=== PATIENT | male | born 1950 | race Caucasian/White ===

== ENCOUNTER 2024-04-04 20:46 | Inpatient (IN) ==
--- OUTSIDE RECORDS SUMMARY | 2024-04-04 20:53 | External Medical Summary | Summary of Care ---
Author Name Unknown Organization [facility] Address [address] [place] [address] Phone [phone] Care Team Providers Care Wax Pattern Coater Name Role Phone Lawrence Rockwell MD Primary Care Provider [phone] Reason for Visit * Reason Comments Other trim Encounter Details Date Type Department Care Team (Late st Contact Info) Description 03/18/2024 8:45 AM EDT Office Visit Podiatry, [facility] [address] [place] [address] Hang Avalos, [facility] [address] [place] [address] Type 2 diabetes mellitus with hemoglobin A1c goal of less than 7.0% ([facility])*; Ingrown toenail of both feet Allergies No known active allergiesdocumented as of this encounter (statuses as of 03/18/2024) Medications Medication Sig Dispensed Refills Start Date End Date Status ONETOUCH ULTRA BLUE STRPIndications:DM type 2, goal A1c below 7 TEST TWICE A DAY 180 Strip 3 09/27/2013 Active Multiple Vitamins-Minerals (ONE-A-DAY MENS 50+ ADVANTAGE) TABS Take by mouth. 0 Activ e Cornish-3 Fatty Acids (SALMON OIL-1000) 200 MG CAPS Take by mouth daily . 0 Active Fluticasone Propionate 50 MCG/ACT Nasal Suspension (Flonase)Indication s:Chronic rhinitis Administer 2 Sprays into each nostril daily. 16 g 5 10/10/2021 Active CPAP every night at bedtime. 0 Active Propranolol HCl 10 MG Oral Tablet (Inderal) TAKE ONE TABLET BY MOUTH DAILY NEEDED 10 Tablet 5 03/05/2023 Active Vardenafil HCl 20 MG Oral Tablet (Levitra)Indication s:Erectile dysfunction, unspecified erectile dysfunction type TAKE ONE TABLET BY MOUTH 1 hour before intercourse as needed; no more than 1 dose per day 5 Tablet 1 03/05/2023 Active Cinnamon 500 MG Oral Tablet Take 1 Tablet by mouth in the morning. 90 Tablet 3 03/05/2023 Active CoQ10 100 MG Oral Capsule Take 100 mg by mouth in the morning. 90 Capsule 3 03/05/2023 Active Aspirin 81 MG Oral Tablet Chewable Take 1 Tablet by mouth in the morning. with food.. 90 Tablet 3 03/05/2023 Active Fluocinonide 0.05 % External SolutionIndications :Psoriasiform dermatitis Apply 1-2 drops to each ear daily as needed for itching or flares. 60 mL 2 03/05/2023 Active LancetsIndications: Type 2 diabetes mellitus with hemoglobin A1c goal of less than 7.0% ([facility]) Test twice daily as directed 200 Each 3 03/05/2023 Active metroNIDAZOLE 1 % External Gel (Metrogel)Indicatio ns:Rosacea Apply to entire face at night prior to bed 135 g 1 03/18/2023 Active Additional Information Patient not taking.Reported on 02/24/2024 Doxycycline Hyclate 20 MG Oral TabletIndications:R osacea TAKE 1 TABLET BY MOUTH TWICE DAILY WITH OR WITHOUT FOOD 180 Tablet 1 08/27/2023 Active Lisinopril 10 MG Oral Tablet (Prinivil)Indicatio ns:HTN, goal below 140/90,Coronary artery disease involving fed[place] indians [place] gr[place] coronary artery of fed[place] heart without angina pectoris TAKE 1 TABLET BY MOUTH DAILY IN THE MORNING 90 Tablet 3 08/28/2023 Active dilTIAZem HCl ER Coated Beads 120 MG Oral Capsule Extended Release 24 Hour (Cardizem CD)Indications:Paro xysmal atrial fibrillation (HCC),Atrial fibrillation, persistent (HCC),HTN, goal below 140/90 TAKE 1 CAPSULE BY MOUTH IN THE MORNING 90 Capsule 3 09/24/2023 Active Metoprolol Succinate ER 50 MG Oral Tablet Extended Release 24 Hour (toPROL XL)Indications:Paro xysmal atrial fibrillation (HCC) TAKE 1 TABLET BY MOUTH IN THE MORNING 90 Tablet 2 12/09/2023 Active Pantoprazole Sodium 20 MG Oral Tablet Delayed Release (Protonix) TAKE 1 TABLET BY MOUTH IN THE MORNING 90 Tablet 2 12/09/2023 Active Metoprolol Succinate ER 25 MG Oral Tablet Extended Release 24 Hour (toPROL XL)Indications:HTN, goal below 140/90 TAKE 1 TABLET BY MOUTH AT BEDTIME 90 Tablet 2 12/09/2023 Active Atorvastatin Calcium 80 MG Oral Tablet (Lipitor) TAKE 1 TABLET BY MOUTH IN THE MORNING 90 Tablet 2 12/09/2023 Active metFORMIN HCl 1000 MG Oral Tablet (Glucophage)Indicat ions:Type 2 diabetes mellitus with hemoglobin A1c goal of less than 7.0% (HCC) TAKE 1 TABLET BY MOUTH TWICE DAILY WITH MORNING AND EVENING MEALS 180 Tablet 1 02/09/2024 Active Warfarin Sodium 5 MG Oral Tablet (Coumadin) TAKE 1 TO 1 AND 1/2 TABLETS BY MOUTH DAILY DIRECTED BY COUMADIN CLINIC 135 Tablet 2 03/08/2024 Active documented as of this encounter (statuses as of 03/18/2024) Active Problems Problem Noted Date Diagnosed Date Coronary artery disease invo lving federated indians [place] coronary artery of fed[place] heart without angina pectoris 10/16/2021 Atrial fibrillation 02/28/2020 Overview: Added automatically from request for surgery [id number] LUIS (obstructive sleep apnea) 05/19/2019 Hypersomnolence disorder 03/23/2019 Primary insomnia 03/23/2019 Gastroesophageal reflux disease with esophagitis 03/12/2019 HTN, goal below 140/90 06/19/2017 Hong's esophagus with high grade dysplasia Type 2 diabetes mellitus wit h hemoglobin A1c goal of less than 7.0% 11/28/2015 Overview: ICD-10 update of inactive term Rosacea 06/14/2014 Dyslipidemia, goal LDL below 70 03/03/2013 documented as of this encounter (statuses as of 03/18/2024) Resolved Problems Problem Noted Date Diagnosed Date Resolved Date Atrial fibrillation, persistent 09/08/2020 10/10/2021 Overview: Added automatically from request for surgery [id number] Nocturnal hypoxemia 05/19/2019 03/15/20 24 Paroxysmal atrial fibrillation 01/12/2019 10/09/2020 Folliculitis 06/14/2014 10/12/2014 Other seborrheic keratosis 06/14/2014 1 12/13/2013 Possible Difficult Intubation history 01/11/2011 06/08/2018 Overview: There are no available records to substantiate a difficult intubation history. However, the patient recalls being told it was hard to put in a breathing tube. On a subsequent procedure it sounds like he recalls being sedated and possibly bronchoscoped for endotracheal tube placement. Cannot be sure that what he recalls was not an upper GI endoscopy (he has had several). Post-procedure addendum, review of outpatient anesthesia records (11 Jan 2011. Linked to GI procedures, Dr. Jacobs, not anesthesia scans.): 06/21/2010: Not intubated (nasal cannula) 07/12/2010: Not intubated (nasal cannula) 09/14/2010: GA induced after inadequate sedation for GI endoscopy. Rapid- sequence induction, [place] 2 laryngoscope blade, easy intubation in comments with 7.0 ETT. 11/23/2009: Transtracheal block, intubation using a Glidescope 4, 7.5 ETT. Type 2 diabetes mellitus wit h hemoglobin A1c goal of less than 7.0% 12/18/2010 04/13/2015 Overview: ICD-10 update of inactive term ADVANCE DIRECTIVE INFORMATION 09/14/2010 12/05/2017 Overview: No, Advance Directive brochure offered , patient declined. Esophageal reflux 03/12/2019 Overview: hiatal hernia documented as of this encounter (statuses as of 03/18/2024) Immunizations Name Administration Dates Next Due COVID-19 mRNA, LNP-s, No Pre serve, 2-Dose Series (Moderna) 12/30/2020,11/25/2020 COVID-19 mRNA, LNP-s, No Pre serve, 2-Dose Series (Pfizer) 08/05/2023 COVID-19, mRNA, LNP-s, PF, B ooster, 100mcg/0.5mg (Moderna) 03/27/2022 Covid-19, Mrna, Lnp-s, Pf, B ivalent, 50 Mcg, IM, 12 yrs and above (Moderna) 08/06/2022 PPD 05/30/2014 Pneumococcal Conjugate Vacc, 13 Valent (Prevnar) 11/28/2015 Pneumococcal Polysaccharide PPV23 (Pneumovax) 05/28/2017,12/18/2010 Season Influenza, Quad, PF, Adjuvanted, 65+ Yrs, IM (FLUAD) 10/16/2020 Seasonal Influenza, PF, 6 M & above, IM , (FluLaval or Fluzone) 09/17/2022,08/02/2019,09/23/2018,10/07 Seasonal Influenza, Quadriva lent Hd (Fluzone Hd) 07/25/2021 Seasonal Influenza, Quadriva lent Hd, 65+ Yrs 08/05/2023 Seasonal Influenza, Quadriva lent, No Preserve, IM 10/17/2016,08/14/2015 Seasonal Influenza, Split, I IV3, With Preserve, Inj 08/03/2014,09/16/2013,08/07/2012,08/17,08/17/2010 TDAP (age 11 and older)(Adacel) 12/18/2010 Varicella Zoster Vaccine (Adult) 04/27/2014 documented as of this encounter Social History Tobacco Use Types Packs/Day Years Used Date Smoking Tobacco: Former Cigarettes 0.5 10 Smokeless Tobacco: Former Quit: 11/03/1979 Comments:quit smoking 1979; chewed tobacco quit 5 yrs ago - no regular use Alcohol Use Standard Drinks/Week Comments Yes 12 (1 standard drink = 0.6 oz pure alcohol) everyday- a couple glasses of wine- more on the weekend PHQ-2 Answer Date Recorded PHQ Adult Total Score 2 01/02/2023 Hunger Vital Sign Answer Date Recorded Within the past 12 months, y ou worried that your food would run out before you got the money to buy more. Never true 01/03/20 23 Within the past 12 months, t he food you bought just didn't last and you didn't have money to get more. Never true 01/02/2023 Sex and Gender Information Value Date Recorded Sex Assigned at Male 03/12/2019 7:13 AM EDT Gender Identity Male 03/12/2019 7:13 AM EDT Sexual Orientation Straight 03/12/2019 7: 13 AM EDT Job Start Date Occupation Industry Not on file Not on file Not on file documented as of this encounter Progress Notes * Hang Avalos, DPM - 03/18/2024 8:37 AM EDT Patient presents with a painful reddened ingrown right great toenail. It has been present for 2 weeks. Past Medical History: Diagnosis Date Abnormal electrocardiogram 09/13/2010 Scanned outside cardiology consult: acceptable risk for GI endoscopy Hong's esophagus with high grade dysplasia 04/12/2016 DM type 2, goal A1c below 7 started meds 2009 Esophageal reflux hiatal hernia Mixed dyslipidemia Rosacea Sleep apnea, obstructive Past Surgical History: Procedure Laterality Date ANESTH, UPPER GI ENDOSCOPIC PROCS 09/14/2010 ANESTHESIA FOR UPPER GI ENDOSCOPIC PROCEDURES (ERCP OR UPPER GI) performed by RUDY JACOBS [place] [facility] [place]ESTH, UPPER GI ENDOSCOPIC PROCS 11/23/2010 ANESTHESIA FOR UPPER GI ENDOSCOPIC PROCEDURES (ERCP OR UPPER GI) performed by RUDY JACOBS at [facility] [place]ESTH, UPPER GI ENDOSCOPIC PROCS 01/11/2011 ANESTHESIA FOR UPPER GI ENDOSCOPIC PROCEDURES (ERCP OR UPPER GI) performed by RUDY JACOBS at [facility] COLONOSCOPY 05/2010 [place], Adenoma, repeat 2014 COLONOSCOPY, DIAGNOSTIC (RECTUM) 05/12/2015 COLONOSCOPY FLEXIBLE PROXIMAL DIAGNOSTIC performed by Rudy Jacobs MD at [facility] COLONOSCOPY, DIAGNOSTIC (RECTUM) N/A 04/09/2021 COLONOSCOPY FLEXIBLE PROXIMAL DIAGNOSTIC performed by Rudy Jacobs MD at [facility] CORONARY ANGIOGRAPHY W/LEFT HEART CATH Right 02/16/2021 CORONARY ANGIOGRAPHY W/LEFT HEART CATH performed by Zeus Phillips DO at [facility] EGD, FLEXIBLE, DIAGNOSTIC 03/18/2011 UPPER GI ENDOSCOPY DIAGNOSTIC performed by RUDY JACOBS at [facility] EGD, FLEXIBLE, DIAGNOSTIC 05/08/2011 UPPER GI ENDOSCOPY DIAGNOSTIC performed by RUDY JACOBS at [facility] EGD, FLEXIBLE, DIAGNOSTIC 12/27/2011 UPPER GI ENDOSCOPY DIAGNOSTIC performed by RUDY JACOBS at [facility] EGD, FLEXIBLE, DIAGNOSTIC 06/05/2012 UPPER GI ENDOSCOPY DIAGNOSTIC performed by Rudy Jacobs MD at [facility] EGD, FLEXIBLE, DIAGNOSTIC 02/26/2013 UPPER GI ENDOSCOPY DIAGNOSTIC performed by Rudy Jacobs MD at [facility] EGD, FLEXIBLE, DIAGNOSTIC 04/22/2014 ESOPHAGOGASTRODUODENOSCOPY (EGD), FLEXIBLE, TRANSORAL, [facility]ST[facility] [place]GD, FLEXIBLE, DIAGNOSTIC N/A 05/12/2015 ESOPHAGOGASTRODUODENOSCOPY (EGD), FLEXIBLE, TRANSORAL, DIAGNOSTIC [facility] [place]GD, FLEXIBLE, DIAGNOSTIC N/A 05/15/2017 ESOPHAGOGASTRODUODENOSCOPY (EGD), FLEXIBLE, TRANSORAL, DIAGNOSTIC [facility] EGD, FLEXIBLE, DIAGNOSTIC N/A 06/26/2018 ESOPHAGOGASTRODUODENOSCOPY (EGD), FLEXIBLE, TRANSORAL, DIAGNOSTIC performed by Rudy Jacobs MD [facility] EGD, FLEXIBLE, DIAGNOSTIC N/A 09/03/2019 ESOPHAGOGASTRODUODENOSCOPY (EGD), FLEXIBLE, TRANSORAL, DIAGNOSTIC performed by Rudy Jacobs MD [facility] EGD, FLEXIBLE, DIAGNOSTIC N/A 04/09/2021 ESOPHAGOGASTRODUODENOSCOPY (EGD), FLEXIBLE, TRANSORAL, DIAGNOSTIC performed by Rudy Jacobs MD [facility] EGD, FLEXIBLE, DIAGNOSTIC N/A 04/22/2022 ESOPHAGOGASTRODUODENOSCOPY (EGD), FLEXIBLE, TRANSORAL, DIAGNOSTIC performed by Rudy Jacobs MD [facility] EGD, FLEXIBLE, REMOVE LESIONS, SNARE METHOD 06/21/2010 EGD, FLEXIBLE, REMOVE LESIONS, SNARE METHOD mucosal resection , repeat in 2 mos EGD, FLEXIBLE, REMOVE LESIONS, SNARE METHOD 08/08/11 await BX's EGD, FLEXIBLE, W/BIOPSY 06/21/2010 barretts EGD, FLEXIBLE,W/ENDOSCOPIC US 06/21/2010 bxs done, path pending EGD, FLEXIBLE,W/ENDOSCOPIC US 08/08/11 await bx EGD, W/ENDOSCOPIC US N/A 05/09/2016 ESOPHAGOGASTRODUODENOSCOPY (EGD), FLEXIBLE, TRANSORAL, ENDOSCOPIC ULTRASOUND performed by Rudy Jacobs MD at [facility] ELECTROPHYSIOLOGY EVAL, ATRIAL FIB, PULMONARY VEIN ISOL N/A 10/30/2020 PVI RADIOFREQUENCY CATHETER ABLATION performed by Manisha Fernando IV, MD at [facility] HEART ELECTROCONVERSION, EXTERNAL N/A 03/06/2020 DC CARDIOVERSION performed by Manisha Fernando IV, MD at [facility] HEART ELECTROCONVERSION, EXTERNAL N/A 05/29/2020 DC CARDIOVERSION performed by Manisha Fernando IV, MD at [facility] INFORMATION 2010 Varicose vein injections REMOVE TONSILS & ADENOIDS, UNDER 12 Family History Problem Relation Age of Onset Heart Disorder Father [place], open heart surgery, CHF Diabetes Father Cancer Father skin CA nose Gastro-intestinal disorder Father diverticulitis Mental Disorder Father depression Thyroid Disorder Father Lung Disorder Mother emphysema Gastro-intestinal disorder Mother choly Social History Socioeconomic History Marital status: Spouse name: Not on file Number of children: Not on file Years of education: Not on file Highest education level: Not on file Occupational History 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 Tobacco Use Smoking status: Former Current packs/day: 0.50 Average packs/day: 0.5 packs/day for 10.0 years (5.0 ttl pk-yrs) Types: Cigarettes Smokeless tobacco: Former Quit date: 11/03/1979 Tobacco comments: quit smoking 1979; chewed tobacco quit 5 yrs ago - no regular use Vaping Use Vaping Use: Never used Substance and Sexual Activity Alcohol use: Yes Alcohol/week: 12.0 standard drinks of alcohol Types: 10 5 oz of wine, 2 1.5 oz of liquor per week Comment: everyday- a couple glasses of wine- more on the weekend Drug use: No Sexual activity: Yes Partners: Female Other Topics Concern Service Yes Blood Transfusions No Caffeine Concern No Comment: 3 cups of coffee per day, iced tea Occupational Exposure No Hobby Hazards No Sleep Concern No Stress Concern Yes Weight Concern Yes Special Diet No Back Care No Exercise Yes Bike Helmet Not Asked Seat Belt Yes Self-Exams Not Asked Social History Narrative Not on file Social Determinants of Health Financial Resource Strain: Not on file Food Insecurity: No Food Insecurity (02/02/2024) Hunger Vital Sign Worried About Running Out of Food in the Last Year: Never true Ran Out of Food in the Last Year: Never true Transportation Needs: Not on file Physical Activity: Not on file Stress: Not on file Social Connections: Not on file Intimate Partner Violence: Not on file Housing Stability: Not on file Current Outpatient Medications Medication Sig Dispense Refill ONETOUCH ULTRA BLUE STRP TEST TWICE A DAY 180 Strip 3 Multiple Vitamins-Minerals (ONE-A-DAY MENS 50+ ADVANTAGE) TABS Take by mouth. Cornish-3 Fatty Acids (SALMON OIL-1000) 200 MG CAPS Take by mouth daily . Fluticasone Propionate 50 MCG/ACT Nasal Suspension (Flonase) Administer 2 Sprays into each nostril daily. 16 g 5 CPAP every night at bedtime. Propranolol HCl 10 MG Oral Tablet (Inderal) TAKE ONE TABLET BY MOUTH DAILY NEEDED 10 Tablet 5 Vardenafil HCl 20 MG Oral Tablet (Levitra) TAKE ONE TABLET BY MOUTH 1 hour before intercourse as needed; no more than 1 dose per day 5 Tablet 1 Cinnamon 500 MG Oral Tablet Take 1 Tablet by mouth in the morning. 90 Tablet 3 CoQ10 100 MG Oral Capsule Take 100 mg by mouth in the morning. 90 Capsule 3 Aspirin 81 MG Oral Tablet Chewable Take 1 Tablet by mouth in the morning. with food.. 90 Tablet 3 Fluocinonide 0.05 % External Solution Apply 1-2 drops to each ear daily as needed for itching or flares. 60 mL 2 Lancets Test twice daily as directed 200 Each 3 metroNIDAZOLE 1 % External Gel (Metrogel) Apply to entire face at night prior to bed (Patient not taking: Reported on 02/24/2024) 135 g 1 Doxycycline Hyclate 20 MG Oral Tablet TAKE 1 TABLET BY MOUTH TWICE DAILY WITH OR WITHOUT FOOD 180 Tablet 1 Lisinopril 10 MG Oral Tablet (Prinivil) TAKE 1 TABLET BY MOUTH DAILY IN THE MORNING 90 Tablet 3 dilTIAZem HCl ER Coated Beads 120 MG Oral Capsule Extended Release 24 Hour (Cardizem CD) TAKE 1 CAPSULE BY MOUTH IN THE MORNING 90 Capsule 3 Metoprolol Succinate ER 50 MG Oral Tablet Extended Release 24 Hour (toPROL XL) TAKE 1 TABLET BY MOUTH IN THE MORNING 90 Tablet 2 Pantoprazole Sodium 20 MG Oral Tablet Delayed Release (Protonix) TAKE 1 TABLET BY MOUTH IN THE MORNING 90 Tablet 2 Metoprolol Succinate ER 25 MG Oral Tablet Extended Release 24 Hour (toPROL XL) TAKE 1 TABLET BY MOUTH AT BEDTIME 90 Tablet 2 Atorvastatin Calcium 80 MG Oral Tablet (Lipitor) TAKE 1 TABLET BY MOUTH IN THE MORNING 90 Tablet 2 metFORMIN HCl 1000 MG Oral Tablet (Glucophage) TAKE 1 TABLET BY MOUTH TWICE DAILY WITH MORNING AND EVENING MEALS 180 Tablet 1 Warfarin Sodium 5 MG Oral Tablet (Coumadin) TAKE 1 TO 1 AND 1/2 TABLETS BY MOUTH DAILY DIRECTED BY COUMADIN CLINIC 135 Tablet 2 No current facility-administered medications for this visit. ROS EXAM: CONSTITUTIONAL: No change in weight, No weakness, No fatigue and No fevers, sweats, or chills EXTREMITIES: No pain, redness or swelling on the joints SKIN/INTEGUMENTARY: No edema, No rash and No itching NEUROLOGIC: Normal balance, No headaches, No seizures and No weakness Objective: Vascular examination: DP 2/4 bilateral PT 2/4 bilateral SPVFT 3sec Dermatological examination: Right great toenail appears ingrown with erythema of border Orthopedic examination: unremarkable Neurological examination: Epicritic sensation intact Assessment: The primary encounter diagnosis was Type 2 diabetes mellitus with hemoglobin A1c goal of less than 7.0% ([facility]). A diagnosis of Ingrown toenail of both feet was also pertinent to this visit. Plan: 1. A partial excision of the border of the right great toenail was performed back to the [facility] topical anesthesia. Patient refused digital block. The toe was dressed with Neosporin/bandaid. documented in this encounter Nursing Notes * Sherrell Maki LPN - 03/18/2024 8:24 AM EDT trim documented in this encounter Plan of Treatment Upcoming Encounters Date Type Department Care Team (Latest Contact Info) Description 4 7:30 AM EDT Anticoagulation Pharmacy, [address] [address] [place] [facility] [address] [place] [address] 4 7:30 AM EDT Hospital Encounter [facility]oscopy Suite, [facility] [address], [address] [place] [address] Rudy Jacobs MD [address] [place] [address] 4 7:30 AM EDT - 4 8:45 AM EDT Surgery [facility], Endoscopy Suite, [facility] [address], [address], [place] [id number] Rudy Jacobs MD [address] [place] [address] ESOPHAGOGASTRODUODENOSCOPY (EGD), FLEXIBLE, TRANSORAL, DIAGNOSTIC 4 10:00 AM EDT Office Visit Sleep Disorders Ctr [facility] [address] [place] [id number] Cristel Canchola DO [address] [facility] [place] [address] 4 12:30 PM EDT Office Visit Cardiology, [facility] [address] [place] [address] Manisha Fernando IV, MD [address] [place] [address] 4 8:45 AM EDT Office Visit Dermatology [facility] [address] [place] [address] Wilian Meneses MD [address] [place] [address] 4 8:45 AM EDT Office Visit Podiatry, [facility] [address] [place] [address] Hang Avalos, DPDano [address] [place] [address] 4 11:30 AM EDT Office Visit Otolaryngology/ Head & Neck/Facial Plastic Surgery [address], [place] [id number] Veronica Clark PA-C [address] [place] [address] 4 8:30 AM EST Office Visit Cardiology, [facility] [address] [place] [address] Margaret Loya CRNP [address] [place] [address] 4 7:40 AM EST Office Visit Family [facility], [place] [address] [place] [id number] Lawrence Rockwell MD [address] [place] [address] 5 9:45 AM EST Office Visit Dermatology [facility] [address] [place] [address] Wilian Meneses MD [address] [place] [address] 5 9:00 AM EDT Nurse Only Ancillary Department, [place] [address] [place] [address] [place], Nurse [facility] [address] [place] [address] Scheduled Orders Name Type Priority Associated Diagnoses Orde r Schedule NAIL,RMV SINGLE NAIL PLATE Procedures Routine Ingrown toenail of both feet Ordered: 03/18/2024 Scheduled Procedures Name Priority Associated Diagnoses Date/Ti me ESOPHAGOGASTRODUODENOSCOPY ( EGD), FLEXIBLE, TRANSORAL, DIAGNOSTIC Recall Hong's esophagus 04/23/2024 7:30 AM EDT COLONOSCOPY FLEXIBLE PROXIMA L DIAGNOSTIC Recall Hong's esophagus 04/23/2024 7:30 AM EDT COLONOSCOPY FLEXIBLE PROXIMA L DIAGNOSTIC Recall History of colon polyps Internal hemorrhoids Health Maintenance Due Date Last Done Comments Cologuard 1994 Fecal Occult Blood Test 1994 Sigmoidoscopy 1994 Zoster Vaccines (2 of 3) 06/22/2014 04/27/2014 DTaP,Tdap,and Td Vaccines (2 - Td or Tdap) 12/18/2020 12/18/2010 Diabetic Foot Exam 04/10/2022 04/10/2021, 0 04/10/2021, 03/12/2019, Additional history exists COVID-19 Vaccine ( season) 2023 08/05/2023, 08/06/2022, 03/27/2022, Additional history exists Colonoscopy 04/09/2024 04/09/2021, 060 05/2021, 05/12/2015, Additional history exists Colorectal Cancer Screening 04/09/2024 Diabetic Eye Exam 08/08/2024 08/08/2023, , 07/15/2022, Additional history exists HbA1c 09/16/2024 03/16/2024, 08/05, 03/28/2023, Additional history exists Depression Screening 02/01/2025 02/02/2024 Albumin/Creatinine Ratio 03/16/2025 024, 03/28/2023, 05/20/2022, Additional history exists B-12 03/16/2025 03/16/2024, 03/04, 05/20/2022, Additional history exists GFR 03/16/2025 03/16/2024, 08/05, 03/28/2023, Additional history exists Hong's Esophagus Surveilance 04/22/2025 04/22/2022, 04/22/2022, 04/09/2021, Additional history exists AAA Screening Completed 11/21/2014 Pneumococcal Vaccine: 65+ Years Completed 05/28/2017, 11/28/2015, 12/18/2010 Influenza Vaccine (FLU shot) Completed 01/2023, 09/17/2022, 09/16/2022, Additional history exists GARDASIL-HPV IMMUNIZATION SERIES Aged Out No longer eligible based on patient's age to complete this topic Hepatitis B Aged Out No longer eligi ble based on patient's age to complete this topic MENINGOCOCCAL (MENACTRA/MENVEO) Aged Out No longer eligible based on patient's age to complete this topic documented as of this encounter Medical Devices Not on filedocumented as of this encounter Visit Diagnoses Diagnosis Type 2 diabetes mellitus with hemoglobin A1c goal of less than 7.0% ([facility])- Primary Ingrown toenail of both feet Hong's esophagus documented in this encounter Advance Directives Latest Code Status on File Code Status Date Activated Date Inactivated Comments Full Code 10/30/2020 4:04 PM 10/31/2020 1:07 PM Thi s order reflects the patients wishes and were consensually agreed upon. Care Teams Wax Pattern Coater Relationship Specialty Start Date End Date Lawrence Rockwell MD [address], [place] [id number] PCP - General Family Medicine 12/11/10 documented as of this encounter
--- OUTSIDE RECORDS SUMMARY | 2024-04-04 20:53 | External Medical Summary | Summary of Care ---
Author Name Unknown Organization [facility] Address [address] [place] [address] Phone [phone] Care Team Providers Care Field Artillery Cannoneer Name Role Phone Lawrence Rockwell MD Primary Care Provider [phone]- [phone] Reason for Visit * Reason Comments Follow Up Encounter Details Date Type Department Care Team ([facility] st Contact Info) Description 03/04/2024 8:30 AM EDT Office Visit Cardiology, [facility] [address] [place] [address] Margaret Loya CRNP [address] [place] [address] Coronary artery disease involving [place] courte oreilles coronary artery of [place] heart without angina pectoris*; Paroxysmal atrial fibrillation (HCC); HTN, goal below 140/90; Dyslipidemia, goal LDL below 70 Allergies No known active allergiesdocumented as of this encounter (statuses as of 03/04/2024) Medications Medication Sig Dispensed Refills Start Date End Date Status ONETOUCH ULTRA BLUE STRPIndications:DM type 2, goal A1c below 7 TEST TWICE A DAY 180 Strip 3 09/27/2013 Active Multiple Vitamins-Minerals (ONE-A-DAY MENS 50+ ADVANTAGE) TABS Take by mouth. 0 Activ e Fairdealing-3 Fatty Acids (SALMON OIL-1000) 200 MG CAPS [...] hemoglobin A1c goal of less than 7.0% ([facility]) Test twice daily as directed 200 Each 3 03/05/2023 Active Warfarin Sodium 5 MG Oral Tablet (Coumadin) TAKE 1-1.5 TABLETS BY MOUTH DAILY DIRECTED BY COUMADIN CLINIC 21 Tablet 0 03/06/2023 Active metroNIDAZOLE 1 % External Gel (Metrogel)Indicatio [...] ns:HTN, goal below 140/90,Coronary artery disease involving lac courte oreilles coronary artery of [place] ore[place] heart without angina pectoris TAKE 1 TABLET [...] EVENING MEALS 180 Tablet 1 02/09/2024 Active documented as of this encounter (statuses as of 03/04/2024) Active Problems Problem Noted Date Diagnosed Date Coronary artery disease invo lving lac courte oreilles coronary artery of [place] ore[place] heart without angina pectoris 10/16/2021 Atrial fibrillation 02/28/2020 Overview: Added automatically from request for surgery [id number] LUIS (obstructive sleep apnea) 05/19/2019 Nocturnal hypoxemia 05/19/2019 Hypersomnolence disorder 03/23/2019 Primary insomnia 03/23/2019 Gastroesophageal reflux disease with esophagitis 03/12/2019 HTN, goal below 140/90 06/19/2017 Hong's esophagus with high grade dysplasia Type 2 diabetes mellitus wit h hemoglobin A1c goal of less than 7.0% 11/28/2015 Overview: ICD-10 update of inactive term Rosacea 06/14/2014 Dyslipidemia, goal LDL below 70 03/03/2013 documented as of this encounter (statuses as of 03/04/2024) Resolved Problems Problem Noted Date Diagnosed Date Resolved Date Atrial fibrillation, persistent 09/08/2020 10/10/2021 Overview: Added automatically from request for surgery [id number] Paroxysmal atrial fibrillation 01/12/2019 10/09/2020 Folliculitis 06/14/2014 [...] Jan 2011. Linked to GI procedures, Dr. Coleman, not anesthesia scans.): 06/21/2010: Not intubated (nasal [...] as of this encounter (statuses as of 03/04/2024) Immunizations Name Administration Dates Next Due COVID-19 [...] on file documented as of this encounter Last Filed Vital Signs Vital Sign Reading Time Taken Comments Blood Pressure 120/82 03/04/2024 8:29 AM EDT Pulse 64 03/04/2024 8:29 AM EDT Temperature - - Respiratory Rate 14 03/04/2024 8:29 AM EDT Oxygen Saturation - - Inhaled Oxygen Concentration - - Weight 104.8 kg (231 lb) 03/04/2024 8:29 AM EDT Height - - Body Mass Index 34.11 02/24/2024 8:46 AM EDT documented in this encounter Progress Notes * Margaret Loya CRNP - 03/04/2024 8:30 AM EDT Images from the original note were not included. 03/03/2024 Cardiology Follow Up Primary Medical Supervisor: Dr. Del Rio Cardiac Problems: 1. Paroxysmally atrial fibrillation 2. History of atrial fibrillation ablation 2020 as well as prior DCCV 3. Nonobstructive coronary artery disease 4. LUIS 5. Dyslipidemia and hypertension HPI: Mitch Pinto is a 73 year old male presents for routine cardiology follow up. Last seen in our office by Dr. Del Rio on 08/21/2023 feeling well from a cardiac standpoint at this time. Patient presents today feeling well overall. He states that on occasion he wakes at night sometimesfeeling "anxious" and as though he needs to take few deep breathes, can feel his heart rate speed up. Symptoms resolve very quickly and does not seem to be an issue. He remains very active and loves to fly fish. He states that he does not hydrate well and is working on it. Rare caffeine intake BP well controlled. Uses his CPAP Reports compliance on all medication therapies, No bleeding concerns with being on warfarin. REVIEW OF SYSTEMS: See HPI for pertinent positives. All others negative other than those noted in the HPI. CONSTITUTIONAL: No change in weight, No weakness, No fatigue and No fevers, No sweats or chills. PULMONARY: No cough, sputum, or hemoptysis, No wheezing, No shortness or breath and No recent change in breathing. CARDIOVASCULAR: No chest pain, No dyspnea on exertion, No edema, No palpitations and No syncope. GASTROINTESTINAL: No abdominal pain, No change in bowel habits, No significant heartburn, No nausea, No vomiting, No diarrhea, No constipation, No blood in stools or black tarry stools. No dysphagia. HEMATOLOGIC: No abnormal bleeding and No bruising. NEUROLOGICAL: Normal balance, No headaches and No weakness. Review of patient's allergies indicates: No Known Allergies Current Outpatient Medications Medication Sig Dispense Refill Multiple Vitamins-Minerals (ONE-A-DAY MENS 50+ ADVANTAGE) TABS Take by mouth. Fairdealing-3 Fatty Acids (SALMON OIL-1000) 200 MG CAPS [...] the morning. with food.. 90 Tablet 3 Warfarin Sodium 5 MG Oral Tablet (Coumadin) TAKE 1-1.5 TABLETS BY MOUTH DAILY DIRECTED BY COUMADIN CLINIC 21 Tablet 0 Doxycycline Hyclate 20 MG Oral Tablet TAKE [...] MORNING AND EVENING MEALS 180 Tablet 1 BookiooUCH ULTRA BLUE STRP TEST TWICE A DAY 180 Strip 3 Fluocinonide 0.05 % External Solution Apply 1-2 drops to each ear daily as needed for itching or flares. 60 mL 2 Lancets Test twice daily as directed 200 Each 3 metroNIDAZOLE 1 % External Gel (Metrogel) Apply to entire face at night prior to bed (Patient not taking: Reported on 02/24/2024) 135 g 1 No current facility-administered medications for this visit. Past Medical History: Diagnosis Date Abnormal electrocardiogram 09/13/2010 Scanned outside cardiology consult: acceptable risk for GI endoscopy Hong's esophagus with high grade dysplasia 04/12/2016 DM type 2, goal A1c below 7 started meds 2009 Esophageal reflux hiatal hernia Mixed dyslipidemia Rosacea Sleep apnea, obstructive Family History Problem Relation Age of Onset Heart Disorder Father LA, open heart surgery, CHF Diabetes Father Cancer Father skin CA nose Gastro-intestinal disorder Father diverticulitis Mental Disorder Father depression Thyroid Disorder Father Lung Disorder Mother emphysema Gastro-intestinal disorder Mother choly Social History Socioeconomic History Marital status: Occupational History 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 A+Ox3. HEENT: Normocephalic. Atraumatic. PERRL. EOMI. Conjunctiva and sclera clear. NECK: No carotid bruits. No JVD. Carotid upstrokes are brisk. Heart: RRR. S1 and S2 noted. No murmur. No rubs or gallops. PMI non displaced. Lungs: Clear to auscultation. No wheezes.No rhonchi. No rales. Abdomen: Normal bowel sounds. Soft. Nontender. No masses or organomegaly. No abdominal bruits. Extremities: No edema. No clubbing or cyanosis. Pulses: radial=2/4, posterior tibial=2/4, dorsalis pedis = 2/4. NEURO: No focal deficits. PSYCH: Appropriate affect and insight. DATA Labs & Imaging Reviewed Below: EKG 05/15/2023 Normal sinus rhythm with sinus arrhythmia Incomplete right bundle branch block Borderline ECG When compared with ECG of 06-MAR-2023 16:10, Sinus rhythm has replaced Atrial flutter Nonspecific T wave abnormality, worse in Lateral leads Ventricular Rate: 61 Cardiac cath 02/16/2021 ASSESSMENT/PLAN: 73 year old year old male 1. Coronary artery disease involving lac courte oreilles coronary artery of lac cour[place] oreilles heart without angina pectoris -patient is doing quite well from a cardiac perspective denies any change in his functional capacity -history of cardiac catheterization in 2020 that showed mild single-vessel CAD nonobstructive -continue metoprolol succinate, lisinopril, aspirin 81 mg, atorvastatin 2. Paroxysmal atrial fibrillation (HCC) -known history with prior cardioversion and ablation, feeling well overall -discussed his occasional palpitation symptoms overnight -remains compliant with CPAP -encouraged to stay well hydrated but also to keep a small journal of the frequency of his episodesin any contributing factors -if they should continue or worsen would likely recommend protracted cardiac monitoring -patient also follows with Dr. Fernando, EP and is scheduled to see him this May -continue diltiazem, and metoprolol succinate -aware the patient has propranolol p.r.n. also on his medication list which he uses for an occasional tremor -continue warfarin as per current recommendation by [facility]TM 3. HTN, goal below 140/90 -well controlled continue diltiazem, metoprolol succinate, lisinopril 4. Dyslipidemia, goal LDL below 70 -recommend yearly lipid panel -continue atorvastatin and aspirin 81 mg DISPOSITION: Follow up 6 months. Also keep scheduled EP visit or if symptoms worsen/fail to improve. All questions were answered to the patients satisfaction. Patient advised to report to ED with any and all emergencies. The patient agrees to the above plan and will call with additional questions or concerns. [facility] [address] [facility] [address] I spent a total of 32 minutes on the date of service in preparation, delivery, and documentation ofthe care provided to Mitch Pinto excluding any time spent in the performance of separately billed services. This chart was completed in part utilizing [id number] Speech Voice Recognition Software. Grammatical errors, random word insertions, pronoun errors, and incomplete sentences are an occasional consequence of this system due to software limitations, ambient noise, and hardware issues. Any formal questions or concerns about the content, text, or information contained within the body of this dictation should be directly addressed to the provider for clarification. documented in this encounter Nursing Notes * Radha Gonzalez LPN - 03/04/2024 8:27 AM EDT Examination Room: 6 Name: Mitch Pinto Date of : 1950 Reason for Visit: Follow up Problems/Concerns: Occasionally feels fluttering at night with some SOB. Interim Hosp(s): denies Chest Pain/SOB: denies MyChart Discussed: ALREADY ACTIVE Patient was instructed to not get up on the exam table until directed and assisted by their provider; patient is to remain seated in the chair/ wheelchair/ exam table for fall prevention and safety reasons. Patient is aware staff will assist stepping down off exam table with personnel. documented in this encounter Plan of Treatment Upcoming Encounters Date Type Department Care Team (Latest Contact Info) Description 4 5:10 PM EDT Anticoagulation Pharmacy, [place] [address] [facility] [place] [address] [facility] [address] [place] [address] 4 9:30 AM EDT Anticoagulation Pharmacy, [place] [address] [facility] [place] [address] [place], [facility] [address] [place] [facility] [place] [address] 4 9:40 AM EDT Office Visit Family [facility], [place] [address] [place] [address] Lawrence Rockwell MD [address] [place] [address] 4 8:45 AM EDT Office Visit Podiatry, [facility] [address] [place] [address] Hang Avalos, [facility] [address] [place] [address] 4 7:30 AM EDT Hospital Encounter [facility]O [facility], Endoscopy [address], [facility], [address] [place] [address] Demarco Coleman MD [address], [place] [id number] 4 7:30 AM EDT - 4 8:45 AM EDT Surgery ENDO [facility], Endoscopy [address], [facility], [address] [place] [address] Demarco Coleman MD [address], [place] [id number] ESOPHAGOGASTRODUODENOSCOPY (EGD), FLEXIBLE, TRANSORAL, DIAGNOSTIC 4 10:00 AM EDT Office Visit Sleep Disorders [facility] [address] [facility] [address] Cristel Canchola DO [address] [place] [address] 4 12:30 PM EDT Office Visit Cardiology, [facility] [address] [place] [address] Manisha Fernando IV, MD [address] [place] [address] 4 8:45 AM EDT Office Visit Dermatology [facility] [address] [place] [address] Wilian Meneses MD [address] [place] [address] 4 11:30 AM EDT Office Visit Otolaryngology/ Head & Neck/Facial Plastic Surgery [address] [place] [address] Veronica Clark PA-C [address] [place] [address] 4 8:30 AM EST Office Visit Cardiology, [facility] [address] [place] [address] Margaret Loya CRNP [address] [facility] [place] [address] 5 9:45 AM EST Office Visit Dermatology [facility] [address] [place] [address] Wilian Meneses MD [address] [place] [address], [place] [address] 9:00 AM EDT Nurse Only Ancillary Department, [place] [address] [place] [address] Rafy, Nurse [facility] [address] [place] [address] Scheduled Procedures Name Priority Associated Diagnoses Date/Ti [...] 2023 08/05/2023, 08/06/2022, 03/27/2022, Additional history exists HbA1c 03/02/2024 09/01/2023, 03/04, 11/19/2022, Additional history exists Albumin/Creatinine Ratio 03/28/2024 023, 05/20/2022, 10/10/2021, Additional history exists B-12 03/28/2024 03/28/2023, 05/03, 10/10/2021, Additional history exists Colonoscopy 04/09/2024 04/09/2021, 06/0 05/2021, 05/12/2015, Additional history exists Colorectal Cancer Screening 04/09/2024 Diabetic Eye Exam 08/08/2024 08/08/2023, , 07/15/2022, Additional history exists GFR 09/01/2024 09/01/2023, 03/04, 05/20/2022, Additional history exists Depression Screening 02/01/2025 02/02/2024 Hong's Esophagus Surveilance 04/22/2025 04/22/2022, 04/22/2022, 04/09/2021, [...] as of this encounter Visit Diagnoses Diagnosis Coronary artery disease involving lac courte oreilles coronary artery of lac courte oreilles heart without angina pectoris- Primary Paroxysmal atrial fibrillation (HCC) Atrial fibrillation HTN, goal below 140/90 Unspecified essential hypertension Dyslipidemia, goal LDL below 70 Other and unspecified hyperlipidemia Hong's esophagus documented in this encounter Advance Directives Latest Code Status on File Code Status Date Activated Date Inactivated Comments Full Code 10/30/2020 4:04 PM 10/31/2020 1:07 PM Thi s order reflects the patients wishes and were consensually agreed upon. Care Teams Field Artillery Cannoneer Relationship Specialty Start Date End Date Lawrence Rockwell MD [address] [place] [address] PCP - General Family Medicine 12/11/10 documented as of this encounter
--- OUTSIDE RECORDS SUMMARY | 2024-04-04 20:53 | External Medical Summary ---
Author Name Unknown Address Unknown Organization [id number]:[facility] [place] [facility] [address] [address] Laboratory Report Ordering Provider Test Date Status ELIZABETH CRAWLEYJOSS 03/16/2024 07:36:30 Final Normal: <30 mg/g creatinine< br/>High: 30-300 mg/g creatinine
Very High: >300 mg/g creatinine
Nephrotic: >2200 mg/g creatinine Observation Date Value Abnormality Reference (Units ) Status Albumin, Urine 03/16/2024 07:36:30 <1.20 (mg/dL) Final Creatinine, Urine 03/16/2024 07:36:30 163 (mg/dL) Final Albumin/Creatinine [Mass Ratio] in Urine 03/16/2024 07:36:30 <7 <30 (mg/g Creat) Final Performing Location [facility] [place] [facility] [place] [address]
--- OUTSIDE RECORDS SUMMARY | 2024-04-04 20:53 | External Medical Summary ---
Author Name Unknown Address Unknown Organization [id number]:[facility] [place] [address] [place] [address] Laboratory Report Ordering Provider Test Date Status STEPHIE CRAWLEY 03/16/2024 07:35:02 Final Observation Date Value Abnormality Reference (Units ) Status Vitamin B12 03/16/2024 07:35:02 [phone] (pg/mL) Final Performing Location LABORATORY C - [address] [place] [address]
--- OUTSIDE RECORDS SUMMARY | 2024-04-04 20:53 | External Medical Summary ---
Author Name Unknown Address Unknown Organization [id number]:[facility] [place] [address] [place] [address] Laboratory Report Ordering Provider Test Date Status IMELDA AGUERO 03/16/2024 07:35:02 Final Observation Date Value Abnormality Reference (Units ) Status MYCODE SPECIMEN-SST 03/16/2024 07:35:02 Freezing of extracted DNA, whole blood and/or serum. Final Performing Location LABORATORY C - [address] [place] [address]
--- OUTSIDE RECORDS SUMMARY | 2024-04-04 20:53 | External Medical Summary ---
Author Name Unknown Address Unknown Organization [id number][place] [place] [address] [facility] [address] Laboratory Report Ordering Provider Test Date Status STEPHIE CRAWLEY 03/16/2024 07:35:02 Final Observation Date Value Abnormality Reference (Units ) Status BUN 03/16/2024 07:35:02 15 6-20 (mg/dL) Final Creatinine 03/16/2024 07:35:02 0.9 0.6-1.2 (mg/dL) Final Glomerular filtration rate/1.73 sq M.predicted [Volume Rate/Area] in Serum, Plasma or Blood by Creatinine-based formula (CKD-EPI) 03/16/2024 07:35:02 85 >=60 (mL/min) Final eGFR is calculated based on the CKD-EPI 2020 equation Sodium 03/16/2024 07:35:02 138 135-146 (m mol/L) Final Potassium 03/16/2024 07:35:02 4.6 3.5-5.1 (m mol/L) Final Cl 03/16/2024 07:35:02 104 98-107 (mm ol/L) Final CO2 03/16/2024 07:35:02 26 22-32 (mmo l/L) Final Anion gap 03/16/2024 07:35:02 8 7-15 (mmol /L) Final Glucose 03/16/2024 07:35:02 119 70-120 (mg /dL) Final Albumin 03/16/2024 07:35:02 4.2 3.8-5.0 (g /dL) Final AST (Aspartate aminotransferase) 03/16/2024 07:35:02 35 10-50 (U/L) Final Alk Phos 03/16/2024 07:35:02 76 35-130 (U/ L) Final Bilirubin, Total 03/16/2024 07:35:02 0.3 <=1 .2 (mg/dL) Final Calcium 03/16/2024 07:35:02 9.3 8.4-10.2 ( mg/dL) Final Protein 03/16/2024 07:35:02 6.8 6.0-8.3 (g /dL) Final ALT (Alanine aminotransferase) 03/16/2024 07:35:02 46 10-50 (U/L) Final Performing Location [facility] [place] [address] [facility] [place] [address]
--- OUTSIDE RECORDS SUMMARY | 2024-04-04 20:53 | External Medical Summary ---
Author Name Unknown Address Unknown Organization [id number]:[facility] [place] [address] [facility] [address] Laboratory Report Ordering Provider Test Date Status STEPHIE CRAWLEY 03/16/2024 07:35:02 Final Observation Date Value Abnormality Reference (Units ) Status Triglyceride 03/16/2024 07:35:02 68 <=174 ( mg/dL) Final Triglyceride Reference Range s (mg/dL):
<150 Acceptable
150-174 Borderline high
175-499 High
>=500 Very high Cholesterol 03/16/2024 07:35:02 116 <200 (mg /dL) Final Total Cholesterol Reference Ranges (mg/dL):
<200 Desirable
200-239 Borderline high
>=240 High HDL 03/16/2024 07:35:02 44 >39 (mg/dL ) Final HDL Cholesterol Reference Ra nges (mg/dL):
>=60 High (Desirable)
<50 Low (Undesirable) For Females
<40 Low (Undesirable) For Males NON-HDL CHOLESTEROL 03/16/2024 07:35:02 72 <=159 (mg/dL) Final Non-HDL Cholesterol Referenc e Range (mg/dL):
<100 Target level for high risk ASCVD patient
<130 Optimal for general population
130-159 Near optimal for general population
160-189 Borderline High
190-219 High
>=220 Very High LDL, (calculated) 03/16/2024 07:35:02 58 <= 129 (mg/dL) Final LDL Cholesterol Reference Ra nges (mg/dL):
<70 Target level for high risk ASCVD patient
<100 Optimal for general population
100-129 Near optimal for general population
130-159 Borderline high
160-189 High
>=190 Very high Performing Location [facility] [place] [address] [facility] [address]
--- OUTSIDE RECORDS SUMMARY | 2024-04-04 20:53 | External Medical Summary | Summary of Care ---
Author Name Unknown Organization [facility] Address [address] [place] [address] Phone [phone] Care Team Providers Care Desk Reporter Name Role Phone Lawrence Rockwell MD Primary Care Provider [phone] Reason for Visit * Reason Comments Follow Up Return in 6 months W ould like to see how he could get information on why he is on the CPAP and hypertension medications Encounter Details Date Type Department Care Team (Late st Contact Info) Description 03/15/2024 9:40 AM EDT Office Visit [facility] [address] [place] [address] Lawrence Rockwell MD [address] [place] [address] Type 2 diabetes mellitus with hemoglobin A1c goal of less than 7.0% (HCC)*; Paroxysmal atrial fibrillation (HCC); HTN, goal below 140/90; Dyslipidemia, goal LDL below 70; LUIS (obstructive sleep apnea); Encounter for long-term (current) use of medications; Coronary artery disease involving [place] coronary artery of [place] heart without angina pectoris; Hong's esophagus with high grade dysplasia Allergies No known active allergiesdocumented as of this encounter (statuses as of 03/31/2024) Medications Medication Sig Dispensed Refills Start Date End Date Status ONETOUCH ULTRA BLUE STRPIndications:DM type 2, goal A1c below 7 TEST TWICE A DAY 180 Strip 3 09/27/2013 Active Multiple Vitamins-Minerals (ONE-A-DAY MENS 50+ ADVANTAGE) TABS Take by mouth. Activ e Hope-3 Fatty Acids (SALMON OIL-1000) 200 MG CAPS Take by mouth daily . Active Fluticasone Propionate 50 MCG/ACT Nasal Suspension (Flonase)Indication s:Chronic rhinitis Administer 2 Sprays into each nostril daily. 16 g 5 10/10/2021 Active CPAP every night at bedtime. Active Propranolol HCl 10 MG Oral Tablet [...] hemoglobin A1c goal of less than 7.0% ([facility]) Test twice daily as directed [...] ns:HTN, goal below 140/90,Coronary artery disease involving [place] coronary artery of [place] heart without angina pectoris TAKE 1 TABLET [...] as of this encounter (statuses as of 03/31/2024) Active Problems Problem Noted Date Diagnosed Date Coronary artery disease invo lving [place] coronary artery of [place] heart without angina pectoris 10/16/2021 Atrial fibrillation 02/28/2020 Overview: Added automatically from request for surgery [id number] LUIS (obstructive sleep apnea) 05/19/2019 Hypersomnolence disorder [...] as of this encounter (statuses as of 03/31/2024) Resolved Problems Problem Noted Date Diagnosed Date Resolved Date Atrial fibrillation, persistent 09/08/2020 10/10/2021 Overview: Added automatically from request for surgery [id number] Nocturnal hypoxemia 05/19/2019 03/15/20 24 Paroxysmal atrial [...] as of this encounter (statuses as of 03/31/2024) Immunizations Name Administration Dates Next Due COVID-19 [...] 0.5 10 Smokeless Tobacco: Former Quit: 11/03/1979 Tobacco Cessation:Counseling Given: Not Answered Comments:quit smoking 1979; chewed tobacco quit 5 [...] Sign Reading Time Taken Comments Blood Pressure 128/64 03/15/2024 9:41 AM EDT Pulse 61 03/15/2024 9:41 AM EDT Temperature 36 C (96.8 F) 03/15/2024 9:41 AM EDT Respiratory Rate 17 03/15/2024 9:41 AM EDT Oxygen Saturation 98% 03/15/2024 9:41 AM EDT Inhaled Oxygen Concentration - - Weight 105 kg (231 lb 6.4 oz) 03/15/2024 9:41 AM EDT Height 175.3 cm (5' 9") 03/15/2024 9:41 AM EDT Body Mass Index 34.17 03/15/2024 9:41 AM EDT documented in this encounter Progress Notes * Lawrence Rockwell MD - 03/15/2024 10:16 AM EDT Subjective: Mitch Pinto is a 73 year old male here today for Chief Complaint Patient presents with Follow Up Return in 6 months Would like to see how he could get information on why he is on the CPAP and hypertension medications Patient presents for routine six-month recheck. He is agreeable to updating labs and will return tohave them done fasting. He is tolerating his current medications. Has no acute complaints today. Does report receiving the RSV vaccination and 1st shingles vaccination at [facility]. He is requesting a letter today documenting the diagnoses and treatments for obstructive sleep apnea, hypertension, atrial fibrillation. [facility] He is scheduled to have repeat EGD and colonoscopy next month. Past Medical History: Diagnosis Date Abnormal electrocardiogram [...] (ERCP OR UPPER GI) performed by RUDY COLEMAN at ENDOSCOPY [facility] ANESTH, UPPER GI ENDOSCOPIC PROCS 11/23/2010 ANESTHESIA FOR UPPER GI ENDOSCOPIC PROCEDURES (ERCP OR UPPER GI) performed by RUDY COLEMAN at ENDOSCOPY [facility] ANESTH, UPPER GI ENDOSCOPIC PROCS 01/11/2011 ANESTHESIA FOR UPPER GI ENDOSCOPIC PROCEDURES (ERCP OR UPPER GI) performed by RUDY COLEMAN at ENDOSCOPY [facility] COLONOSCOPY 05/2010 [place], [place], repeat 2014 COLONOSCOPY, DIAGNOSTIC (RECTUM) 05/12/2015 COLONOSCOPY FLEXIBLE PROXIMAL DIAGNOSTIC performed by Rudy Coleman MD at ENDOSCOPY [facility] COLONOSCOPY, DIAGNOSTIC (RECTUM) N/A 04/09/2021 COLONOSCOPY FLEXIBLE PROXIMAL DIAGNOSTIC performed by Rudy Coleman MD at ENDOSCOPY [facility] CORONARY ANGIOGRAPHY W/LEFT HEART CATH Right 02/16/2021 CORONARY ANGIOGRAPHY W/LEFT HEART CATH performed by Zeus Phillips DO at CARDIAC LABS [facility] EGD, FLEXIBLE, DIAGNOSTIC 03/18/2011 UPPER GI ENDOSCOPY DIAGNOSTIC performed by RUDY COLEMAN at ENDOSCOPY [facility] EGD, FLEXIBLE, DIAGNOSTIC 05/08/2011 UPPER GI ENDOSCOPY DIAGNOSTIC performed by RUDY COLEMAN at ENDOSCOPY [facility] EGD, FLEXIBLE, DIAGNOSTIC 12/27/2011 UPPER GI ENDOSCOPY DIAGNOSTIC performed by RUDY COLEMAN at ENDOSCOPY [facility] EGD, FLEXIBLE, DIAGNOSTIC 06/05/2012 UPPER GI ENDOSCOPY DIAGNOSTIC performed by Rudy Coleman MD at ENDOSCOPY [facility] EGD, FLEXIBLE, DIAGNOSTIC 02/26/2013 UPPER GI ENDOSCOPY DIAGNOSTIC performed by Rudy Coleman MD at ENDOSCOPY [facility] EGD, FLEXIBLE, DIAGNOSTIC 04/22/2014 ESOPHAGOGASTRODUODENOSCOPY (EGD), FLEXIBLE, TRANSORAL, DIAGNOSTIC performed by Rudy Coleman MD [facility] EGD, FLEXIBLE, DIAGNOSTIC N/A 05/12/2015 ESOPHAGOGASTRODUODENOSCOPY (EGD), FLEXIBLE, TRANSORAL, DIAGNOSTIC performed by Rudy Coleman MD [facility] EGD, FLEXIBLE, DIAGNOSTIC N/A 05/15/2017 ESOPHAGOGASTRODUODENOSCOPY (EGD), FLEXIBLE, TRANSORAL, DIAGNOSTIC performed by Rudy Coleman MD [facility] EGD, FLEXIBLE, DIAGNOSTIC N/A 06/26/2018 ESOPHAGOGASTRODUODENOSCOPY (EGD), FLEXIBLE, TRANSORAL, DIAGNOSTIC performed by Rudy Coleman MD at[facility]COPY [facility] EGD, FLEXIBLE, DIAGNOSTIC N/A 09/03/2019 ESOPHAGOGASTRODUODENOSCOPY (EGD), FLEXIBLE, TRANSORAL, DIAGNOSTIC [facility] EGD, FLEXIBLE, DIAGNOSTIC N/A 04/09/2021 ESOPHAGOGASTRODUODENOSCOPY (EGD), FLEXIBLE, TRANSORAL, DIAGNOSTIC performed [facility] EGD, FLEXIBLE, DIAGNOSTIC N/A 04/22/2022 ESOPHAGOGASTRODUODENOSCOPY (EGD), FLEXIBLE, TRANSORAL, DIAGNOSTIC performed by [facility] EGD, FLEXIBLE, REMOVE LESIONS, SNARE METHOD 06/21/2010 EGD, FLEXIBLE, REMOVE LESIONS, SNARE METHOD mucosal resection , repeat in 2 mos EGD, FLEXIBLE, REMOVE LESIONS, SNARE METHOD 08/08/11 await BX's EGD, FLEXIBLE, W/BIOPSY 06/21/2010 barretts EGD, FLEXIBLE,W/ENDOSCOPIC US 06/21/2010 bxs done, path pending EGD, FLEXIBLE,W/ENDOSCOPIC US 08/08/11 await bx EGD, W/ENDOSCOPIC US N/A 05/09/2016 ESOPHAGOGASTRODUODENOSCOPY (EGD), FLEXIBLE, TRANSORAL, ENDOSCOPIC ULTRASOUND performed by Rudy Coleman MD at ENDOSCOPY [facility] ELECTROPHYSIOLOGY EVAL, ATRIAL FIB, PULMONARY VEIN ISOL N/A 10/30/2020 PVI RADIOFREQUENCY CATHETER ABLATION performed by Manisha Fernando IV, MD at CARDIAC LABS [facility] HEART ELECTROCONVERSION, EXTERNAL N/A 03/06/2020 DC CARDIOVERSION performed by Manisha Fernando IV, MD at CARDIAC LABS [facility] HEART ELECTROCONVERSION, EXTERNAL N/A 05/29/2020 DC CARDIOVERSION performed by Manisha Fernando IV, MD at CARDIAC LABS [facility] INFORMATION 2009 Varicose vein injections REMOVE TONSILS & ADENOIDS, UNDER 12 Review of patient's allergies indicates: No Known Allergies Current Outpatient Medications Medication Sig Dispense Refill [employer] ULTRA BLUE STRP TEST TWICE A DAY 180 Strip 3 Multiple Vitamins-Minerals (ONE-A-DAY MENS 50+ ADVANTAGE) TABS Take by mouth. Hope-3 Fatty Acids (SALMON OIL-1000) 200 MG CAPS [...] twice daily as directed 200 Each 3 Doxycycline Hyclate 20 MG Oral Tablet TAKE [...] DIRECTED BY [facility] 135 Tablet 2 metroNIDAZOLE 1 % External Gel (Metrogel) Apply to entire face at night prior to bed (Patient not taking: Reported on 02/24/2024) 135 g 1 No current facility-administered medications for this visit. Objective: BP 128/64 | Pulse 61 | Temp 36 C (96.8 F) | Resp 17 | Ht 1.753 m (5' 9") | Wt 105 kg(231 lb 6.4 oz) | SpO2 98% | BMI 34.17 kg/m | BSA 2.26 m GEN: NAD HEENT: Benign NECK: Supple with no LAD, TM, JVD CHEST: CTA B CV: RRR ABD: Soft, NT/ND, No HSM, NABS EXT: No c,c,e Assessment and Plan: Type 2 diabetes mellitus with hemoglobin A1c goal of less than 7.0% (HCC) (Primary) - COMPREHENSIVE METABOLIC PANEL; Future; Expected date: 03/15/2024 - ALBUMIN / CREATININE RATIO, URINE; Future; Expected date: 03/15/2024 - HEMOGLOBIN A1C; Future; Expected date: 03/15/2024 Paroxysmal atrial fibrillation (HCC) HTN, goal below 140/90 - COMPREHENSIVE METABOLIC PANEL; Future; Expected date: 03/15/2024 Dyslipidemia, goal LDL below 70 - LIPID PANEL WITH DIRECT LDL IF TG IS HIGH; Future; Expected date: 03/15/2024 LUIS (obstructive sleep apnea) Encounter for long-term (current) use of medications - VITAMIN B12; Future; Expected date: 03/15/2024 - MAGNESIUM; Future; Expected date: 03/15/2024 - CBC; Future; Expected date: 03/15/2024 Coronary artery disease involving [place] coronary artery of [place] heart without angina pectoris Hong's esophagus with high grade dysplasia No changes from me today. Pt to return for labs. Will provide letter documenting medical issues andtreatments. 35 min with pt and chart review Lawrence Rockwell MD documented in this encounter Nursing Notes * Leigha Taylor LPN - 03/15/2024 9:48 AM EDT The patient has been properly identified by confirmation of name and date of . Chief Complaint Patient presents with Follow Up Return in 6 months Would like to see how he could get information on why he is on the CPAP and hypertension medications documented in this encounter Plan of Treatment Upcoming Encounters Date Type Department Care Team (Latest Contact Info) Description 4 7:30 AM EDT Anticoagulation Pharmacy, [facility] [address] [place] [address] [place], [facility] [address] [place] [address] 4 7:30 AM EDT Hospital Encounter [facility] Endoscopy [facility], [facility], [address] [place] [address] Rudy Coleman MD [address] [place] [address] 4 7:30 AM EDT - 4 8:45 AM EDT Surgery [facility] End[facility], [facility], [address] [place] [address] Rudy Coleman MD [address] [place] [address] ESOPHAGOGASTRODUODENOSCOPY (EGD), FLEXIBLE, TRANSORAL, DIAGNOSTIC 4 10:00 AM EDT Office Visit [facility] [address] [place] [id number] Cristel Canchola, [address] [facility] [address] 4 12:30 PM EDT Office Visit Cardiology, [facility] [address] [facility] [place] [address] Manisha Fernando IV, MD [address], [place] [id number] 4 8:45 AM EDT Office Visit Dermatology [facility] [address] [place] [address] [place] [address] Wilian Meneses MD [address] [address] 4 8:45 AM EDT [facility] [address] [place] [address] Hang Avalos, DPM [address] [place] [address] 4 11:30 AM EDT Office Visit Otolaryngology/ Head & Neck/Facial Plastic Surgery [address] [place] [address] Veronica Clark PA-C [address] [place] [address] 4 8:30 AM EST Office Visit Cardiology, [facility] [address] [place] [address] Margaret Loya CRNP [address] [place] [address] 4 7:40 AM EST Office Visit Family [facility], [address] [address] Lawrence Rockwell MD [address] [place] [address] 5 9:45 AM EST Office Visit Dermatology [facility] [address] [place] [address] Wilian Meneses MD [address] [place] [address] 5 9:00 AM EDT Nurse Only Ancillary Department, [address] [address] Rafy Nurse [facility] [address] [place] [address] Scheduled Procedures Name Priority Associated Diagnoses Date/Ti [...] 03/27/2022, Additional history exists Colonoscopy 04/09/2024 04/09/2021, 05/2021, 05/12/2015, Additional history exists Colorectal Cancer [...] Not on filedocumented as of this encounter Results * ALBUMIN / CREATININE RATIO, URINE (03/16/2024 7:36 AM EDT) Albumin, Random Urine <1.20 mg/dL 03/16/2024 3:05 PM EDT LABORATORY [facility] Creatinine, Random Urine 163 mg/dL 03/16/2024 3:05 PM EDT LABORATORY [facility] Albumin / Creatinine Ratio, Urine <7 <30 mg/g Creat 03/16/2024 3:05 PM EDT LABORATORY [facility] Urine Urine specimen obtained by clean catch procedure / Unknown Non-blood Collection / Unknown 03/16/2024 7:36 AM EDT 03/16/2024 7:36 AM EDT Narrative LABORATORY [facility] - 03/16/2024 3:05 PM EDT Normal: <30 mg/g creatinine High: 30-300 mg/g creatinine Very High: >300 mg/g creatinine Nephrotic: >2200 mg/g creatinine Lawrence Rockwell MD LAB URINE ORDERABL ES LABORATORY [facility] [address] [place] [address] * (ABNORMAL) CBC (03/16/2024 7:35 AM EDT) WBC 6.95 4.00 - 10.80 K/uL 03/16/2024 4:24 PM EDT [facility] RBC 4.42 4.50 - 5.25 M/uL 03/16/2024 4:24 PM EDT [facility] HGB 13.3(L) 14.0 - 16.8 g/dL 03/16/2024 4:24 PM EDT [facility] HCT 41.3 40.0 - 48.4 % 03/16/2024 4:24 PM EDT [facility] MCV 93.4 82.0 - 99.5 fL 03/16/2024 4:24 PM EDT [facility] MCH 30.1 27.0 - 34.0 pg 03/16/2024 4:24 PM EDT [facility] MCHC 32.2 32.0 - 36.0 g/dL 03/16/2024 4:24 PM EDT [facility] RDW 13.6 11.5 - 15.5 % 03/16/2024 4:24 PM EDT LABORATORY GM PLT 256 140 - 400 K/uL 03/16/2024 4:24 PM EDT [facility] MPV 11.3 6.6 - 11.1 fL 03/16/2024 4:24 PM EDT [facility] nRBCs 0 <=0 /100 WBCs 03/16/2024 4:24 PM EDT [facility] Blood Venous blood specimen / Unknown Venipuncture / Unknown 03/16/2024 7:35 AM EDT 03/16/2024 7:35 AM EDT Lawrence Rockwell MD LAB BLOOD ORDERABL ES LAB[facility]ATORY [facility] [address] [place] [address] * MAGNESIUM (03/16/2024 7:35 AM EDT) Magnesium 1.6 1.5 - 2.6 mg/dL 03/16/2024 2:41 PM EDT [facility] Blood Venous blood specimen / Unknown Venipuncture / Unknown 03/16/2024 7:35 AM EDT 03/16/2024 7:35 AM EDT Lawrence Rockwell MD LAB BLOOD ORDERABL ES Performing Organization Address [facility] Co de Phone Number LABORATORY [facility] [address] [place] [address] * (ABNORMAL) HEMOGLOBIN A1C (03/16/2024 7:35 AM EDT) Hemoglobin A1C 7.2(H) 4.0 - 5.6 % 03/16/2024 3:49 PM EDT LABORATORY [facility] Comment:The use of HbA1c to monitor glycemic status is based on normal hemoglobin and HbA composition. This test should not be used in patients with abnormal hemoglobin that affects the half life of the red blood cell or the in vivo glycation rates. Estimated Average Glucose 160(H) <126 mg/dL 03/16/2024 3:49 PM EDT LABORATORY [facility] Blood Venous blood specimen / Unknown Venipuncture / Unknown 03/16/2024 7:35 AM EDT 03/16/2024 7:35 AM EDT Lawrence Rockwell MD LAB BLOOD ORDERABL ES Performing Organization Address [facility] Co de Phone Number LABORATORY [address] [address] * VITAMIN B12 (03/16/2024 7:35 AM EDT) Pathologist [facility] Vitamin B12 476 232 - 1,245 pg/mL 03/16/2024 3:21 PM EDT LABORATORY [facility] Blood Venous blood specimen / Unknown Venipuncture / Unknown 03/16/2024 7:35 AM EDT 03/16/2024 7:35 AM EDT Lawrence Rockwell MD LAB BLOOD ORDERABL ES Performing Organization Address [facility] Co de Phone Number LABORATORY [facility] [address] [place] [address] * COMPREHENSIVE METABOLIC PANEL (03/16/2024 7:35 AM EDT) BUN 15 6 - 20 mg/dL 03/16/2024 2:41 PM EDT [facility] Creatinine 0.9 0.6 - 1.2 mg/dL 03/16/2024 2:41 PM EDT [facility] Estimated Glomerular Filtration Rate 85 >=60 mL/min 03/16/2024 2:41 PM EDT [facility] Comment:eGFR is calculated b ased on the CKD-EPI 2020 equation Sodium 138 135 - 146 mmol/L 03/16/2024 2:41 PM EDT [facility] Potassium 4.6 3.5 - 5.1 mmol/L 03/16/2024 2:41 PM EDT [facility] Chloride 104 98 - 107 mmol/L 03/16/2024 2:41 PM EDT [facility] CO2 26 22 - 32 mmol/L 03/16/2024 2:41 PM EDT [facility] Anion Gap 8 7 - 15 mmol/L 03/16/2024 2:41 PM EDT [facility] Glucose 119 70 - 120 mg/dL 03/16/2024 2:41 PM EDT [facility] Albumin 4.2 3.8 - 5.0 g/dL 03/16/2024 2:41 PM EDT [facility] AST 35 10 - 50 U/L 03/16/2024 2:41 PM EDT [facility] Alkaline Phosphatase 76 35 - 130 U/L 03/16/2024 2:41 PM EDT [facility] Bilirubin, Total 0.3 <=1.2 mg/dL 03/16/2024 2:41 PM EDT [facility] Calcium 9.3 8.4 - 10.2 mg/dL 03/16/2024 2:41 PM EDT [facility] Protein 6.8 6.0 - 8.3 g/dL 03/16/2024 2:41 PM EDT [facility] ALT 46 10 - 50 U/L 03/16/2024 2:41 PM EDT [facility] Blood Venous blood specimen / Unknown Venipuncture / Unknown 03/16/2024 7:35 AM EDT 03/16/2024 7:35 AM EDT Lawrence Rockwell MD LAB BLOOD ORDERABL ES [facility] [address] [place] [address] * LIPID PANEL WITH DIRECT LDL IF TG IS HIGH (03/16/2024 7:35 AM EDT) Triglycerides 68 <=174 mg/dL 03/16/2024 2:41 PM EDT LABORATORY [facility] Comment: Triglyceride Reference Ranges (mg/dL): <150 Acceptable 150-174 Borderline high 175-499 High >=500 Very high Cholesterol 116 <200 mg/dL 03/16/2024 2:41 PM EDT LABORATORY [facility] Comment: Total Cholesterol Reference Ranges (mg/dL): <200 Desirable 200-239 Borderline high >=240 High HDL Cholesterol 44 >39 mg/dL 2:41 PM EDT LABORATORY [facility] Comment: HDL Cholesterol Reference Ranges (mg/dL): >=60 High (Desirable) <50 Low (Undesirable) For Females <40 Low (Undesirable) For Males Non-HDL Cholesterol 72 <=159 mg/dL 03/16/2024 2:41 PM EDT LABORATORY [facility] Comment: Non-HDL Cholesterol Reference Range (mg/dL): <100 Target level for high risk ASCVD patient <130 Optimal for general population 130-159 Near optimal for general population 160-189 Borderline High 190-219 High >=220 Very High LDL Cholesterol 58 <=129 mg/dL 03/16/2024 2:41 PM EDT LABORATORY [facility] Comment: LDL Cholesterol Reference Ranges (mg/dL): <70 Target level for high risk ASCVD patient <100 Optimal for general population 100-129 Near optimal for general population 130-159 Borderline high 160-189 High >=190 Very high Blood Venous blood specimen / Unknown Venipuncture / Unknown 03/16/2024 7:35 AM EDT 03/16/2024 7:35 AM EDT Lawrence Rockwell MD LAB BLOOD ORDERABL ES LABORATORY [facility] [address] [place] [address] documented in this encounter Visit Diagnoses Diagnosis Type 2 diabetes mellitus with hemoglobin A1c goal of less than 7.0% (HCC)- Primary Paroxysmal atrial fibrillation (HCC) Atrial fibrillation HTN, goal below 140/90 Unspecified essential hypertension Dyslipidemia, goal LDL below 70 Other and unspecified hyperlipidemia LUIS (obstructive sleep apnea) Obstructive sleep apnea (adult) (pediatric) Encounter for long-term (current) use of medications Encounter for long-term (current) use of other medications Coronary artery disease involving [place] coronary artery of [place] heart without angina pectoris Hong's esophagus with high grade dysplasia Hong's esophagus Hong's esophagus documented in this encounter Advance Directives * Full Code (Latest Code Status on File) Date Activated Date Inactivated Comments 10/30/2020 4:04 PM 10/31/2020 1:07 PM This order reflects the patients wishes and were consensually agreed upon. Care Teams Desk Reporter Relationship Specialty Start Date End Date Lawrence Rockwell MD [address] [place] [address] PCP - General Family Medicine 12/11/10 documented as of this encounter
--- OUTSIDE RECORDS SUMMARY | 2024-04-04 20:53 | External Medical Summary ---
Author Name Unknown Address Unknown Organization K01:LABORATORY [facility] - [address] [place] [address] Laboratory Report Ordering Provider Test Date Status IMELDA AGUERO 03/16/2024 07:35:02 Final Observation Date Value Abnormality Reference (Units ) Status MYCODE SPECIMEN-SST 03/16/2024 07:35:02 Freezing of extracted DNA, whole blood and/or serum. Final Performing Location LABORATORY C - [address] [place] [address]
--- OUTSIDE RECORDS SUMMARY | 2024-04-04 20:53 | External Medical Summary ---
Author Name Unknown Address Unknown Organization : Laboratory Report Ordering Provider Test Date Status ROSEY SAUNDERS 03/15/2024 09:34:50 Final Therapeutic ranges for non-o perative patients:
Prophylaxsis/treatment of DVT: (Range:2.0-3.0)
Treatment of pulmonary embolism:(Range:2.0-3.0)
Prevention of systemic embolism from:
-tissue heart valves
-acute myocardial infarction
-valvular heart disease
-atrial fibrillation
(Range: 2.0-3.0)
Mechanical prosthetic valves: (Range: 2.5-3.5) Observation Date Value Abnormality Reference (Units ) Status INR in Capillary blood by Coagulation assay 03/15/2024 09:34:50 2.0 (INR) Final Performing Location
--- OUTSIDE RECORDS SUMMARY | 2024-04-04 20:53 | External Medical Summary | Summary of Care ---
Author Name Unknown Organization [facility] Address [address] [place] [address] Phone [phone] Care Team Providers Care Civil Engineering Manager Name Role Phone Misbah Card MD Primary Care Provider +1- [phone] Reason for Visit * Reason Comments eRx-Medication Refill Encounter Details Date Type Department Care Team (Late st Contact Info) Description 03/06/2024 Refill [facility] [address] [place] [address] Misbah Card MD [address] [place] [address] Allergies No known active allergiesdocumented as of this encounter (statuses as of 03/08/2024) Medications Medication Sig Dispensed Refills Start Date End Date Status ONETOUCH ULTRA BLUE STRPIndications:D M type 2, goal A1c below 7 TEST TWICE A DAY 180 Strip 3 09/27/2013 Active Multiple Vitamins-Minerals (ONE-A-DAY MENS 50+ ADVANTAGE) TABS Take by mouth. 0 Active [place]-3 Fatty Acids (SALMON OIL-1000) 200 MG CAPS Take by mouth daily . 0 Active Fluticasone Propionate 50 MCG/ACT Nasal Suspension (Flonase)Indicati ons:Chronic rhinitis Administer 2 Sprays into each nostril daily. 16 g 5 10/10/2021 Active CPAP every night at bedtime. 0 Active Propranolol HCl 10 MG Oral Tablet (Inderal) TAKE ONE TABLET BY MOUTH DAILY NEEDED 10 Tablet 5 03/05/2023 Active Vardenafil HCl 20 MG Oral Tablet (Levitra)Indicati ons:Erectile dysfunction, unspecified erectile dysfunction type TAKE ONE [...] 3 03/05/2023 Active Fluocinonide 0.05 % External SolutionIndicatio ns:Psoriasiform dermatitis Apply 1-2 drops to each ear daily as needed for itching or flares. 60 mL 2 03/05/2023 Active LancetsIndication s:Type 2 diabetes mellitus with hemoglobin A1c goal of less than 7.0% ([facility]) Test twice daily as directed 200 Each 3 03/05/2023 Active metroNIDAZOLE 1 % External Gel (Metrogel)Indicat ions:Rosacea Apply to entire face at night prior to bed 135 g 1 03/18/2023 Active Additional Information Patient not taking.Reported on 02/24/2024 Doxycycline Hyclate 20 MG Oral TabletIndications :Rosacea TAKE 1 TABLET BY MOUTH TWICE DAILY WITH OR WITHOUT FOOD 180 Tablet 1 08/27/2023 Active Lisinopril 10 MG Oral Tablet (Prinivil)Indicat ions:HTN, goal below 140/90,Coronary artery disease involving [place] coronary artery of [place] heart without angina pectoris TAKE 1 TABLET BY MOUTH DAILY IN THE MORNING 90 Tablet 3 08/28/2023 Active dilTIAZem HCl ER Coated Beads 120 MG Oral Capsule Extended Release 24 Hour (Cardizem CD)Indications:Pa roxysmal atrial fibrillation (HCC),Atrial fibrillation, persistent (HCC),HTN, goal below 140/90 TAKE 1 CAPSULE BY MOUTH IN THE MORNING 90 Capsule 3 09/24/2023 Active Metoprolol Succinate ER 50 MG Oral Tablet Extended Release 24 Hour (toPROL XL)Indications:Pa roxysmal atrial fibrillation (HCC) TAKE 1 TABLET BY MOUTH IN THE MORNING 90 Tablet 2 12/09/2023 Active Pantoprazole Sodium 20 MG Oral Tablet Delayed Release (Protonix) TAKE 1 TABLET BY MOUTH IN THE MORNING 90 Tablet 2 12/09/2023 Active Metoprolol Succinate ER 25 MG Oral Tablet Extended Release 24 Hour (toPROL XL)Indications:HT N, goal below 140/90 TAKE 1 TABLET BY MOUTH AT BEDTIME 90 Tablet 2 12/09/2023 Active Atorvastatin Calcium 80 MG Oral Tablet (Lipitor) TAKE 1 TABLET BY MOUTH IN THE MORNING 90 Tablet 2 12/09/2023 Active metFORMIN HCl 1000 MG Oral Tablet (Glucophage)Indic ations:Type 2 diabetes mellitus with hemoglobin A1c goal of less than 7.0% (HCC) TAKE 1 TABLET BY MOUTH TWICE DAILY WITH MORNING AND EVENING MEALS 180 Tablet 1 02/09/2024 Active Warfarin Sodium 5 MG Oral Tablet (Coumadin) TAKE 1 TO 1 AND 1/2 TABLETS BY MOUTH DAILY DIRECTED BY COUMADIN CLINIC 135 Tablet 2 03/08/2024 Active Warfarin Sodium 5 MG Oral Tablet (Coumadin) TAKE 1-1.5 TABLETS BY MOUTH DAILY DIRECTED BY COUMADIN CLINIC 21 Tablet 0 03/06/2023 03/08/20 24 Discontinued documented as of this encounter (statuses as of 03/08/2024) Active Problems Problem Noted Date Diagnosed Date Coronary artery disease invo lving [place] coronary artery of [place] heart without angina pectoris 10/16/2021 Atrial fibrillation 02/28/2020 Overview: Added automatically from request for surgery [id number] LUIS (obstructive sleep apnea) 05/19/2019 Nocturnal hypoxemia [...] as of this encounter (statuses as of 03/08/2024) Resolved Problems Problem Noted Date Diagnosed Date Resolved Date Atrial fibrillation, persistent 09/08/2020 10/10/2021 Overview: Added automatically from request for surgery [id number] Paroxysmal atrial fibrillation 01/12/2019 10/09/2020 Folliculitis 06/14/2014 [...] as of this encounter (statuses as of 03/08/2024) Immunizations Name Administration Dates Next Due COVID-19 [...] on file documented as of this encounter Miscellaneous Notes * Telephone Encounter - Ian Aly [facility] - 03/08/2024 4:15 AM EDTSigned Prescriptions: Disp Refills Warfarin Sodium 5 MG Oral Tablet (Coumadin)135 Ta*2 Sig: TAKE 1TO 1 AND 1/2 TABLETS BY MOUTH DAILY DIRECTED BY COUMADIN CLINICAuthorizing Provider: MISBAH CARD User: IAN ALY * Telephone Encounter - Ian Aly [facility] - 03/08/2024 4:13 AM EDT Warfarin Plan As of 02/06/2024 Full warfarin instructions: 02/05: 10 mg; Otherwise 5 mg every Fri, Sat; 7.5 mg all other days Next INR check: 03/15/2024 as per [facility] Ian Aly [facility] Clinical Pharmacist Telepharmacy [phone] 03/08/2024 4:14 AM documented in this encounter Plan of Treatment Upcoming Encounters Date Type Department Care Team (Latest Contact Info) Description 4 5:10 PM EDT Anticoagulation Pharmacy, [address] [address] [place], [facility] [address] [place] [address] 4 9:30 AM EDT Anticoagulation Pharmacy, [address] [address] [facility] [address] [place] [address] 4 9:40 AM EDT Office Visit [facility] [address] [place] [address] Misbah Card MD [address] [place] [address] 4 8:45 AM EDT Office Visit Podiatry, [facility] [address] [place] [address] Hang Avalos, [facility] [address] [place] [address] 4 7:30 AM EDT Hospital Encounter [facility] Endoscopy Suite, HFAM 1, [address] [place] [address] Demarco Coleman MD [address] [place] [address] 4 7:30 AM EDT - 4 8:45 AM EDT Surgery [facility] Endoscopy Suite, HFAM 1, [address] [place] [address] Demarco Coleman MD [address] [place], [place] [id number] ESOPHAGOGASTRODUODENOSCOPY (EGD), FLEXIBLE, TRANSORAL, DIAGNOSTIC 4 10:00 AM EDT [facility] [address] [place] [phone] Cristel Canchola, [address] [place] [address] 4 12:30 PM EDT Office Visit Cardiology, [facility] [address] [place] [address] Manisha Fernando IV, MD [address] [place] [address] 4 8:45 AM EDT Office Visit Dermatology [facility] [address] [facility] [place] [address] Wilian Meneses MD [address] [place] [address] 4 11:30 AM EDT Office Visit Otolaryngology/ Head & Neck/Facial Plastic Surgery [address] [place] [address] Veronica Clark PA-C [address] [place] [address] 4 8:30 AM EST Office Visit Cardiology, [facility] [address] [place] [address] Margaret Loya CRNP [address] [place] [address] 5 9:45 AM EST Office Visit Dermatology [facility] [address] [facility] [place] [address] Wilian Menesse MD [address] [facility] [place] [address] 5 9:00 AM EDT Nurse Only Ancillary Department, [address] [address] [place], [facility] [address] [place] [address] Scheduled Procedures Name Priority Associated Diagnoses Date/Ti [...] Not on filedocumented as of this encounter Advance Directives Latest Code Status on File Code Status Date Activated Date Inactivated Comments Full Code 10/30/2020 4:04 PM 10/31/2020 1:07 PM Thi s order reflects the patients wishes and were consensually agreed upon. Care Teams Civil Engineering Manager Relationship Specialty Start Date End Date Misbah Card MD [address] [place] [address] PCP - General Family Medicine 12/11/10 documented as of this encounter
--- OUTSIDE RECORDS SUMMARY | 2024-04-04 20:53 | External Medical Summary | Summary of Care ---
Author Name Unknown Organization [facility] Address [address] [place] [address] Phone [phone] Care Team Providers Care Operations Director Name Role Phone Lawrence Rockwell MD Primary Care Provider +1- [phone] Reason for Visit * Reason Onset Date Comments Sleep Apnea Device 03/08/2024 DL Encounter Details Date Type Department Care Team ([facility] st Contact Info) Description 03/08/2024 Telephone Sleep Disorders Ctr [facility] [address] [facility] [place] [phone] Cristel Canchola, [address] [facility], [place] [id number] Sleep Apnea Device (DL) Allergies No known active allergiesdocumented as of this encounter (statuses as of 03/09/2024) Medications Medication Sig Dispensed Refills Start Date End Date Status ONETOUCH ULTRA BLUE STRPIndications:DM type 2, goal A1c below 7 TEST TWICE A DAY 180 Strip 3 09/27/2013 Active Multiple Vitamins-Minerals (ONE-A-DAY MENS 50+ ADVANTAGE) TABS Take by mouth. 0 Activ e [place]-3 Fatty Acids (SALMON OIL-1000) 200 MG CAPS [...] hemoglobin A1c goal of less than 7.0% ([facility]) Test twice daily as directed [...] ns:HTN, goal below 140/90,Coronary artery disease involving [place] coronary artery of [place] heart without angina pectoris TAKE 1 TABLET [...] as of this encounter (statuses as of 03/09/2024) Active Problems Problem Noted Date Diagnosed Date Coronary artery disease invo lving [place] coronary artery of [place] heart without angina pectoris 10/16/2021 Atrial fibrillation 02/28/2020 Overview: Added automatically from request for surgery [id number] LUIS (obstructive sleep apnea) 05/19/2019 Nocturnal hypoxemia [...] as of this encounter (statuses as of 03/09/2024) Resolved Problems Problem Noted Date Diagnosed Date Resolved Date Atrial fibrillation, persistent 09/08/2020 10/10/2021 Overview: Added automatically from request for surgery [id number] Paroxysmal atrial fibrillation 01/12/2019 10/09/2020 Folliculitis 06/14/2014 [...] as of this encounter (statuses as of 03/09/2024) Immunizations Name Administration Dates Next Due COVID-19 [...] encounter Miscellaneous Notes * Telephone Encounter - Toshia Siu LPN - 03/09/2024 10:[address] Canchola's message was relayed to the pt via portal message. * Telephone Encounter - Mei Rasmussen OSA - 03/09/2024 10:03 AM EDT DME order submitted to [facility]. * Telephone Encounter - Cristel Canchola DO - 03/08/2024 9:59 PM EDT Please let pt know that the review of his recent PAP DL showed significant leak. However, his periodic breathing % was not concerning. If he has not yet had his mask refit, I will reorder it. Additionally, he can try a chin strap if he hasn't already. We can discuss further at his upcoming appointment. PAP Compliance: Report date: 02/07/24 to 03/07/24 % total days used: 100% % days used > 4 hours: 93.3% Average hours a day: 8 hrs 28 mins Large leak: 6 hours 19 mins AHI: 1.2/hr PB: 1.7% VS: 15.5 90% pressure: 8.5 cmH20 DME: [employer] [id number] documented in this encounter Plan of Treatment Upcoming Encounters Date Type Department Care Team (Latest Contact Info) Description 4 5:10 PM EDT Antico[facility], [place] [address] [facility] [address] [place], [facility] [address] [facility] [address] 4 9:30 AM EDT Anticoagulation Pharmacy, [place] [address] [place] [address] [facility] [address] [place] [address] 4 9:40 AM EDT Office Visit [facility] [address] [place] [address] Lawrence Rockwell MD [address] [place] [address] 4 8:45 AM EDT [facility] [address] [place] [address] Hang Avalos, [facility] [address] [place], [place] [id number] 4 7:30 AM EDT Hospital Encounter [facility], Endoscopy Suite, HFAM 1, [address] [place] [address] Demarco Coleman MD [address] [place] [address] 4 7:30 AM EDT - 4 8:45 AM EDT Surgery [facility]O [facility], Endoscopy Suite, HFAM 1, [address] [place] [address] Demarco Coleman MD [address] [place] [address] ESOPHAGOGASTRODUODENOSCOPY (EGD), FLEXIBLE, TRANSORAL, DIAGNOSTIC 4 10:00 AM EDT [facility] [address] [place] [address] Cristel Canchola, [address] [place] [address] 4 12:30 PM EDT Office Visit Cardiology, [facility] [address] [place] [address] Manisha Fernando IV, MD [address] [place] [address] 4 8:45 AM EDT Office Visit Dermatology [facility] [address] [place] [address] Wilian Meneses MD [address] [place] [address] 4 11:30 AM EDT Office Visit Otolaryngology/ Head & Neck/Facial Plastic Surgery [address] [place] [address] Veronica Clark PA-C [address] [place] [address] 4 8:30 AM EST Office Visit Cardiology, [facility] [address] [place] [address] Margaret Loya CRNP [address] [place] [address] 5 9:45 AM EST Office Visit Dermatology [facility] [address] [place] [address] Wilian Meneses MD [address] [place] [address] 5 9:00 AM EDT Nurse Only Ancillary Department, [address] [address] [place], [facility] [address] [place] [address] Scheduled Procedures Name Priority Associated Diagnoses Date/Ti [...] as of this encounter Visit Diagnoses Diagnosis LUIS (obstructive sleep apnea)- Primary Obstructive sleep apnea (adult) (pediatric) Hong's esophagus documented in this encounter Advance Directives Latest Code Status on File Code Status Date Activated Date Inactivated Comments Full Code 10/30/2020 4:04 PM 10/31/2020 1:07 PM Thi s order reflects the patients wishes and were consensually agreed upon. Care Teams Operations Director Relationship Specialty Start Date End Date Lawrence Rockwell MD [address] [place] [address] PCP - General Family Medicine 12/11/10 documented as of this encounter
--- OUTSIDE RECORDS SUMMARY | 2024-04-04 20:53 | External Medical Summary ---
Author Name Unknown Address Unknown Organization K01:LABORATORY [facility] - [facility] [address] [facility] [address] [facility] [address] Laboratory Report Ordering Provider Test Date Status STEPHIE CRAWLEY 03/16/2024 07:35:02 Final Observation Date Value Abnormality Reference (Units ) Status WBC, Total 03/16/2024 07:35:02 6.95 4.00-10.80 (K/uL) Final RBC 03/16/2024 07:35:02 4.42 4.50-5.25 (M/uL) Final Hemoglobin 03/16/2024 07:35:02 13.3 Below low normal 14.0-16.8 (g/dL) Final HCT 03/16/2024 07:35:02 41.3 40.0-48.4 (%) Final MCV 03/16/2024 07:35:02 93.4 82.0-99.5 (fL) Final MCH 03/16/2024 07:35:02 30.1 27.0-34.0 (pg) Final MCHC 03/16/2024 07:35:02 32.2 32.0-36.0 (g/dL) Final RDW 03/16/2024 07:35:02 13.6 11.5-15.5 (%) Final Platelets 03/16/2024 07:35:02 256 140-400 (K/uL) Final MPV 03/16/2024 07:35:02 11.3 6.6-11.1 (fL) Final Nucleated erythrocytes/100 leukocytes [Ratio] in Blood by Automated count 03/16/2024 07:35:02 0 <=0 (/100 WBCs) Final Performing Location LAB[facility]ORY [facility] - [address] [facility] [address]
--- OUTSIDE RECORDS SUMMARY | 2024-04-04 20:53 | External Medical Summary | Summary of Care ---
Author Name Unknown Organization [facility] Address [address] [place] [address] Phone [phone] Care Team Providers Care Automobile Contract Clerk Name Role Phone Lawrence Rockwell MD Primary Care Provider +1- [phone] Reason for Visit * Reason Comments Outpatient Testing Encounter Details Date Type Department Care Team (Late st Contact Info) Description 03/16/2024 8:20 AM EDT Laboratory Laboratory, [place] [address] [place] [address] [place], [facility] [address] [place] [address] [email or web address] Other*[id number]; Dyslipidemia, goal LDL below 70; Type 2 diabetes mellitus with hemoglobin A1c goal of less than 7.0% (HCC); HTN, goal below 140/90; Encounter for long-term (current) use of medications Allergies No known active allergiesdocumented as of this encounter (statuses as of 03/16/2024) Medications Medication Sig Dispensed Refills Start Date End Date Status ONETOUCH ULTRA BLUE STRPIndications:DM type 2, goal A1c below 7 TEST TWICE A DAY 180 Strip 3 09/27/2013 Active Multiple Vitamins-Minerals (ONE-A-DAY MENS 50+ ADVANTAGE) TABS Take by mouth. 0 Activ e [place]-3 Fatty Acids (SALMON OIL-1000) 200 MG CAPS [...] hemoglobin A1c goal of less than 7.0% ([facility]) Test twice daily as directed 200 Each [...] as of this encounter (statuses as of 03/16/2024) Active Problems Problem Noted Date Diagnosed Date Coronary artery disease invo lving [place] coronary artery of [place] heart without angina pectoris 10/16/2021 Atrial fibrillation 02/28/2020 Overview: Added automatically from request for surgery [id number] LUIS (obstructive sleep apnea) 05/19/2019 Hypersomnolence disorder [...] as of this encounter (statuses as of 03/16/2024) Resolved Problems Problem Noted Date Diagnosed Date Resolved Date Atrial fibrillation, persistent 09/08/2020 10/10/2021 Overview: Added automatically from request for surgery [id number] Nocturnal hypoxemia 05/19/2019 03/15/20 24 Paroxysmal atrial [...] as of this encounter (statuses as of 03/16/2024) Immunizations Name Administration Dates Next Due COVID-19 [...] on file documented as of this encounter Plan of Treatment Upcoming Encounters Date Type Department Care Team (Latest Contact Info) Description 4 8:45 AM EDT Office Visit Podiatry, [facility] [address] [place] [address] Hang Avalos, [facility] [address] [place] [address] 4 7:30 AM EDT Anticoagulation Pharmacy, [place] [address] [place] [address] [facility] [address] [place] [address] 4 7:30 AM EDT Hospital Encounter ENDO [facility], Endoscopy Suite, HFAM 1, [address] [place] [address] Demarco Coleman MD [address] [place] [address] 4 7:30 AM EDT - 4 8:45 AM EDT Surgery ENDO C, Endoscopy Suite, HFAM 1, [address] [place] [address] Demarco Coleman MD [address] [place] [address] ESOPHAGOGASTRODUODENOSCOPY (EGD), FLEXIBLE, TRANSORAL, DIAGNOSTIC 4 10:00 AM EDT [facility] [address] [place] [phone] Cristel Canchola, [address] [place] [address] 4 12:30 PM EDT Office Visit Cardiology, [facility] [address] [place] [address] Manisha Fernando IV, MD [address] [place] [address] 4 8:45 AM EDT Office Visit Dermatology [facility] [address] [place] [address] Wilian Meneses MD [address] [facility] [address] [place] [address] 4 11:30 AM EDT Office Visit Otolaryngology/ Head & Neck/Facial Plastic Surgery [address] [place] [address] Veronica Clark PA-C [address] [place] [address] 4 8:30 AM EST Office Visit Cardiology, [facility] [address] [place] [address] Margaret Loya CRNP [address] [place] [address] 4 7:40 AM EST Office Visit [facility] [address] [place] [phone] Lawrence Rockwell MD [address] [place] [address] 5 9:45 AM EST Office Visit Dermatology [facility] [address] [place] [address] Wilian Meneses MD [address] [place] [address] 9:00 AM EDT Nurse Only Ancillary Department, [place] [address] [place] [address] [place], [facility] [address] [place] [address] Pending Results Name Type Priority Associated Diagnoses Date /Time MYCODE SUBSEQUENT ADULT Lab Routine [employer] Other*[id number] 03/16/2024 7:35 AM EDT LIPID PANEL WITH DIRECT LDL IF TG IS HIGH Lab Routine Dyslipidemia, goal LDL below 70 03/16/2024 7:35 AM EDT COMPREHENSIVE METABOLIC PANEL Lab Routine Type 2 diabetes mellitus with hemoglobin A1c goal of less than 7.0% ([facility]) HTN, goal below 140/90 03/16/2024 7:35 AM EDT VITAMIN B12 Lab Routine Encounter for long-term (current) use of medications 03/16/2024 7:35 AM EDT HEMOGLOBIN A1C Lab Routine Type 2 diabetes mellitus with hemoglobin A1c goal of less than 7.0% ([facility]) 03/16/2024 7:35 AM EDT MAGNESIUM Lab Routine Encounter for long-term (current) use of medications 03/16/2024 7:35 AM EDT CBC Lab Routine Encounter for long-term (current) use of medications 03/16/2024 7:35 AM EDT MYCODE SST1 Lab Routine [employer] Other*[id number] 03/16/2024 7:35 AM EDT MYCODE SST2 Lab Routine [employer] Other*[id number] 03/16/2024 7:35 AM EDT ALBUMIN / CREATININE RATIO, URINE Lab Routine Type 2 diabetes mellitus with hemoglobin A1c goal of less than 7.0% ([facility]) 03/16/2024 7:36 AM EDT Scheduled Procedures Name Priority Associated Diagnoses Date/Ti [...] as of this encounter Visit Diagnoses Diagnosis [employer] Other*[id number] Dyslipidemia, goal LDL below 70 Other and unspecified hyperlipidemia Type 2 diabetes mellitus with hemoglobin A1c goal of less than 7.0% (HCC) HTN, goal below 140/90 Unspecified essential hypertension Encounter for long-term (current) use of medications Encounter for long-term (current) use of other medications Hong's esophagus documented in this encounter Advance Directives Latest Code Status on File Code Status Date Activated Date Inactivated Comments Full Code 10/30/2020 4:04 PM 10/31/2020 1:07 PM Thi s order reflects the patients wishes and were consensually agreed upon. Care Teams Automobile Contract Clerk Relationship Specialty Start Date End Date Lawrence Rockwell MD [address] [place] [address] PCP - General Family Medicine 12/11/10 documented as of this encounter
--- OUTSIDE RECORDS SUMMARY | 2024-04-04 20:53 | External Medical Summary | Summary of Care ---
Author Name Unknown Organization [facility] Address [address] [place] [address] Phone [phone] Care Team Providers Care Photographer Assistant Name Role Phone Lawrence Rockwell MD Primary Care Provider [phone]- [phone] Reason for Visit * Reason Comments Procedure Encounter Details Date Type Department Care Team (Latest Contact Info) Description 03/11/2024 5:10 PM EDT Anticoagulation Pharmacy, [place] [address] [place] [address] [facility] [address] [place] [address] Atrial fibrillation, unspecified type (HCC)* Allergies No known active allergiesdocumented as of this encounter (statuses as of 03/11/2024) Medications Medication Sig Dispensed Refills Start Date End Date Status ONETOUCH ULTRA BLUE STRPIndications:DM type 2, goal A1c below 7 TEST TWICE A DAY 180 Strip 3 09/27/2013 Active Multiple Vitamins-Minerals (ONE-A-DAY MENS 50+ ADVANTAGE) TABS Take by mouth. 0 Activ e [place]-3 Fatty Acids (SALMON OIL-1000) 200 MG CAPS [...] hemoglobin A1c goal of less than 7.0% ([facility]) Test twice daily as directed 200 Each [...] ns:HTN, goal below 140/90,Coronary artery disease involving [place] coronary artery of [place] heart without angina pectoris TAKE 1 TABLET [...] as of this encounter (statuses as of 03/11/2024) Active Problems Problem Noted Date Diagnosed Date Coronary artery disease invo lving [place] coronary artery of [place] heart without angina pectoris 10/16/2021 Atrial fibrillation 02/28/2020 Overview: Added automatically from request for surgery [id number] LUIS (obstructive sleep apnea) 05/19/2019 Nocturnal hypoxemia [...] as of this encounter (statuses as of 03/11/2024) Resolved Problems Problem Noted Date Diagnosed Date Resolved Date Atrial fibrillation, persistent 09/08/2020 10/10/2021 Overview: Added automatically from request for surgery [id number] Paroxysmal atrial fibrillation 01/12/2019 10/09/2020 Folliculitis 06/14/2014 [...] as of this encounter (statuses as of 03/11/2024) Immunizations Name Administration Dates Next Due COVID-19 [...] as of this encounter Progress Notes * Donna Graham RPh - 03/11/2024 11:55 AM EDT Medication Therapy Disease Management - Anticoagulation Patient: Mitch Pinto | : 1950 Subjective Patient is having an EGD/colonoscopy on 04/23/24. Diagosis for coumadin therapy is afib. No hx of recent DVT, PE, MVR, [place] or CVA. CHADS2 score of 4. Patient will take their last dose of coumadin 04/17,then restart coumadin the evening of the procedure with 12.5 mg for 2 days, then resume previous dose. Repeat pt/inr 2 weeks after procedure. Will relay these instructions to patient at appt on 03/15/2024 Donna Graham [facility] Clinical Pharmacist 03/11/2024, 11:57 AM documented in this encounter Plan of Treatment Upcoming Encounters Date Type Department Care Team (Latest Contact Info) Description 4 9:30 AM EDT Anticoagulation Pharmacy, [address] [address] [place] [facility] [address] [place] [address] 4 9:40 AM EDT Office Visit [place] [address] [place] [address] Lawrence Rockwell MD [address] [place] [address] 4 8:45 AM EDT Office Visit Podiatry, [place] [id number] [place] [address] Hang Avalos DPM [address] [place], [place] [id number] 4 7:30 AM EDT Hospital Encounter [facility], Endoscopy Suite, HFAM 1, [address] [place] [facility] [place] [address] Demarco Coleman MD [address] [place] [address] 4 7:30 AM EDT - 4 8:45 AM EDT Surgery ENDO [facility], Endoscopy Suite, HFAM 1, [address] [facility] [place] [address] Demarco Coleman MD [address] [place] [address] ESOPHAGOGASTRODUODENOSCOPY (EGD), FLEXIBLE, TRANSORAL, DIAGNOSTIC 4 10:00 AM EDT Office Visit Sleep Disorders Ctr [facility] [address] [place] [address] Cristel Canchola DO [address] [place] [address] 4 12:30 PM EDT Office Visit Cardiology, [facility] [address] [place] [address] Manisha Fernando IV, MD [address] [place] [address] 4 8:45 AM EDT Office Visit Dermatology [facility] [place] [address] [facility] [place] [address] Wilian Meneses MD 200 [facility] [place] [address] 4 11:30 AM EDT Office Visit Otolaryngology/ Head & Neck/Facial Plastic Surgery [address] [place], [place] [id number] Veronica Clark PA-C [address] [place], [place] [id number] 4 8:30 AM EST Office Visit Cardiology, [facility] [address] [place] [address] Margaret Loya CRNP [address] [place] [address] 5 9:45 AM EST Office Visit [facility]atology [facility] [address] [facility] [place] [address] Wilian Meneses MD 200 [facility] [place] [address] 5 9:00 AM EDT Nurse Only Ancillary Department, [address] [address] [place], Nurse [facility] [address] [place] [address] Scheduled Procedures Name Priority Associated Diagnoses Date/Ti [...] 03/12/2019, Additional history exists COVID-19 Vaccine ( - 2022-24 season) 2023 08/05/2023, 08/06/2022, 03/27/2022, Additional history [...] as of this encounter Visit Diagnoses Diagnosis Atrial fibrillation, unspecified type (HCC)- Primary Hong's esophagus documented in this encounter Advance Directives Latest Code Status on File Code Status Date Activated Date Inactivated Comments Full Code 10/30/2020 4:04 PM 10/31/2020 1:07 PM Thi s order reflects the patients wishes and were consensually agreed upon. Care Teams Photographer Assistant Relationship Specialty Start Date End Date Lawrence Rockwell MD [address] [facility] [place] [address] PCP - General Family Medicine 12/11/10 documented as of this encounter"
--- OUTSIDE RECORDS SUMMARY | 2024-04-04 20:53 | External Medical Summary | Summary of Care ---
Author Name Unknown Organization [facility] Address [address] [place] [address] Phone [phone] Care Team Providers Care Cut Pressman Name Role Phone Lawrence Rockwell MD Primary Care Provider [phone]- [phone] Reason for Visit * Reason Comments Dosage Adjustment In Person (Anticoag Cl inic) Encounter Details Date Type Department Care Team (Latest Contact Info) Description 03/15/2024 9:30 AM EDT Anticoagulation Pharmacy, [address] [address] [facility] [address] [place] [address] Anticoagulation management encounter*; Atrial fibrillation, unspecified type (HCC) Allergies No known active allergiesdocumented as of this encounter (statuses as of 03/15/2024) Medications Medication Sig Dispensed Refills Start Date End Date Status ONETOUCH ULTRA BLUE STRPIndications:DM type 2, goal A1c below 7 TEST TWICE A DAY 180 Strip 3 09/27/2013 Active Multiple Vitamins-Minerals (ONE-A-DAY MENS 50+ ADVANTAGE) TABS Take by mouth. 0 Activ e [place]-3 Fatty Acids (SALMON OIL-1000) 200 MG CAPS [...] hemoglobin A1c goal of less than 7.0% ([facility]) Test twice daily as directed 200 Each [...] ns:HTN, goal below 140/90,Coronary artery disease involving [place] coronary artery of [place] heart without angina pectoris TAKE 1 TABLET [...] as of this encounter (statuses as of 03/15/2024) Active Problems Problem Noted Date Diagnosed Date Coronary artery disease invo lving [place] coronary artery of [place] heart without angina pectoris 10/16/2021 Atrial fibrillation 02/28/2020 Overview: Added automatically from request for surgery [id number] LUIS (obstructive sleep apnea) 05/19/2019 Nocturnal hypoxemia [...] as of this encounter (statuses as of 03/15/2024) Resolved Problems Problem Noted Date Diagnosed Date Resolved Date Atrial fibrillation, persistent 09/08/2020 10/10/2021 Overview: Added automatically from request for surgery [id number] Paroxysmal atrial fibrillation 01/12/2019 10/09/2020 Folliculitis 06/14/2014 [...] as of this encounter (statuses as of 03/15/2024) Immunizations Name Administration Dates Next Due COVID-19 [...] Progress Notes * Donna Graham RPh - 03/15/2024 9:32 AM EDT Medication Therapy Disease Management - Anticoagulation Patient: Mitch Pinto | : 1950 Subjective Patient-Reported Symptoms: Patient Findings Negatives: Signs/symptoms of thrombosis, Signs/symptoms of bleeding, Change in health, Change in alcohol use, Change in activity, Upcoming invasive procedure, Missed doses, Extra doses, Change in medications, Change in diet/appetite, Bruising Objective Current Warfarin Dose As of 03/15/2024 Warfarin maintenance plan: 5 mg (5 mg x 1) every Wed, Sat; 7.5 mg (5 mg x 1.5) all other days INR Result As of 03/15/2024 INR goal: 2.0-3.0 INR used for dosin.0 (03/15/2024) Assessment & Plan Warfarin Plan As of 03/15/2024 Full warfarin instructions: 5 mg every Wed, Sat; 7.5 mg all other days No change documented: Donna Graham RPh Next INR check: 04/08/2024 Repeat PT/INR in 4 week(s) Weekly dose: not changed Additional Dosing Information: Description Patient is having an EGD/ colonoscopy on 04/23/24. Diagosis for coumadin therapy is afib. No hx of recent DVT, PE, MVR, [place] or CVA. CHADS2 score of 4. Patient will take their last dose of coumadin 04/17, then restart coumadin the evening of the procedure with 12.5 mg for 2 days, then resume previous dose. Repeat pt/inr 2 weeks after procedure. Donna Graham RPh Clinical Pharmacist 03/15/2024, 9:32 AM documented in this encounter Plan of Treatment Upcoming Encounters Date Type Department Care Team (Latest Contact Info) Description 8:45 AM EDT Office Visit Podiatry, [place] [address] Hang Avalos, DPM [address] [place] [address] 4 7:30 AM EDT Anticoagulation [facility] [place] [address] [place] [address] [facility] [address] [place] [address] 4 7:30 AM EDT Hospital Encounter [facility] Endoscopy Suite, HFAM 1, [address] [place] [address] Demarco Coleman MD [address] [place] [address] 4 7:30 AM EDT - 4 8:45 AM EDT Surgery [facility] Endoscopy Suite, HFAM 1, [address] [place] [address] Demarco Coleman MD [address] [place] [address] ESOPHAGOGASTRODUODENOSCOPY (EGD), FLEXIBLE, TRANSORAL, DIAGNOSTIC 4 10:00 AM EDT Office Visit Sleep Disorders Ctr [facility] [address] [place] [phone] Cristel Canchola, [address] [place] [address] 4 12:30 PM EDT [facility] [place] [place] [id number] Manisha Fernando IV, MD [address], [place] [id number] 4 8:45 AM EDT Office Visit Dermatology [facility] 200 [facility] [address] Wilian Meneses MD 200 [facility] [place] [address] 4 11:30 AM EDT Office Visit Otolaryngology/ Head & Neck/Facial Plastic Surgery [address] [place] [address] Veronica Clark PA-C [address] [place] [address] 4 8:30 AM EST Office Visit Cardiology, [facility] [address] [place] [address] Margaret Loya CRNP [address] [place] [address] 5 9:45 AM EST Office Visit Dermatology [facility] [place] 200 [facility] [place] [address] Wilian Meneses MD 200 [facility] [place] [address] 5 9:00 AM EDT Nurse Only Ancillary Department, [address] [address] [place], Nurse [facility] [address] [place] [address] Scheduled Procedures Name Priority Associated Diagnoses Date/Ti [...] 10/10/2021, Additional history exists Colonoscopy 04/09/2024 04/09/2021, 060 [...] Not on filedocumented as of this encounter Procedures Procedure Name Priority Date/Time Associated Diagnosis Comments INR FINGERSTICK, POINT OF CARE STAT 03/15/2024 9:34 AM EDT Atrial fibrillation, unspecified type (HCC) Anticoagulation management encounter documented in this encounter Results * INR FINGERSTICK, POINT OF CARE (03/15/2024 9:34 AM EDT) Fingerstick INR 2.0 INR 9:38 AM EDT [facility] Blood 03/15/2024 9:34 AM EDT 03/15/2024 9:38 AM EDT Narrative [facility] - 03/15/2024 9:38 AM EDT Therapeutic ranges for non-operative patients: Prophylaxsis/treatment of DVT: (Range:2.0-3.0) Treatment of pulmonary embolism:(Range:2.0-3.0) Prevention of systemic embolism from: -tissue heart valves -acute myocardial infarction -valvular heart disease -atrial fibrillation (Range: 2.0-3.0) Mechanical prosthetic valves: (Range: 2.5-3.5) Donna Graham [facility] POINT OF CARE TEST DOCKED DEVICE UNSOLICITED RESULTS [facility] [address] [place] [address] documented in this encounter Visit Diagnoses Diagnosis Anticoagulation management encounter- Primary Encounter for therapeutic drug monitoring Atrial fibrillation, unspecified type (HCC) Hong's esophagus documented in this encounter Advance Directives Latest Code Status on File Code Status Date Activated Date Inactivated Comments Full Code 10/30/2020 4:04 PM 10/31/2020 1:07 PM Thi s order reflects the patients wishes and were consensually agreed upon. Care Teams Cut Pressman Relationship Specialty Start Date End Date Lawrence Rockwell MD [address] [place] [address] PCP - General Family Medicine 12/11/10 documented as of this encounter"
--- OUTSIDE RECORDS SUMMARY | 2024-04-04 20:53 | External Medical Summary ---
Author Name Unknown Address Unknown Organization K01:[facility] - [address] [address] Laboratory Report Ordering Provider Test Date Status STEPHIE CRAWLEY 03/16/2024 07:35:02 Final Observation Date Value Abnormality Reference (Units ) Status Magnesium 03/16/2024 07:35:02 1.6 1.5-2.6 (m g/dL) Final Performing Location [facility] - [address] [place] [address]
--- OUTSIDE RECORDS SUMMARY | 2024-04-04 20:54 | External Medical Summary ---
Author Name Unknown Address Unknown Organization : Laboratory Report Ordering Provider Test Date Status ROSEY SAUNDERS 11/05/2023 08:29:51 Final Therapeutic ranges for non-o perative patients:
Prophylaxsis/treatment of DVT: (Range:2.0-3.0)
Treatment of pulmonary embolism:(Range:2.0-3.0)
Prevention of systemic embolism from:
-tissue heart valves
-acute myocardial infarction
-valvular heart disease
-atrial fibrillation
(Range: 2.0-3.0)
Mechanical prosthetic valves: (Range: 2.5-3.5) Observation Date Value Abnormality Reference (Units ) Status INR in Capillary blood by Coagulation assay 11/05/2023 08:29:51 3.3 (INR) Final Performing Location
--- OUTSIDE RECORDS SUMMARY | 2024-04-04 20:54 | External Medical Summary ---
Author Name Unknown Address Unknown Organization : Laboratory Report Ordering Provider Test Date Status ROSEY SAUNDERS 12/31/2023 08:56:48 Final Therapeutic ranges for non-o perative patients:
Prophylaxsis/treatment of DVT: (Range:2.0-3.0)
Treatment of pulmonary embolism:(Range:2.0-3.0)
Prevention of systemic embolism from:
-tissue heart valves
-acute myocardial infarction
-valvular heart disease
-atrial fibrillation
(Range: 2.0-3.0)
Mechanical prosthetic valves: (Range: 2.5-3.5) Observation Date Value Abnormality Reference (Units ) Status INR in Capillary blood by Coagulation assay 12/31/2023 08:56:48 3.3 (INR) Final Performing Location
--- OUTSIDE RECORDS SUMMARY | 2024-04-04 20:54 | External Medical Summary | Summary of Care ---
Author Name Unknown Organization [facility] Address [address] [place] [address] Phone [phone] Care Team Providers Care Manager Energy Name Role Phone Misbah Card MD Primary Care Provider [phone] Reason for Visit * Reason Comments Follow Up Patient here for a 3 month follow-up for rosacea he says has been doing well. Takes 1 Doxy a day. He has a few other spots he would like checked on his left leg he would like checked and his right ear, was frozen in the past. Encounter Details Date Type Department Care Team (Late st Contact Info) Description 11/10/2023 8:15 AM EST Office Visit Dermatology [facility] [address] [place] [address] Wilian Meneses MD [address] [place] [address] Rosacea*; Benign nevus; Dermatofibroma Allergies No known active allergiesdocumented as of this encounter (statuses as of 11/10/2023) Medications Medication Sig Dispensed Refills Start Date End Date Status ONETOUCH ULTRA BLUE STRPIndications:DM type 2, goal A1c below 7 TEST TWICE A DAY 180 Strip 3 09/27/2013 Active Multiple Vitamins-Minerals (ONE-A-DAY MENS 50+ ADVANTAGE) TABS Take by mouth. 0 Activ e [place]-3 Fatty Acids (SALMON OIL-1000) 200 MG CAPS Take by mouth daily . 0 Active Fluticasone Propionate 50 MCG/ACT Nasal Suspension (Flonase)Indication s:Chronic rhinitis Administer 2 Sprays into each nostril daily. 16 g 5 10/10/2021 Active CPAP every night at bedtime. 0 Active Metoprolol Succinate ER 25 MG Oral Tablet Extended Release 24 Hour (toPROL XL)Indications:HTN, goal below 140/90 Take 1 Tablet by mouth at bedtime. 90 Tablet 3 03/03/2023 Active Pantoprazole Sodium 20 MG Oral Tablet Delayed Release (Protonix) Take 1 Tablet by mouth in the morning. 90 Tablet 3 03/03/2023 Active Atorvastatin Calcium 80 MG Oral Tablet (Lipitor) Take 1 Tablet by mouth in the morning. 90 Tablet 3 03/03/2023 Active Propranolol HCl 10 MG Oral Tablet [...] A1c goal of less than 7.0% (HCC) Test twice daily as directed 200 Each 3 03/05/2023 Active Warfarin Sodium 5 MG Oral Tablet (Coumadin) TAKE 1-1.5 TABLETS BY MOUTH DAILY DIRECTED BY COUMADIN CLINIC 21 Tablet 0 03/06/2023 Active metFORMIN HCl 1000 MG Oral Tablet (Glucophage)Indicat ions:Type 2 diabetes mellitus with hemoglobin A1c goal of less than 7.0% (HCC) TAKE ONE TABLET BY MOUTH 2 TIMES A DAY WITH MORNING AND EVENING MEALS 28 Tablet 0 03/06/2023 Active metroNIDAZOLE 1 % External Gel (Metrogel)Indicatio ns:Rosacea Apply to entire face at night prior to bed 135 g 1 03/18/2023 Active Metoprolol Succinate ER 50 MG Oral Tablet Extended Release 24 Hour (toPROL XL)Indications:Paro xysmal atrial fibrillation (HCC) TAKE 1 TABLET BY MOUTH IN THE MORNING 90 Tablet 1 06/11/2023 Active Doxycycline Hyclate 20 MG Oral TabletIndications:R osacea TAKE 1 TABLET BY MOUTH TWICE DAILY WITH OR WITHOUT FOOD 180 Tablet 1 08/27/2023 Active Lisinopril 10 MG Oral Tablet (Prinivil)Indicatio ns:HTN, goal below 140/90,Coronary artery disease involving grand [place] tribes coronary artery of grand [place]onde tribes heart without angina pectoris TAKE 1 TABLET BY MOUTH DAILY IN THE MORNING 90 Tablet 3 08/28/2023 Active dilTIAZem HCl ER Coated Beads 120 MG Oral Capsule Extended Release 24 Hour (Cardizem CD)Indications:Paro xysmal atrial fibrillation (HCC),Atrial fibrillation, persistent (HCC),HTN, goal below 140/90 TAKE 1 CAPSULE BY MOUTH IN THE MORNING 90 Capsule 3 09/24/2023 Active documented as of this encounter (statuses as of 11/10/2023) Active Problems Problem Noted Date Diagnosed Date Coronary artery disease invo lving grand ronde tribes coronary artery of grand [place]onde tribes heart without angina pectoris 10/16/2021 Atrial fibrillation 02/28/2020 Overview: Added automatically from request for surgery [id number] LUIS (obstructive sleep apnea) 05/19/2019 Nocturnal hypoxemia [...] as of this encounter (statuses as of 11/10/2023) Resolved Problems Problem Noted Date Diagnosed Date Resolved Date Atrial fibrillation, persistent 09/08/2020 10/10/2021 Overview: Added automatically from request for surgery [id number] Paroxysmal atrial fibrillation 01/12/2019 10/09/2020 Folliculitis 06/14/2014 [...] as of this encounter (statuses as of 11/10/2023) Immunizations Name Administration Dates Next Due COVID-19 [...] use Alcohol Use Standard Drinks/Week Comments Yes 19.2 (1 standard dri nk = 0.6 oz pure alcohol) everyday- a [...] as of this encounter Progress Notes * Wilian Meneses MD - 11/10/2023 8:19 AM EST SUBJECTIVE: Chief Complaint: Chief Complaint Patient presents with Follow Up Patient here for a 3 month follow-up for rosacea he says has been doing well. Takes 1 Doxy a day. He has a few other spots he would like checked on his left leg he would like checked and his right ear, was frozen in the past. HPI: Mitch Pinto is a 73 year old male seen for follow up of rosacea. On 20mg doxyxycline. Doing well. No flares. Tolerating well. NO concerns. Still some redness, but few pimples Has spot on right ear that sometimes get sore in the summer. Not currently bothersome Spot on left calf which is new. Not sure what it is. 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 Only a few small pink papules and pustules noted over medial cheeks Right superior helix - 3mm fleshy skin-colored papule Left calf - firm scar-like brown papule ASSESSMENT/PLAN: Rosacea - well controlled with doxycycline 20mg daily. Reviewed SE including photoxicity and GI upset - continue metrogel daily - discussed doxy is best for papulopustular component rather than erythema Benign nevus - offered removal if bothersome, but patient would like to defer to this summer to see if it gets irritated again. Will f/u in 6 months Dermatofibroma Benign nature was discussed and no further intervention needed. Advised to call with any changes. Wilian Meneses MD Ref: MISBAH CARD[[id number]] [address], [place] [id number] (office) [phone] (fax) PCP: MISBAH CARD [address] [place] [address] [phone] documented in this encounter Nursing Notes * Sara Ceballos LPN - 11/10/2023 8:17 AM EST Patient identified by name and date of . Do you have any concerns about pain management for today's visit? No Living Will or Advance Directive for Health Care as noted on problem list. [facility] is a way you can talk to your provider online through e-mail. Would you like to sign up? I can activate it for you? ALREADY ACTIVE Chief Complaint Patient presents with Follow Up Patient here for a 3 month follow-up for rosacea he says has been doing well. Takes 1 Doxy a day. He has a few other spots he would like checked on his left leg he would like checked and his right ear, was frozen in the past. documented in this encounter Plan of Treatment Upcoming Encounters Date Type Department Care Team (Late st Contact Info) Description 12/03/2023 8:20 AM EST Anticoagulation Pharmacy, [place] [address] [place] [address] [facility] [address] [place] [address] 12/10/2023 12:30 PM EST Office Visit Cardiology, [facility] [address] [facility] [place] [address] Manisha Fernando IV, MD [address], [place] [id number] 01/05/2024 8:30 AM EST Nurse Only Ancillary Department, [place] [address] [place] [address] [place], Nurse [facility] [address] [place] [address] 02/05/2024 8:30 AM EDT Office Visit Podiatry, [facility] [address] [place] [address] Hang Avalos, [facility] [address] [place] [address] 02/20/2024 8:30 AM EDT Office Visit Cardiology, [facility] [address] [facility] [place] [address] Araceli Crowe PA-C [address] [facility] [place] [address] 02/24/2024 9:00 AM EDT Office Visit Otolaryngology/Head & Neck/Facial Plastic Surgery [address] [place] [facility] [place] [address] Veronica Clark PA-C [address] [place] [address] 03/05/2024 9:20 AM EDT Office Visit [facility] [address] [place] [id number] Misbah Card MD [address] [place] [address] 05/04/2024 10:00 AM EDT [facility] [address] [place] [phone] Cristel Canchola DO [address] [facility] [place] [address] 05/10/2024 8:45 AM EDT Office Visit Dermatology [facility] [address] [place] [address] Wilian Meneses MD [address] [place] [address] 11/30/2024 9:45 AM EST Office Visit Dermatology [facility] [address] [place] [address] Wilian Meneses MD [address] [place] [address] Scheduled Procedures Name Priority Associated Diagnoses Date/Ti me ESOPHAGOGASTRODUODENOSCOPY ( EGD), FLEXIBLE, TRANSORAL, DIAGNOSTIC Recall Hong's esophagus COLONOSCOPY FLEXIBLE PROXIMAL DIAGNOSTIC Recall History of colon polyps Internal hemorrhoids Health Maintenance Due Date Last Done Comments Hepatitis B (1 of 3 - Risk 3-dose series) 2009 Zoster Vaccines (2 of 3) 06/22/2014 04/27/2014 DTaP,Tdap,and Td Vaccines (2 - Td or Tdap) 12/18/2020 12/18/2010 Diabetic Foot Exam 04/10/2022 04/10/2021, 0 04/10/2021, 03/12/2019, Additional history exists Diabetic Eye Exam 07/15/2023 07/15/2022, , 07/13/2021, Additional history exists COVID-19 Vaccine ( season) 2023 08/05/2023, 08/06/2022, 03/27/2022, Additional history exists Depression Screening 01/03/2024 01/02/2023 HbA1c 03/02/2024 09/01/2023, 03/04, 11/19/2022, Additional history exists Albumin/Creatinine Ratio 03/28/2024 023, 05/20/2022, 10/10/2021, Additional history exists B-12 03/28/2024 03/28/2023, 05/03, 10/10/2021, Additional history exists COLONOSCOPY-EVERY 3 YRS AGES 18-100 04/09/2024 04/09/2021, 04/09/2021, 05/12/2015, Additional history exists GFR 09/01/2024 09/01/2023, 03/04, 05/20/2022, Additional history exists Hong's Esophagus Surveilance 04/22/2025 [...] as of this encounter Visit Diagnoses Diagnosis Rosacea- Primary Benign nevus Benign neoplasm of skin, site unspecified Dermatofibroma Benign neoplasm of skin, site unspecified documented in this encounter Advance Directives Latest Code Status on File Code Status Date Activated Date Inactivated Comments Full Code 10/30/2020 4:04 PM 10/31/2020 1:07 PM Thi s order reflects the patients wishes and were consensually agreed upon. Care Teams Manager Energy Relationship Specialty Start Date End Date Misbah Card MD [address] [place] [id number] PCP - General Family Medicine 12/11/10 documented as of this encounter
--- OUTSIDE RECORDS SUMMARY | 2024-04-04 20:54 | External Medical Summary | Summary of Care ---
Author Name Unknown Organization [facility] Address [address] [place] [address] Phone [phone] Care Team Providers Care Financial Dealers Name Role Phone Lawrence Rockwell MD Primary Care Provider [phone] Reason for Visit * Reason Comments NEW PATIENT Cerumen Impaction Encounter Details Date Type Department Care Team ([facility] Contact Info) Description 02/24/2024 9:00 AM EDT Office Visit Otolaryngology/Head & Neck/Facial Plastic Surgery [address], [place] [id number] Veronica Clark PA-C [address] [place] [address] Impacted cerumen of right ear*; Excessive cerumen in ear canal, left; Occupational exposure to noise; Hearing difficulty, unspecified laterality Allergies No known active allergiesdocumented as of this encounter (statuses as of 02/24/2024) Medications Medication Sig Dispensed Refills Start Date End Date Status ONETOUCH ULTRA BLUE STRPIndications:DM type 2, goal A1c below 7 TEST TWICE A DAY 180 Strip 3 09/27/2013 Active Multiple Vitamins-Minerals (ONE-A-DAY MENS 50+ ADVANTAGE) TABS Take by mouth. 0 Activ e [place]-3 Fatty Acids (SALMON OIL-1000) 200 MG CAPS Take by mouth daily . 0 Active Fluticasone Propionate 50 MCG/ACT Nasal Suspension (Flonase)Indication s:Chronic rhinitis Administer 2 Sprays into each nostril daily. 16 g 5 10/10/2021 Active CPAP every night at bedtime. 0 Active Propranolol HCl 10 MG Oral Tablet (Inderal) TAKE ONE TABLET BY MOUTH DAILY NEEDED 10 Tablet 5 03/05/2023 Active Additional Information Patient not taking.Reported on 02/24/2024 Vardenafil HCl 20 MG Oral Tablet (Levitra)Indication [...] goal of less than 7.0% ([facility]) Test twice daily as directed 200 [...] ns:HTN, goal below 140/90,Coronary artery disease involving ruby coronary artery of ruby heart without angina pectoris TAKE 1 TABLET [...] as of this encounter (statuses as of 02/24/2024) Active Problems Problem Noted Date Diagnosed Date Coronary artery disease invo lving ruby coronary artery of ruby heart without angina pectoris 10/16/2021 Atrial fibrillation 02/28/2020 Overview: Added automatically from request for surgery [id number] LUIS (obstructive sleep apnea) 05/19/2019 Nocturnal hypoxemia [...] as of this encounter (statuses as of 02/24/2024) Resolved Problems Problem Noted Date Diagnosed Date Resolved Date Atrial fibrillation, persistent 09/08/2020 10/10/2021 Overview: Added automatically from request for surgery [id number] Paroxysmal atrial fibrillation 01/12/2019 10/09/2020 Folliculitis 06/14/2014 [...] as of this encounter (statuses as of 02/24/2024) Immunizations Name Administration Dates Next Due COVID-19 [...] Sign Reading Time Taken Comments Blood Pressure 176/92 02/24/2024 8:46 AM EDT Pulse 59 02/24/2024 8:46 AM EDT Temperature 36 C (96.8 F) 02/24/2024 8:46 AM EDT Respiratory Rate 18 02/24/2024 8:46 AM EDT Oxygen Saturation - - Inhaled Oxygen Concentration - - Weight 107.3 kg (236 lb 9.6 oz) 02/24/2024 8:46 AM EDT Height 175.3 cm (5' 9") 02/24/2024 8:46 AM EDT Body Mass Index 34.94 02/24/2024 8:46 AM EDT documented in this encounter Patient Instructions * Patient Instructions* Veronica Clark PA-C - 02/24/2024 9:47 AM EDT Mineral oil drops 1 drop each ear once weekly. Place a piece of cotton in the ear canal to catch any drops that may run back out. documented in this encounter Progress Notes * Veronica Clark PA-C - 02/24/2024 8:59 AM EDT HISTORY OF PRESENT ILLNESS CC: Cerumen This 73 year old male is seen at the request of Lawrence Rockwell MD for the initial evaluation of the above. Patient is accompanied by his son, Pedro. Mitch Pinto is a 73 year old male seen for concerns of excess cerumen. Denies ear pain. He is on warfarin. Has had tinnitus in the past but not recently. Occasionally will use an ear drop (fluocinonide 0.05%) for psoriasis. Has some struggles with hearing. Tinnitus: Denied Aural pressure/otalgia: Denied Disequilibrium/vertigo: Denied Ear Infections, adult or childhood: A lot of ear infection as a child. 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 Familial Hearing Loss: Denied [place]/Vestibulotoxic medication: Denied Head Injury/ History of Concussions: Denied Problem List Patient Active Problem List Diagnosis Date Noted Coronary artery disease involving ruby coronary artery of ruby heart without angina pectoris [I25.10] 10/16/2021 Atrial fibrillation (HCC) [I48.91] 02/28/2020 Added automatically from request for surgery [id number] LUIS (obstructive sleep apnea) [G47.33] 05/19/2019 Nocturnal hypoxemia [G47.34] 05/19/2019 Hypersomnolence disorder [G47.10] 03/23/2019 Primary insomnia [F51.01] 03/23/2019 Gastroesophageal reflux disease with esophagitis [K21.00] 03/12/2019 HTN, goal below 140/90 [I10] 06/19/2017 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] 04/12/2016 Type 2 diabetes mellitus with hemoglobin A1c goal of less than 7.0% (HCC) [E11.9] 11/28/2015 ICD-10 update of inactive term Rosacea [L71.9] 06/14/2014 Dyslipidemia, goal LDL below 70 [E78.5] 03/03/2013 Past Medical History: Diagnosis Date Abnormal electrocardiogram [...] GI) performed by RUDY COLEMAN at [facility] ANESTH, UPPER GI ENDOSCOPIC PROCS 11/23/2010 ANESTHESIA FOR UPPER GI ENDOSCOPIC PROCEDURES (ERCP OR UPPER GI) performed by RUDY COLEMAN at [facility] ANESTH, UPPER GI ENDOSCOPIC PROCS 01/11/2011 ANESTHESIA FOR UPPER GI ENDOSCOPIC PROCEDURES (ERCP OR UPPER GI) performed by RUDY COLEMAN at [facility] COLONOSCOPY 05/2010 [place], [place], repeat 2014 COLONOSCOPY, DIAGNOSTIC (RECTUM) 05/12/2015 COLONOSCOPY FLEXIBLE PROXIMAL DIAGNOSTIC performed by Rudy Coleman MD at [facility] COLONOSCOPY, DIAGNOSTIC (RECTUM) N/A 04/09/2021 COLONOSCOPY FLEXIBLE PROXIMAL DIAGNOSTIC performed by Rudy Coleman MD at [facility] CORONARY ANGIOGRAPHY W/LEFT HEART CATH Right 02/16/2021 CORONARY ANGIOGRAPHY W/LEFT HEART CATH performed by Zeus Phillips DO at [facility] EGD, FLEXIBLE, DIAGNOSTIC 03/18/2011 UPPER GI ENDOSCOPY DIAGNOSTIC performed by RUDY COLEMAN at [facility] EGD, FLEXIBLE, DIAGNOSTIC 05/08/2011 UPPER GI ENDOSCOPY DIAGNOSTIC performed by RUDY COLEMAN at [facility] EGD, FLEXIBLE, DIAGNOSTIC 12/27/2011 UPPER GI ENDOSCOPY DIAGNOSTIC performed by RUDY COLEMAN at [facility] EGD, FLEXIBLE, DIAGNOSTIC 06/05/2012 UPPER GI ENDOSCOPY DIAGNOSTIC performed by Rudy Coleman MD at [facility] EGD, FLEXIBLE, DIAGNOSTIC 02/26/2013 UPPER GI ENDOSCOPY DIAGNOSTIC performed by Rudy Coleman MD at [facility] EGD, FLEXIBLE, DIAGNOSTIC 04/22/2014 ESOPHAGOGASTRODUODENOSCOPY (EGD), FLEXIBLE, TRANSORAL, DIAGNOSTIC performed by Rud[facility] Coleman [facility] EGD, FLEXIBLE, DIAGNOSTIC N/A 05/12/2015 ESOPHAGOGASTRODUODENOSCOPY (EGD), FLEXIBLE, TRANSORAL, DIAGNOSTIC performed by Rudy Coleman MD [facility] EGD, FLEXIBLE, DIAGNOSTIC N/A 05/15/2017 ESOPHAGOGASTRODUODENOSCOPY (EGD), FLEXIBLE, TRANSORAL, DIAGNOSTIC [facility], FLEXIBLE, DIAGNOSTIC N/A 06/26/2018 ESOPHAGOGASTRODUODENOSCOPY (EGD), FLEXIBLE, TRANSORAL, DIAGNOSTIC [facility] EGD, FLEXIBLE, DIAGNOSTIC N/A 09/03/2019 ESOPHAGOGASTRODUODENOSCOPY (EGD), FLEXIBLE, TRANSORAL, DIAGNOSTIC [facility] EGD, FLEXIBLE, DIAGNOSTIC N/A 04/09/2021 ESOPHAGOGASTRODUODENOSCOPY (EGD), FLEXIBLE, TRANSORAL, DIAGNOSTIC performed by Rudy Coleman MD [facility] EGD, FLEXIBLE, DIAGNOSTIC N/A 04/22/2022 ESOPHAGOGASTRODUODENOSCOPY (EGD), FLEXIBLE, TRANSORAL, DIAGNOSTIC performed by Rud[facility] Coleman [facility] EGD, FLEXIBLE, REMOVE LESIONS, SNARE METHOD 06/21/2010 [...] performed by Rudy Coleman MD at [facility] ELECTROPHYSIOLOGY EVAL, ATRIAL FIB, PULMONARY VEIN ISOL N/A 10/30/2020 PVI RADIOFREQUENCY CATHETER ABLATION performed by Manisha Fernando IV, MD at [facility] HEART ELECTROCONVERSION, EXTERNAL N/A 03/06/2020 DC CARDIOVERSION performed by Manisha Fernando IV, MD at [facility] HEART ELECTROCONVERSION, EXTERNAL N/A 05/29/2020 DC CARDIOVERSION performed by Manisha Fernando IV, MD at [facility] INFORMATION 2009 Varicose vein injections REMOVE TONSILS & ADENOIDS, UNDER 12 Current Outpatient Medications Medication Sig Dispense Refill ONETOUCH ULTRA BLUE STRP TEST TWICE A DAY 180 Strip 3 Multiple Vitamins-Minerals (ONE-A-DAY MENS 50+ ADVANTAGE) TABS Take by mouth. [place]-3 Fatty Acids (SALMON OIL-1000) 200 MG CAPS Take by mouth daily . Fluticasone Propionate 50 MCG/ACT Nasal Suspension (Flonase) Administer 2 Sprays into each nostril daily. 16 g 5 CPAP every night at bedtime. Cinnamon 500 MG Oral Tablet Take 1 Tablet by mouth in the morning. 90 Tablet 3 CoQ10 100 MG Oral Capsule Take 100 mg by mouth in the morning. 90 Capsule 3 Aspirin 81 MG Oral Tablet Chewable Take 1 Tablet by mouth in the morning. with food.. 90 Tablet 3 Lancets Test twice daily as directed 200 Each 3 Warfarin Sodium 5 MG Oral Tablet [...] MORNING AND EVENING MEALS 180 Tablet 1 Propranolol HCl 10 MG Oral Tablet (Inderal) TAKE ONE TABLET BY MOUTH DAILY NEEDED (Patient not taking: Reported on 02/24/2024) 10 Tablet 5 Vardenafil HCl 20 MG Oral Tablet (Levitra) TAKE ONE TABLET BY MOUTH 1 hour before intercourse as needed; no more than 1 dose per day 5 Tablet 1 Fluocinonide 0.05 % External Solution Apply 1-2 drops to each ear daily as needed for itching or flares. 60 mL 2 metroNIDAZOLE 1 % External Gel (Metrogel) Apply to entire face at night prior to bed (Patient not taking: Reported on 02/24/2024) 135 g 1 No current facility-administered medications for this visit. Review of patient's allergies indicates: No Known Allergies Family History Problem Relation Age of Onset Heart Disorder Father [place], open heart surgery, CHF Diabetes Father Cancer Father skin CA nose Gastro-intestinal disorder Father diverticulitis Mental Disorder Father depression Thyroid Disorder Father Lung Disorder Mother emphysema Gastro-intestinal disorder Mother choly Social History Social History Tobacco Use Smoking status: Former Current packs/day: 0.50 Average packs/day: 0.5 packs/day for 10.0 years (5.0 ttl pk-yrs) Types: Cigarettes Smokeless tobacco: Former Quit date: 11/03/1979 Tobacco comments: quit smoking 1979; chewed tobacco quit 5 yrs ago - no regular use Substance Use Topics Alcohol use: Yes Alcohol/week: 12.0 standard drinks of alcohol Types: 10 5 oz of wine, 2 1.5 oz of liquor per week Comment: everyday- a couple glasses of wine- more on the weekend Vaping/E-Cigarette Use Vaping/E-Cigarette Use Never User Vaping/E-Cigarette Substances Vaping/E-Cigarette Devices I reviewed the updated past medical history, problem list, past surgical history, social history, family history, allergy and current medication list. 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 ROS General: No recent weight loss/gain. No fatigue. Cardio: No palpitations, chest pain, no orthopnea, or dyspnea on exertion. Lung: No cough, wheezing, sputum or shortness of breath. Nerve: No numbness, weakness of extremities, diplopia, vertigo, mental status change Heme: No easy bruising, bleeding. No fever. No chills. No sweats. ROS otherwise negative unless stated in PMH or HPI. BP 176/92 (BP Site: Right Arm, BP Position: Sitting, BP Cuff Size: Regular) | Pulse 59 | Temp 36 C (96.8 F) (Infrared ) | Resp 18 | Ht 1.753 m (5' 9") | Wt 107.3 kg (236 lb 9.6 oz) | BMI 34.94 kg/m | BSA 2.29 m PHYSICAL EXAMINATION: Gen: Patient is a healthy male and appears his stated age. He is alert, oriented, cooperative and in no acute distress. The patient is neither obese nor dysmorphic. He is appropriately conversant andhis voice is normal in character and quality. Face: No facial asymmetry. There was no erythema or edema noted. Facial movement was symmetric without weakness. No skin lesions were detected. Ears: The auricles are normally formed without lesions. The right external auditory canal has a cerumen impaction. The left external auditory canal has excess cerumen filling 80% of the canal. Cerumen Removal / Binocular Microscopy Performed by Camille The right ear is examined using binocular microscopy. Impacted Cerumen is removed using suction andear forceps. After cerumen removal the right external auditory canal is found to be without mass/ lesions. Tympanic membrane is intact without retraction / effusion. The left ear is examined using binocular microscopy. Excess Cerumen is removed using suction and ear forceps. After cerumen removal the left external auditory canal is found to be without mass/ lesions. Tympanic membrane is intact without retraction / effusion. Nose: The septum is nonobstructing and the turbinates are without abnormality. No masses, polyps, mucopus, or other lesion are visualized. Oral Cavity: The mucosa is moist without lesion. The hard palate is intact. The soft palate is intact . The occlusion is stable. Tongue is of normal size with normal mobility. Oropharynx: The tonsils are surgically absent. There is no erythema and no exudate on either side. Neck: Thyroid- no thyromegaly. No neck mass to palpation. Lymphatics: No visible or palpable abnormalities of the lymph nodes of the posterior triangle, anterior cervical chain, central neck or submandibular region. ASSESSMENT: Mitch Pinto is a 73 year old male seen for concerns of cerumen impaction. Cerumenis cleared to completion to reveal normal appearing external auditory canals. Tympanic membranes are intact without retraction / effusion. Plan: Mineral oil drops, use 1 drop each ear once weekly. Place a piece of cotton in the ear canal to catch any drops that may run back out. I offered an audiogram which he declines. [facility] with [facility]. I recommend follow up in 6 months; RTC sooner prn. Veronica Clark PA-C I spent a total of 20-29 minutes (exact time 28 mins) on the date of service in preparation, delivery, and documentation of the care provided to Mitch Pinto excluding any time spent in the performance of separately billed services. 02/24/2024 8:59 AM documented in this encounter Plan of Treatment Upcoming Encounters Date Type Department Care Team (Latest Contact Info) Description 4 8:30 AM EDT Office Visit Cardiology, [facility] [address] [address] Margaret Loya CRNP [address] [place] [address] 4 5:10 PM EDT Anticoagulation [address] [place] [address] [facility] [address] [place] [address] 4 9:30 AM EDT Anticoagulation Pharmacy, [place] [address] [place] [address] [facility] [address] [place] [address] 4 9:40 AM EDT Office Visit Family [facility], [place] [address] [place] [id number] Lawrence Rockwell MD [address] [place] [address] 4 8:45 AM EDT Office Visit Podiatry, [facility] [address] [place] [address] Hang Avalos, [facility] [address] [place] [address] 4 7:30 AM EDT Hospital Encounter [facility], Endoscopy Suite, [facility] [address], [address] [place] [address] Rudy Coleman MD [address] [place] [address] 4 7:30 AM EDT - 4 8:45 AM EDT Surgery [facility]O [facility], Endoscopy Suite, [address] [address], [address] [place] [address] Rudy Coleman MD [address], [place] [id number] ESOPHAGOGASTRODUODENOSCOPY (EGD), FLEXIBLE, TRANSORAL, DIAGNOSTIC 4 10:00 AM EDT Office Visit Sleep Disorders Ctr [facility] [address] [place] [address] Cristel Canchola, [address] [facility] [place] [address] 4 12:30 PM EDT [facility] [address] [facility] [place] [address] Manisha Fernando IV, MD [address] [place] [address] 4 8:45 AM EDT Office Visit Dermatology [facility] [address] [facility] [place] [address] Wilian Meneses MD [address] [facility] [place] [address] 4 11:30 AM EDT Office Visit Otolaryngology/ Head & Neck/Facial Plastic Surgery [address] [place] [address] Veronica Clark PA-C [address] [place] [address] 5 9:45 AM EST Office Visit Dermatology [facility] [address] [place] [address] Wilian Meneses MD [address] [facility] [place] [address] 5 9:00 AM EDT Nurse Only Ancillary Department, [address] [address] [place], Nurse [facility] [address] [place] [address] Scheduled Procedures Name Priority Associated Diagnoses Date/Ti me ESOPHAGOGASTRODUODENOSCOPY ( EGD), FLEXIBLE, TRANSORAL, DIAGNOSTIC Recall Hong's esophagus 04/23/2024 7:30 AM EDT COLONOSCOPY FLEXIBLE PROXIMA L DIAGNOSTIC Recall Hong's esophagus 04/23/2024 7:30 AM EDT COLONOSCOPY FLEXIBLE PROXIMA L DIAGNOSTIC Recall History of colon polyps Internal hemorrhoids Health Maintenance Due Date Last Done Comments Zoster Vaccines (2 of 3) 06/22/2014 04/27/2014 [...] 04/09/2024 04/09/2021, 04/09/2021, 05/12/2015, Additional history exists Diabetic Eye Exam 08/08/2024 08/08/2023, , 07/15/2022, [...] as of this encounter Visit Diagnoses Diagnosis Impacted cerumen of right ear- Primary Impacted cerumen Excessive cerumen in ear canal, left Occupational exposure to noise Other effects of external causes Hearing difficulty, unspecified laterality Hong's esophagus documented in this encounter Advance Directives Latest Code Status on File Code Status Date Activated Date Inactivated Comments Full Code 10/30/2020 4:04 PM 10/31/2020 1:07 PM Thi s order reflects the patients wishes and were consensually agreed upon. Care Teams Financial Dealers Relationship Specialty Start Date End Date Lawrence Rockwell MD [address] [place] [address] PCP - General Family Medicine 12/11/10 documented as of this encounter
--- OUTSIDE RECORDS SUMMARY | 2024-04-04 20:54 | External Medical Summary | Summary of Care ---
Author Name Unknown Organization [facility] Address [address] [place] [address] Phone [phone] Care Team Providers Care Global Marketing Manager Name Role Phone Misbah Card MD Primary Care Provider +1- [phone] Reason for Visit * Reason Comments eRx-Medication Refill Encounter Details Date Type Department Care Team (Late st Contact Info) Description 02/08/2024 Refill [facility] [address] [place] [address] Misbah Card MD [address] [place] [address] Type 2 diabetes mellitus with hemoglobin A1c goal of less than 7.0% ([facility]) Allergies No known active allergiesdocumented as of this encounter (statuses as of 02/09/2024) Medications Medication Sig Dispensed Refills Start Date End Date Status ONETOUCH ULTRA BLUE STRPIndications:D M type 2, goal A1c below 7 TEST TWICE A DAY 180 Strip 3 09/27/2013 Active Multiple Vitamins-Minerals (ONE-A-DAY MENS 50+ ADVANTAGE) TABS Take by mouth. 0 Active [place]-3 Fatty Acids (SALMON OIL-1000) 200 MG CAPS [...] A1c goal of less than 7.0% ([facility]) Test twice daily as directed 200 Each 3 03/05/2023 Active Warfarin Sodium 5 MG Oral Tablet (Coumadin) TAKE 1-1.5 TABLETS BY MOUTH DAILY DIRECTED BY [facility] 21 Tablet 0 03/06/2023 Active metroNIDAZOLE 1 % External Gel (Metrogel)Indicat ions:Rosacea Apply to entire face at night prior to bed 135 g 1 03/18/2023 Active Doxycycline Hyclate 20 MG Oral TabletIndications :Rosacea TAKE 1 TABLET BY MOUTH TWICE DAILY WITH OR WITHOUT FOOD 180 Tablet 1 08/27/2023 Active Lisinopril 10 MG Oral Tablet (Prinivil)Indicat ions:HTN, goal below 140/90,Coronary artery disease involving [place] coronary artery of [place] heart without angina pectoris TAKE 1 TABLET [...] EVENING MEALS 180 Tablet 1 02/09/2024 Active metFORMIN HCl 1000 MG Oral Tablet (Glucophage)Indic ations:Type 2 diabetes mellitus with hemoglobin A1c goal of less than 7.0% (HCC) TAKE ONE TABLET BY MOUTH 2 TIMES A DAY WITH MORNING AND EVENING MEALS 28 Tablet 0 03/06/2023 02/09/20 24 Discontinued documented as of this encounter (statuses as of 02/09/2024) Active Problems Problem Noted Date Diagnosed Date Coronary artery disease invo lving [place] coronary artery of [place] heart without angina pectoris 10/16/2021 Atrial fibrillation 02/28/2020 Overview: Added automatically from request for surgery [id number] LUIS (obstructive sleep apnea) 05/19/2019 Nocturnal hypoxemia [...] as of this encounter (statuses as of 02/09/2024) Resolved Problems Problem Noted Date Diagnosed Date Resolved Date Atrial fibrillation, persistent 09/08/2020 10/10/2021 Overview: Added automatically from request for surgery [id number] Paroxysmal atrial fibrillation 01/12/2019 10/09/2020 Folliculitis 06/14/2014 [...] as of this encounter (statuses as of 02/09/2024) Immunizations Name Administration Dates Next Due COVID-19 [...] encounter Miscellaneous Notes * Telephone Encounter - Josseline Pimentel [facility] - 02/09/2024 2:15 PM EDTSigned Prescriptions: Disp Refills metFORMIN HCl 1000 MG Oral Tablet (Glucoph*180 Ta*1 Sig: TAKE 1 TABLET BY MOUTH TWICE DAILY WITH MORNING AND EVENING MEALSAuthorizing Provider: MISBAH CARD User: JOSSELINE PIMENTEL documented in this encounter Plan of Treatment Upcoming Encounters Date Type Department Care Team (Latest Contact Info) Description 4 9:00 AM EDT Office Visit Otolaryngology/ Head & Neck/Facial Plastic Surgery [address] [place] [address] Veronica Clark PA-C [address] [place] [address] 4 8:30 AM EDT Office Visit Cardiology, [facility] [address] [facility] [place] [address] Margaret Loya CRNP [address] [place] [address] 4 1:00 PM EDT Office Visit Podiatry, [place] [address] [place], [place] [phone] Hang Avalos DPM [address] [place] [address] 4 5:10 PM EDT Anticoagulation Pharmacy, [place] [address] [place] [facility] [place] [address] [place], [facility] [address] [place] [facility] [place] [address] 4 9:30 AM EDT Anticoagulation Pharmacy, [place] [address] [place] [address] [place], [facility] [address] [place] [facility] [place] [address] 4 9:40 AM EDT Office Visit [facility], [place] [address] [place] [facility] [place] [phone] Misbah Card MD [address] [place] [facility] [place] [address] 4 7:30 AM EDT Hospital Encounter ENDO [facility], Endoscopy Suite, HFAM 1, [address] [place] [address] Demarco Coleman MD [address] [place] [address] 4 7:30 AM EDT - 4 9:00 AM EDT Surgery ENDO [facility], Endoscopy Suite, HFAM 1, [address] [place] [address] Demarco Coleman MD [address] [place], [place] [id number] ESOPHAGOGASTRODUODENOSCOPY (EGD), FLEXIBLE, TRANSORAL, DIAGNOSTIC 4 10:00 AM EDT Office Visit [facility] [address] [place] [address] Cristel Canchola, DO [address] [place] [facility] [address] 4 12:30 PM EDT Office Visit Cardiology, [facility] [address] [place] [place] [address] Manisha Fernando IV, MD [address] [place] [address] 4 8:45 AM EDT Office Visit Dermatology [facility] [address] [place] [address] Wilian Meneses MD [address] [place] [address] 5 9:45 AM EST Office Visit Dermatology [facility] [address] [place] [address] Wilian Meneses MD [address] [place] [address] 5 9:00 AM EDT Nurse Only Ancillary Department, [address] [address] [place], [facility] [address] [place] [address] Scheduled Procedures Name Priority Associated Diagnoses Date/Ti [...] A1c goal of less than 7.0% (HCC) Hong's esophagus documented in this encounter Advance Directives Latest Code Status on File Code Status Date Activated Date Inactivated Comments Full Code 10/30/2020 4:04 PM 10/31/2020 1:07 PM Thi s order reflects the patients wishes and were consensually agreed upon. Care Teams Global Marketing Manager Relationship Specialty Start Date End Date Misbah Card MD [address] [facility] [place] [id number] PCP - General Family Medicine 12/11/10 documented as of this encounter
--- OUTSIDE RECORDS SUMMARY | 2024-04-04 20:54 | External Medical Summary | Summary of Care ---
Author Name Unknown Organization [facility] Address [address] [place] [address] Phone [phone] Care Team Providers Care Supervisor Asbestos Removal Name Role Phone Lawrence Rockwell MD Primary Care Provider +1- [phone] Reason for Visit * Reason Comments Dosage Adjustment In Person (Anticoag Cl inic) Encounter Details Date Type Department Care Team (Latest Contact Info) Description 12/31/2023 8:40 AM EST Anticoagulation Pharmacy, [address] [address] [facility] [address] [place] [address] Longstanding persistent atrial fibrillation (HCC)*; Atrial fibrillation, unspecified type (HCC); Anticoagulation management encounter; 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 0 Activ e [place]-3 Fatty Acids (SALMON OIL-1000) 200 MG CAPS [...] 03/18/2023 Active Doxycycline Hyclate 20 MG Oral TabletIndications:R osacea TAKE 1 TABLET BY MOUTH TWICE DAILY WITH OR WITHOUT FOOD 180 Tablet 1 08/27/2023 Active Lisinopril 10 MG Oral Tablet (Prinivil)Indicatio ns:HTN, goal below 140/90,Coronary artery disease involving [place] coronary artery of [place] heart without angina pectoris TAKE 1 TABLET [...] THE MORNING 90 Tablet 2 12/09/2023 Active documented as of this encounter (statuses as of 12/31/2023) Active Problems Problem Noted Date Diagnosed Date Coronary artery disease invo lving [place] coronary artery of [place] heart without angina pectoris 10/16/2021 Atrial fibrillation 02/28/2020 Overview: Added automatically from request for surgery [id number] LUIS (obstructive sleep apnea) 05/19/2019 Nocturnal hypoxemia [...] as of this encounter (statuses as of 12/31/2023) Resolved Problems Problem Noted Date Diagnosed Date Resolved Date Atrial fibrillation, persistent 09/08/2020 10/10/2021 Overview: Added automatically from request for surgery [id number] Paroxysmal atrial fibrillation 01/12/2019 10/09/2020 Folliculitis 06/14/2014 [...] as of this encounter (statuses as of 12/31/2023) Immunizations Name Administration Dates Next Due COVID-19 [...] Progress Notes * Donna Graham RPh - 12/31/2023 8:53 AM EST Images from the original note were not included. Medication Therapy Disease Management - Anticoagulation Patient: Mitch Pinto | : 1950 Subjective Patient-Reported Symptoms: Patient Findings Negatives: Signs/symptoms of thrombosis, Signs/symptoms of bleeding, Change in health, Change in alcohol use, Change in activity, Upcoming invasive procedure, Missed doses, Extra doses, Change in medications, Change in diet/appetite, Bruising Objective Current Warfarin Dose As of 12/31/2023 Warfarin maintenance plan: 7.5 mg (5 mg x 1.5) every day INR Result As of 12/31/2023 INR goal: 2.0-3.0 INR used for dosin.3 (12/31/2023) Assessment & Plan Warfarin Plan As of 12/31/2023 Full warfarin instructions: 12/31: Hold; Otherwise 5 mg every Fri, Sat; 7.5 mg all other days Next INR check: 02/06/2024 Repeat PT/INR in 5 week(s) Weekly dose: decreased Additional Dosing Information: Donna Graham [facility] Clinical Pharmacist 12/31/2023, 8:53 AM documented in this encounter Plan of Treatment Upcoming Encounters Date Type Department Care Team (Latest Contact Info) Description 4 9:00 AM EST Nurse Only Ancillary Department, [place] [address] [place] [address] [place], Nurse [facility] [address] [place] [address] 4 8:30 AM EDT Office Visit Podiatry, [facility] [address] [place] [address] Hang Avalos, [place] [address] [place], [place] [phone] 4 8:00 AM EDT Anticoagulation Pharmacy, [place] [address] [place] [address] [facility] [address] [place] [address] 4 9:00 AM EDT Office Visit Otolaryngology/ Head & Neck/Facial Plastic Surgery [address] [place] [address] Veronica Clark PA-C [address] [place] [address] 4 8:30 AM EDT Office Visit Cardiology, [facility] [address] [place] [address] Margaret Loya CRNP [address] [place] [address] 4 9:40 AM EDT [facility] [address] [place] [address] Lawrence Rockwell MD [address] [place] [address] 4 7:30 AM EDT Hospital Encounter ENDO [facility], Endoscopy Suite, HFAM 1, [address] [place] [address] Demarco Coleman MD [address] [place] [address] 4 7:30 AM EDT - 4 9:00 AM EDT Surgery ENDO [facility], Endoscopy Suite, HFAM 1, [address] [place] [address] Demarco Coleman MD [address] [place] [address] ESOPHAGOGASTRODUODENOSCOPY (EGD), FLEXIBLE, TRANSORAL, DIAGNOSTIC 4 10:00 AM EDT Office Visit Sleep Disorders Ctr [facility] [address] [place] [address] Cristel Canchola, [address] [place] [address] 4 12:30 PM EDT Office Visit Cardiology, [facility] [address] [place] [address] Manisha Fernando IV, MD [address] [place] [address] 4 8:45 AM EDT Office Visit Dermatology [facility] [address] [place] [address] Wilian Meneses MD [address] [place] [address] 5 9:45 AM EST Office Visit Dermatology [facility] [address] [place] [address] Wilian Meneses MD [address] [place] [address] Scheduled Procedures Name Priority Associated Diagnoses Date/Ti [...] Comments INR FINGERSTICK, POINT OF CARE STAT 12/31/2023 8:56 AM EST Atrial fibrillation, unspecified type (HCC) Anticoagulation management encounter terminal gauger current use of anticoagulant therapy documented in this encounter Results * INR FINGERSTICK, POINT OF CARE (12/31/2023 8:56 AM EST) Fingerstick INR 3.3 INR 8:58 AM EST [facility] Blood 12/31/2023 8:56 AM EST 12/31/2023 8:58 AM EST Narrative [facility] 56- - 12/31/2023 8:58 AM EST Therapeutic ranges for non-operative patients: Prophylaxsis/treatment of DVT: (Range:2.0-3.0) Treatment of pulmonary embolism:(Range:2.0-3.0) Prevention of systemic embolism from: -tissue heart valves -acute myocardial infarction -valvular heart disease -atrial fibrillation (Range: 2.0-3.0) Mechanical prosthetic valves: (Range: 2.5-3.5) Donna Graham [facility] POINT OF CARE TEST DOCKED DEVICE UNSOLICITED RESULTS [facility] [address] [place] [address] documented in this encounter Visit Diagnoses Diagnosis Longstanding persistent atrial fibrillation (HCC)- Primary Atrial fibrillation, unspecified type (HCC) Anticoagulation management encounter Encounter for therapeutic drug monitoring USP current use of anticoagulant therapy Hong's esophagus documented in this encounter Advance Directives Latest Code Status on File Code Status Date Activated Date Inactivated Comments Full Code 10/30/2020 4:04 PM 10/31/2020 1:07 PM Thi s order reflects the patients wishes and were consensually agreed upon. Care Teams Supervisor Asbestos Removal Relationship Specialty Start Date End Date Lawrence Rockwell MD [address] [place] [address] PCP - General Family Medicine 12/11/10 documented as of this encounter"
--- OUTSIDE RECORDS SUMMARY | 2024-04-04 20:54 | External Medical Summary ---
Author Name Unknown Address Unknown Organization : Laboratory Report Ordering Provider Test Date Status ROSEY SAUNDERS 12/03/2023 08:25:35 Final Therapeutic ranges for non-o perative patients:
Prophylaxsis/treatment of DVT: (Range:2.0-3.0)
Treatment of pulmonary embolism:(Range:2.0-3.0)
Prevention of systemic embolism from:
-tissue heart valves
-acute myocardial infarction
-valvular heart disease
-atrial fibrillation
(Range: 2.0-3.0)
Mechanical prosthetic valves: (Range: 2.5-3.5) Observation Date Value Abnormality Reference (Units ) Status INR in Capillary blood by Coagulation assay 12/03/2023 08:25:35 3.5 (INR) Final Performing Location
--- OUTSIDE RECORDS SUMMARY | 2024-04-04 20:54 | External Medical Summary | Summary of Care ---
Author Name Unknown Organization [facility] Address [address] [place] [address] Phone [phone] Care Team Providers Care Software Test Specialist Name Role Phone Lawrence Rockwell MD Primary Care Provider +1- [phone] Reason for Visit * Reason Comments eRx-Medication Refill Encounter Details Date Type Department Care Team (Late st Contact Info) Description 11/26/[address] [facility] [address] [place] [address] Lawrence Rockwell MD [address] [place] [address] Allergies No known active allergiesdocumented as of this encounter (statuses as of 11/27/2023) Medications Medication Sig Dispensed Refills Start Date End Date Status ONETOUCH ULTRA BLUE STRPIndications:DM type 2, goal A1c below 7 TEST TWICE A DAY 180 Strip 3 09/27/2013 Active Multiple Vitamins-Minerals (ONE-A-DAY MENS 50+ ADVANTAGE) TABS Take by mouth. 0 Activ e [place]-3 Fatty Acids (SALMON OIL-1000) 200 MG CAPS [...] hemoglobin A1c goal of less than 7.0% ([facility]) Test twice daily as [...] ns:HTN, goal below 140/90,Coronary artery disease involving [place] coronary artery of [place] heart without angina pectoris TAKE 1 TABLET [...] as of this encounter (statuses as of 11/27/2023) Active Problems Problem Noted Date Diagnosed Date Coronary artery disease invo lving [place] coronary artery of [place] heart without angina pectoris 10/16/2021 Atrial fibrillation 02/28/2020 Overview: Added automatically from request for surgery [id number] LUIS (obstructive sleep apnea) 05/19/2019 Nocturnal hypoxemia [...] as of this encounter (statuses as of 11/27/2023) Resolved Problems Problem Noted Date Diagnosed Date Resolved Date Atrial fibrillation, persistent 09/08/2020 10/10/2021 Overview: Added automatically from request for surgery [id number] Paroxysmal atrial fibrillation 01/12/2019 10/09/2020 Folliculitis 06/14/2014 [...] as of this encounter (statuses as of 11/27/2023) Immunizations Name Administration Dates Next Due COVID-19 mRNA, LNP-s, No Pre serve, 2-Dose Series (Moderna) 12/30/2020,11/25/2020 COVID-19 mRNA, LNP-s, No Pre serve, 2-Dose Series ([employer]) 08/05/2023 COVID-19, mRNA, LNP-s, PF, B ooster, [...] encounter Miscellaneous Notes * Telephone Encounter - Felix Gan [facility] - 11/27/2023 8:30 AM EST Refused Prescriptions: Disp Refills Pantoprazole Sodium 20 MG Oral Tablet [place]*90 Tab*3 Sig: TAKE 1TABLET BY MOUTH IN THE MORNINGRefused By: FELIX GAN for Refusal: Too soon Atorvastatin Calcium 80 MG Oral Tablet (Li*90 Tab*3 Sig: TAKE 1 TABLET BY MOUTH IN THE MORNINGRefused By: FELIX GAN for Refusal: Too soon documented in this encounter Plan of Treatment Upcoming Encounters Date Type Department Care Team (Latest Contact Info) Description 4 8:20 AM EST Anticoagulation Pharmacy, [address] [address] [place], [facility] [address] [place] [address] 4 12:30 PM EST Office Visit Cardiology, [facility] [address] [place] [address] Manisha Fernando IV, MD [address] [place] [address] 4 8:30 AM EST Nurse Only Ancillary Department, [address] [address] [place], [facility] [address] [place] [address] 4 8:30 AM EDT Office Visit Podiatry, [place] [address] [place] [address] Hang Avalos, DPM [address] [place] [address] 4 8:30 AM EDT Office Visit Cardiology, [facility] [address] [facility] [place] [address] Araceli Crowe PA-C [address] [place] [address] 4 9:00 AM EDT Office Visit Otolaryngology/ Head & Neck/Facial Plastic Surgery [address] [place] [address] Veronica Clark PA-C [address] [place] [address] 4 9:20 AM EDT Office Visit [facility] [address] [place] [address] Lawrence Rockwell MD [address] [place] [address] 4 7:30 AM EDT Hospital Encounter [facility], Endoscopy Suite, HFAM 1, [address] [place] [address] Demarco Coleman MD [address] [place] [address] 4 7:30 AM EDT - 4 9:00 AM EDT Surgery [facility], Endoscopy Suite, HFAM 1, [address] [place] [address] Demarco Coleman MD [address] [place] [address] ESOPHAGOGASTRODUODENOSCOPY (EGD), FLEXIBLE, TRANSORAL, DIAGNOSTIC 4 10:00 AM EDT Office Visit [facility] [place] [address] [place] [phone] Cristel Canchola DO [address] [place] [address] 4 8:45 AM EDT Office Visit Dermatology [facility] [place] [address] [place] [address] Wilian Meneses MD [address] [place] [address] 5 9:45 AM EST Office Visit Dermatology [facility] [place] [address] [place] [address] Wilian Meneses MD [address] [facility] [place] [address] Scheduled Procedures Name Priority Associated Diagnoses Date/Ti [...] , 07/13/2021, Additional history exists COVID-19 Vaccine (2022- season) 2023 08/05/2023, 08/06/2022, 03/27/2022, Additional history [...] and were consensually agreed upon. Care Teams Software Test Specialist Relationship Specialty Start Date End Date Lawrence Rockwell MD [address] [facility] [place] [id number] PCP - General Family Medicine 12/11/10 documented as of this encounter
--- OUTSIDE RECORDS SUMMARY | 2024-04-04 20:54 | External Medical Summary | Summary of Care ---
Author Name Unknown Organization [facility] Address [address] [place] [address] Phone [phone] Care Team Providers Care Routing Clerk Name Role Phone Lawrence Rockwell MD Primary Care Provider +1- [phone] Reason for Visit * Reason Comments Dosage Adjustment In Person (Anticoag Cl inic) Encounter Details Date Type Department Care Team (Latest Contact Info) Description 02/06/2024 8:00 AM EDT Anticoagulation Pharmacy, [address] [address] [facility] [address] [place] [address] Atrial fibrillation, unspecified type (HCC)*; Anticoagulation management encounter; director long term care current use of anticoagulant therapy Allergies No known active allergiesdocumented as of this encounter (statuses as of 02/06/2024) Medications Medication Sig Dispensed Refills Start Date End Date Status ONETOUCH ULTRA BLUE STRPIndications:DM type 2, goal A1c below 7 TEST TWICE A DAY 180 Strip 3 09/27/2013 Active Multiple Vitamins-Minerals (ONE-A-DAY MENS 50+ ADVANTAGE) TABS Take by mouth. 0 Activ e [place]-3 Fatty Acids (SALMON OIL-1000) 200 MG CAPS [...] ns:HTN, goal below 140/90,Coronary artery disease involving cherokee coronary artery of cherokee heart without angina pectoris TAKE 1 TABLET [...] as of this encounter (statuses as of 02/06/2024) Active Problems Problem Noted Date Diagnosed Date Coronary artery disease invo lving cherokee coronary artery of cherokee heart without angina pectoris 10/16/2021 Atrial fibrillation 02/28/2020 Overview: Added automatically from request for surgery [id number] LUIS (obstructive sleep apnea) 05/19/2019 Nocturnal hypoxemia [...] as of this encounter (statuses as of 02/06/2024) Resolved Problems Problem Noted Date Diagnosed Date Resolved Date Atrial fibrillation, persistent 09/08/2020 10/10/2021 Overview: Added automatically from request for surgery [id number] Paroxysmal atrial fibrillation 01/12/2019 10/09/2020 Folliculitis 06/14/2014 [...] as of this encounter (statuses as of 02/06/2024) Immunizations Name Administration Dates Next Due COVID-19 [...] this encounter Progress Notes * Donna Graham RP - 02/06/2024 7:59 AM EDT Medication Therapy Disease Management - Anticoagulation Patient: Mitch Pinto | : 1950 Subjective Patient-Reported Symptoms: Patient Findings Positives: Signs/symptoms of bleeding (did have some burst blood vessels in eye after rubbing it, it has cleared up), Missed doses Negatives: Signs/symptoms of thrombosis, Change in health, Change in alcohol use, Change in activity, Upcoming invasive procedure, Extra doses, Change in medications, Change in diet/appetite, Bruising Objective Current Warfarin Dose As of 02/06/2024 Warfarin maintenance plan: 5 mg (5 mg x 1) every Wed, Sat; 7.5 mg (5 mg x 1.5) all other days INR Result As of 02/06/2024 INR goal: 2.0-3.0 INR used for dosin.8 (02/06/2024) Assessment & Plan Warfarin Plan As of 02/06/2024 Full warfarin instructions: 4/5: 10 mg; Otherwise 5 mg every Wed, Sat; 7.5 mg all other days Next INR check: 03/15/2024 Repeat PT/INR in 6 week(s) Weekly dose: not changed Additional Dosing Information: Description endoscopy 04/23/24 Donna Graham [facility] Clinical Pharmacist 02/06/2024, 7:59 AM documented in this encounter Plan of Treatment Upcoming Encounters Date Type Department Care Team (Latest Contact Info) Description 4 9:00 AM EDT Office Visit Otolaryngology/ Head & Neck/Facial Plastic [place] [address] [place] [address] Veronica Clark PA-C [address] [place] [address] 4 8:30 AM EDT Office Visit Cardiology, [facility] 132 [facility] [place] [address] Margaret Loya, ASSOCIATE THEATRE PROFESSOR [address] [place] [address] 4 1:00 PM EDT Office Visit Podiatry, [facility] [address] [place] [address] Hang Avalos, [facility] [address] [place], [place] [id number] 4 5:10 PM EDT Anticoagulation Pharmacy, [place] [address] [place] [address] [facility] [address] [place] [address] 4 9:30 AM EDT Anticoagulation Pharmacy, [place] [address] [place] [address] [facility] [address] [place] [address] 4 9:40 AM EDT Office Visit [facility], [place] [address] [place] [phone] Lawrence Rockwell MD [address] [place] [address] 4 7:30 AM EDT Hospital Encounter ENDO [facility], Endoscopy Suite, HFAM 1, [address] [facility] [place] [id number] Demarco Coleman MD [address] [facility] [place] [address] 4 7:30 AM EDT - 4 9:00 AM EDT Surgery ENDO [facility], Endoscopy Suite, HFAM 1, [address] [place] [address] Demarco Coleman MD [address] [place], [place] [id number] ESOPHAGOGASTRODUODENOSCOPY (EGD), FLEXIBLE, TRANSORAL, DIAGNOSTIC 4 10:00 AM EDT Office Visit Sleep Disorders Ctr [facility] [address] [place] [address] Cristel Canchola, [address] [place] [address] 4 12:30 PM EDT Office Visit Cardiology, [facility] [address] [place] [address] Manisha Fernando IV, MD [address] [place] [address] 4 8:45 AM EDT Office Visit Dermatology [facility] [address] [place] [address] Wilian Meneses MD 200 [facility] [place] [address] 5 9:45 AM EST Office Visit Dermatology [facility] 200 [facility] [place] [address] Wilian Meneses MD 200 [facility] [place] [address] 5 9:00 AM EDT Nurse Only Ancillary Department, [address] [address] [place], Nurse [facility] [address] [place] [address] Scheduled Procedures Name Priority Associated Diagnoses Date/Ti [...] Comments INR FINGERSTICK, POINT OF CARE STAT 02/06/2024 8:03 AM EDT Atrial fibrillation, unspecified type (HCC) Anticoagulation management encounter alf current use of anticoagulant therapy documented in this encounter Results * INR FINGERSTICK, POINT OF CARE (02/06/2024 8:03 AM EDT) Fingerstick INR 1.8 INR 8:11 AM EDT [facility] [place] 56-01 Blood 02/06/2024 8:03 AM EDT 02/06/2024 8:11 AM EDT N[facility]ative [facility] - 02/06/2024 8:11 AM EDT Therapeutic ranges for non-operative patients: Prophylaxsis/treatment of DVT: (Range:2.0-3.0) Treatment of pulmonary embolism:(Range:2.0-3.0) Prevention of systemic embolism from: -tissue heart valves -acute myocardial infarction -valvular heart disease -atrial fibrillation (Range: 2.0-3.0) Mechanical prosthetic valves: (Range: 2.5-3.5) Donna Graham [facility] LAB POINT OF CARE TEST DOCKED DEVICE UNSOLICITED RESULTS [facility] [address] [place] [address] documented in this encounter Visit Diagnoses Diagnosis Atrial fibrillation, unspecified type (HCC)- Primary Anticoagulation management encounter Encounter for therapeutic drug monitoring alf current use of anticoagulant therapy Hong's esophagus documented in this encounter Advance Directives Latest Code Status on File Code Status Date Activated Date Inactivated Comments Full Code 10/30/2020 4:04 PM 10/31/2020 1:07 PM Thi s order reflects the patients wishes and were consensually agreed upon. Care Teams Routing Clerk Relationship Specialty Start Date End Date Lawrence Rockwell MD [address] [place] [address] PCP - General Family Medicine 12/11/10 documented as of this encounter"
--- OUTSIDE RECORDS SUMMARY | 2024-04-04 20:54 | External Medical Summary | Summary of Care ---
Author Name Unknown Organization [facility] Address [address] [place] [address] Phone [phone] Care Team Providers Care Camp Assistant Name Role Phone Misbah Card MD Primary Care Provider +1- [phone] Reason for Visit * Reason Comments eRx-Medication Refill Encounter Details Date Type Department Care Team (Late st Contact Info) Description 12/08/[address] [facility] [address] [place] [address] Misbah Card MD [address] [place] [address] Paroxysmal atrial fibrillation (HCC); HTN, goal below 140/90 Allergies No known active allergiesdocumented as of this encounter (statuses as of 12/09/2023) Medications Medication Sig Dispensed Refills Start Date End Date Status ONETOUCH ULTRA BLUE STRPIndications:D M type 2, goal A1c below 7 TEST TWICE A DAY 180 Strip 3 09/27/2013 Active Multiple Vitamins-Minerals (ONE-A-DAY MENS 50+ ADVANTAGE) TABS Take by mouth. 0 Active [place]-3 Fatty Acids (SALMON OIL-1000) 200 MG CAPS [...] hemoglobin A1c goal of less than 7.0% ([facility]) Test twice daily as directed 200 Each 3 03/05/2023 Active Warfarin Sodium 5 MG Oral Tablet (Coumadin) TAKE 1-1.5 TABLETS BY MOUTH DAILY DIRECTED BY COUMADIN CLINIC 21 Tablet 0 03/06/2023 Active metFORMIN HCl 1000 MG Oral Tablet (Glucophage)Indic ations:Type 2 diabetes mellitus with hemoglobin A1c goal of less than 7.0% ([facility]) TAKE ONE TABLET BY MOUTH 2 TIMES [...] ions:HTN, goal below 140/90,Coronary artery disease involving lower brule coronary artery of lower brule heart without angina pectoris TAKE 1 TABLET [...] Hour (toPROL XL)Indications:HT N, goal below 140/90 Take 1 Tablet by mouth at bedtime. 90 Tablet 3 03/03/2023 12/09/19 24 Discontinued Pantoprazole Sodium 20 MG Oral Tablet Delayed Release (Protonix) Take 1 Tablet by mouth in the morning. 90 Tablet 3 03/03/2023 12/09/19 24 Discontinued Atorvastatin Calcium 80 MG Oral Tablet (Lipitor) Take 1 Tablet by mouth in the morning. 90 Tablet 3 03/03/2023 12/09/19 24 Discontinued Metoprolol Succinate ER 50 MG Oral Tablet Extended Release 24 Hour (toPROL XL)Indications:Pa roxysmal atrial fibrillation (HCC) TAKE 1 TABLET BY MOUTH IN THE MORNING 90 Tablet 1 06/11/2023 12/09/19 24 Discontinued documented as of this encounter (statuses as of 12/09/2023) Active Problems Problem Noted Date Diagnosed Date Coronary artery disease invo lving lower brule coronary artery of lower brule heart without angina pectoris 10/16/2021 Atrial fibrillation 02/28/2020 Overview: Added automatically from request for surgery [id number] LUIS (obstructive sleep apnea) 05/19/2019 Nocturnal hypoxemia [...] as of this encounter (statuses as of 12/09/2023) Resolved Problems Problem Noted Date Diagnosed Date Resolved Date Atrial fibrillation, persistent 09/08/2020 10/10/2021 Overview: Added automatically from request for surgery [id number] Paroxysmal atrial fibrillation 01/12/2019 10/09/2020 Folliculitis 06/14/2014 [...] as of this encounter (statuses as of 12/09/2023) Immunizations Name Administration Dates Next Due COVID-19 [...] encounter Miscellaneous Notes * Telephone Encounter - Caty Curtis RPh - 12/09/2023 12:59 PM ESTSigned Prescriptions: Disp Refills Metoprolol Succinate ER 50 MG Oral Tablet *90 Tab*2 Sig: TAKE 1 TABLET BY MOUTH IN THE MORNINGAuthorizing Provider: MISBAH CARD User: CATY CURTIS Pantoprazole Sodium 20 MG Oral Tablet Katy*90 Tab*2 Sig: TAKE 1 TABLET BY MOUTH IN THE MORNINGAuthorizing Provider: MISBAH CARD User: CATY CURTIS Metoprolol Succinate ER 25 MG Oral Tablet *90 Tab*2 Sig: TAKE 1 TABLET BY MOUTH AT BEDTIMEAuthorizing Provider: MISBAH CARD User: CATY CURTIS Atorvastatin Calcium 80 MG Oral Tablet (Li*90 Tab*2 Sig: TAKE 1 TABLET BY MOUTHIN THE MORNINGAuthorizing Provider: MISBAH CARD User: CATY CURITS documented in this encounter Plan of Treatment Upcoming Encounters Date Type Department Care Team (Latest Contact Info) Description 4 8:40 AM EST [facility]ticoagulation Pharm[facility], [place] [address] [facility] [address] Rafy [facility] [address] [facility] [address] 4 8:30 AM EST Nurse Only Ancillary Department, [place] [address] [facility] [address] Rafy Nurse Annual Well[facility] [address] [facility] [address] 4 8:30 AM EDT Office Visit Podiatry, [facility] [address] [place], [place] [phone] Hang Avalos, [facility] [address] [place], [place] [phone] 4 8:30 AM EDT Office Visit Cardiology, [facility] [address] [facility] [place] [address] Araceli Crowe PA-C [address] [place] [address] 4 9:00 AM EDT Office Visit Otolaryngology/ Head & Neck/Facial Plastic Surgery [address] [facility] [place] [id number] Veronica Clark PA-C [address] [facility] [place] [id number] 4 9:20 AM EDT Office Visit Family Practice, [place] [address] [facility] [phone] Misbah Card MD [address] [facility] [id number] 4 7:30 AM EDT Hospital Encounter ENDO [facility], Endoscopy Suite, HFAM 1, [address] [place] [address] Demarco Coleman MD [address] [place] [address] 4 7:30 AM EDT - 4 9:00 AM EDT Surgery ENDO [facility], Endoscopy Suite, HFAM 1, [address] [place] [address] Demarco Coleman MD [address] [place] [address] ESOPHAGOGASTRODUODENOSCOPY (EGD), FLEXIBLE, TRANSORAL, DIAGNOSTIC 4 10:00 AM EDT Office Visit Sleep Disorders Ctr [facility] [address] [place] [address] Cristel Canchola, [address] [place] [address] 4 12:30 PM EDT Office Visit Cardiology, [facility] [address] [place] [address] Manisha Fernando IV, MD [address] [place], [place] [phone] 4 8:45 AM EDT Office Visit Dermatology [facility] [place] [address] [place] [address] Wilian Meneses MD [address] [place] [address] 5 9:45 AM EST Office Visit Dermatology Raquel Hassan [place] [address] [place] [address] Wilian Meneses MD [address] [place] [address] Scheduled Procedures Name Priority Associated Diagnoses Date/Ti [...] as of this encounter Visit Diagnoses Diagnosis Paroxysmal atrial fibrillation (HCC) Atrial fibrillation HTN, goal below 140/90 Unspecified essential hypertension Hong's esophagus documented in this encounter Advance Directives Latest Code Status on File Code Status Date Activated Date Inactivated Comments Full Code 10/30/2020 4:04 PM 10/31/2020 1:07 PM Thi s order reflects the patients wishes and were consensually agreed upon. Care Teams Camp Assistant Relationship Specialty Start Date End Date Misbah Card MD [address] [place] [address] PCP - General Family Medicine 12/11/10 documented as of this encounter
--- OUTSIDE RECORDS SUMMARY | 2024-04-04 20:54 | External Medical Summary | Summary of Care ---
Author Name Unknown Organization [facility] Address [address] [place] [address] Phone [phone] Care Team Providers Care Travel Information Center Supervisor Name Role Phone Lawrence Rockwell MD Primary Care Provider +1- [phone] Reason for Visit * Reason Comments Dosage Adjustment In Person (Anticoag Cl inic) Encounter Details Date Type Department Care Team (Latest Contact Info) Description 11/05/2023 8:20 AM EST Anticoagulation Pharmacy, [address] [address] [facility] [address] [place] [address] Longstanding persistent atrial fibrillation (HCC)*; Atrial fibrillation, unspecified type (HCC); Anticoagulation management encounter; [facility] current use of anticoagulant therapy Allergies No known active allergiesdocumented as of this encounter (statuses as of 11/05/2023) Medications Medication Sig Dispensed Refills Start Date End Date Status ONETOUCH ULTRA BLUE STRPIndications:DM type 2, goal A1c below 7 TEST TWICE A DAY 180 Strip 3 09/27/2013 Active Multiple Vitamins-Minerals (ONE-A-DAY MENS 50+ ADVANTAGE) TABS Take by mouth. 0 Activ e [place]-3 Fatty Acids (SALMON OIL-1000) 200 MG CAPS [...] ns:HTN, goal below 140/90,Coronary artery disease involving napaim[place] coronary artery of napaimute heart without angina pectoris TAKE 1 TABLET [...] as of this encounter (statuses as of 11/05/2023) Active Problems Problem Noted Date Diagnosed Date Coronary artery disease invo lving napaimute coronary artery of napaimute heart without angina pectoris 10/16/2021 Atrial fibrillation 02/28/2020 Overview: Added automatically from request for surgery [id number] LUIS (obstructive sleep apnea) 05/19/2019 Nocturnal hypoxemia [...] as of this encounter (statuses as of 11/05/2023) Resolved Problems Problem Noted Date Diagnosed Date Resolved Date Atrial fibrillation, persistent 09/08/2020 10/10/2021 Overview: Added automatically from request for surgery [id number] Paroxysmal atrial fibrillation 01/12/2019 10/09/2020 Folliculitis 06/14/2014 [...] as of this encounter (statuses as of 11/05/2023) Immunizations Name Administration Dates Next Due COVID-19 [...] as of this encounter Progress Notes * [facility] - 11/05/2023 8:26 AM EST Images from the original note were not included. Medication Therapy Disease Management - Anticoagulation Patient: Mitch Pinto | : 1950 Subjective Patient-Reported Symptoms: Patient Findings Positives: Change in activity (pt reports being slightly less active during the holidays, plans to get back to normal routine now.) Negatives: Signs/symptoms of thrombosis, Signs/symptoms of bleeding, Change in health, Change in alcohol use, Upcoming invasive procedure, Missed doses, Extra doses, Change in medications, Change in diet/appetite, Bruising Objective Current Warfarin Dose As of 11/05/2023 Warfarin maintenance plan: 10 mg (5 mg x 2) every Sonia; 7.5 mg (5 mg x 1.5) all other days INR Result As of 11/05/2023 INR goal: 2.0-3.0 INR used for dosin.3 (11/05/2023) Assessment & Plan Warfarin Plan As of 11/05/2023 Full warfarin instructions: 11/06: 7.5 mg; Otherwise 10 mg every Sonia; 7.5 mg all other days Next INR check: Repeat PT/INR in 4 week(s) Weekly dose: not changed Additional Dosing Information: [facility] Clinical Pharmacist 11/05/2023, 8:26 AM documented in this encounter Plan of Treatment Upcoming Encounters Date Type Department Care Team (Late st Contact Info) Description 11/10/2023 8:15 AM EST Office Visit Dermatology Raquel [place] [address] [place], [place] [address] Wilian Meneses MD [address] [place], [place] [address] 12/03/2023 8:20 AM EST Anticoagulation Pharmacy[address] [place] [address] [place], [facility] [address] [place] [address] 12/10/2023 12:30 PM EST Office Visit Cardiology, [facility] [address] [facility] [place] [address] Manisha Fernando IV, MD [address] [place] [address] 01/05/2024 8:30 AM EST Nurse Only Ancillary Department, [place] [address] [place] [address] [facility] Nurse [facility] [address] [place] [address] 02/05/2024 8:30 AM EDT Office Visit Podiatry, [place] [phone] [place] [address] [facility] [address] [place] [address] 02/20/2024 8:30 AM EDT Office Visit Cardiology, [facility] [address] [place] [address] Araceli Crowe PA-C 132 [facility] [place] [address] 02/24/2024 9:00 AM EDT Office Visit Otolaryngology/Head & Neck[facility]acial [facility] [address] [facility] [id number] Veronica Clark PA-C [address] [facility] [address] 03/05/2024 9:20 AM EDT Office Visit Family Practice, [place] [address] [place] [address] Lawrence Rockwell MD [address] [place] [address] 03/25/2024 11:20 AM EDT Office Visit Dermatology, [place] [address] [facility], [place] [address] Isadora Colunga PA-C [address] [place] [address] [place] [address] 05/04/2024 10:00 AM EDT Office Visit Sleep Disorders Ctr [facility] [address] [place] [address] Cristel Canchola, [address] [place] [address] Scheduled Procedures Name Priority Associated Diagnoses Date/Ti [...] 07/15/2023 07/15/2022, , 07/13/2021, Additional history exists *NEPHROLOGY REFERRAL DUE TO RESISTANT HTN 08/24/2023 COVID-19 Vaccine ( season) 2023 08/05/2023, 08/06/2022, 03/27/2022, Additional history exists Depression Screening 01/03/2024 01/02/2023 HbA1c 03/02/2024 09/01/2023, 0504/2023, 11/19/2022, Additional history exists Albumin/Creatinine Ratio 03/28/2024 [...] Comments INR FINGERSTICK, POINT OF CARE STAT 11/05/2023 8:29 AM EST Atrial fibrillation, unspecified type (HCC) Anticoagulation management encounter [facility] current use of anticoagulant therapy documented in this encounter Results * INR FINGERSTICK, POINT OF CARE (11/05/2023 8:29 AM EST) Fingerstick INR 3.3 INR 8:30 AM EST [facility] [place] 56-01 Blood 11/05/2023 8:29 AM EST 11/05/2023 8:30 AM EST Narrative [facility] - 11/05/2023 8:30 AM EST Therapeutic ranges for non-operative patients: Prophylaxsis/treatment of DVT: (Range:2.0-3.0) Treatment of pulmonary embolism:(Range:2.0-3.0) Prevention of systemic embolism from: -tissue heart valves -acute myocardial infarction -valvular heart disease -atrial fibrillation (Range: 2.0-3.0) Mechanical prosthetic valves: (Range: 2.5-3.5) Donna Nam [facility] LAB POINT OF CARE TEST DOCKED DEVICE UNSOLICITED RESULTS LABORATORY [place] 56-[address] [place] [address] documented in this encounter Visit Diagnoses Diagnosis Longstanding persistent atrial fibrillation (HCC)- Primary Atrial fibrillation, unspecified type (HCC) Anticoagulation management encounter Encounter for therapeutic drug monitoring [facility] current use of anticoagulant therapy documented in this encounter Advance Directives Latest Code Status on File Code Status Date Activated Date Inactivated Comments Full Code 10/30/2020 4:04 PM 10/31/2020 1:07 PM Thi s order reflects the patients wishes and were consensually agreed upon. Care Teams Travel Information Center Supervisor Relationship Specialty Start Date End Date Lawrence Rockwell MD [address] [place] [address] PCP - General Family Medicine 12/11/10 documented as of this encounter"
--- OUTSIDE RECORDS SUMMARY | 2024-04-04 20:54 | External Medical Summary | Summary of Care ---
Author Name Unknown Organization [facility] Address [address] [place] [address] Phone [phone] Care Team Providers Care Tobacco Grower Name Role Phone Lawrence Rockwell MD Primary Care Provider [phone] Reason for Visit * Reason Comments Dosage Adjustment In Person (Anticoag Cl inic) Encounter Details Date Type Department Care Team (Latest Contact Info) Description 12/03/2023 8:20 AM EST Anticoagulation Pharmacy, [address] [address] [facility] [address] [place] [address] Longstanding persistent atrial fibrillation (HCC)*; Atrial fibrillation, unspecified type (HCC); Anticoagulation management encounter; residential current use of anticoagulant therapy Allergies No known active allergiesdocumented as of this encounter (statuses as of 12/03/2023) Medications Medication Sig Dispensed Refills Start Date End Date Status ONETOUCH ULTRA BLUE STRPIndications:DM type 2, goal A1c below 7 TEST TWICE A DAY 180 Strip 3 09/27/2013 Active Multiple Vitamins-Minerals (ONE-A-DAY MENS 50+ ADVANTAGE) TABS Take by mouth. 0 Activ e [place]-3 Fatty Acids (SALMON OIL-1000) 200 MG CAPS [...] ns:HTN, goal below 140/90,Coronary artery disease involving [place] coronary artery of [place] heart without angina pectoris TAKE 1 TABLET [...] as of this encounter (statuses as of 12/03/2023) Active Problems Problem Noted Date Diagnosed Date Coronary artery disease invo lving [place] coronary artery of [place] heart without angina pectoris 10/16/2021 Atrial fibrillation 02/28/2020 Overview: Added automatically from request for surgery [id number] LUIS (obstructive sleep apnea) 05/19/2019 Nocturnal hypoxemia [...] as of this encounter (statuses as of 12/03/2023) Resolved Problems Problem Noted Date Diagnosed Date Resolved Date Atrial fibrillation, persistent 09/08/2020 10/10/2021 Overview: Added automatically from request for surgery [id number] Paroxysmal atrial fibrillation 01/12/2019 10/09/2020 Folliculitis 06/14/2014 [...] as of this encounter (statuses as of 12/03/2023) Immunizations Name Administration Dates Next Due COVID-19 [...] this encounter Progress Notes * Aniceto Mcdonald RP - 12/03/2023 8:21 AM EST Images from the original note [...] Bruising Objective Current Warfarin Dose As of 12/03/2023 Warfarin maintenance plan: 10 mg (5 mg x 2) every Sonia; 7.5 mg (5 mg x 1.5) all other days INR Result As of 12/03/2023 INR goal: 2.0-3.0 INR used for dosin.5 (12/03/2023) Assessment & Plan Warfarin Plan As of 12/03/2023 Full warfarin instructions: 12/03: 2.5 mg; Otherwise 7.5 mg every day Next INR check: 12/31/2023 Repeat PT/INR in 4 week(s) Weekly dose: not changed Additional Dosing Information: Aniceto Mcdonald [facility] Clinical Pharmacist 12/03/2023, 8:21 AM documented in this encounter Plan of Treatment Upcoming Encounters Date Type Department Care Team (Latest Contact Info) Description 4 8:40 AM EST [facility], [place] [address] [facility] [address] [place], [facility] [address] [facility] [place] [address] 4 8:30 AM EST Nurse Only Ancillary Department, [place] [address] [facility] [address] [place], Nurse Annual Wellness [address] [place] [address] 4 8:30 AM EDT Office Visit Podiatry, [facility] [address] [place] [address] Hang Avalos, DPM [address] [place] [address] 4 8:30 AM EDT Office Visit Cardiology, [facility] [address] [facility] [place] [address] Araceli Crowe PA-C [address] [facility] [place] [address] 4 9:00 AM EDT Office Visit Otolaryngology/ Head & Neck/Facial Plastic Surgery [address] [place] [address] Veronica Clark PA-C [address] [place] [address] 4 9:20 AM EDT Office Visit [facility] [address] [place] [address] Lawrence Rockwell MD [address] [place] [address] 4 7:30 AM EDT Hospital Encounter [facility]O [facility] [address], [facility] [address], [address] [place] [address] Demarco Coleman MD [address] [place] [address] 4 7:30 AM EDT - 4 9:00 AM EDT Surgery ENDO [facility] [address] [address], [facility] [address], [address] [place] [address] Demarco Coleman MD [address] [place] [address] ESOPHAGOGASTRODUODENOSCOPY (EGD), FLEXIBLE, TRANSORAL, DIAGNOSTIC 4 10:00 AM EDT Office Visit Sleep Disorders Ctr [facility] [address] [place] [address] Cristel Canchola, [address] [facility] [place] [address] 4 12:30 PM EDT Office Visit Cardiology, [facility] [address] [facility] [address] Manisha Fernando IV, MD [address] [place] [address] 4 8:45 AM EDT Office Visit Dermatology [facility] [address] [place] [address] Wilian Meneses MD [address] [place] [address] 5 9:45 AM EST Office Visit Dermatology [facility] [address] [place] [address] Wilian Meneses MD [address] [place] [address] Scheduled Procedures Name Priority Associated Diagnoses Date/Ti [...] Comments INR FINGERSTICK, POINT OF CARE STAT 12/03/2023 8:25 AM EST Atrial fibrillation, unspecified type (HCC) Anticoagulation management encounter residential current use of anticoagulant therapy documented in this encounter Results * INR FINGERSTICK, POINT OF CARE (12/03/2023 8:25 AM EST) Fingerstick INR 3.5 INR 8:27 AM EST [facility] 56 Blood 12/03/2023 8:25 AM EST 12/03/2023 8:27 AM EST Narrative [facility]- - 12/03/2023 8:27 AM EST Therapeutic ranges for non-operative patients: Prophylaxsis/treatment of DVT: (Range:2.0-3.0) Treatment of pulmonary embolism:(Range:2.0-3.0) Prevention of systemic embolism from: -tissue heart valves -acute myocardial infarction -valvular heart disease -atrial fibrillation (Range: 2.0-3.0) Mechanical prosthetic valves: (Range: 2.5-3.5) Donna Graham [facility] POINT OF CARE TEST DOCKED DEVICE UNSOLICITED RESULTS [facility] [address] [place] [address] documented in this encounter Visit Diagnoses Diagnosis Longstanding persistent atrial fibrillation (HCC)- Primary Atrial fibrillation, unspecified type (HCC) Anticoagulation management encounter Encounter for therapeutic drug monitoring residential current use of anticoagulant therapy Hong's esophagus documented in this encounter Advance Directives Latest Code Status on File Code Status Date Activated Date Inactivated Comments Full Code 10/30/2020 4:04 PM 10/31/2020 1:07 PM Thi s order reflects the patients wishes and were consensually agreed upon. Care Teams Tobacco Grower Relationship Specialty Start Date End Date Lawrence Rockwell MD [address] [place] [id number] PCP - General Family Medicine 12/11/10 documented as of this encounter"
--- OUTSIDE RECORDS SUMMARY | 2024-04-04 20:54 | External Medical Summary ---
Author Name Unknown Address Unknown Organization : Laboratory Report Ordering Provider Test Date Status ROSEY SAUNDERS 02/06/2024 08:03:01 Final Therapeutic ranges for non-o perative patients:
Prophylaxsis/treatment of DVT: (Range:2.0-3.0)
Treatment of pulmonary embolism:(Range:2.0-3.0)
Prevention of systemic embolism from:
-tissue heart valves
-acute myocardial infarction
-valvular heart disease
-atrial fibrillation
(Range: 2.0-3.0)
Mechanical prosthetic valves: (Range: 2.5-3.5) Observation Date Value Abnormality Reference (Units ) Status INR in Capillary blood by Coagulation assay 02/06/2024 08:03:01 1.8 (INR) Final Performing Location
--- OUTSIDE RECORDS SUMMARY | 2024-04-04 20:54 | External Medical Summary | Summary of Care ---
Author Name Unknown Organization [facility] Address [address] [place] [address] Phone [phone] Care Team Providers Care Rose Grower Name Role Phone Lawrence Rockwell MD Primary Care Provider [phone] Reason for Visit * Reason Comments Adult Annual Wellness Visit, Subsequent Visit Encounter Details Date Type Department Care Team (Late st Contact Info) Description 02/02/2024 9:00 AM EDT Nurse Only Ancillary Department, [place] [address] [place] [address] [place], Nurse Annual Wellness [address] [place] [address] Adult Annual Wellness Visit, Subsequent Visit Allergies No known active allergiesdocumented as of this encounter (statuses as of 02/03/2024) Medications Medication Sig Dispensed Refills Start Date End Date Status ONETOUCH ULTRA BLUE STRPIndications:DM type 2, goal A1c below 7 TEST TWICE A DAY 180 Strip 3 09/27/2013 Active Multiple Vitamins-Minerals (ONE-A-DAY MENS 50+ ADVANTAGE) TABS Take by mouth. 0 Activ e Anthony-3 Fatty Acids (SALMON OIL-1000) 200 MG CAPS [...] hemoglobin A1c goal of less than 7.0% ([facility]) Test twice daily as directed 200 [...] ns:HTN, goal below 140/90,Coronary artery disease involving quinault coronary artery of quinault heart without angina pectoris TAKE 1 TABLET [...] as of this encounter (statuses as of 02/03/2024) Active Problems Problem Noted Date Diagnosed Date Coronary artery disease invo lving quinault coronary artery of quinault heart without angina pectoris 10/16/2021 Atrial fibrillation 02/28/2020 Overview: Added automatically from request for surgery [id number] LUIS (obstructive sleep apnea) 05/19/2019 Nocturnal hypoxemia [...] as of this encounter (statuses as of 02/03/2024) Resolved Problems Problem Noted Date Diagnosed Date Resolved Date Atrial fibrillation, persistent 09/08/2020 10/10/2021 Overview: Added automatically from request for surgery [id number] Paroxysmal atrial fibrillation 01/12/2019 10/09/2020 Folliculitis 06/14/2014 [...] as of this encounter (statuses as of 02/03/2024) Immunizations Name Administration Dates Next Due COVID-19 [...] Sign Reading Time Taken Comments Blood Pressure 132/84 02/02/2024 9:24 AM EDT Pulse 62 02/02/2024 9:24 AM EDT Temperature 36.4 C (97.5 F) 02/02/2024 9:24 AM ED T Respiratory Rate - - Oxygen Saturation 98% 02/02/2024 9:24 AM EDT Inhaled Oxygen Concentration - - Weight 109.1 kg (240 lb 9.6 oz) 02/02/2024 9:24 AM EDT Height 172.7 cm (5' 8") 02/02/2024 9:24 AM EDT Body Mass Index 36.58 02/02/2024 9:24 AM EDT documented in this encounter Patient Instructions * Patient Instructions* Sherrell Engle RN - 02/02/2024 9:46 AM EDT Patient Instructions - Fall Prevention (This education is for all patients over 65 regardless of symptoms) Remember to take your current medications as prescribed. In order to prevent falls, you are encouraged to: Exercise Utilize assistive/adaptive devices Avoid multifocal lenses when walking Avoid hazards in home Maintain a regular toileting schedule Any questions please contact our office. Preventing Falls in the Home (This education is for all patients over 65 regardless of symptoms) As you get older, falls are more likely. Thats because your reaction time slows. Your muscles and joints may also get stiffer, making them less flexible. Illness, medications, and vision changes can also affect your balance. A fall could leave you unable to live on your own. To make your home safer, follow these tips: Floors Put nonskid pads under area rugs Remove throw rugs Replace worn floor coverings Tack carpets firmly to each step on carpeted stairs. Put nonskid strips on the edges of uncarpeted stairs Keep floors and stairs free of clutter and cords Arrange furniture so there are clear pathways Clean up any spills right away Bathrooms Install grab bars in the tub or shower Apply nonskid strips or put a nonskid rubber mat in the tub or shower Sit on a bath chair to bathe Use bathmats with nonskid backing Lighting Keep a flashlight in each room Put a nightlight along the pathway between the bedroom and the bathroom [facility] Patient Education Copyright 2008 - 2010 [place] except where otherwise noted Preventing Falls: Exercises to Improve Balance, Flexibility, Strength, and Staying Power (This education is for all patients over 65 regardless of symptoms) Certain types of exercises may help make you less likely to fall. Try the ones below. Or do other exercises that your healthcare provider suggests. Depending on your health, you may need to start slowly. Dont let that stop you. Even small amounts of exercise can help you. Be sure to talk to yourhealthcare provider before starting any exercise program. Improve Balance Many types of exercise can help improve balance. Larry chi and yoga are good examples. Heres another one to try. You can do it anytime and almost anywhere. Stand next to a counter or solid support. Push yourself up onto your tiptoes. Hold for 5 seconds. If you start to lose your balance, hold on to the counter. Rest and repeat 5 times. Work up to holding for 20 to 30 seconds, if you can. Increase Flexibility Being more flexible makes it easier for you to move around safely. Try exercises like the seated hamstring stretch. Sit in a chair and put one foot on a stool. Straighten your leg and reach with both hands down either side of your leg. Reach as far down your leg as you can. Hold for about 20 seconds. Go back to the starting position. Then repeat 5 times. Switch legs. Build Strength Resistance exercises help build strength. You can do them without equipment. Or you can use weights, elastic bands, or special machines. One such exercise is called the biceps curl. You can hold a 1 pound weight or even a can of soup. Do this exercise at least 3 times a week. Strive for everyday. Sit up straight in a chair. Keep your elbow close to your body and your wrist straight. Bend your arm, moving your hand up to your shoulder. Then slowly lower your arm. Repeat 5 times. Switch to the other arm. Build Your Staying Power Aerobic exercises make your heart and lungs stronger so you can keep moving longer. Walking and swimming are two of the best types of exercises you can do. Using a stationary bike is great, too. Find an aerobic exercise that you enjoy. Start slowly and build up. Even 5 minutes is helpful. Aimfor a goal of 30 minutes, at least 3 times a week. You dont have to do 30 minutes in one session. Break it up and walk a little throughout the day. More Helpful Tips Start easy. Slowly work up to doing more. Talk with your healthcare provider about the best exercises for you. Call senior centers or health clubs about exercise programs. If needed, have a family member watch you walk every so often to check your stability. Exercise with a friend. Choose an activity you both enjoy. Try exercises that you can do anytime, anywhere. Here are two examples. Have someone with you when you first try these: Practice walking by placing one foot right in front of the other. Stand up and sit down 10 times. Repeat this throughout the day. [employer] Patient Education Copyright 2008 [employer] except where otherwise noted. Preventing Falls: Moving Safely Using a Cane or Walker (This education is for all patients over 65 regardless of symptoms) Keep the cane away from your feet so you dont trip. A walking aid, such as a cane or walker, can help you stay more independent and avoid falls. Remember to keep your walking aid within easy reach when youre in a chair or in bed. And learn how to use it safely so you dont injure yourself. Using a Cane If you have a stronger side, hold the cane on that side. Get your balance. Move the cane and your weaker leg forward. Support your weight on both the cane and your weaker side. Step with your stronger leg. Start again from step 1. If youre using a folding walker, be sure you know how to lock it open. Check that its locked open before each use. Using a Walker Roll the walker (or lift it, if youre using one without wheels) forward about 12 inches. Step forward with your weaker leg first. Use the walker to help keep your balance. Bring your other foot forward to the center of the walker. Start again from step 1. Helpful Tips Check with your healthcare provider about the right walking aid to use. Ask about a walker with a seat attached. Check the tips of your cane or walker to make sure they have nonskid covers. Move slowly from room to room. Dont julian. Sit down to get dressed. Use a param pack or backpack to keep your hands free. Get help for jobs that mean climbing, even on a stepstool. [employer] Patient Education Copyright 2008 [employer] except where otherwise noted. Treating Urinary Incontinence in Men (This education is for all patients over 65 regardless of symptoms) You can't always control the release of urine. You may leak urine. Or you may not be able to hold your urine until you can get to a bathroom. This is called urinary incontinence. The problem can be managed. Talk to your doctor about your treatment options. Taking Medications Prescription medications may help you. They may: Help the sphincter to work better. (This is the muscle that closes to keep urine from leaking out of the bladder.) Help stop the bladder from blanca too often to push urine out. Help the bladder muscles contract with more force. Help relax the sphincter muscle and allow urine to flow more freely. Making Changes to Your Routine Certain changes in your daily routine may help. These include: Avoiding caffeine and alcohol. Using timed voiding. This is following a schedule for drinking fluids and urinating. Doing Kegel exercises daily. These exercises involve tightening the muscles in your sphincter and around your bladder to help strengthen them. Your doctor can explain how to do them. Using a Catheter A catheter is a narrow tube that is inserted through the urethra into the bladder. It drains urine.A condom catheter covers the penis. It channels urine into a collection bag. It is worn most of thetime. Intermittent catheterization means inserting a catheter to drain the bladder, then removing it. This is done on a regular schedule. Having Surgery If other options don't work, surgery may be recommended. If surgery is an option, your healthcare provider can discuss it with you and explain its risks and benefits. Healing After Prostate Surgery Surgery on the prostate gland can cause incontinence. Most often, the incontinence is only for a short time. It clears up when healing is complete. Very rarely, prostate surgery can result in permanent incontinence. Hi Mr. Pinto, As your primary care physician, I know that regular visits with my patients who have several chronic conditions can go a long way in helping you stay healthy. Many times, the clinic team and I are in touch with you and/or other care team members between office visits to adjust medications, discuss any changes in your health, and review our care plan to make sure it is still meeting your needs. I am dedicated to helping you take a more active role in your overall care. It is important that there are resources available to you, so I created a personalized plan of care with a Health Calendar for you, which is included on the next page of this letter. Below is a list that summarizes your electronic health record: Health Maintenance Due: Health Maintenance Due Topic Date Due Zoster Vaccines (2 of 3) 06/22/2014 DTaP,Tdap,and Td Vaccines (2 - Td or Tdap) 12/18/2020 Diabetic Foot Exam 04/10/2022 Diabetic Eye Exam 07/15/2023 COVID-19 Vaccine (2022-24 season) 2023 Albumin/Creatinine Ratio 03/28/2024 COLONOSCOPY-EVERY 3 YRS AGES 18-100 04/09/2024 Current Medication List: (as of Visit date not found (in office), Visit date not found (telemedicine) ) Current Outpatient Medications Medication Sig Dispense Refill Multiple Vitamins-Minerals (ONE-A-DAY MENS 50+ ADVANTAGE) TABS Take by mouth. Anthony-3 Fatty Acids (SALMON OIL-1000) 200 MG CAPS Take by mouth daily . Propranolol HCl 10 MG Oral Tablet (Inderal) TAKE ONE TABLET BY MOUTH DAILY NEEDED 10 Tablet 5 Cinnamon 500 MG Oral Tablet Take 1 Tablet by mouth in the morning. 90 Tablet 3 CoQ10 100 MG Oral Capsule Take 100 mg by mouth in the morning. 90 Capsule 3 Aspirin 81 MG Oral Tablet Chewable Take 1 Tablet by mouth in the morning. with food.. 90 Tablet3 Fluocinonide 0.05 % External Solution Apply 1-2 drops to each ear daily as needed for itching or flares. 60 mL 2 Warfarin Sodium 5 MG Oral Tablet (Coumadin) TAKE 1-1.5 TABLETS BY MOUTH DAILY DIRECTED BY COUMADIN CLINIC 21 Tablet 0 metFORMIN HCl 1000 MG Oral Tablet (Glucophage) TAKE ONE TABLET BY MOUTH 2 TIMES A DAY WITH MORNING AND EVENING MEALS 28 Tablet 0 Doxycycline Hyclate 20 MG Oral Tablet TAKE 1 TABLET BY MOUTH TWICE DAILY WITH OR WITHOUT FOOD 180 Tablet 1 Lisinopril 10 MG Oral Tablet (Prinivil) TAKE 1 TABLET BY MOUTH DAILY IN THE MORNING 90 Tablet 3 dilTIAZem HCl ER Coated Beads 120 MG Oral Capsule Extended Release 24 Hour (Cardizem CD) TAKE 1CAPSULE BY MOUTH IN THE MORNING 90 Capsule 3 Metoprolol Succinate ER 50 MG Oral Tablet Extended Release 24 Hour (toPROL XL) TAKE 1 TABLET BYMOUTH IN THE MORNING 90 Tablet 2 Pantoprazole Sodium 20 MG Oral Tablet Delayed Release (Protonix) TAKE 1 TABLET BY MOUTH IN THE MORNING 90 Tablet 2 Metoprolol Succinate ER 25 MG Oral Tablet Extended Release 24 Hour (toPROL XL) TAKE 1 TABLET BYMOUTH AT BEDTIME 90 Tablet 2 Atorvastatin Calcium 80 MG Oral Tablet (Lipitor) TAKE 1 TABLET BY MOUTH IN THE MORNING 90 Tablet 2 ONETOUCH ULTRA BLUE STRP TEST TWICE A DAY 180 Strip 3 Fluticasone Propionate 50 MCG/ACT Nasal Suspension (Flonase) Administer 2 Sprays into each nostril daily. 16 g 5 CPAP every night at bedtime. Vardenafil HCl 20 MG Oral Tablet (Levitra) TAKE ONE TABLET BY MOUTH 1 hour before intercourse as needed; no more than 1 dose per day 5 Tablet 1 Lancets Test twice daily as directed 200 Each 3 metroNIDAZOLE 1 % External Gel (Metrogel) Apply to entire face at night prior to bed 135 g 1 No current facility-administered medications for this visit. Current List of Allergies: (as of Visit date not found (in office), Visit date not found (telemedicine) ) Review of patient's allergies indicates: No Known Allergies Most Recent Lab Results: Results for orders placed or performed in visit on 12/31/23 INR FINGERSTICK, POINT OF CARE Result Value Ref Range Fingerstick INR 3.3 INR Sincerely, Lawrence Rockwell MD 02/02/2024 [facility] Calendar (as of Visit date not found (in office), Visit date not found (telemedicine) ) Care needs Care needs Last completed Due next Zoster (Shingles) Vaccine (2 of 3) 04/27/2014 06/22/2014 Diphtheria, tetanus & pertussis vaccines (2 - Td or Tdap) 12/18/2010 12/18/2020 Diabetic Foot Exam 04/10/2021 04/10/2022 Diabetic Eye Exam 07/15/2022 07/15/2023 COVID-19 Vaccine ( season) 2023 09/30/2023 Urine albumin/creatinine test 03/28/2023 03/28/2024 Colonoscopy - every 3 years 04/09/2021 04/09/2024 A1C blood sugar test 09/01/2023 03/02/2024 Yearly B-12 vitamin test 03/28/2023 03/28/2024 Kidney Function Test 09/01/2023 09/01/2024 Hong's Esophagus Surveilance 04/22/2022 04/22/2025 As you look over the recommended services, be sure to check with your insurance company to determine what's covered. [facility] is a great tool that helps you review your medical record online, including test results, doctor notes and your health summary. You can also schedule appointments with me and other members of your care team, request prescription refills and ask for advice related to your medical conditions at [facility]. documented in this encounter Progress Notes * Sherrell Engle RN - 02/02/2024 9:28 AM EDT AD8 Dementia Screening Interview Person answering questions: patient Remember, "Yes, a change" indicates that there has been a change in the last several years caused by cognitive (thinking and memory) problems 1. Problems with judgement (eg: problems making decisions, bad financial decisions, problems with thinking). No (0) 2. Less interest in hobbies/activities. No (0) 3. Repeats the same things over and over (questions, stories, or statements). No (0) 4. Trouble learning how to use a tool, appliance, or gadget (eg: VCR, computer, microwave, remote control). No (0) 5. Forgets correct month or year. No (0) 6. Trouble handling complicated financial affairs (eg: balancing checkbook, income taxes, paying bills). No (0) 7. Trouble remembering appointments. No (0) 8. Daily problems with thinking and/or memory. No (0) TOTAL AD8: 0 - AD8 Dementia Screening Score The final score is a sum of the number items marked "Yes, A Change". 0 - 1: Normal cognition; 2 or greater: Cognitive impairments is likely to be present - further testing required Adult Annual Wellness Visit: Mitch Pinto is a 73 year old male who presents for an Adult Annual Wellness Visit. Depression Screening: Did the patient complete the screening questionnaire for Depression? Yes Is the patient's total score for Depression 15 or greater? No, no further intervention needed, unless requested by patient. Did the patient answer positively to the suicide question? No, no further intervention needed, unless requested by patient. In general, compared to other people your age, what would you say that your health is? Very Good Ht Readings from Last 1 Encounters: 02/02/24 1.727 m (5' 8") Wt Readings from Last 1 Encounters: 02/02/24 109.1 kg (240 lb 9.6 oz) Body Mass Index: BMI Greater than 30 Body mass index is 36.58 kg/m. BP Readings from Last 1 Encounters: 02/02/24 132/84 Medical/Surgical/Family History Reviewed: Yes Past Medical History: Diagnosis Date Abnormal electrocardiogram [...] GI) performed by RUDY JACOBS at [facility] ANESTH, UPPER GI ENDOSCOPIC PROCS 11/23/2010 ANESTHESIA FOR UPPER GI ENDOSCOPIC PROCEDURES (ERCP OR UPPER GI) performed by RUDY JACOBS at [facility] ANESTH, UPPER GI ENDOSCOPIC PROCS 01/11/2011 ANESTHESIA FOR UPPER GI ENDOSCOPIC PROCEDURES (ERCP OR UPPER GI) performed by RUDY JACOBS at [facility] COLONOSCOPY 05/2010 [place], Adenoma, repeat 2014 COLONOSCOPY, DIAGNOSTIC (RECTUM) 05/12/2015 COLONOSCOPY FLEXIBLE PROXIMAL DIAGNOSTIC performed by Rudy Jacobs MD at [facility] COLONOSCOPY, DIAGNOSTIC (RECTUM) N/A 04/09/2021 COLONOSCOPY FLEXIBLE PROXIMAL DIAGNOSTIC performed by Rudy Jacobs MD at [facility] CORONARY ANGIOGRAPHY W/LEFT HEART CATH Right 02/16/2021 CORONARY ANGIOGRAPHY W/LEFT HEART CATH performed by Zeus Phillips DO at [facility] EGD, FLEXIBLE, DIAGNOSTIC 03/18/2011 UPPER GI ENDOSCOPY DIAGNOSTIC performed by RUDY JACOBS at [facility] EGD, FLEXIBLE, DIAGNOSTIC 05/08/2011 UPPER GI ENDOSCOPY DIAGNOSTIC performed by RUDY JACOBS at [facility] EGD, FLEXIBLE, DIAGNOSTIC 12/27/2011 UPPER GI ENDOSCOPY DIAGNOSTIC performed by RUDY JACOBS at [facility] EGD, FLEXIBLE, DIAGNOSTIC 06/05/2012 UPPER GI ENDOSCOPY DIAGNOSTIC performed by Rudy Jacobs MD at [facility] EGD, FLEXIBLE, DIAGNOSTIC 02/26/2013 UPPER GI ENDOSCOPY DIAGNOSTIC performed by Rudy Jacobs MD at [facility] EGD, FLEXIBLE, DIAGNOSTIC 04/22/2014 ESOPHAGOGASTRODUODENOSCOPY (EGD), FLEXIBLE, TRANSORAL, DIAGNOSTIC performed by Rudy Jacobs MD [facility] EGD, FLEXIBLE, DIAGNOSTIC N/A 05/12/2015 ESOPHAGOGASTRODUODENOSCOPY (EGD), FLEXIBLE, TRANSORAL, DIAGNOSTIC performed by Rudy Jacobs MD [facility] EGD, FLEXIBLE, DIAGNOSTIC N/A 05/15/2017 ESOPHAGOGASTRODUODENOSCOPY (EGD), FLEXIBLE, TRANSORAL, DIAGNOSTIC performed by Rudy Jacobs MD [facility] EGD, FLEXIBLE, DIAGNOSTIC N/A 06/26/2018 ESOPHAGOGASTRODUODENOSCOPY (EGD), FLEXIBLE, TRANSORAL, DIAGNOSTIC performed by Rudy Jacobs MD [facility] EGD, FLEXIBLE, DIAGNOSTIC N/A 09/03/2019 ESOPHAGOGASTRODUODENOSCOPY (EGD), FLEXIBLE, TRANSORAL, DIAGNOSTIC performed by Rudy Jacobs MD [facility] EGD, FLEXIBLE, DIAGNOSTIC N/A 04/09/2021 ESOPHAGOGASTRODUODENOSCOPY (EGD), FLEXIBLE, TRANSORAL, DIAGNOSTIC performed by Rudy Jacobs MD [facility] EGD, FLEXIBLE, DIAGNOSTIC N/A 04/22/2022 ESOPHAGOGASTRODUODENOSCOPY (EGD), FLEXIBLE, TRANSORAL, DIAGNOSTIC performed by Rudy Jacobs MD [facility] EGD, FLEXIBLE, REMOVE LESIONS, SNARE METHOD 06/21/2010 [...] performed by Rudy Jacobs MD at [facility] ELECTROPHYSIOLOGY EVAL, ATRIAL FIB, PULMONARY VEIN ISOL N/A 10/30/2020 PVI RADIOFREQUENCY CATHETER ABLATION performed by Manisha Fernando IV, MD at [facility] HEART ELECTROCONVERSION, EXTERNAL N/A 03/06/2020 DC CARDIOVERSION performed by Manisha Fernando IV, MD at [facility] HEART ELECTROCONVERSION, EXTERNAL N/A 05/29/2020 DC CARDIOVERSION performed by Manisha Fernando IV, MD at [facility] INFORMATION 2010 Varicose vein injections REMOVE TONSILS & ADENOIDS, UNDER 12 Family History Problem Relation Age of Onset Heart Disorder Father [place], open heart surgery, CHF Diabetes Father Cancer Father skin CA nose Gastro-intestinal disorder Father diverticulitis Mental Disorder Father depression Thyroid Disorder Father Lung Disorder Mother emphysema Gastro-intestinal disorder Mother choly Has patient ever had cancer? No Social History Tobacco Use Smoking status: Former [...] Use Never User Vaping/E-Cigarette Substances Vaping/E-Cigarette Devices Tobacco/Alcohol screening completed today? Yes Hospital Care: Admissions (within the last year): Not Applicable ER within 30 days: No Does the patient have an Advance Directives/Living Will? No. Does the patient want information? Yes. Information given to patient Advance Care Planning is important to all adults. Discussed the process of thinking and talking about future healthcare decisions. ACP form and pamphlet given to patient to take home and discuss withfamily. Once form is completed, patient to get a copy to us to scan into their chart. Last Physical Exam: Last physical exam: 08/2024 Does patient see primary provider regularly? Yes Does patient see other providers? Yes, Specialist Patient Care Team updated? Yes Review of patient's allergies indicates: No Known Allergies Immunization History Administered Date(s) Administered COVID-19 mRNA, LNP-s, No Preserve, 2-Dose Series (Moderna) 11/25/2020, 12/30/2020 COVID-19 mRNA, LNP-s, No Preserve, 2-Dose Series (Pfizer) 08/05/2023 COVID-19, mRNA, LNP-s, PF, Booster, 100mcg/0.5mg (Moderna) 03/27/2022 Covid-19, Mrna, Lnp-s, Pf, Bivalent, 50 Mcg, IM, 12 yrs and above (Moderna) 08/06/2022 PPD 05/30/2014 Pneumococcal Conjugate Vacc, 13 Valent (Prevnar) 11/28/2015 Pneumococcal Polysaccharide PPV23 (Pneumovax) 12/18/2010, 05/28/2017 Season Influenza, Quad, PF, Adjuvanted, 65+ Yrs, IM (FLUAD) 10/16/2020 Seasonal Influenza, PF, 6 M & above, IM , (FluLaval or Fluzone) 10/07/2017, 09/23/2018, 08/02/2019, 09/17/2022 Seasonal Influenza, Quadrivalent Hd (Fluzone Hd) 07/25/2021 Seasonal Influenza, Quadrivalent Hd, 65+ Yrs 08/05/2023 Seasonal Influenza, Quadrivalent, No Preserve, IM 08/14/2015, 10/17/2016 Seasonal Influenza, Split, IIV3, With Preserve, Inj 08/17/2010, 08/17/2011, 08/07/2012, 09/16/2013,08/03/2014 TDAP (age 11 and older)(Adacel) 12/18/2010 Varicella Zoster Vaccine (Adult) 04/27/2014 Current Outpatient Medications Medication Sig Dispense Refill Multiple Vitamins-Minerals (ONE-A-DAY MENS 50+ ADVANTAGE) TABS Take by mouth. Anthony-3 Fatty Acids (SALMON OIL-1000) 200 MG CAPS Take by mouth daily . Propranolol HCl 10 MG Oral Tablet (Inderal) TAKE ONE TABLET BY MOUTH DAILY NEEDED 10 Tablet 5 Cinnamon 500 MG Oral Tablet Take 1 [...] for itching or flares. 60 mL 2 Warfarin Sodium 5 MG Oral Tablet (Coumadin) TAKE 1-1.5 TABLETS BY MOUTH DAILY DIRECTED BY COUMADIN CLINIC 21 Tablet 0 metFORMIN HCl 1000 MG Oral Tablet (Glucophage) TAKE ONE TABLET BY MOUTH 2 TIMES A DAY WITH MORNING AND EVENING MEALS 28 Tablet 0 Doxycycline Hyclate 20 MG Oral [...] MOUTH IN THE MORNING 90 Tablet 2 ONETOUCH ULTRA BLUE STRP TEST TWICE A DAY 180 Strip 3 Fluticasone Propionate 50 MCG/ACT Nasal Suspension (Flonase) Administer 2 Sprays into each nostril daily. 16 g 5 CPAP every night at bedtime. Vardenafil HCl 20 MG Oral Tablet (Levitra) TAKE ONE TABLET BY MOUTH 1 hour before intercourse as needed; no more than 1 dose per day 5 Tablet 1 Lancets Test twice daily as directed 200 Each 3 metroNIDAZOLE 1 % External Gel (Metrogel) Apply to entire face at night prior to bed 135 g 1 No current facility-administered medications for this visit. 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 Yes Patient takes medications as prescribed? Yes Patient manages own medications: Yes Patient uses a pill box? Yes, refill(s) completed by self Dental Exam: Yes: Every 6 Months Eye Screening: Yes: Every year Are you having trouble with hearing? Yes, is seeing ENT Do you use an assistive device to help your hearing? No Exercise Screening: exercises 3-4 times per week, walking 3 miles also weight training Nutrition Assessment: Eats a balanced diet and Eats two meals a day Pain Screening: Are you having any pain? No Sleep Screening Tool 'STOP': Has Sleep apnea, CPAP uses Patient and Caregiver Support System: Patient lives with a spouse and younger brother Means of Transportation: Drives. Not a concern. Patient lives in Two Story - How many stairs: 13 steps with handrailing, not on back stairs Community Resources: Not Applicable Functional Status and ADL Skills: Has patient ever had an amputation? No Functional Assessment: 100- Normal, no complaints, no evidence of disease Ambulation: Patient ambulates without assistive device. Independent Dressing: Gets clothes and dresses without any assistance: Independent Able to move freely in chair or bed including turning over: Independent Repositioning (bed or chair): Not applicable Transfers: Independent Toileting: Goes to bathroom, uses toilet, arranges clothes and returns without any assistance: Independent Toileting: continent of bladder and continent of bowel Feeding: Self Bathing: Self; walk in shower, no grab bars, mat to step out onto Requires none assistance with ADLs. Instrumental ADL's: Shopping: Independent Housekeeping: Independent Handling Finances: Independent DME Vendor Name: Not Applicable Fall Risk Assessment: Can the patient demonstrate that he can stand from a sitting position? Yes Has the patient had a fall within the last 6 months? No Does the patient have a problem with his gait or balance? No Does the patient take 4 or more prescription medicines? Yes Does the patient use sedatives or narcotics? No Fall Risk Factors Present: Uses more than 4 medications Older than age 70 Ehk-Gb-lwm-Go Test: Time began at 0900. Patient stood from sitting position and walked approximately 10 feet, returned and sat down. Total time for fld-hc-wuh-go test was 13 seconds. Svu-Wo-xbd-Go Test completed? Yes Gender Specific Preventative Plan: Health Maintenance Topic Date Due Zoster Vaccines (2 of 3) 06/22/2014 DTaP,Tdap,and Td Vaccines (2 - Td or Tdap) 12/18/2020 Diabetic Foot Exam 04/10/2022 Diabetic Eye Exam 07/15/2023 COVID-19 Vaccine ( season) 2023 Albumin/Creatinine Ratio 03/28/2024 COLONOSCOPY-EVERY 3 YRS AGES 18-100 04/09/2024 HbA1c 03/02/2024 B-12 03/28/2024 GFR 09/01/2024 Depression Screening 02/01/2025 Hong's Esophagus Surveilance 04/22/2025 Influenza Vaccine (FLU shot) Completed AAA Screening Completed Pneumococcal Vaccine: 65+ Years Completed Hepatitis B Aged Out MENINGOCOCCAL (MENACTRA/MENVEO) Aged Out GARDASIL-HPV IMMUNIZATION SERIES Aged Out Follow Up/ Referrals/Handouts: Depression screening - Completed Functional assessment - Completed Falls Risk screening - Completed, handout given Exercise screening - Encouraged to continue regular exercise routine Nutrition assessment -. Education Provided and Handouts Provided Pain screening - No concerns Incontinence screening - No concerns Routine general medical examination at a health care facility (Primary) Risk and functional assessment Dyslipidemia, goal LDL below 70 Component Latest Ref Rng 03/28/2023 Non-HDL Cholesterol <=159 mg/dL 76 LDL Cholesterol <=129 mg/dL 57 -Med reconciliation completed and compliance discussed. - pt to continue present medications. Continue to monitor and follow with PCP Type 2 diabetes mellitus with hemoglobin A1c goal of less than 7.0% (HCC) Component Latest Ref Rng 03/28/2023 Hemoglobin A1C 4.0 - 5.6 % 7.3 (H) Estimated Average Glucose <126 mg/dL 163 (H) -Med reconciliation completed and compliance discussed. - pt to continue present medications. Continue to monitor and follow with PCP LUIS (obstructive sleep apnea) Continue to monitor and follow with Sleep Medicine, Uses CPAP HTN, goal below 140/90 BP Readings from Last 3 Encounters: 02/02/24 132/84 11/04/23 129/80 09/01/23 156/68 -Med reconciliation completed and compliance discussed. - pt to continue present medications. Continue to monitor and follow with PCP Hong's esophagus with high grade dysplasia Gastroesophageal reflux disease with esophagitis, unspecified whether hemorrhage -Med reconciliation completed and compliance discussed. - pt to continue present medications. Continue to monitor and follow with Gastroenterology Atrial fibrillation, unspecified type (HCC) Coronary artery disease involving quinault coronary artery of quinault heart without angina pectoris -Med reconciliation completed and compliance discussed. - pt to continue present medications. Continue to monitor and follow with Cardiology, [facility] Patient has been verbally educated on the need or importance of Diabetic Eye Exam, Diabetic Foot Exam, and Immunizations: Tetanus, Shingles Patient has had DM Eye exam at outside provider, called and requested report DM Foot exam offered to patient, he refused. States he follows with Podiatry Tetanus Vaccine recommended- patient made aware to come in and get it if they get an open cut or open wound. Shingles vaccine - patient states he plans to get this at the pharmacy Discussed importance of Covid Vaccine: pt has received the vaccine Yes, Patient has received Covid vaccine Would patient like to schedule next AWV visit? Yes Sherrell Engle RN documented in this encounter Miscellaneous Notes * Pt Handout (not on AVS) - Sherrell Engle RN - 02/02/2024 9:50 AM EDT [id number] Fall Prevention Falls often take place due to slipping, tripping, or losing your balance. Millions of people fall every year and injure themselves. Among older adults in the [place] falls are the most common cause of traumatic brain injuries. Every 20 minutes, an older adult dies from a fall. Here are ways to reduceyour risk of falling again: Think about your fall. Was there anything that caused your fall that can be fixed, removed, or replaced? Make your home safe by keeping walkways clear of objects you may trip over, such as electrical cords. Use nonslip pads under rugs. Don't use area rugs or small throw rugs. Use nonslip mats in bathtubs and showers. Hang grab rails by the toilet and inside and outside the shower. Install handrails and lights on staircases. The handrails should be on both sides of the stairs. Use night lights. Don't walk in poorly lit areas. Don't stand on chairs or wobbly ladders. Use care when reaching overhead or looking up. This position can cause a loss of balance. Be sure your shoes fit well, are in good condition, and have nonslip bottoms. Wear shoes both inside and outside of your home. Don't go barefoot or wear slippers. Be cautious when going up and down stairs, curbs, and when walking on uneven sidewalks. If your balance is poor, consider using a cane or walker. Talk with your healthcare provider about having a balance assessment. If your fall was related to alcohol use, stop or limit alcohol intake. Ask your provider for help if you think you may overuse alcohol and can't stop. If your fall was related to use of sleeping medicines, talk with your provider about this. You may need to reduce your dosage at bedtime if you wake up during the night to go to the bathroom. To reduce the need for nighttime bathroom trips: o Don't drink fluids for several hours before going to bed o Empty your bladder before going to bed o Men can keep a urinal at the bedside Stay as active as you can. Balance, flexibility, strength, and endurance all come from exercise.They all play a role in preventing falls. Ask your provider which types of activity are right for you. Try to do some type of exercise every day. Get your eyes checked once a year or more often if your vision changes If you have pets, know where they are before you stand up or walk so you don't trip over them. Go over all your medicines with a pharmacist or other provider. This is to see if any of them could make you more likely to fall. Have this type of medicine review at least once every year. If your provider advises a new medicine, ask if the side effects will affect your balance. Don't move quickly from one position to another. For instance, don't stand up fast from sitting.This can cause dizziness and may lead to a fall. Sit down when putting on pants, socks, and shoes. This will make you less likely to lose your balance and fall. Always let your provider know if you have fallen since your last visit. Contact your provider right away if you're having balance problems or falling more often. Last Reviewed Date: 11/03/202119998582-9185 [employer]. All rights reserved. This information is not intended as a substitute for professional medical care. Always follow your healthcare professional's instructions. * Pt Handout (not on AVS) - Sherrell Engle RN - 02/02/2024 9:49 AM EDT Images from the original note were not included. [id number] Steps for Eating Healthier Changing the way you eat can improve your health. It can lower your cholesterol and blood pressure,and help you stay at a healthy weight. Your diet doesn?t have to be bland and boring to be healthy.Just watch your calories and follow these steps: Step 1. Eat fewer unhealthy fats Choose more fish and lean meats instead of fatty cuts of meat. Skip butter and lard, and use less margarine. Replace these with healthier fats, such as olive, canola, or avocado oils. Pass on foods that have palm, coconut, or partially hydrogenated oils. Eat fewer high-fat dairy foods like cheese, ice cream, and whole milk. Get a heart-healthy cookbook and try some new recipes. Step 2. Go light on salt Keep the saltshaker off the table. Limit high-salt ingredients, such as soy sauce, bouillon, and garlic salt. Instead of adding salt when cooking, season your food with herbs, spices, and other flavorings. Try lemon, garlic, onion, vinegar, or salt-free herb seasonings. Limit convenience foods, such as boxed or canned foods and restaurant food. Read food labels and choose lower-sodium options. Buy fresh, frozen, or canned vegetables that don't have added salt. Step 3. Limit sugar Pause before you add sugars to pancakes, cereal, coffee, or tea. This includes white and brown table sugar, syrup, honey, and molasses. Cut your usual amount by half. Swap out sugar-filled soda and other drinks. Buy sugar-free or low-calorie beverages. Remember, water is always the best choice. Try adding lemon juice to water for extra flavor. Read labels and choose foods with less added sugar. Keep in mind that dairy foods and foods withfruit will have some natural sugar. Cut the sugar in recipes by 1/3 to 1/2. Boost the flavor with extracts like almond, vanilla, or orange. Or add spices such as cinnamon or nutmeg. Step 4. Eat more fiber Eat fresh fruits and vegetables every day. Boost your diet with whole grains. Go for oats, whole-grain rice, and bran. Add beans and lentils to your meals. Drink more water to match your fiber increase to help prevent constipation. Step 5. Pay attention to serving sizes Remember that a serving size is a standard measurement. It will let you track the amount of fat,calories, and other nutrients in the food you eat. Read the Nutrition Facts label on packaged foods to learn their serving sizes. Use serving sizes to assess how much food you put on your plate. Pay attention to your portions.How many servings are you eating? Keep in mind that your needs may change if you?re more active or less active, or if you have other factors that change your calorie needs. Use your hand to help you measure serving sizes. For example: o 1 teaspoon: This is about the size of the first joint of your thumb. o 1 tablespoon: This is about the size of the first 2 joints of your thumb. o 1 ounce: This is about what you can fit in your cupped hand. o 2 to 3 ounces: This is about the size of the palm of your hand. o cup: This is also about what you can fit in your cupped hand. o 1 cup: This is about the size of your fist. Last Reviewed Date: 10/03/202219991539-2175 [employer]. All rights reserved. This information is not intended as a substitute for professional medical care. Always follow your healthcare professional's instructions. documented in this encounter Plan of Treatment Upcoming Encounters Date Type Department Care Team (Latest Contact Info) Description 8:00 AM EDT Anticoagulation Pharmacy, [place] [id number] [place] [address] [facility] [address] [place] [address] 4 9:00 AM EDT Office Visit Otolaryngology/ Head & Neck/Facial Plastic Surgery [address] [place] [address] Veronica Clark PA-C [address] [place] [address] 4 8:30 AM EDT Office Visit Cardiology, [facility] [address] [place] [address] Margaret Loya CRNP [address] [facility] [place] [address] 4 1:00 PM EDT Office Visit Podiatry, [facility] [address] [place] [address] Hang Avalos, [facility] [address] [place] [address] 4 9:40 AM EDT Office Visit Family [facility], [place] [address] [place] [id number] Lawrence Rockwell MD [address] [place] [address] 4 7:30 AM EDT Hospital Encounter [facility] Endoscopy [address], [facility] [address], [address] [place] [address] Rudy Jacobs MD [address] [place] [address] 4 7:30 AM EDT - 4 9:00 AM EDT Surgery [facility], Endoscopy [address], [facility] [address], [address], [place] [id number] Rudy Jacobs MD [address], [place] [id number] ESOPHAGOGASTRODUODENOSCOPY (EGD), FLEXIBLE, TRANSORAL, DIAGNOSTIC 4 10:00 AM EDT Office Visit Sleep Disorders Ctr [facility] [address] [place] [id number] Cristel Canchola, [address] [place] [address] 4 12:30 PM EDT Office Visit Cardiology, [facility] [address] [place] [address] Manisha Fernando IV, MD [address] [place], [place] [id number] 4 8:45 AM EDT Office Visit Dermatology [facility] [address] [place] [address] Wilian Meneses MD [address] [facility] [place] [address] 5 9:45 AM EST Office Visit Dermatology [facility] [address] [place] [address] Wilian Meneses MD [address] [facility] [place] [address] 5 9:00 AM EDT Nurse Only Ancillary Department, [address] [address] [place], Nurse [facility] [address] [place] [address] Scheduled Procedures Name Priority Associated Diagnoses Date/Ti [...] as of this encounter Visit Diagnoses Diagnosis Routine general medical examination at a health care facility- Primary Risk and functional assessment Screening for unspecified condition Dyslipidemia, goal LDL below 70 Other and unspecified hyperlipidemia Type 2 diabetes mellitus with hemoglobin A1c goal of less than 7.0% (HCC) LUIS (obstructive sleep apnea) Obstructive sleep apnea (adult) (pediatric) HTN, goal below 140/90 Unspecified essential hypertension Hong's esophagus with high grade dysplasia Hong's esophagus Gastroesophageal reflux disease with esophagitis, unspecified whether hemorrhage Atrial fibrillation, unspecified type (HCC) Coronary artery disease involving quinault coronary artery of quinault heart without angina pectoris Hong's esophagus documented in this encounter Advance Directives Latest Code Status on File Code Status Date Activated Date Inactivated Comments Full Code 10/30/2020 4:04 PM 10/31/2020 1:07 PM Thi s order reflects the patients wishes and were consensually agreed upon. Care Teams Rose Grower Relationship Specialty Start Date End Date Lawrence Rockwell MD [address] [place] [address] PCP - General Family Medicine 12/11/10 documented as of this encounter
--- OUTSIDE RECORDS SUMMARY | 2024-04-04 20:54 | External Medical Summary | Summary of Care ---
Author Name Unknown Organization [facility] Address [address] [place] [address] Phone [phone] Care Team Providers Care District Sales Coordinator Name Role Phone Lawrence Rockwell MD Primary Care Provider [phone]- [phone] Reason for Visit * Reason Comments Follow Up Here for return. Las t seen 01/24/23. LUIS. CPAP. Periodic breathing % has been increasing. Mask fit struggle. Encounter Details Date Type Department Care Team (Late st Contact Info) Description 11/04/2023 2:20 PM EST Office Visit Sleep [facility] [place] [address] Cristel Canchola, [address] [place] [address] Obstructive sleep apnea of adult* Allergies No known active allergiesdocumented as of this encounter (statuses as of 11/04/2023) Medications Medication Sig Dispensed Refills Start Date End Date Status ONETOUCH ULTRA BLUE STRPIndications:DM type 2, goal A1c below 7 TEST TWICE A DAY 180 Strip 3 09/27/2013 Active Multiple Vitamins-Minerals (ONE-A-DAY MENS 50+ ADVANTAGE) TABS Take by mouth. 0 Activ e Belden-3 Fatty Acids (SALMON OIL-1000) 200 MG CAPS [...] ns:HTN, goal below 140/90,Coronary artery disease involving tolowa dee-ni' coronary artery of tolowa dee-ni' heart without angina pectoris TAKE 1 TABLET [...] as of this encounter (statuses as of 11/04/2023) Active Problems Problem Noted Date Diagnosed Date Coronary artery disease invo lving tolowa dee-ni' coronary artery of tolowa dee-ni' heart without angina pectoris 10/16/2021 Atrial fibrillation 02/28/2020 Overview: Added automatically from request for surgery [id number] LUIS (obstructive sleep apnea) 05/19/2019 Nocturnal hypoxemia [...] as of this encounter (statuses as of 11/04/2023) Resolved Problems Problem Noted Date Diagnosed Date Resolved Date Atrial fibrillation, persistent 09/08/2020 10/10/2021 Overview: Added automatically from request for surgery [id number] Paroxysmal atrial fibrillation 01/12/2019 10/09/2020 Folliculitis 06/14/2014 [...] as of this encounter (statuses as of 11/04/2023) Immunizations Name Administration Dates Next Due COVID-19 [...] Sign Reading Time Taken Comments Blood Pressure 129/80 11/04/2023 2:16 PM EST Pulse 64 11/04/2023 2:16 PM EST Temperature 34.7 C (94.4 F) 11/04/2023 2:16 PM ES T Respiratory Rate 16 11/04/2023 2:16 PM EST Oxygen Saturation 96% 11/04/2023 2:16 PM EST Inhaled Oxygen Concentration - - Weight 109.8 kg (242 lb) 11/04/2023 2:16 PM EST Height 174 cm (5' 8.5") 11/04/2023 2:16 PM EST Body Mass Index 36.26 11/04/2023 2:16 PM EST documented in this encounter Progress Notes * Cristel Canchola, DO - 11/04/2023 2:35 PM EST Sleep Medicine Follow-Up Clinic Note HISTORY: Mr. Mitch Pinto is a 73 year old male a pmh paroxysmal a fib, HTN, DM, and GERD who is in clinic today for follow up of Obstructive Sleep Apnea. Mr. Pinto and his have been noticing leak from his low profile FFM. He has been using this same mask for a long time but has changed the cushion regularly. He also noticed that his PB % has increased within single digits. Neither his weight nor his facial hair has altered. Denies aerophagia, and feeling the pressure is too much or too little. Overnight Oximetry 01/31/23 SpO2<= 89% 1 min SpO2 radha 88% PAP DL confirms overlapping PAP usage "- 05/13/2019: PSG: AHI 7.2 exacerbated to moderate in REM 22.1. 24.4 minutes below 89% - Noct ox APAP 7-15/RA 04/11/21 (wt 250): <89% 5:35 mins, radha 79% -- recommended changing starting pressures to 8.5 from 7 and repeating testing - Noct ox aPAP 8.5-10 cwp/RA 05/10/21: <89% 7.5 mins, radha 85%. Desats noted during large leak. 115 mins large leak. AHI 0.2." - JIMMIE Mendoza [place] Sleepiness Scale Question 11/04/2023 2:15 PM EST - Filed by Lindsey Patel LPN What is the chance you will doze off in the following situation? Sitting and reading No chance of dozing Watching TV Slight chance of dozing Sitting inactive in a public place, such as a theater or meeting No chance of dozing As a passenger in a car for an hour without a break No chance of dozing Lying down to rest in the afternoon when circumstances permit Moderate chance of dozing When sitting and talking to someone No chance of dozing When sitting quietly after lunch without alcohol No chance of dozing In a car, while stopped for a few minutes in traffic No chance of dozing Score (range: 0 - 24) 3 Travel Screening Question 11/04/2023 2:16 PM EST - Filed by Lindsey Patel LPN Do you have any of the following new or worsening symptoms? None of these Have you recently been in contact with someone who was sick? No / Unsure PAP Compliance: Report date: 10/05/23 to 11/03/22 % total days used: 100% % days used > 4 hours: 100% Average hours a day: 8 hours 34 mins Large leak: 4 hrs 45 mins AHI: 0.6/hr 90% pressure: 8.5 cmH20 Equipment: DME Provider is [employer] 8.5-10 cmH20. Patient Active Problem List Diagnosis Code Dyslipidemia, [...] fibrillation (HCC) I48.91 Coronary artery disease involving tolowa dee-ni' coronary artery of tolowa dee-ni' heart without angina pectoris I25.10 Outpatient Medications Marked as Taking for the 11/04/23 encounter (Office Visit) with Carlotta Canchola DO Medication Sig dilTIAZem HCl ER Coated Beads 120 MG Oral Capsule Extended Release 24 Hour (Cardizem CD) TAKE 1 CAPSULE BY MOUTH IN THE MORNING Lisinopril 10 MG Oral Tablet (Prinivil) TAKE 1 TABLET BY MOUTH DAILY IN THE MORNING Doxycycline Hyclate 20 MG Oral Tablet TAKE 1 TABLET BY MOUTH TWICE DAILY WITH OR WITHOUT FOOD Metoprolol Succinate ER 50 MG Oral Tablet Extended Release 24 Hour (toPROL XL) TAKE 1 TABLET BY MOUTH IN THE MORNING metroNIDAZOLE 1 % External Gel (Metrogel) Apply to entire face at night prior to bed metFORMIN HCl 1000 MG Oral Tablet (Glucophage) TAKE ONE TABLET BY MOUTH 2 TIMES A DAY WITH MORNING AND EVENING MEALS Warfarin Sodium 5 MG Oral Tablet (Coumadin) TAKE 1-1.5 TABLETS BY MOUTH DAILY DIRECTED BY COUMADIN CLINIC Aspirin 81 MG Oral Tablet Chewable Take 1 Tablet by mouth in the morning. with food.. Cinnamon 500 MG Oral Tablet Take 1 Tablet by mouth in the morning. CoQ10 100 MG Oral Capsule Take 100 mg by mouth in the morning. Fluocinonide 0.05 % External Solution Apply 1-2 drops to each ear daily as needed for itching or flares. Lancets Test twice daily as directed Propranolol HCl 10 MG Oral Tablet (Inderal) TAKE ONE TABLET BY MOUTH DAILY NEEDED Vardenafil HCl 20 MG Oral Tablet (Levitra) TAKE ONE TABLET BY MOUTH 1 hour before intercourse as needed; no more than 1 dose per day Atorvastatin Calcium 80 MG Oral Tablet (Lipitor) Take 1 Tablet by mouth in the morning. Metoprolol Succinate ER 25 MG Oral Tablet Extended Release 24 Hour (toPROL XL) Take 1 Tablet by mouth at bedtime. Pantoprazole Sodium 20 MG Oral Tablet Delayed Release (Protonix) Take 1 Tablet by mouth in the morning. CPAP every night at bedtime. Fluticasone Propionate 50 MCG/ACT Nasal Suspension (Flonase) Administer 2 Sprays into each nostril daily. Multiple Vitamins-Minerals (ONE-A-DAY MENS 50+ ADVANTAGE) TABS Take by mouth. Belden-3 Fatty Acids (SALMON OIL-1000) 200 MG CAPS Take by mouth daily . ONETOUCH ULTRA BLUE STRP TEST TWICE A DAY PHYSICAL EXAM: BP 129/80 | Pulse 64 | Temp (!) 34.7 C (94.4 F) (Tympanic) | Resp 16 | Ht 1.74 m (5' 8.5") | Wt109.8 kg (242 lb) | SpO2 96% | BMI 36.26 kg/m | BSA 2.3 m Constitutional: Alert, oriented in no acute distress Skin: no markings on face where mask fits Chest: Normal respiratory effort at rest Neuro: Normal speech and comprehension Psych: Appropriate mood and affect ASSESSMENT/PLAN: Obstructive Sleep Apnea Encouraged continued use of PAP every night, all night and for naps. Continue PAP at current setting Fit for new mask Alternatively, can try current mask with chin strap Obtain DL in 2 months Recommended routine cleaning and change of supplies as needed. Even a mild to moderate weight loss should result in significant improvement in the patients nocturnal respiratory events. Strenuous exercise, which activates the sympathetic nervous system (adrenaline system) not only helps with weight loss, glucose, and mood, but also improves sleep quality, and upper respiratory muscle tone during sleep. Avoid driving, operating heavy machinery or engaging in any activity that requires full alertness if feeling sleepy, drowsy or otherwise impaired. Follow-up with Sleep Medicine in 6 months. Cristel Canchola DO I spent a total of 30-39 minutes (exact time 30 mins) on the date of service in preparation, delivery, and documentation of the care provided to Mitch Pinto excluding any time spent in the performance of separately billed services. documented in this encounter Nursing Notes * Lindsey Patel LPN - 11/04/2023 2:19 PM EST Chief Complaint Patient presents with Follow Up Here for return. Last seen 01/24/23. LUIS. CPAP. Periodic breathing % has been increasing. Mask fit struggle. DME: [employer] [place] Sleepiness Scale Question 11/04/2023 2:15 PM EST - Filed by Lindsey Patel LPN What is the chance you will doze off in the following situation? Sitting and reading No chance of dozing Watching TV Slight chance of dozing Sitting inactive in a public place, such as a theater or meeting No chance of dozing As a passenger in a car for an hour without a break No chance of dozing Lying down to rest in the afternoon when circumstances permit Moderate chance of dozing When sitting and talking to someone No chance of dozing When sitting quietly after lunch without alcohol No chance of dozing In a car, while stopped for a few minutes in traffic No chance of dozing Score (range: 0 - 24) 3 Travel Screening Question 11/04/2023 2:16 PM EST - Filed by Lindsey Patel LPN Do you have any of the following new or worsening symptoms? None of these Have you recently been in contact with someone who was sick? No / Unsure documented in this encounter Plan of Treatment Upcoming Encounters Date Type Department Care Team (Late st Contact Info) Description 11/05/2023 8:20 AM EST Anticoagulation Pharmacy, [facility] [address] [place] [address] [facility] [address] [place] [address] 11/10/2023 8:15 AM EST Office Visit Dermatology [facility] [address] [facility] [place] [address] Wilian Meneses MD [address] [place] [address] 12/10/2023 12:30 PM EST Office Visit Cardiology, [facility] [address] [place] [address] Manisha Fernando IV, MD [address] [place], [place] [id number] 01/05/2024 8:30 AM EST Nurse Only Ancillary Department, [facility] [address] [place] [address] [facility], [facility] [address] [place] [address] 02/05/2024 8:30 AM EDT Office Visit Podiatry, [facility] [address] [place] [address] Hang Avalos, [place]OVEVA [address] [place], [place] [id number] 02/20/2024 8:30 AM EDT Office Visit Cardiology, [facility] [place] [address] Araceli Crowe PA-C [address] [facility] [place] [address] 02/24/2024 9:00 AM EDT Office Visit Otolaryngology/Head & Neck/Facial Plastic Surgery [address] [place] [address] Veronica Clark PA-C [address], [place] [id number] 03/05/2024 9:20 AM EDT Office Visit [place] [address] [place] [id number] Lawrence Rockwell MD [address] [place] [address] 03/25/2024 11:20 AM EDT [facility] [address] [place], [place] [phone] Isadora Colunga, ALEKSANDER [address] [place] [address] [place] [address] 05/04/2024 10:00 AM EDT Office Visit Sleep Disorders Ctr [facility] [address] [place] [phone] Cristel Canchola DO [address] [facility] [place] [address] Scheduled Procedures Name Priority Associated Diagnoses Date/Ti [...] as of this encounter Visit Diagnoses Diagnosis Obstructive sleep apnea of adult- Primary Obstructive sleep apnea (adult) (pediatric) documented in this encounter Advance Directives Latest Code Status on File Code Status Date Activated Date Inactivated Comments Full Code 10/30/2020 4:04 PM 10/31/2020 1:07 PM Thi s order reflects the patients wishes and were consensually agreed upon. Care Teams District Sales Coordinator Relationship Specialty Start Date End Date Lawrence Rockwell MD [address] [facility] [place] [address] PCP - General Family Medicine 12/11/10 documented as of this encounter
--- OUTSIDE RECORDS SUMMARY | 2024-04-04 20:55 | External Medical Summary | Summary of Care ---
Author Name Unknown Organization [facility] Address [address] [place] [address] Phone [phone] Care Team Providers Care Bolt Cutter Name Role Phone Lawrence Rockwell MD Primary Care Provider [phone]- [phone] Reason for Visit * Reason Comments Other trim Encounter Details Date Type Department Care Team (Late st Contact Info) Description 10/16/2023 9:00 AM EST Office Visit Podiatry, [facility] [address] [place] [address] Hang Avalos, [facility] [address] [place] [address] Type 2 diabetes mellitus with hemoglobin A1c goal of less than 7.0% ([facility])*; Onychomycosis; Pain due to onychomycosis of toenail of right foot Allergies No known active allergiesdocumented as of this encounter (statuses as of 10/16/2023) Medications Medication Sig Dispensed Refills Start Date End Date Status ONETOUCH ULTRA BLUE STRPIndications:DM type 2, goal A1c below 7 TEST TWICE A DAY 180 Strip 3 09/27/2013 Active Multiple Vitamins-Minerals (ONE-A-DAY MENS 50+ ADVANTAGE) TABS Take by mouth. 0 Activ e [place]-3 Fatty Acids (SALMON OIL-1000) 200 MG CAPS [...] Active Additional Information Patient not taking.Reported on 09/01/2023 Metoprolol Succinate ER 50 MG Oral Tablet [...] ns:HTN, goal below 140/90,Coronary artery disease involving [place] coronary artery of [place] heart without angina pectoris TAKE 1 TABLET [...] as of this encounter (statuses as of 10/16/2023) Active Problems Problem Noted Date Diagnosed Date Coronary artery disease invo lving [place] coronary artery of [place] heart without angina pectoris 10/16/2021 Atrial fibrillation 02/28/2020 Overview: Added automatically from request for surgery [id number] LUIS (obstructive sleep apnea) 05/19/2019 Nocturnal hypoxemia [...] as of this encounter (statuses as of 10/16/2023) Resolved Problems Problem Noted Date Diagnosed Date Resolved Date Atrial fibrillation, persistent 09/08/2020 10/10/2021 Overview: Added automatically from request for surgery [id number] Paroxysmal atrial fibrillation 01/12/2019 10/09/2020 Folliculitis 06/14/2014 [...] as of this encounter (statuses as of 10/16/2023) Immunizations Name Administration Dates Next Due COVID-19 [...] Progress Notes * Hang Avalos, DPM - 10/16/2023 8:55 AM EST Patient presents with a painful thickened nails Past Medical History: Diagnosis Date Abnormal electrocardiogram [...] TRANSORAL, DIAGNOSTIC performed by Rudy Coleman [facility] EGD, FLEXIBLE, DIAGNOSTIC N/A 05/12/2015 ESOPHAGOGASTRODUODENOSCOPY (EGD), FLEXIBLE, TRANSORAL, DIAGNOSTIC performed by Rudy Coleman [facility] EGD, FLEXIBLE, DIAGNOSTIC N/A 05/15/2017 ESOPHAGOGASTRODUODENOSCOPY (EGD), FLEXIBLE, TRANSORAL, DIAGNOSTIC performed by Rudy Coleman MD [facility] EGD, FLEXIBLE, DIAGNOSTIC N/A 06/26/2018 ESOPHAGOGASTRODUODENOSCOPY (EGD), FLEXIBLE, TRANSORAL, DIAGNOSTIC performed by Rudy Coleman MD [facility] EGD, FLEXIBLE, DIAGNOSTIC N/A 09/03/2019 ESOPHAGOGASTRODUODENOSCOPY (EGD), FLEXIBLE, TRANSORAL, DIAGNOSTIC performed by Rudy Coleman MD [facility] EGD, FLEXIBLE, DIAGNOSTIC N/A 04/09/2021 ESOPHAGOGASTRODUODENOSCOPY (EGD), FLEXIBLE, TRANSORAL, DIAGNOSTIC performed by Rudy Coleman MD [facility] EGD, FLEXIBLE, DIAGNOSTIC N/A 04/22/2022 ESOPHAGOGASTRODUODENOSCOPY (EGD), FLEXIBLE, TRANSORAL, DIAGNOSTIC performed by Rudy Coleman MD [facility] EGD, FLEXIBLE, REMOVE LESIONS, SNARE METHOD [...] [facility] INFORMATION 2010 Varicose vein injections REMOVE TONSILS & ADENOIDS, UNDER 12 Family History Problem Relation Age of Onset Heart Disorder Father [place], open heart surgery, CHF Diabetes Father Cancer [...] Comment: retired Tobacco Use Smoking status: Former Packs/day: 0.50 Years: 10.00 Additional pack years: 0.00 Total pack years: 5.00 Types: Cigarettes Smokeless tobacco: Former Quit date: 11/03/1979 Tobacco comments: quit smoking 1979; chewed tobacco quit 5 yrs ago - no regular use Vaping Use Vaping Use: Never used Substance and Sexual Activity Alcohol use: Yes Alcohol/week: 19.2 standard drinks of alcohol Types: 21 5 oz of wine, 2 1.5 oz [...] on file Food Insecurity: No Food Insecurity (01/02/2023) Hunger Vital Sign Worried About Running Out [...] MENS 50+ ADVANTAGE) TABS Take by mouth. [place]-3 Fatty Acids (SALMON OIL-1000) 200 MG CAPS Take by mouth daily . Fluticasone Propionate 50 MCG/ACT Nasal Suspension (Flonase) Administer 2 Sprays into each nostril daily. 16 g 5 CPAP every night at bedtime. Metoprolol Succinate ER 25 MG Oral Tablet Extended Release 24 Hour (toPROL XL) Take 1 Tablet by mouth at bedtime. 90 Tablet 3 Pantoprazole Sodium 20 MG Oral Tablet Delayed Release (Protonix) Take 1 Tablet by mouth in the morning. 90 Tablet 3 Atorvastatin Calcium 80 MG Oral Tablet (Lipitor) Take 1 Tablet by mouth in the morning. 90 Tablet 3 Propranolol HCl 10 MG Oral Tablet (Inderal) [...] MORNING AND EVENING MEALS 28 Tablet 0 metroNIDAZOLE 1 % External Gel (Metrogel) Apply to entire face at night prior to bed (Patient not taking: Reported on 09/01/2023) 135 g 1 Metoprolol Succinate ER 50 MG Oral Tablet Extended Release 24 Hour (toPROL XL) TAKE 1 TABLET BY MOUTH IN THE MORNING 90 Tablet 1 Doxycycline Hyclate 20 MG Oral Tablet [...] MOUTH IN THE MORNING 90 Capsule 3 No current facility-administered medications for this visit. [...] 3sec Dermatological examination: Right great toenail appears mycotic dystrophic Orthopedic examination: unremarkable Neurological examination: Epicritic sensation intact Assessment: The primary encounter diagnosis was Type 2 diabetes mellitus with hemoglobin A1c goal of less than 7.0% ([facility]). Diagnoses of Onychomycosis and Pain due to onychomycosis of toenail of right foot were also pertinent to this visit. Plan: 1. Debridement of painful mycotic right great toenail. documented in this encounter Nursing Notes * Sherrell Maki LPN - 10/16/2023 8:43 AM EST trim documented in this encounter Plan of Treatment Upcoming Encounters Date Type Department Care Team (Late st Contact Info) Description 11/05/2023 8:20 AM EST Anticoagulation Pharmacy, [place] [address] [place] [address] [facility] [address] [place] [address] 11/10/2023 8:15 AM EST Office Visit Dermatology [facility] [address] [place] [address] Wilian Meneses MD [address] [place] [address] 12/10/2023 12:30 PM EST Office Visit Cardiology, [facility] [address] [facility] [place] [address] Manisha Fernando IV, MD [address] [place] [address] 01/05/2024 8:30 AM EST Nurse Only Ancillary Department, [facility] [address] [place] [address] [facility], [facility] [address] [place] [address] 02/05/2024 8:30 AM EDT Office Visit Podiatry, [facility] [address] [place] [address] Hang Avalos, [facility] [address] [place] [address] 02/20/2024 8:30 AM EDT Office Visit Cardiology, [facility] [address] Araceli Crowe PA-C [facility] [address] 02/24/2024 9:00 AM EDT Office Visit Otolaryngology/Head & Neck/Facial Plastic Surgery [address] [place] [address] Veronica Clark PA-C [address] [place] [address] 03/05/2024 9:20 AM EDT Office Visit Family Practice, [facility] [address] [place] [phone] Lawrence Rockwell MD [address] [place] [address] 03/25/2024 11:20 AM EDT Office Visit Dermatology, [facility] [address], [place] [phone] Isadora Colunga PA-C [address] [place] [address] [place] [address] Scheduled Orders Name Type Priority Associated Diagnoses Orde r Schedule DEBRIDEMENT OF NAIL(S) 1-5 Procedures Routine Onychomycosis Pain due to onychomycosis of toenail of right foot Ordered: 10/16/2023 Scheduled Procedures Name Priority Associated Diagnoses Date/Ti [...] history exists Hong's Esophagus Surveilance 04/22/2025 04/22/2022, 04/09/2021, 09/03/2019, Additional history exists AAA Screening Completed 11/21/2014 [...] goal of less than 7.0% (HCC)- Primary Onychomycosis Dermatophytosis of nail Pain due to onychomycosis of toenail of right foot documented in this encounter Advance Directives Latest Code Status on File Code Status Date Activated Date Inactivated Comments Full Code 10/30/2020 4:04 PM 10/31/2020 1:07 PM Thi s order reflects the patients wishes and were consensually agreed upon. Care Teams Bolt Cutter Relationship Specialty Start Date End Date Lawrence Rockwell MD [address] [place] [address] PCP - General Family Medicine 12/11/10 documented as of this encounter
[2024-04-04 21:36] LABS: Basophils # (auto) 0.05 K/uL (0.00-0.20); Basophils % (auto) 0.7 %; Eosinophils % (auto) 2.9 %; Hematocrit (blood only) 40.4 % (42.0-52.0); Hemoglobin 13.6 g/dl (14.0-18.0); Immature Granulocytes # (auto) 0.02 K/uL (0.01-0.20); Immature Granulocytes % (auto) 0.3 %; Lymphocytes # (auto) 2.79 K/uL (1.20-3.40); Mean Corpuscular Hemoglobin 29.7 pg (25.0-34.0); Mean Corpuscular Hgb Conc 33.7 g/dL (32.0-36.0); Mean Corpuscular Volume 88.2 fL (80.0-100.0); Mean Platelet Volume 10.4 fL (9.4-12.4); Monocytes # (auto) 0.54 K/uL (0.11-0.59); Monocytes % (auto) 7.7 %; Neutrophils # (auto) 3.37 K/uL (1.40-6.50); Neutrophils % (auto) 48.4 %; Platelet Count 226 K/uL (130-400); RDW Coefficient of Variation 13.5 % (11.5-14.5); RDW Standard Deviation 43.8 fL (36.4-46.3); Red Blood Count 4.58 M/uL (4.70-6.10); White Blood Count 6.97 K/ul (4.8-10.8)
[2024-04-04 21:44] LABS: Albumin Globulin Ratio 1.4 (0.9-2); Albumin Level 4.4 gm/dl (3.4-5.0); BUN Creatinine Ratio 15.7 (10-20); Bilirubin,Total 0.4 mg/dl (0.2-1.0); Calcium 9.4 mg/dl (8.6-10.3); Creatinine Clr Calc Pharmacy 93.8 ml/min; Est GFR (African American) 100.5 ml/min; Est GFR (Non-African American) 86.7 ml/min; Globulin 3.2 gm/dl (2.5-4.0); Potassium 3.8 mmol/L (3.5-5.1); Total Protein 7.6 gm/dl (6.0-8.3)
[2024-04-04 21:50] LABS: Troponin I High Sensitivity 10.9 pg/ml (0-20)
[2024-04-04 21:53] LABS: INR 2.4 (0.9-1.1); Partial Thromboplastin Ratio 1.3; Partial Thromboplastin Time 34 Seconds (21-31); Prothrombin Time 23.7 Seconds (9.0-12.0)
[2024-04-04] MEDS ORDERED: 0.2 MICRON FILTER SET 1 EACH IV STA (22:47)
[2024-04-04] MEDS ORDERED: STAT IV Infusion **Titration per Protocol STA (22:47)
[2024-04-04] MEDS ORDERED: AMIODARONE IV BOLUS & DRIP IV STA (22:47)
[2024-04-04] MEDS: AMIODARONE / D5W 150 MG/100 ML BAG IV STA ×2 (22:53→23:21)
--- NOTE | 2024-04-04 22:56 | Emergency Department Note ---
Impression & Plan Ventricular tachycardia ADMIT ED Provider Note HPI: History obtained from patient. The patient is a 73-year-old gentleman with history of atrial fibrillation, currently anticoagulated on Coumadin, presents the emergency department with a chief complaint of palpitations and transient episodes of lightheadedness. On arrival here to the ED I was called to the patient's room as he was displaying ventricular tachycardia on the monitor. Patient denies any chest pain, on my assessment he is alert and oriented, he states he feels somewhat lightheaded and he is noted to be in ventricular tachycardia on the monitor with a rate of 196. This does appear to be monomorphic. Patient is otherwise with stable blood pressure and saturating well on room air on my initial evaluation. ROS: - Per HPI Differential Diagnosis: Arrhythmia to include ventricular tachycardia, SVT, atrial fibrillation with RVR, WPW, acute coronary syndrome, pulmonary embolism, critical electrolyte abnormalities to include hypo-/hyperkalemia, hypo- /hypermagnesemia, amongst other potential pathologies. *Outpatient medications and allergy history reviewed. PE: General: Alert HEENT: Normocephalic, trachea midline Eyes: Extraocular eye movement is intact, no scleral erythema Pulmonary: Clear to auscultation bilaterally, no wheezing Cardio: Severely tachycardic rate with regular rhythm GI: Abdomen is soft to palpation : No suprapubic tenderness MSK: No evidence of trauma or malformation of the extremities, no edema Skin: No evidence of rash Neuro: Alert, no focal deficits Psychiatric: Cooperative INDEPENDENT INTERPRETATIONS: hospital monitor: (As interpreted by myself): - An order was placed for continuous cardiac monitoring - Patient was noted to be in ventricular tachycardia with a rate of 196 EKG: (As interpreted by myself): Rate: 81 Rhythm: Sinus rhythm Intervals: Within normal limits ST changes: No ST elevation Time: 2250 EKG #2: (As interpreted by myself): Rate: 199 Rhythm: Ventricular tachycardia Intervals: QRS 202 ms, QTc [address] changes: No ST elevation Time: 2254 Chest x-ray: (As interpreted by myself): No acute disease Interventions provided in ED: -IV amiodarone bolus and drip, IV magnesium Medical Decision Making: IV was established and lab work obtained, patient was placed on ekg monitor tech and electrical cardioversion pads were placed. During my assessment the patient went back into sinus rhythm. Lab work showed no leukocytosis, hemoglobin is stable at 13.6, platelet count is normal, INR is therapeutic at 2.4, CMP does not show any critical electrolyte abnormalities, magnesium is slightly low at 1.5 and this was ordered for IV repletion. Troponin is negative. Patient denies any chest pain. Low suspicion for ACS. Patient was given an IV amiodarone bolus and started on amiodarone drip. He did have multiple episodes where he went back into ventricular tachycardia however he remained hemodynamically stable throughout these episodes. I discussed the patient's presentation with the on-call [facility] health care coordinator, Dr. Stewart, and he recommends admission on amiodarone drip and a second amiodarone bolus if he goes back into stable V. tach. Shortly after my conversation with Dr. Stewart the patient had another episode of stable V. tach and was given a second bolus of 150 mg of IV amiodarone while being maintained on amiodarone drip. Magnesium returned at 1.5 and this was ordered for IV repletion. Patient remained otherwise stable despite multiple episodes of ventricular tachycardia here in the ED. Patient's case was discussed with the on-call hospitalist for [facility], Dr. Ruby, and he is in agreement to admit the patient to the ICU for close monitoring overnight and continued amiodarone infusion. On my reassessment prior to admission the patient's heart rate is 71 and he is in sinus rhythm on the monitor at approximately 12:24 AM on 04/05/2024. Patient was placed for admission in stable condition. Consultants/Discussions held with other healthcare providers: -Cardiology, Dr. Stewart -Hospitalist, Dr. Ruby Disposition discussion held by myself with: -Patient and at bedside * CRITICAL CARE TIME: ( 63 ) minutes -Stabilization of tachyarrhythmia/ventricular tachycardia requiring initiation of IV amiodarone bolus and amiodarone drip. Conversations with other physicians including cardiology on-call as well as the on-call hospitalist for arrangement of admission to the ICU. Interpretation of diagnostic studies and multiple EKGs. Interpretation of monitor rhythm. Time spent at the bedside and discussion with patient and family. Diagnosis: 1. Ventricular tachycardia, acute, stable 2. Episodic lightheadedness, acute 3. Sensation of palpitations, acute 4. Hypomagnesemia, acute Disposition: Admission Damian Galvan DO Emergency Medicine Past Med/Surg History Problem List (Updated 04/05/24 @ 00:21 by Damian Galvan DO) Ventricular tachycardia (Acute) Encounter for pre-operative examination Medical History Atrial fibrillation per pt cardioversion 10/2020 was successful until 02/2023 when he started reverting back into A-fib--on warfarin/metoprolol--follows with Dr. Karine Thomas esophagus CAD (coronary artery disease) Nonobstructive per cardio records Diabetes mellitus, type 2 Dyslipidemia GERD (gastroesophageal reflux disease) History of esophageal cancer had multiple EGDs procedures to remove--per pt caught early Hypertension Sleep apnea cpap Surgical History History of cardiac cath 02/2021 @ [facility]--no stents History of cardiac radiofrequency ablation 10/30/20 @ [facility] History of cardioversion x2--03/2020 and 05/2020 @ [facility] History of colonoscopy History of esophagogastroduodenoscopy (EGD) History of hand surgery right History of tonsillectomy History of tooth extraction History of wisdom tooth extraction Family History Other No family history of adverse response to anesthesia Social History Smoking Status: Former smoker Second Hand Exposure: No; Do You Dip or Chew Tobacco: No; Hx Alcohol Use: Yes Alcohol type: beer, wine and hard liquor Hx Substance Use: No Preferred Language: Faroese Communication Ability: Effective Qc Tech Required: No Beliefs That Will Affect Care: None Current Living Situation: Spouse and Family Current Living Situation Comment: Lives with and younger brother (is his caregiver) Feels Safe at Home: Yes Assistive Devices: CPAP and Glasses Allergies Allergies Allergy/AdvReac Type Severity Reaction Status Date / Time No Known Allergies Allergy Verified 04/04/24 23:50 Home Meds Home Medications Medication Instructions Recorded Confirmed aspirin 81 mg chewable tablet 81 mg PO QAM 03/13/23 04/04/24 atorvastatin 80 mg tablet 80 mg PO QAM 03/13/23 04/04/24 cinnamon bark 500 mg capsule 500 mg PO QAM 03/13/23 04/04/24 (Cinnamon) coenzyme Q10 100 mg capsule 100 mg PO QAM 03/13/23 04/04/24 (CoQ-10) diltiazem HCl 120 mg capsule,24 120 mg PO QAM 03/13/23 04/04/24 hr,extended release fluocinonide 0.05 % topical 1 applic topical DAILY PRN Itching 03/13/23 04/04/24 solution fluticasone propionate 50 2 spray intranasal DAILY PRN Nasal 03/13/23 04/04/24 mcg/actuation nasal Congestion spray,suspension geriatric multivitamin-min 1 tab PO DAILY 03/13/23 04/04/24 lisinopril 10 mg tablet 10 mg PO [facility] 03/13/23 04/04/24 metformin 1,000 mg tablet 1,000 mg PO BID 03/13/23 04/04/24 metoprolol succinate 25 mg 25 mg PO HS 03/13/23 04/04/24 tablet,extended release 24 hr metoprolol succinate 50 mg 50 mg PO [facility] 03/13/23 04/04/24 tablet,extended release 24 hr pantoprazole 20 mg tablet,delayed 20 mg PO QAM 03/13/23 04/04/24 release propranolol 10 mg tablet 10 mg PO DAILY PRN per cardiology 03/13/23 04/04/24 salmon oil-omega-3 fatty acids 1 cap PO DAILY 03/13/23 04/04/24 1,000 mg-200 mg capsule vardenafil 20 mg tablet 20 mg PO DAILY PRN Sexual Activity 03/13/23 04/04/24 warfarin 5 mg tablet 5 mg PO [id number] 03/13/23 04/04/24 doxycycline hyclate 20 mg tablet 20 mg PO DAILY 04/04/24 04/04/24 warfarin 5 mg tablet 7.5 mg PO .[id number] 04/04/24 04/04/24 Results & Data (ED) Vital Signs Vital Signs - 24 hr 04/04/24 20:48 04/04/24 22:43 04/04/24 22:44 Temperature 36.6 C Temperature Source Temporal Artery Scan Pulse Rate 85 75 Pulse Rate from SpO2 Sensor Respiratory Rate 20 Respiratory Effort / Characteristics Non-Labored Respiratory Depth Normal Respiratory Pattern Regular Blood Pressure 149/74 H Blood Pressure Mean 99 Pulse Oximetry 96 Oxygen Delivery Method Room Air Room Air Oxygen Flow Rate Sepsis Recent Fever Within 48 Hours No Sepsis New/Unexplained Change in Mental Status N/A Sepsis Action Taken by Nursing No Action Required 04/04/24 22:44 04/04/24 23:06 04/04/24 23:09 Temperature Temperature Source Pulse Rate 196 H 189 H 187 H Pulse Rate from SpO2 Sensor 189 H 186 H Respiratory Rate 21 15 Respiratory Effort / Characteristics Respiratory Depth Respiratory Pattern Blood Pressure 169/119 H Blood Pressure Mean 135 Pulse Oximetry 100 99 Oxygen Delivery Method Room Air Room Air Oxygen Flow Rate Sepsis Recent Fever Within 48 Hours Sepsis New/Unexplained Change in Mental Status Sepsis Action Taken by Nursing 04/04/24 23:25 04/04/24 23:30 04/04/24 23:40 Temperature Temperature Source Pulse Rate 180 H Pulse Rate from SpO2 Sensor 180 H Respiratory Rate 14 Respiratory Effort / Characteristics Respiratory Depth Respiratory Pattern Blood Pressure 159/120 H 149/108 H 147/116 H Blood Pressure Mean 132 121 135 Pulse Oximetry 99 Oxygen Delivery Method Nasal Cannula Oxygen Flow Rate 2 Sepsis Recent Fever Within 48 Hours Sepsis New/Unexplained Change in Mental Status Sepsis Action Taken by Nursing 04/05/24 00:11 Temperature Temperature Source Pulse Rate 88 Pulse Rate from SpO2 Sensor Respiratory Rate Respiratory Effort / Characteristics Respiratory Depth Respiratory Pattern Blood Pressure 166/97 H Blood Pressure Mean Pulse Oximetry Oxygen Delivery Method Oxygen Flow Rate Sepsis Recent Fever Within 48 Hours Sepsis New/Unexplained Change in Mental Status Sepsis Action Taken by Nursing Laboratory Data 04/04/24 21:00 04/04/24 21:00 Lab Results 04/04/24 Range/Units 21:00 WBC 6.97 (4.8-10.8) K/ul RBC 4.58 L (4.70-6.10) M/uL Hgb 13.6 L (14.0-18.0) g/dl Hct 40.4 L (42.0-52.0) % MCV 88.2 (80.0-100.0) fL MCH 29.7 (25.0-34.0) pg MCHC 33.7 (32.0-36.0) g/dL RDW Std Deviation 43.8 (36.4-46.3) fL RDW Coeff of [place]airo 13.5 (11.5-14.5) % Plt Count 226 (130-400) K/uL MPV 10.4 (9.4-12.4) fL Immature Gran % (Auto) 0.3 % Neut % (Auto) 48.4 % Lymph % (Auto) 40.0 % [place] % (Auto) 7.7 % Eos % (Auto) 2.9 % Baso % (Auto) 0.7 % Neut # (Auto) 3.37 (1.40-6.50) K/uL Lymph # (Auto) 2.79 (1.20-3.40) K/uL [place] # (Auto) 0.54 (0.11-0.59) K/uL Eos # (Auto) 0.20 (0.00-0.50) K/uL Baso # (Auto) 0.05 (0.00-0.20) K/uL Immature Gran # (Auto) 0.02 (0.01-0.20) K/uL PT 23.7 H (9.0-12.0) Seconds INR 2.4 H (0.9-1.1) APTT 34 H (21-31) Seconds PTT Ratio 1.3 Sodium 137 (136-145) mmol/L Potassium 3.8 (3.5-5.1) mmol/L Chloride 108 H (98-107) mmol/L Carbon Dioxide 21 (21-32) mmol/L Anion Gap 8 (3-11) BUN 13 (6-23) mg/dl Creatinine 0.83 (0.6-1.4) mg/dl Est Cr Clr Drug Dosing 93.8 ml/min Est GFR ( Amer) 100.5 ml/min Est GFR (Non-Af Amer) 86.7 ml/min BUN/Creatinine Ratio 15.7 (10-20) Glucose 156 H (70-99(Fasting)) mg/dl Calcium 9.4 (8.6-10.3) mg/dl Magnesium 1.5 L (1.7-2.4) mg/dl Total Bilirubin 0.4 (0.2-1.0) mg/dl AST 41 H (13-39) U/L ALT 54 H (7-52) U/L Alkaline Phosphatase 69 (34-104) U/L Troponin I High Sens 10.9 (0-20) pg/ml Total Protein 7.6 (6.0-8.3) gm/dl Albumin 4.4 (3.4-5.0) gm/dl Globulin 3.2 (2.5-4.0) gm/dl Albumin/Globulin Ratio 1.4 (0.9-2) Administered Medications Amiodarone HCl/Dextrose (Nexterone / D5w) 360 mg in 200 mls @ 33.333 mls/hr IV ONE ONE Stop: 04/05/24 04:56 Last Admin: 04/04/24 23:02 Dose: 1 mg/min, 33.3 mls/hr Documented By: BRIAN Co-signed By: OSIRIS Magnesium Sulfate/Dextrose (Magnesium Sulfate / D5w) 1 gm in 100 mls @ 100 mls/hr IV Q1H NATE Stop: 04/05/24 01:48 Last Admin: 04/04/24 23:54 Dose: 100 mls/hr Documented By: MYRON Potassium Chloride/Sodium Chloride (Normal Saline W/20 Meq Kcl) 20 meq in 1,000 mls @ 100 mls/hr IV .Q10H STA; Protocol Stop: 04/05/24 09:59 Last Admin: 04/05/24 00:13 Dose: 100 mls/hr Documented By: MYRON Discontinued Medications Amiodarone HCl/Dextrose (Nexterone / D5w) 150 mg in 100 mls @ 600 mls/hr IV NOW STA Stop: 04/04/24 22:56 Last Infusion: 04/04/24 23:05 Dose: Infused Documented By: BRIAN Co-signed By: ARIEL Admin: 04/04/24 22:53 Dose: 600 mls/hr Documented By: BRIAN Co-signed By: OSIRIS Amiodarone HCl/Dextrose (Nexterone / D5w) 150 mg in 100 mls @ 600 mls/hr IV NOW STA Stop: 04/04/24 23:28 Last Infusion: 04/04/24 23:32 Dose: Infused Documented By: MYRON Co-signed By: BRIAN Admin: 04/04/24 23:21 Dose: 600 mls/hr Documented By: MYRON Co-signed By: OSIRIS Magnesium Sulfate/Dextrose (Magnesium Sulfate / D5w) 1 gm in 100 mls @ 400 mls/hr IV Q15M NATE Stop: 04/04/24 23:44 Last Infusion: 04/04/24 23:50 Dose: Infused Documented By: Admin: 04/04/24 23:34 Dose: 400 mls/hr Documented By: MYRON Metoprolol Tartrate (Metoprolol Tartrate 1 Mg/Ml Vial) 2.5 mg IV NOW STA Stop: 04/04/24 23:59 Last Admin: 04/05/24 00:11 Dose: 2.5 mg Documented By: MYRON Discharge Plan Visit Data Chief Complaint: Tachycardia Stated Complaint: HEART RACING, HEADACHE, ED Provider: Damian Galvan Discharge Problem: Ventricular tachycardia Forms Stand Alone Forms: My [facility] Prescriptions Prescriptions: No Action atorvastatin 80 mg Tablet 80 mg PO QAM metoprolol succinate 50 mg Tablet Extended Release 24 Hr 50 mg PO QAM pantoprazole 20 mg Tablet,Delayed Release (Dr/Ec) 20 mg PO QAM propranolol 10 mg Tablet 10 mg PO DAILY PRN (Reason: per cardiology) diltiazem HCl 120 mg Capsule,Extended Release 24 Hr 120 mg PO QAM metformin 1,000 mg Tablet 1,000 mg PO BID lisinopril 10 mg Tablet 10 mg PO QAM warfarin 5 mg Tablet 5 mg PO [id number] Patient Comments: follows with coumadin clinic Rx Instructions: WED & SAT aspirin 81 mg Tablet,Chewable 81 mg PO QAM metoprolol succinate 25 mg Tablet Extended Release 24 Hr 25 mg PO HS fluocinonide 0.05 % Solution 1 applic TOPICAL DAILY PRN (Reason: Itching) fluticasone propionate 50 mcg/actuation [place],Suspension 2 spray INTRANASAL DAILY PRN (Reason: Nasal Congestion) Rx Instructions: administer into each nostril coenzyme Q10 [CoQ-10] 100 mg Capsule 100 mg PO QAM vardenafil 20 mg Tablet 20 mg PO DAILY PRN (Reason: Sexual Activity) geriatric multivitamin-min Tablet 1 tab PO DAILY cinnamon bark [Cinnamon] 500 mg Capsule 500 mg PO QAM salmon oil-omega-3 fatty acids 1,000-200 mg Capsule 1 cap PO DAILY warfarin 5 mg tablet 7.5 mg PO .[id number] Rx Instructions: SUN, MON,TUES, THUR, & FRI doxycycline hyclate 20 mg tablet 20 mg PO DAILY Referrals Referrals: Lawrence Rockwell MD [Primary Care Provider] -
[2024-04-04] MEDS: AMIODARONE / D5W 360 MG/200 ML BAG IV ONE (23:02)
[2024-04-04] MEDS ORDERED: 0.2 MICRON FILTER SET 1 EACH IV ONE (23:19)
[2024-04-04 23:23] LABS: Magnesium 1.5 mg/dl (1.7-2.4)
[2024-04-04] MEDS: MAGNESIUM SULFATE / D5W 1 GM/100 ML BAG IV SCH ×2 (23:34→23:54)
[2024-04-05] MEDS: METOPROLOL TARTRATE 1 MG/ML VIAL IV STA ×2 (00:11→02:03)
[2024-04-05] MEDS: NSS + 20MEQ KCL 20 MEQ/1,000 ML BAG IV STA (00:13)
[2024-04-05] MEDS: POTASSIUM CHLORIDE CRTAB 20 MEQ TABCR PO STA (00:44)
--- NOTE | 2024-04-05 01:11 | History & Physical Report ---
Date of Service April 05, 2024 Assessment & Plan (1) Ventricular tachycardia: Plan: Recurrent A-fib noted on the monitor upon arrival at the ER History of cardioversion INR therapeutic chronic diastolic heart failure (EF 50%, 2020), patient euvolemic to dry hx nonobstructive CAD hypertension, slightly elevated hyperlipidemia, on statin Rx LUIS on CPAP, compliant with device DM2 on oral medications, reasonable control as of recent hemoglobin A1c of 7.2 last month chronic anemia, hemoglobin at baseline past tobacco abuse Cardiology consult Re: V. tach ER provider already in touch with Dr. Stewart who recommended IV amiodarone infusion and ICU monitoring. IV Lopressor 1 dose now given uncontrolled VT rate on Amio infusion Continue home beta-tori and titrate as needed Update TTE Supplement potassium and magnesium to maintain serum levels of at least 4 and 2 respectively Basal bolus insulin, ISS BG goal 1 40-1 80, carb count coverage DVT prophylaxis. Coumadin INR goal between 2 and 3 Full code Total critical care time was 50 minutes. Patient requesting updates providers. Mallory Blair, contact #[phone]. Text document was generated using [employer] voice recognition software. It may contain grammatical or spelling errors. Kindly contact undersigned for clarification of any documentation item in question. History of Present Illness Chief Complaint: Lightheadedness, palpitations Primary Care Provider: Lawrence Rockwell MD History obtained from patient, family, and records. Medical history significant for chronic diastolic heart failure (EF 50%, 2020), nonobstructive CAD, A-fib status post cardioversion on Coumadin, hypertension, hyperlipidemia, LUIS on CPAP, DM2 on oral medications, chronic anemia (baseline hemoglobin of 13), GERD, acne rosacea, past tobacco abuse. Patient started not feeling well while having dinner with some friends few hours ago. Chest discomfort going to his neck. No SOB. Lightheadedness, felt like he was going to pass out. No headache. Compliant with home medications. Compliant with CPAP. No unusual stress or exertion. Just did yard work yesterday. At home, heart monitor could not identify heartbeat. Patient brought to the ER by for evaluation. Rapid A-fib later followed by monomorphic VT on the monitor. IV amiodarone initiated at the ER. Patient currently comfortable. 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 Allergies Allergy/AdvReac Type Severity Reaction Status Date / Time No Known Allergies Allergy Verified 04/04/24 23:50 Home Medications Medication Instructions Recorded Confirmed Type aspirin 81 mg chewable tablet 81 mg PO QAM 03/13/23 04/04/24 History atorvastatin 80 mg tablet 80 mg PO QAM 03/13/23 04/04/24 History cinnamon bark 500 mg capsule 500 mg PO QAM 03/13/23 04/04/24 History (Cinnamon) coenzyme Q10 100 mg capsule 100 mg PO QAM 03/13/23 04/04/24 History (CoQ-10) diltiazem HCl 120 mg capsule,24 120 mg PO QAM 03/13/23 04/04/24 History hr,extended release fluocinonide 0.05 % topical 1 applic topical DAILY PRN Itching 03/13/23 04/04/24 History solution fluticasone propionate 50 2 spray intranasal DAILY PRN Nasal 03/13/23 04/04/24 History mcg/actuation nasal Congestion spray,suspension geriatric multivitamin-min 1 tab PO DAILY 03/13/23 04/04/24 History lisinopril 10 mg tablet 10 mg PO QAM 03/13/23 04/04/24 History metformin 1,000 mg tablet 1,000 mg PO BID 03/13/23 04/04/24 History metoprolol succinate 25 mg 25 mg PO HS 03/13/23 04/04/24 History tablet,extended release 24 hr metoprolol succinate 50 mg 50 mg PO QAM 03/13/23 04/04/24 History tablet,extended release 24 hr pantoprazole 20 mg tablet,delayed 20 mg PO QAM 03/13/23 04/04/24 History release propranolol 10 mg tablet 10 mg PO DAILY PRN per cardiology 03/13/23 04/04/24 History salmon oil-omega-3 fatty acids 1 cap PO DAILY 03/13/23 04/04/24 History 1,000 mg-200 mg capsule vardenafil 20 mg tablet 20 mg PO DAILY PRN Sexual Activity 03/13/23 04/04/24 History warfarin 5 mg tablet 5 mg PO 2XWK 03/13/23 04/04/24 History doxycycline hyclate 20 mg tablet 20 mg PO DAILY 04/04/24 04/04/24 History warfarin 5 mg tablet 7.5 mg PO .[id number] 04/04/24 04/04/24 History Past Med/Surg History Problem List CAD (coronary artery disease) Nonobstructive per cardio records Atrial fibrillation per pt cardioversion 10/2020 was successful until 02/2023 when he started reverting back into A-fib--on warfarin/metoprolol--follows with Dr. Milton Hypertension GERD (gastroesophageal reflux disease) Dyslipidemia Diabetes mellitus, type 2 Ventricular tachycardia (Acute) Encounter for pre-operative examination Medical History Barretts esophagus History of esophageal cancer had multiple EGDs procedures to remove--per pt caught early Sleep apnea cpap Surgical History History of colonoscopy History of cardiac cath 02/2021 @ [facility]--no stents History of hand surgery right History of esophagogastroduodenoscopy (EGD) History of wisdom tooth extraction History of tonsillectomy History of tooth extraction History of cardioversion x2--03/2020 and 05/2020 @ [facility] History of cardiac radiofrequency ablation 10/30/20 @ [facility] Family History Other No family history of adverse response to anesthesia Social History Smoking Status: Never smoker Second Hand Exposure: No; Do You Dip or Chew Tobacco: No; Hx Alcohol Use: Yes Alcohol type: beer Hx Substance Use: No Preferred Language: Australian Communication Ability: Effective Planning Analyst Required: No Beliefs That Will Affect Care: None Current Living Situation: Spouse Current Living Situation Comment: Lives with and younger brother (is his caregiver) Other Information That Helps Us Care for You: No Feels Safe at Home: Yes Safety Concerns: Feels Safe At This Time Assistive Devices: CPAP and Glasses Review of Systems Review of Systems: As per HPI, all other systems reviewed and negative Physical Exam Physical Exam: GENERAL: Comfortable, pleasant, obese, no respiratory distress SKIN: Normal color, warm HEENT: [place] palpebral conjunctivae, no ptosis, moist buccal mucosa NECK : Supple, no tenderness CHEST : CTA, no tenderness HEART : Tachycardic, partial alopecia, no obvious murmurs ABDOMEN: Some distention, nontender EXTREMITIES : Minimal LE swelling with prominent varicosities, no LE tenderness, no other conspicuous deformities noted NEUROLOGIC : Coherent, no facial asymmetry, no other gross focality Results & Data Results & Data Vital Signs (Past 12 Hours) Vital Signs Temp Pulse Pulse Resp BP BP Pulse Ox 04/05/24 01:00 71 23 154/90 H 96 04/05/24 00:25 80 18 148/86 H 94 04/05/24 00:20 73 22 143/85 H 95 04/05/24 00:18 83 19 94 04/05/24 00:11 88 166/97 H 04/05/24 00:03 85 16 96 04/04/24 23:57 173 H 15 96 04/04/24 23:55 131/100 04/04/24 23:45 119/95 04/04/24 23:40 147/116 H 04/04/24 23:30 180 H 14 149/108 H 99 04/04/24 23:25 159/120 H 04/04/24 23:09 187 H 15 99 04/04/24 23:06 189 H 21 169/119 H 100 04/04/24 22:44 196 H 04/04/24 22:44 04/04/24 22:43 75 04/04/24 20:48 36.6 C 85 20 149/74 H 96 O2 Del Method O2 Flow Rate 04/05/24 01:00 Nasal Cannula 2 04/05/24 00:25 Nasal Cannula 2 04/05/24 00:20 Nasal Cannula 2 04/05/24 00:18 Nasal Cannula 2 04/05/24 00:11 04/05/24 00:03 Nasal Cannula 2 04/04/24 23:57 Nasal Cannula 2 04/04/24 23:55 04/04/24 23:45 04/04/24 23:40 04/04/24 23:30 Nasal Cannula 2 04/04/24 23:25 04/04/24 23:09 Room Air 04/04/24 23:06 Room Air 04/04/24 22:44 04/04/24 22:44 Room Air 04/04/24 22:43 04/04/24 20:48 Room Air Laboratory Results Laboratory Results WBC 6.97 K/ul (4.8-10.8) 04/04/24 21:00 RBC 4.58 M/uL (4.70-6.10) L 04/04/24 21:00 Hgb 13.6 g/dl (14.0-18.0) L 04/04/24 21:00 Hct 40.4 % (42.0-52.0) L 04/04/24 21:00 MCV 88.2 fL (80.0-100.0) 04/04/24 21:00 MCH 29.7 pg (25.0-34.0) 04/04/24 21:00 MCHC 33.7 g/dL (32.0-36.0) 04/04/24 21:00 RDW Std Deviation 43.8 fL (36.4-46.3) 04/04/24 21:00 RDW Coeff of Jairo 13.5 % (11.5-14.5) 04/04/24 21:00 Plt Count 226 K/uL (130-400) 04/04/24 21:00 MPV 10.4 fL (9.4-12.4) 04/04/24 21:00 Immature Gran % (Auto) 0.3 % 04/04/24 21:00 Neut % (Auto) 48.4 % 04/04/24 21:00 Lymph % (Auto) 40.0 % 04/04/24 21:00 [place] % (Auto) 7.7 % 04/04/24 21:00 Eos % (Auto) 2.9 % 04/04/24 21:00 Baso % (Auto) 0.7 % 04/04/24 21:00 Neut # (Auto) 3.37 K/uL (1.40-6.50) 04/04/24 21:00 Lymph # (Auto) 2.79 K/uL (1.20-3.40) 04/04/24 21:00 [place] # (Auto) 0.54 K/uL (0.11-0.59) 04/04/24 21:00 Eos # (Auto) 0.20 K/uL (0.00-0.50) 04/04/24 21:00 Baso # (Auto) 0.05 K/uL (0.00-0.20) 04/04/24 21:00 Immature Gran # (Auto) 0.02 K/uL (0.01-0.20) 04/04/24 21:00 PT 23.7 Seconds (9.0-12.0) H 04/04/24 21:00 INR 2.4 (0.9-1.1) H 04/04/24 21:00 APTT 34 Seconds (21-31) H 04/04/24 21:00 PTT Ratio 1.3 04/04/24 21:00 Sodium 137 mmol/L (136-145) 04/04/24 21:00 Potassium 3.8 mmol/L (3.5-5.1) 04/04/24 21:00 Chloride 108 mmol/L (98-107) H 04/04/24 21:00 Carbon Dioxide 21 mmol/L (21-32) 04/04/24 21:00 Anion Gap 8 (3-11) 04/04/24 21:00 BUN 13 mg/dl (6-23) 04/04/24 21:00 Creatinine 0.83 mg/dl (0.6-1.4) 04/04/24 21:00 Est Cr Clr Drug Dosing 93.8 ml/min 04/04/24 21:00 Est GFR ( Amer) 100.5 ml/min 04/04/24 21:00 Est GFR (Non-Af Amer) 86.7 ml/min 04/04/24 21:00 BUN/Creatinine Ratio 15.7 (10-20) 04/04/24 21:00 Glucose 156 mg/dl (70-99(Fasting)) H 04/04/24 21:00 Calcium 9.4 mg/dl (8.6-10.3) 04/04/24 21:00 Magnesium 1.5 mg/dl (1.7-2.4) L 04/04/24 21:00 Total Bilirubin 0.4 mg/dl (0.2-1.0) 04/04/24 21:00 AST 41 U/L (13-39) H 04/04/24 21:00 ALT 54 U/L (7-52) H 04/04/24 21:00 Alkaline Phosphatase 69 U/L (34-104) 04/04/24 21:00 Troponin I High Sens 10.9 pg/ml (0-20) 04/04/24 21:00 Total Protein 7.6 gm/dl (6.0-8.3) 04/04/24 21:00 Albumin 4.4 gm/dl (3.4-5.0) 04/04/24 21:00 Globulin 3.2 gm/dl (2.5-4.0) 04/04/24 21:00 Albumin/Globulin Ratio 1.4 (0.9-2) 04/04/24 21:00 Diagnostic Findings Chest x-ray as per my interpretation cardiomegaly EKG as per my interpretation : Rate 80, NSR, normal axis, incomplete RBBB, PVCs
[2024-04-05] MEDS ORDERED: PROMETHAZINE HCL 6.25 MG in SODIUM CHLORIDE 0.9% 50 ML IV PRN (01:16)
[2024-04-05] MEDS ORDERED: ACETAMINOPHEN 325 MG TAB PO PRN (01:16)
[2024-04-05] MEDS ORDERED: GLUCOSE 10 TAB/TUBE PO PRN (01:16)
[2024-04-05] MEDS ORDERED: DEXTROSE 50% 50 ML SYRINGE IV PRN (01:16)
[2024-04-05] MEDS ORDERED: GLUCOSE 40% GEL 15 GM TUBE PO PRN (01:16)
[2024-04-05] MEDS ORDERED: CARBOHYDRATES FOR HYPOGLYCEMIA PO PRN (01:16)
[2024-04-05] MEDS ORDERED: GLUCAGON FOR INJ 1 MG VIAL SQ PRN (01:16)
[2024-04-05] MEDS ORDERED: oxyCODONE HCL IR 5 MG TAB (IMMEDIATE RELEASE) PO PRN (01:16)
[2024-04-05] MEDS ORDERED: LORazepam 0.5 MG TAB PO PRN (01:19)
[2024-04-05] MEDS: ETOMIDATE 2 MG/ML 20 ML VIAL IV ONE (01:21)
[2024-04-05] MEDS: INSULIN ASPART PER UNIT CHARGE SC STA (02:17)
[2024-04-05] MEDS: METOPROLOL TARTRATE 1 MG/ML VIAL IV PRN (02:53)
[2024-04-05] MEDS ORDERED: FLUTICASONE PROPIONATE NA SPR 16 GM BTL PRN (04:19)
[2024-04-05 04:44] LABS: Basophils # (auto) 0.04 K/uL (0.00-0.20); Basophils % (auto) 0.5 %; Eosinophils # (auto) 0.17 K/uL (0.00-0.50); Hematocrit (blood only) 39.3 % (42.0-52.0); Hemoglobin 13.3 g/dl (14.0-18.0); Immature Granulocytes # (auto) 0.02 K/uL (0.01-0.20); Immature Granulocytes % (auto) 0.2 %; Lymphocytes # (auto) 2.14 K/uL (1.20-3.40); Lymphocytes % (auto) 25.8 %; Mean Corpuscular Hemoglobin 30.2 pg (25.0-34.0); Mean Corpuscular Hgb Conc 33.8 g/dL (32.0-36.0); Mean Corpuscular Volume 89.1 fL (80.0-100.0); Mean Platelet Volume 11.3 fL (9.4-12.4); Monocytes # (auto) 0.55 K/uL (0.11-0.59); Monocytes % (auto) 6.6 %; Neutrophils # (auto) 5.38 K/uL (1.40-6.50); Neutrophils % (auto) 64.9 %; Platelet Count 225 K/uL (130-400); RDW Coefficient of Variation 13.9 % (11.5-14.5); RDW Standard Deviation 45.1 fL (36.4-46.3); Red Blood Count 4.41 M/uL (4.70-6.10)
[2024-04-05] MEDS: AMIODARONE / D5W 360 MG/200 ML BAG IV SCH (04:59)
[2024-04-05 05:00] LABS: Calcium 8.9 mg/dl (8.6-10.3); Creatinine Clr Calc Pharmacy 103.8 ml/min; Est GFR (African American) 104.7 ml/min; Est GFR (Non-African American) 90.4 ml/min; Magnesium 2.2 mg/dl (1.7-2.4); Potassium 4.2 mmol/L (3.5-5.1)
[2024-04-05 05:10] LABS: INR 2.3 (0.9-1.1); Prothrombin Time 23.6 Seconds (9.0-12.0)
--- NOTE | 2024-04-05 05:49 | Critical Care Consultation ---
Date of Consultation April 05, 2024 Assessment & Plan (1) Ventricular tachycardia: Impression: 73-year-old male with past medical history of atrial fibrillation (Anticoagulated), ablation, CAD, DM type II, HTN, HLD, GERD pre-[facility] to the ICU following what appears to be ventricular tachycardia with rate in the 190s, and currently on amiodarone drip. Admitted to ICU for close monitoring. Neuro - [facility] ICU: Negative Cardiac - V. tachunable to confirm with EKG but was reported to have monomorphic V. tach without hemodynamic instability, with a rate in the 190s. - Admitted to ICU for close monitoring per cardiology request. Will follow- up recommendations - No chest pain. EKG with sinus rhythm and right bundle branch block. No ST elevation. QTc normal - Magnesium low at 1.5. Replete in. Maximize electrolytes - Continue amiodarone drip - Continue beta-tori - Continuous monitoring on telemetry Proximal A-fib anticoagulated on Coumadin. Currently rate controlled on monitor. - Continue MTP, Diltiazem, Coumadin HLDcontinue statin HTNcontinue lisinopril, MTP CADcontinue ASA Respiratory - No history of pulmonary disease. Currently maintaining oxygen saturation on room air. Chest x-ray unremarkable. Continuous monitoring on pulse ox GI - Heart Healthy, Carb consistent diet GERDPPI RENAL/LYTES - Creatinine within normal limits. Monitor routine BMPs and replete electrolytes as indicated - Strict I's and O ENDO - DM type IImost recent hemoglobin A1c of 7.0. On metformin. Will hold oral medications in favor of sliding scale. ICU hyperglycemic protocol HEME - H&H stable, monitor routine CBC ID - No indication for infectious process at this On doxycycline for rosacea LINES/IV ACCESS - Peripheral IVs DVT PROPHYLAXIS - SCDs, Systemically anticoagulated on Coumadin Thank you for allowing us to participate in the care of this patient. Please refer to my attending physician's documentation for any further recommendations. (2) Diabetes mellitus, type 2: (3) Dyslipidemia: (4) GERD (gastroesophageal reflux disease): (5) Hypertension: (6) Atrial fibrillation: (7) CAD (coronary artery disease): Supervising Physician Co-Signing Physician Notes I have personally evaluated and examined this patient. I agree with assessment and plan of Miki SAMUEL. Discussed with cardiology. Veda continuing to have short runs nonsustained ventricular tachycardia; plan to proceed to cardiac cath for ischemic evaluation. -Results of cardiac cath reviewed. History of Present Illness Attending Physician: Caleb Ruby MD History of Present Illness Patient is a 73-year-old male with past medical history of atrial fibrillation, previous ablation, DM type II, HLD, HTN who presented to the emergency department earlier this evening with complaints of lightheadedness and palpitations. In the emergency department he was noted to have heart rate of 190s on monitor with normotension, Interpreted as monomorphic ventricular tachycardia. He was started on IV amiodarone with bolus, and had several episodes of V. tach, unable to be captured on EKG. Case was discussed with [facility] media sales consultant, Dr. Stewart, and recommended admission to ICU overnight. EKG showed sinus rhythm with right bundle branch block, no ST elevation and QTc 411. Troponins within normal limits x 2, magnesium low at 1.5 and being repleted. On arrival to the ICU the patient is alert and oriented hemodynamically stable, and appears to be in atrial fibrillation with controlled rate on monitor. He again confirms episodes of shortness of breath, lightheadedness, and feeling like his heart was racing. In previous years, he has had episodes of A-fib RVR with cardioversion and eventually required ablation, but states this time felt different than previously. Patient denies recent illness, headaches, changes in vision, sore throat, cough, congestion, shortness of breath, chest pain or back pain, abdominal pain, nausea or vomiting or diarrhea. Patient does have dependent edema for which heat it wears compression socks but does not require a diuretic. Prior to this he states that he was in his normal state of health. Allergies Allergy/AdvReac Type Severity Reaction Status Date / Time No Known Allergies Allergy Verified 04/04/24 23:50 Home Medications Medication Instructions Recorded Confirmed Type aspirin 81 mg chewable tablet 81 mg PO QAM 03/13/23 04/04/24 History atorvastatin 80 mg tablet 80 mg PO QAM 03/13/23 04/04/24 History cinnamon bark 500 mg capsule 500 mg PO QAM 03/13/23 04/04/24 History (Cinnamon) coenzyme Q10 100 mg capsule 100 mg PO QAM 03/13/23 04/04/24 History (CoQ-10) diltiazem HCl 120 mg capsule,24 120 mg PO QAM 03/13/23 04/04/24 History hr,extended release fluocinonide 0.05 % topical 1 applic topical DAILY PRN Itching 03/13/23 04/04/24 History solution fluticasone propionate 50 2 spray intranasal DAILY PRN Nasal 03/13/23 04/04/24 History mcg/actuation nasal Congestion spray,suspension geriatric multivitamin-min 1 tab PO DAILY 03/13/23 04/04/24 History lisinopril 10 mg tablet 10 mg PO QAM 03/13/23 04/04/24 History metformin 1,000 mg tablet 1,000 mg PO BID 03/13/23 04/04/24 History metoprolol succinate 25 mg 25 mg PO HS 03/13/23 04/04/24 History tablet,extended release 24 hr metoprolol succinate 50 mg 50 mg PO QAM 03/13/23 04/04/24 History tablet,extended release 24 hr pantoprazole 20 mg tablet,delayed 20 mg PO QAM 03/13/23 04/04/24 History release propranolol 10 mg tablet 10 mg PO DAILY PRN per cardiology 03/13/23 04/04/24 History salmon oil-omega-3 fatty acids 1 cap PO DAILY 03/13/23 04/04/24 History 1,000 mg-200 mg capsule vardenafil 20 mg tablet 20 mg PO DAILY PRN Sexual Activity 03/13/23 04/04/24 History warfarin 5 mg tablet 5 mg PO 2XWK 03/13/23 04/04/24 History doxycycline hyclate 20 mg tablet 20 mg PO DAILY 04/04/24 04/04/24 History warfarin 5 mg tablet 7.5 mg PO .[id number] 04/04/24 04/04/24 History Patient History Medical History Barretts esophagus History of esophageal cancer had multiple EGDs procedures to remove--per pt caught early Sleep apnea cpap Surgical History History of colonoscopy History of cardiac cath 02/2021 @ [facility]--no stents History of hand surgery right History of esophagogastroduodenoscopy (EGD) History of wisdom tooth extraction History of tonsillectomy History of tooth extraction History of cardioversion x2--03/2020 and 05/2020 @ [facility] History of cardiac radiofrequency ablation 10/30/20 @ [facility] Family History Other No family history of adverse response to anesthesia Social History Smoking Status: Never smoker Second Hand Exposure: No; Do You Dip or Chew Tobacco: No; Hx Alcohol Use: Yes Alcohol type: beer Hx Substance Use: No Preferred Language: Pashto Communication Ability: Effective Pulp Drier Required: No Beliefs That Will Affect Care: None Current Living Situation: Spouse Current Living Situation Comment: Lives with and younger brother (is his caregiver) Other Information That Helps Us Care for You: No Feels Safe at Home: Yes Safety Concerns: Feels Safe At This Time Assistive Devices: CPAP Review of Systems Review of Systems: All systems reviewed & are unremarkable except as noted in HPI & below Physical Exam Constitutional: cooperative and comfortable Eyes: PERRL, conjunctivae normal, anicteric sclerae ENMT: external ear and nose normal, oropharynx normal Neck: trachea midline, no thyromegaly Respiratory: normal respiratory effort, lungs clear to auscultation Cardiovascular: Rate/Rhythm: + irregularly irregular Heart Sounds: normal S1 and normal S2; no murmur Gastrointestinal (Abdomen): normal bowel sounds, soft, nontender, no hepatosplenomegaly Skin: no rashes, warm and dry Neurologic: PERRL, EOMI, accommodation nl, no face palsy, no dysarthria Psychiatric: A+Ox3, euthymic affect Results & Data Results & Data Vital Signs (Past 12 Hours) Vital Signs Temp Pulse Pulse Resp BP BP Pulse Ox 04/05/24 04:52 36.8 C 58 L 146/81 H 98 04/05/24 04:19 58 L 04/05/24 03:17 63 16 146/93 H 97 04/05/24 02:57 62 17 155/94 H 97 04/05/24 02:53 183 H 165/91 H 04/05/24 02:49 67 165/91 H 04/05/24 02:45 69 19 97 04/05/24 02:37 69 04/05/24 02:24 64 16 95 04/05/24 02:09 66 15 04/05/24 02:03 65 142/82 H 04/05/24 01:55 136/81 04/05/24 01:36 76 20 97 04/05/24 01:00 71 23 154/90 H 96 04/05/24 00:25 80 18 148/86 H 94 04/05/24 00:20 73 22 143/85 H 95 04/05/24 00:18 83 19 94 04/05/24 00:11 88 166/97 H 04/05/24 00:03 85 16 96 04/04/24 23:57 173 H 15 96 04/04/24 23:55 131/100 04/04/24 23:45 119/95 04/04/24 23:40 147/116 H 04/04/24 23:30 180 H 14 149/108 H 99 04/04/24 23:25 159/120 H 04/04/24 23:09 187 H 15 99 04/04/24 23:06 189 H 21 169/119 H 100 04/04/24 22:44 196 H 04/04/24 22:44 04/04/24 22:43 75 04/04/24 20:48 36.6 C 85 20 149/74 H 96 O2 Del Method O2 Flow Rate 04/05/24 04:52 Room Air 04/05/24 04:19 04/05/24 03:17 Nasal Cannula 04/05/24 02:57 Nasal Cannula 2 04/05/24 02:53 04/05/24 02:49 04/05/24 02:45 Nasal Cannula 2 04/05/24 02:37 04/05/24 02:24 04/05/24 02:09 04/05/24 02:03 04/05/24 01:55 04/05/24 01:36 04/05/24 01:00 Nasal Cannula 2 04/05/24 00:25 Nasal Cannula 2 04/05/24 00:20 Nasal Cannula 2 04/05/24 00:18 Nasal Cannula 2 04/05/24 00:11 04/05/24 00:03 Nasal Cannula 2 04/04/24 23:57 Nasal Cannula 2 04/04/24 23:55 04/04/24 23:45 04/04/24 23:40 04/04/24 23:30 Nasal Cannula 2 04/04/24 23:25 04/04/24 23:09 Room Air 04/04/24 23:06 Room Air 04/04/24 22:44 04/04/24 22:44 Room Air 04/04/24 22:43 04/04/24 20:48 Room Air Coding Level of Care Code 23664 IN/OBS CONSULT LVL 2,35M Diagnoses Ventricular tachycardia I47.20 Diabetes mellitus, type 2 E11.9 Dyslipidemia E78.5 GERD (gastroesophageal reflux disease) K21.9 Hypertension I10 Atrial fibrillation I48.91 CAD (coronary artery disease) I25.10 Time Spent (min) 38
--- NOTE | 2024-04-05 07:32 | XRay Report ---
XR chest 1V not portable HISTORY: 73 years-old Male Chest pain, nonspecific COMPARISON: 06/07/2010 TECHNIQUE: PA view of the chest FINDINGS: Hiatal hernia. Cardiomegaly. Metallic density punctate foreign bodies are again noted projected over the chest and upper abdomen. No pneumothorax, pleural effusion, airspace consolidation or pulmonary e bassam. Bones appear grossly intact. IMPRESSION: 1. No acute process. 2. Hiatal hernia. ACT 112: Negative or not required by law. The above report was generated using voice recognition software. It may contain grammatical, syntax o r spelling errors. Electronically signed by: Andrea Fink M.D. 04/05/2024 7:31 AM
[2024-04-05] MEDS: PANTOprazole 40 MG TAB PO SCH (08:04)
[2024-04-05] MEDS: ATORVASTATIN 40 MG TAB PO SCH (08:04)
[2024-04-05] MEDS: lisinopril 10 MG TAB PO SCH (08:04)
[2024-04-05] MEDS: DOXYCYCLINE SUSP 25 MG/5 ML 60ML PO SCH (08:05)
[2024-04-05] MEDS: dilTIAZem HCL 120 MG CAPCR PO SCH (08:05)
[2024-04-05] MEDS: ASPIRIN 81 MG ECTAB PO SCH (08:05)
[2024-04-05] MEDS: METOPROLOL SUCC 50MG EXT REL TAB PO SCH (08:05)
[2024-04-05] MEDS: INSULIN ASPART PER UNIT CHARGE SC SCH (08:08)
[2024-04-05] MEDS ORDERED: [UNRECOGNIZED DRUG - OTHER] PO SCH (09:00)
--- NOTE | 2024-04-05 09:16 | Cardiology Consultation ---
Date of Consultation April 05, 2024 Assessment & Plan (1) Ventricular tachycardia: Patient presents with sensation of elevated heart rate and near syncope, symptoms correlate with episodes of sustained ventricular tachycardia noted on telemetry. The tachycardia was captured on twelve-lead EKG and appears to be consistent with possible right ventricular outflow tract origin. Given patient's history of nonobstructive coronary heart disease, and normal left ventricular ejection fraction as noted today, recommend proceeding with invasive coronary angiography to evaluate for underlying ischemic cause. In the meantime, continue IV amiodarone, metoprolol and diltiazem at current doses. Depending upon coronary angiography results, future considerations include transitioning from diltiazem to verapamil. Previous cardiac catheterization took place via the right radial artery approach. INR is 2.3 today. Coumadin which he takes for his history of paroxysmal atrial fibrillation is on hold. The patient had breakfast at about 815 this morning. For now, we will make him n.p.o. pending cardiac catheterization. Further advice will be forthcoming after cardiac catheterization results. History of Present Illness Attending Physician: Alana Taylor MD History of Present Illness Mr Her is a 73 year old male seen in cardiology consultation per the request of Dr Galeana for the evaluation of near syncope and episodes of sustained and nonsustained ventricular tachycardia. The patient states that recently he has been feeling well. He walks a distance of 3 miles on a regular basis with no work recent symptoms. The night before last he woke up from sleep and transiently a nonspecific feeling of illness that passed within a few minutes and therefore he went back to bed. Yesterday he was in his normal state of health and starting at 6 PM he was having episodes of a sensation of a racing heart rate that he felt in his chest and then a sensation that would raise up into his head and neck of lightheadedness. He had a few episodes where he felt like he might pass out. Upon arrival to the emergency room while being monitored on telemetry he was observed to have multiple sustained episodes of a wide-complex tachycardia consistent with ventricular tachycardia with rates in excess of 200 bpm. 1 episode of the tachycardia was captured on twelve-lead EKG at 2254 with findings of left bundle branch block morphology, and inferior axis. Several other tracings have revealed sinus bradycardia in the 50s with occasional PVCs and incomplete right bundle branch block. The patient was admitted to the intensive care unit and remains on an amiodarone infusion. The duration and frequency of the episodes of ventricular tachycardia have since reduced, with most recent episode at 613 this morning of 5 beats in duration and an episode before that at 3:20 AM of 12 beats in duration. Patient notes feeling much improved since admission to intensive care unit. Cardiac History: Symptomatic paroxysmal atrial fibrillation for which patient has undergone several direct-current cardioversion procedures, was previously treated with the antiarrhythmic agent Multaq in 2019, and underwent pulmonary vein isolation [place] [facility] [place], radiofrequency catheter ablation with isolation of all 4 pulmonary veins noted. Most recent direct-current cardioversion took place 03/18/2023 As part of planning his atrial fibrillation ablation, he underwent a cardiac CT in October, with incidental finding of noncalcified plaque in the proximal LAD with suggestion of severe stenosis. On review of systems at this time he was having ongoing intermittent left-sided chest discomfort. He therefore underwent invasive coronary angiography [place] [facility] [place], with findings of a 40% proximal stenosis that correlated with the cardiac CT findings, the circumflex and right coronary arteries are mildly ectatic with only diffuse minimal luminal irregularities Hypertension Type 2 diabetes mellitus Dyslipidemia Family History: Father with history of CAD, CABG in his 60s, of presumed heart disease in his 80s. Social History: non smoker Retired Lives with spouse, Mallory Allergies Allergy/AdvReac Type Severity Reaction Status Date / Time No Known Allergies Allergy Verified 04/04/24 23:50 Home Medications Medication Instructions Recorded Confirmed Type aspirin 81 mg chewable tablet 81 mg PO QAM 03/13/23 04/04/24 History atorvastatin 80 mg tablet 80 mg PO QAM 03/13/23 04/04/24 History cinnamon bark 500 mg capsule 500 mg PO QAM 03/13/23 04/04/24 History (Cinnamon) coenzyme Q10 100 mg capsule 100 mg PO QAM 03/13/23 04/04/24 History (CoQ-10) diltiazem HCl 120 mg capsule,24 120 mg PO QAM 03/13/23 04/04/24 History hr,extended release fluocinonide 0.05 % topical 1 applic topical DAILY PRN Itching 03/13/23 04/04/24 History solution fluticasone propionate 50 2 spray intranasal DAILY PRN Nasal 03/13/23 04/04/24 History mcg/actuation nasal Congestion spray,suspension geriatric multivitamin-min 1 tab PO DAILY 03/13/23 04/04/24 History lisinopril 10 mg tablet 10 mg PO QAM 03/13/23 04/04/24 History metformin 1,000 mg tablet 1,000 mg PO BID 03/13/23 04/04/24 History metoprolol succinate 25 mg 25 mg PO HS 03/13/23 04/04/24 History tablet,extended release 24 hr metoprolol succinate 50 mg 50 mg PO QAM 03/13/23 04/04/24 History tablet,extended release 24 hr pantoprazole 20 mg tablet,delayed 20 mg PO QAM 03/13/23 04/04/24 History release propranolol 10 mg tablet 10 mg PO DAILY PRN per cardiology 03/13/23 04/04/24 History salmon oil-omega-3 fatty acids 1 cap PO DAILY 03/13/23 04/04/24 History 1,000 mg-200 mg capsule vardenafil 20 mg tablet 20 mg PO DAILY PRN Sexual Activity 03/13/23 04/04/24 History warfarin 5 mg tablet 5 mg PO 2XWK 03/13/23 04/04/24 History doxycycline hyclate 20 mg tablet 20 mg PO DAILY 04/04/24 04/04/24 History warfarin 5 mg tablet 7.5 mg PO .[id number] 04/04/24 04/04/24 History Patient History Medical History Barretts esophagus History of esophageal cancer had multiple EGDs procedures to remove--per pt caught early Sleep apnea cpap Surgical History History of colonoscopy History of cardiac cath 02/2021 @ [facility]--no stents History of hand surgery right History of esophagogastroduodenoscopy (EGD) History of wisdom tooth extraction History of tonsillectomy History of tooth extraction History of cardioversion x2--03/2020 and 05/2020 @ [facility] History of cardiac radiofrequency ablation 10/30/20 @ [facility] Family History Other No family history of adverse response to anesthesia Social History Smoking Status: Never smoker Second Hand Exposure: No; Do You Dip or Chew Tobacco: No; Hx Alcohol Use: Yes Alcohol type: beer Hx Substance Use: No Preferred Language: Georgian Communication Ability: Effective Services Engineer Required: No Beliefs That Will Affect Care: None Current Living Situation: Spouse Current Living Situation Comment: Lives with and younger brother (is his caregiver) Other Information That Helps Us Care for You: No Feels Safe at Home: Yes Safety Concerns: Feels Safe At This Time Assistive Devices: CPAP and Glasses Review of Systems Review of Systems: All systems reviewed & are unremarkable except as noted in HPI & below Physical Exam Physical Exam: General: no acute distress and stated age Eyes: conjunctiva are pink and non-injected, sclera clear Neck: normal jugular venous pulse, no hepatojugular reflux Chest: normal shape and normal respiratory effort Lungs: clear to auscultation and percussion Cardiac Exam: - regular heart sounds, no murmurs, rubs, or gallops, no jugular venous distention Abdomen: abdomen soft, non-tender, no abnormal masses and no hepatosplenomegaly Musculoskeletal: no gait disturbance, no weakness Extremities: no edema and no cyanosis Neuro:awake, conversant, follows commands, no focal motor deficits Psych: appropriate affect and insight. Results & Data Vital Signs (Past 12 Hours) Vital Signs Temp Pulse Pulse Resp BP BP Pulse Ox 04/05/24 08:01 63 04/05/24 07:39 36.6 C 04/05/24 06:00 36.8 C 55 L 20 129/71 04/05/24 04:52 36.8 C 58 L 146/81 H 98 04/05/24 04:19 58 L 04/05/24 04:10 37.1 C 59 L 18 146/81 H 100 04/05/24 03:17 63 16 146/93 H 97 04/05/24 02:57 62 17 155/94 H 97 04/05/24 02:53 183 H 165/91 H 04/05/24 02:49 67 165/91 H 04/05/24 02:45 69 19 97 04/05/24 02:37 69 04/05/24 02:24 64 16 95 04/05/24 02:09 66 15 04/05/24 02:03 65 142/82 H 04/05/24 01:55 136/81 04/05/24 01:36 76 20 97 04/05/24 01:00 71 23 154/90 H 96 04/05/24 00:25 80 18 148/86 H 94 04/05/24 00:20 73 22 143/85 H 95 04/05/24 00:18 83 19 94 04/05/24 00:11 88 166/97 H 04/05/24 00:03 85 16 96 04/04/24 23:57 173 H 15 96 04/04/24 23:55 131/100 04/04/24 23:45 119/95 04/04/24 23:40 147/116 H 04/04/24 23:30 180 H 14 149/108 H 99 04/04/24 23:25 159/120 H 04/04/24 23:09 187 H 15 99 04/04/24 23:06 189 H 21 169/119 H 100 04/04/24 22:44 196 H 04/04/24 22:44 04/04/24 22:43 75 O2 Del Method O2 Flow Rate 04/05/24 08:01 04/05/24 07:39 04/05/24 06:00 Room Air 04/05/24 04:52 Room Air 04/05/24 04:19 04/05/24 04:10 Nasal Cannula 2 04/05/24 03:17 Nasal Cannula 04/05/24 02:57 Nasal Cannula 2 04/05/24 02:53 04/05/24 02:49 04/05/24 02:45 Nasal Cannula 2 04/05/24 02:37 04/05/24 02:24 04/05/24 02:09 04/05/24 02:03 04/05/24 01:55 04/05/24 01:36 04/05/24 01:00 Nasal Cannula 2 04/05/24 00:25 Nasal Cannula 2 04/05/24 00:20 Nasal Cannula 2 04/05/24 00:18 Nasal Cannula 2 04/05/24 00:11 04/05/24 00:03 Nasal Cannula 2 04/04/24 23:57 Nasal Cannula 2 04/04/24 23:55 04/04/24 23:45 04/04/24 23:40 04/04/24 23:30 Nasal Cannula 2 04/04/24 23:25 04/04/24 23:09 Room Air 04/04/24 23:06 Room Air 04/04/24 22:44 04/04/24 22:44 Room Air 04/04/24 22:43 Laboratory Results Cardiac Enzymes 04/04/24 04/05/24 Range/Units 21:00 02:02 AST 41 H (13-39) U/L Troponin I High Sens 10.9 12.3 (0-20) pg/ml Coagulation 04/04/24 04/05/24 Range/Units 21:00 03:40 PT 23.7 H 23.6 H (9.0-12.0) Seconds APTT 34 H (21-31) Seconds CBC 04/04/24 04/05/24 Range/Units 21:00 03:40 WBC 6.97 8.30 (4.8-10.8) K/ul RBC 4.58 L 4.41 L (4.70-6.10) M/uL Hgb 13.6 L 13.3 L (14.0-18.0) g/dl Hct 40.4 L 39.3 L (42.0-52.0) % Plt Count 226 225 (130-400) K/uL Neut # (Auto) 3.37 5.38 (1.40-6.50) K/uL Lymph # (Auto) 2.79 2.14 (1.20-3.40) K/uL [place] # (Auto) 0.54 0.55 (0.11-0.59) K/uL Eos # (Auto) 0.20 0.17 (0.00-0.50) K/uL Baso # (Auto) 0.05 0.04 (0.00-0.20) K/uL Comprehensive Metabolic Panel 04/04/24 04/05/24 Range/Units 21:00 03:40 Sodium 137 137 (136-145) mmol/L Potassium 3.8 4.2 (3.5-5.1) mmol/L Chloride 108 H 109 H (98-107) mmol/L Carbon Dioxide 21 20 L (21-32) mmol/L BUN 13 15 (6-23) mg/dl Creatinine 0.83 0.75 (0.6-1.4) mg/dl Glucose 156 H 148 H (70-99(Fasting)) mg/dl Calcium 9.4 8.9 (8.6-10.3) mg/dl AST 41 H (13-39) U/L ALT 54 H (7-52) U/L Alkaline Phosphatase 69 (34-104) U/L Total Protein 7.6 (6.0-8.3) gm/dl Albumin 4.4 (3.4-5.0) gm/dl Intake and Output 04/04/24 04/05/24 04/05/24 22:59 06:59 14:59 Intake Total 800 / 800 Output Total 300 / 675 775 / 775 Balance 500 / 125 -775 / -775 Intake: IV 700 / 700 Amiodarone / D5w 150 mg In 100 200 / 200 ml @ 600 mls/hr IV NOW STA Rx#: [id number] Amiodarone / D5w 360 mg In 200 200 / 200 ml @ 1 MG/MIN 33.333 mls/hr IV ONE ONE Rx#:[id number] Magnesium Sulfate / D5w 1 gm In 300 / 300 100 ml @ 100 mls/hr IV Q1H [facility] Rx#:[id number] Oral 100 / 100 Output: Urine 300 / 675 775 / 775 Other: Weight 106.2 kg 105.4 kg Weight Measurement Method Chair Scale Built in [facility] Diagnostic Findings Echocardiogram performed 04/05/2024 revealed moderate concentric left ventricular hypertrophy, LVEF in the range of 55 to 60%, no regional wall motion abnormalities, mild aortic valve regurgitation, grade 1 or 2 diastolic dysfunction
[2024-04-05 10:25] LABS: Thyroid Stimulating Hormone 1.594 uIu/ml (0.300-4.500)
--- NOTE | 2024-04-05 13:44 | Pre Anesthesia Assessment ---
Date of Service April 05, 2024 Pre Sedation Assessment Vital Signs Temp Pulse Pulse Resp BP BP Pulse Ox 04/05/24 13:00 69 164/95 H 96 04/05/24 12:00 155/103 H 04/05/24 12:00 60 16 97 04/05/24 11:03 62 19 97 04/05/24 11:00 151/80 H 04/05/24 10:57 75 20 96 04/05/24 10:06 75 19 153/100 H 96 04/05/24 09:15 65 19 119/66 96 04/05/24 08:12 61 14 127/64 97 04/05/24 08:01 63 04/05/24 07:39 97.9 F 04/05/24 07:06 57 L 22 98 04/05/24 06:00 98.2 F 55 L 20 129/71 04/05/24 04:52 98.2 F 58 L 146/81 H 98 04/05/24 04:19 58 L 04/05/24 04:10 98.7 F 59 L 18 146/81 H 100 04/05/24 03:17 63 16 146/93 H 97 04/05/24 02:57 62 17 155/94 H 97 04/05/24 02:53 183 H 165/91 H 04/05/24 02:49 67 165/91 H 04/05/24 02:45 69 19 97 04/05/24 02:37 69 04/05/24 02:24 64 16 95 04/05/24 02:09 66 15 04/05/24 02:03 65 142/82 H 04/05/24 01:55 136/81 04/05/24 01:36 76 20 97 04/05/24 01:00 71 23 154/90 H 96 04/05/24 00:25 80 18 148/86 H 94 04/05/24 00:20 73 22 143/85 H 95 04/05/24 00:18 83 19 94 04/05/24 00:11 88 166/97 H 04/05/24 00:03 85 16 96 04/04/24 23:57 173 H 15 96 04/04/24 23:55 131/100 04/04/24 23:45 119/95 04/04/24 23:40 147/116 H 04/04/24 23:30 180 H 14 149/108 H 99 04/04/24 23:25 159/120 H 04/04/24 23:09 187 H 15 99 04/04/24 23:06 189 H 21 169/119 H 100 04/04/24 22:44 196 H 04/04/24 22:44 04/04/24 22:43 75 04/04/24 20:48 97.9 F 85 20 149/74 H 96 O2 Del Method O2 Flow Rate 04/05/24 13:00 Room Air 04/05/24 12:00 04/05/24 12:00 04/05/24 11:03 04/05/24 11:00 04/05/24 10:57 04/05/24 10:06 04/05/24 09:15 04/05/24 08:12 04/05/24 08:01 04/05/24 07:39 04/05/24 07:06 04/05/24 06:00 Room Air 04/05/24 04:52 Room Air 04/05/24 04:19 04/05/24 04:10 Nasal Cannula 2 04/05/24 03:17 Nasal Cannula 04/05/24 02:57 Nasal Cannula 2 04/05/24 02:53 04/05/24 02:49 04/05/24 02:45 Nasal Cannula 2 04/05/24 02:37 04/05/24 02:24 04/05/24 02:09 04/05/24 02:03 04/05/24 01:55 04/05/24 01:36 04/05/24 01:00 Nasal Cannula 2 04/05/24 00:25 Nasal Cannula 2 04/05/24 00:20 Nasal Cannula 2 04/05/24 00:18 Nasal Cannula 2 04/05/24 00:11 04/05/24 00:03 Nasal Cannula 2 04/04/24 23:57 Nasal Cannula 2 04/04/24 23:55 04/04/24 23:45 04/04/24 23:40 04/04/24 23:30 Nasal Cannula 2 04/04/24 23:25 04/04/24 23:09 Room Air 04/04/24 23:06 Room Air 04/04/24 22:44 04/04/24 22:44 Room Air 04/04/24 22:43 04/04/24 20:48 Room Air Cardiovascular + regular rate Respiratory + respiratory effort normal Pre-Sedation Airway Assessment Smoking Status: Never smoker Hx Sleep Apnea: Yes Hx Difficult Intubation: No Short, Thick Neck: No Thyromental Distance: > or= 3.5 Finger Breadths Oral Cavity: + WNL Mallampati Class: III ASA: ASA3 NPO Status Date of Last Intake of Fluids: 04/05/24 Time of Last Intake of Fluids: 08:30 Date of Last Intake of Solid Food: 04/05/24 Time of Last Intake of Solid Foods: 08:30 Procedure Planning Contraindications for Sedation: none Current Medications Reviewed: Yes Notes The planned sedation has been discussed with the patient. Informed Consent was obtained. I have identified the patient, determined the appropriateness of sedation and have assessed the patient immediately prior to the procedure. All medicine(s) and interventions are by my order.
--- NOTE | 2024-04-05 13:48 | Communication Note ---
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 Reported chest discomfort going to his back, lightheadedness, feeling of passing out. Patient reports compliance with home medication and compliance with CPAP. In the ED patient noted to be in rapid A-fib followed by monomorphic PT. IV amiodarone was initiated at the ED. He is being managed for the following: Ventricular tachycardia Rapid A-fib Near syncope Palpitation History of cardioversion Patient noted to be in rapid A-fib and ventricular tachycardia at ED. Admitting INR therapeutic, patient on Coumadin at home. IV amiodarone started at the ED. Troponin x 2 negative, 04/04 EKG noted with wide-complex tachycardia. Echo with EF of 55 to 60%, moderate concentric LVH, no regional wall motion abnormalities noted. Diastolic dysfunction, grade 2. Continue telemetry monitoring, monitor replete electrolytes. Cardiology on board: Plan to cardiac cath him.N.p.o. status. Coumadin on hold. Continue with IV amiodarone, metoprolol and diltiazem for now. Other chronic medical conditions: Continue with/resume home meds as and when able. chronic diastolic heart failure (EF 50%, 2020), patient euvolemic to dry hx nonobstructive CAD hypertension, slightly elevated hyperlipidemia, on statin Rx LUIS on CPAP, compliant with device. c/w cpap at hospital. DM2 on oral medications, reasonable control as of recent hemoglobin A1c of 7.2 last month chronic anemia, hemoglobin at baseline past tobacco abuse DVT prophylaxis. INR between 2 and 3 Full code Patient Ms. Mallory Pinto, contact #[phone]. Text document was generated using [employer] voice recognition software. It may contain grammatical or spelling errors. Kindly contact undersigned for clarification of any documentation item in question.
[2024-04-05] MEDS: fentaNYL citrate PF 100 MCG/2 ML VIAL ONE (14:50)
[2024-04-05] MEDS: HEPARIN (PORCINE) 1000 UNIT/ML 10 ML (CATH LAB USE ONLY) ONE (14:51)
[2024-04-05] MEDS: NITROGLYCERIN/D5W 100MCG/ML 20ML SYR ONE (14:52)
[2024-04-05] MEDS: MIDAZOLAM HCL 1 MG/ML 2ML VIAL ONE (14:52)
[2024-04-05] MEDS: niCARdipine HCL INJ 2.5 MG/ML 10 ML AMP ONE (14:52)
[2024-04-05] MEDS: IODIXANOL (VISIPAQUE) 320 MG/ML 100ML IV ONE (14:52)
--- NOTE | 2024-04-05 15:14 | Post Anesthesia Assessment ---
Date of Service April 05, 2024 Post Sedation Assessment Vital Signs Temp Pulse Pulse Resp BP BP Pulse Ox 04/05/24 13:00 69 164/95 H 96 04/05/24 12:00 155/103 H 04/05/24 12:00 60 16 97 04/05/24 11:03 62 19 97 04/05/24 11:00 151/80 H 04/05/24 10:57 75 20 96 04/05/24 10:06 75 19 153/100 H 96 04/05/24 09:15 65 19 119/66 96 04/05/24 08:12 61 14 127/64 97 04/05/24 08:01 63 04/05/24 07:39 97.9 F 04/05/24 07:06 57 L 22 98 04/05/24 06:00 98.2 F 55 L 20 129/71 04/05/24 04:52 98.2 F 58 L 146/81 H 98 04/05/24 04:19 58 L 04/05/24 04:10 98.7 F 59 L 18 146/81 H 100 04/05/24 03:17 63 16 146/93 H 97 04/05/24 02:57 62 17 155/94 H 97 04/05/24 02:53 183 H 165/91 H 04/05/24 02:49 67 165/91 H 04/05/24 02:45 69 19 97 04/05/24 02:37 69 04/05/24 02:24 64 16 95 04/05/24 02:09 66 15 04/05/24 02:03 65 142/82 H 04/05/24 01:55 136/81 04/05/24 01:36 76 20 97 04/05/24 01:00 71 23 154/90 H 96 04/05/24 00:25 80 18 148/86 H 94 04/05/24 00:20 73 22 143/85 H 95 04/05/24 00:18 83 19 94 04/05/24 00:11 88 166/97 H 04/05/24 00:03 85 16 96 04/04/24 23:57 173 H 15 96 04/04/24 23:55 131/100 04/04/24 23:45 119/95 04/04/24 23:40 147/116 H 04/04/24 23:30 180 H 14 149/108 H 99 04/04/24 23:25 159/120 H 04/04/24 23:09 187 H 15 99 04/04/24 23:06 189 H 21 169/119 H 100 04/04/24 22:44 196 H 04/04/24 22:44 04/04/24 22:43 75 04/04/24 20:48 97.9 F 85 20 149/74 H 96 O2 Del Method O2 Flow Rate 04/05/24 13:00 Room Air 04/05/24 12:00 04/05/24 12:00 04/05/24 11:03 04/05/24 11:00 04/05/24 10:57 04/05/24 10:06 04/05/24 09:15 04/05/24 08:12 04/05/24 08:01 04/05/24 07:39 04/05/24 07:06 04/05/24 06:00 Room Air 04/05/24 04:52 Room Air 04/05/24 04:19 04/05/24 04:10 Nasal Cannula 2 04/05/24 03:17 Nasal Cannula 04/05/24 02:57 Nasal Cannula 2 04/05/24 02:53 04/05/24 02:49 04/05/24 02:45 Nasal Cannula 2 04/05/24 02:37 04/05/24 02:24 04/05/24 02:09 04/05/24 02:03 04/05/24 01:55 04/05/24 01:36 04/05/24 01:00 Nasal Cannula 2 04/05/24 00:25 Nasal Cannula 2 04/05/24 00:20 Nasal Cannula 2 04/05/24 00:18 Nasal Cannula 2 04/05/24 00:11 04/05/24 00:03 Nasal Cannula 2 04/04/24 23:57 Nasal Cannula 2 04/04/24 23:55 04/04/24 23:45 04/04/24 23:40 04/04/24 23:30 Nasal Cannula 2 04/04/24 23:25 04/04/24 23:09 Room Air 04/04/24 23:06 Room Air 04/04/24 22:44 04/04/24 22:44 Room Air 04/04/24 22:43 04/04/24 20:48 Room Air Recovery Score Activity: Moves 4 extremities Respiration: Deep Breath/Cough Circulation: +/-20% PreAnes Value Consciousness: Fully Awake Oxygen Saturation: O2 needed for >90% Discharge Sedation Level of Care: Fast Track Phase II Post Sedation Plan On clinical assessment, the patient appears to have tolerated the sedation without complications. Patient is recovering as anticipated. Patient will continue to be monitored by nursing and may be discharged when sedation discharge criteria are met per below protocol. Upon Completions of procedure up to 15 minutes continue every 5 minute vital signs and the P.A.R. score; then discharge to a Phase I or Fast Track to Phase II per the following guidelines: * Discharge Patient to appropriate Phase II area if PAR is 8 or greater or return to pre- procedure baseline. The post - procedure orders will be as directed. * If PAR score is less than 8 or not return to pre-procedure baseline then patient will follow Phase I monitoring till PAR is reached for Phase II. The Phase I may be done in procedure room or may call to secure a Phase I area. * If naloxone or flumazenil are used for reversal, hold in Phase I for continued monitoring from when last reversal dose was given for a minimum of 60 minutes or longer pending the nurse and/or physician discretion of patient condition before discharge to Phase II. Please call the Sedation Physician to re-evaluate and complete post-note for discharge to Phase II area. Do NOT discharge from procedure sedation or Phase 1 until post- sedation evaluation note is complete by procedure /sedation MD Sedation Discharge Instructions to be given to the patient at discharge to home.
--- NOTE | 2024-04-05 15:18 | Post Operative Brief Note ---
Cardiology Brief Post Op Date of Surgery April 05, 2024 Pre & Post Diagnosis VT CAD Procedure cardiac cath/C IVUS iFR ultrasound guided access Truck Driving Instructor Aniceto Aguilar MD Grants Administrator Kalie Estimated Blood Loss 5 Findings See Below 60% proximal LAD (borderline by IVUS/iFR). Anesthesia Type RN Sedation Complications none Disposition Accompanied Patient To Recovery: Yes Disposition: Recovery Room Overlapping Procedure I was present for: the critical portions of procedure.
[2024-04-05] MEDS: VERAPAMIL HCL 40 MG TAB PO ONE (15:50)
--- NOTE | 2024-04-05 15:51 | Communication Note ---
Date of Service: April 05, 2024 Cardiac catheterization results discussed with Dr. Aguilar, images reviewed together in the cardiac catheterization laboratory control room. Patient has been found to have an intermediate proximal LAD stenosis, not felt to be hemodynamically significant by FFR. This would not appear to be the cause of his resting ventricular tachycardia especially in the absence of recent angina with walking regularly. Morphology of the ventricular tachycardia on twelve-lead EKG suggest possible right ventricular outflow tract origin of the ventricular tachycardia. Plan: Continue amiodarone infusion for now Continue metoprolol Change diltiazem to verapamil, first dose today. Will discuss case with RINKU. Guanaco Milton DO
--- NOTE | 2024-04-05 17:58 | Cardiac Catheterization ---
[facility] Data: Mini Shifter Cardiac Status Clinical evaluation leading to the procedure CAD Presenation: Sx unlikely to be ischemic Diagnostic Physicians Name: Aniceto Aguilar MD Closure Device Recommendations: Medical Therapy and/or Counseling Cardiac Cath Procedure Full Procedure Date April 05, 2024 Pre-Procedure Diagnosis Pre-Procedure Diagnosis: CAD and Arrhythmia AUC Score AUC Score: 7 Post-Procedure Diagnosis Post-Procedure Diagnosis: Moderate CAD and Normal Intracardiac Pressures Procedure(s) Performed Procedure(s) Performed: Coronary Angiography, Left Heart Cath, IVUS and Fractional Flow [employer] Technician Aniceto Aguilar MD Licensed Physical Therapist(s) Kalie Estimated Blood Loss Estimated Blood Loss: 15 Medication(s) Medication(s): Fentanyl, Heparin, Lidocaine 1%, Nicardipine, Nitroglycerin and Versed Summary of Findings Indication: Sustained ventricular tachycardia, history of moderate CAD Access: 6 Fr right radial artery under ultrasound guidance Catheters: Gary, JL 3.5 guide Findings: LM -Short, almost separate ostium, normal caliber, no significant disease LAD -medium caliber, 60% proximal stenosis, 30% earlymid segment stenosis at takeoff of diagonal, distal vessel without significant disease and wraps around apex. Circumflex -large caliber, no significant disease. Small high OM1 without disease. Gives off large OM 2 without disease. RCA -large caliber, dominant, 20-30% proximal, mid to distal vessel without significant disease. RPDA without disease. IFR/IVUS of LAD: -Left main cannulated with JL 3.5 guide -Omniwire placed into distal LAD -IFR 0.87 Camara IVUS catheter placed to mid LAD. Pullback revealed widely patent mid/proximal segment until focal area of concern in the proximal segment which showed moderate to severe stenosis 65 to 70% by IVUS. No significant disease at ostium, left main without significant disease. -Coronary angiography revealed no apparent complications post wire/catheter removal LVEDP -5 Arterial Closure: TR band Summary: 1. Moderate to severe single-vessel coronary artery disease -60% proximal LAD (6070% by IVUS, IFR 0.87). 2. Normal intracardiac filling pressure Recommendations: Borderline flow-limiting proximal LAD stenosis unlikely to cause patient's presenting ventricular arrhythmias. With lack of anginal symptoms, and negative HS TropI plan to treat noncritical CAD with medical management. Continued ASCVD risk factor modification per Dr. Milton. Hemodynamics Rest Ao:: 117/53/79 Final Ao: 141/57/89 LV: 119/5 Recommendations Recommendations: Medical Therapy and/or Counseling Specimens Specimens: None Radiation Exposure (mGy) 1431 Contrast (mls) 50 Anesthesia Moderate 9691-9802 Procedural Complication(s) None Disposition PCU I attest to the content of the Intraoperative Record and any orders documented therein. Any exceptions are noted below. [facility] Card Cath Procedure Codes Cardiac Catheterization Procedure 1: Cardiovascular Cath Procedures: 89239 Coronaries and LHC (+/-LV) Procedure 2: Cardiovascular Cath Procedures: 34280 (Doppler) Pressure Wire Therapeutic Services & Ancillary Procedure 1: Cardiovascular Tx and Anc Procedures: 21266 IV Ultrasound (Coronary or Graft) Procedure 2: Cardiovascular Tx and Anc Procedures: 09338 Ultrasonic Guidance Vascular Access Moderate Sedation Procedure 1: Sedation/Anesthesia: 55891 Mod Sedation by the same physician;Init15 Min Child Age 5 & Up Procedure 2: Sedation/Anesthesia: 08833 Mod Sedation by the same physician; Ea [id number] Minutes PG Care Time/CCT Total # of Minutes Spent Total Time Spent with Patient: Total time spent is greater than 50% in coordination of care (as documented) at patient's floor/unit and/or counseling patient:
[2024-04-06 04:47] LABS: Hemoglobin 13.2 g/dl (14.0-18.0); Mean Corpuscular Hemoglobin 29.9 pg (25.0-34.0); Mean Corpuscular Hgb Conc 33.8 g/dL (32.0-36.0); Mean Corpuscular Volume 88.4 fL (80.0-100.0); Mean Platelet Volume 10.9 fL (9.4-12.4); Platelet Count 206 K/uL (130-400); RDW Coefficient of Variation 13.9 % (11.5-14.5); RDW Standard Deviation 44.9 fL (36.4-46.3); Red Blood Count 4.41 M/uL (4.70-6.10); White Blood Count 8.79 K/ul (4.8-10.8)
[2024-04-06 04:49] LABS: BUN Creatinine Ratio 17.9 (10-20); Calcium 8.7 mg/dl (8.6-10.3); Creatinine Clr Calc Pharmacy 99.4 ml/min; Est GFR (African American) 103.1 ml/min; Est GFR (Non-African American) 88.9 ml/min; Magnesium 1.8 mg/dl (1.7-2.4); Phosphorus 2.7 mg/dl (2.5-4.9); Potassium 3.8 mmol/L (3.5-5.1)
[2024-04-06 04:58] LABS: INR 2.1 (0.9-1.1); Prothrombin Time 21.5 Seconds (9.0-12.0)
[2024-04-06] MEDS: POTASSIUM CHLORIDE CRTAB 20 MEQ TABCR PO STA (06:36)
[2024-04-06] MEDS: MAGNESIUM SULFATE / D5W 1 GM/100 ML BAG IV SCH (06:36)
--- NOTE | 2024-04-06 08:52 | Cardiology Progress Note ---
Date of Service April 06, 2024 Assessment & Plan (1) Ventricular tachycardia: (2) CAD (coronary artery disease): (3) Atrial fibrillation: (4) Hypertension: (5) Dyslipidemia: Plan: (1) Ventricular tachycardia: -Twelve-lead EKG findings, clinical presentation suggestive of outflow tract ventricular tachycardia (either right ventricular outflow tract origin or left ventricular outflow tract origin). Cardiac catheterization revealing 60% proximal LAD, not felt to be hemodynamically significant or the cause of his resting VT. Echocardiogram reveals preserved left ventricular systolic function, no significant structural heart disease. Reviewed case with electrophysiology at [facility] as patient has followed there in the past and had previous pulmonary vein isolation ablation there in 2019. -Discontinue amiodarone infusion -Home treatment with oral diltiazem to be replaced with verapamil extended release, 180 mg daily to start this morning -Continue metoprolol succinate 50 mg twice daily -Supplement potassium and magnesium -Continue to monitor in the intensive care unit today pending findings on telemetry after amiodarone discontinued. -Plan for EP visit as outpatient at [facility] for consideration of repeat EP study, possible ablation. -Upcoming plans for outpatient colonoscopy to be postponed. (2) CAD (coronary artery disease): -60% LAD stenosis, not hemodynamically significant by FFR. Continue aspirin 81 mg daily, metoprolol, or atorvastatin. (3) Atrial fibrillation: -Remains in sinus rhythm. Continue metoprolol, verapamil as noted, resume Coumadin. INR 2.1 today, 04/06/2024. Patient's home dose is 5 mg on Wednesdays and Saturdays, and 7.5 mg the remaining days of the week. Coumadin had been held for cardiac catheterization. Resume today. (4) Hypertension: Continue metoprolol, lisinopril, verapamil (5) Dyslipidemia: Continue atorvastatin 80 mg daily Admission and Anticipated Discharge Date Admission Date: April 05, 2024 Subjective Patient seen in cardiology follow-up of presenting subjective symptom of palpitations and lightheadedness, near syncope. Patient has been feeling well, with resolution of the symptoms since initiating amiodarone infusion. Telemetry currently reveals sinus rhythm at 60 bpm. A 3 beat ventricular run was observed on 04/06/2024 at 2:27 AM. Numerous short runs of nonsustained ventricular tachycardia were observed yesterday, 04/05/2024 of less than 10 beats in duration. Physical Exam Physical Exam: General: no acute distress and stated age Eyes: conjunctiva are pink and non-injected, sclera clear Neck: normal jugular venous pulse, no hepatojugular reflux Chest: normal shape and normal respiratory effort Lungs: clear to auscultation and percussion Cardiac Exam: - regular heart sounds, no murmurs, rubs, or gallops, no jugular venous distention -Right radial procedure site clean dry a nd intact without hematoma Abdomen: abdomen soft, non-tender, no abnormal masses and no hepatosplenomegaly Musculoskeletal: no gait disturbance, no weakness Extremities: no edema and no cyanosis Neuro:awake, conversant, follows commands, no focal motor deficits Psych: appropriate affect and insight. Results & Data Vital Signs (Past 12 Hours) Vital Signs Temp Pulse Resp BP Pulse Ox O2 Del Method 04/06/24 05:00 57 L 16 140/79 96 CPAP 04/06/24 04:00 36.8 C 68 15 116/84 96 CPAP 04/06/24 03:01 54 L 18 95 04/06/24 03:00 52 L 16 140/80 96 CPAP 04/06/24 02:00 54 L 18 111/69 97 CPAP 04/06/24 01:07 54 L 17 139/86 96 CPAP 04/06/24 00:04 51 L 17 112/74 CPAP 04/05/24 23:58 51 L 04/05/24 23:00 56 L 16 113/73 97 CPAP 04/05/24 22:15 55 L 14 154/84 H 96 CPAP 04/05/24 22:00 56 L 17 95 04/05/24 21:18 58 L 15 96 Laboratory Results Coagulation 04/06/24 Range/Units 04:04 PT 21.5 H (9.0-12.0) Seconds CBC 04/06/24 Range/Units 04:04 WBC 8.79 (4.8-10.8) K/ul RBC 4.41 L (4.70-6.10) M/uL Hgb 13.2 L (14.0-18.0) g/dl Hct 39.0 L (42.0-52.0) % Plt Count 206 (130-400) K/uL Comprehensive Metabolic Panel 04/06/24 Range/Units 04:04 Sodium 137 (136-145) mmol/L Potassium 3.8 (3.5-5.1) mmol/L Chloride 108 H (98-107) mmol/L Carbon Dioxide 25 (21-32) mmol/L BUN 14 (6-23) mg/dl Creatinine 0.78 (0.6-1.4) mg/dl Glucose 142 H (70-99(Fasting)) mg/dl Calcium 8.7 (8.6-10.3) mg/dl Intake and Output 04/05/24 04/06/24 04/06/24 22:59 06:59 14:59 Intake Total 723.73 / 2065.397 200 / 2065.397 131.460 / 131.460 Output Total 930 / 3105 300 / 3105 Balance -206.27 / -1039.603 -100 / -1039.603 131.460 / 131.460 Intake: IV 198.73 / 1390.397 200 / 1390.397 131.460 / 131.460 Amiodarone / D5w 360 mg In 200 198.73 / 398.73 200 / 398.73 35.627 / 35.627 ml @ 0.5 MG/MIN 16.667 mls/hr IV .Q12H NATE Rx#:[id number] Magnesium Sulfate / D5w 1 gm In 95.833 / 95.833 100 ml @ 50 mls/hr IV Q2H NATE Rx#:[id number] Oral 525 / 675 0 / 675 Output: Urine 930 / 3105 300 / 3105
--- NOTE | 2024-04-06 09:03 | Critical Care Progress Note ---
Date of Service April 06, 2024 Assessment & Plan (1) Ventricular tachycardia: Plan: Impression: 73-year-old male with past medical history of atrial fibrillation (Anticoagulated), ablation, CAD, DM type II, HTN, HLD, GERD pre-Zentz to the ICU following what appears to be ventricular tachycardia with rate in the 190s, and currently on amiodarone drip. Admitted to ICU for close monitoring. Neuro - [facility] ICU: Negative Cardiac - V. tachunable to confirm with EKG but was reported to have monomorphic V. tach without hemodynamic instability, with a rate in the 190s. - Admitted to ICU for close monitoring per cardiology request. Will follow- up recommendations - No chest pain. EKG with sinus rhythm and right bundle branch block. No ST elevation. QTc normal - Magnesium low at 1.5. Replete in. Maximize electrolytes - Continue amiodarone drip - Continue beta-tori - Continuous monitoring on telemetry Proximal A-fib anticoagulated on Coumadin. Currently rate controlled on monitor. - Continue MTP, Diltiazem, Coumadin HLDcontinue statin HTNcontinue lisinopril, MTP CADcontinue ASA Respiratory - No history of pulmonary disease. Currently maintaining oxygen saturation on room air. Chest x-ray unremarkable. Continuous monitoring on pulse ox GI - Heart Healthy, Carb consistent diet GERDPPI RENAL/LYTES - Creatinine within normal limits. Monitor routine BMPs and replete electrolytes as indicated - Strict I's and O ENDO - DM type IImost recent hemoglobin A1c of 7.0. On metformin. Will hold oral medications in favor of sliding scale. ICU hyperglycemic protocol HEME - H&H stable, monitor routine CBC ID - No indication for infectious process at this On doxycycline for rosacea LINES/IV ACCESS - Peripheral IVs DVT PROPHYLAXIS - SCDs, Systemically anticoagulated on Coumadin Dispo: ICU per cardiology recommendations (2) Diabetes mellitus, type 2: (3) Dyslipidemia: (4) GERD (gastroesophageal reflux disease): (5) Hypertension: (6) Atrial fibrillation: (7) CAD (coronary artery disease): Admission and Anticipated Discharge Date Admission Date: April 05, 2024 Results & Data Results & Data Vital Signs (Past 12 Hours) Vital Signs Temp Pulse Resp BP Pulse Ox O2 Del Method 04/06/24 09:00 36.8 C 04/06/24 08:45 60 19 96 04/06/24 08:00 63 04/06/24 06:00 137/82 04/06/24 05:48 51 L 16 97 04/06/24 05:00 57 L 16 140/79 96 CPAP 04/06/24 04:00 36.8 C 68 15 116/84 96 CPAP 04/06/24 03:01 54 L 18 95 04/06/24 03:00 52 L 16 140/80 96 CPAP 04/06/24 02:00 54 L 18 111/69 97 CPAP 04/06/24 01:07 54 L 17 139/86 96 CPAP 04/06/24 01:00 55 L 16 97 04/06/24 01:00 139/86 04/06/24 00:04 51 L 17 112/74 CPAP 04/06/24 00:00 112/74 04/05/24 23:58 51 L 04/05/24 23:00 56 L 16 113/73 97 CPAP 04/05/24 22:15 55 L 14 154/84 H 96 CPAP 04/05/24 22:00 56 L 17 95 04/05/24 21:18 58 L 15 96 Critical Care Results & Data Vital Signs (Past 12 Hours) Vital Signs Temp Pulse Resp BP Pulse Ox O2 Del Method 04/06/24 09:00 36.8 C 04/06/24 08:45 60 19 96 04/06/24 08:00 63 04/06/24 06:00 137/82 04/06/24 05:48 51 L 16 97 04/06/24 05:00 57 L 16 140/79 96 CPAP 04/06/24 04:00 36.8 C 68 15 116/84 96 CPAP 04/06/24 03:01 54 L 18 95 04/06/24 03:00 52 L 16 140/80 96 CPAP 04/06/24 02:00 54 L 18 111/69 97 CPAP 04/06/24 01:07 54 L 17 139/86 96 CPAP 04/06/24 01:00 55 L 16 97 04/06/24 01:00 139/86 04/06/24 00:04 51 L 17 112/74 CPAP 04/06/24 00:00 112/74 04/05/24 23:58 51 L 04/05/24 23:00 56 L 16 113/73 97 CPAP 04/05/24 22:15 55 L 14 154/84 H 96 CPAP 04/05/24 22:00 56 L 17 95 04/05/24 21:18 58 L 15 96 Lab & Micro Results (Past 24 Hours) RBC 4.41 M/uL (4.70-6.10) L 04/06/24 WBC 8.79 K/ul (4.8-10.8) 04/06/24 Hgb 13.2 g/dl (14.0-18.0) L 04/06/24 Hct 39.0 % (42.0-52.0) L 04/06/24 MCV 88.4 fL (80.0-100.0) 04/06/24 MCH 29.9 pg (25.0-34.0) 04/06/24 MCHC 33.8 g/dL (32.0-36.0) 04/06/24 RDW Standard Deviation 44.9 fL (36.4-46.3) 04/06/24 RDW Coefficient of Variation 13.9 % (11.5-14.5) 04/06/24 Plt Count 206 K/uL (130-400) 04/06/24 MPV 10.9 fL (9.4-12.4) 04/06/24 Na 137 mmol/L (136-145) 04/06/24 K 3.8 mmol/L (3.5-5.1) 04/06/24 Cl 108 mmol/L (98-107) H 04/06/24 CO2 25 mmol/L (21-32) 04/06/24 Anion Gap 4 (3-11) 04/06/24 BUN 14 mg/dl (6-23) 04/06/24 Creatinine 0.78 mg/dl (0.6-1.4) 04/06/24 Estimated GFR ( Amer) 103.1 ml/min 04/06/24 Estimated GFR (Non-Af Amer) 88.9 ml/min 04/06/24 BUN/Creatinine Ratio 17.9 (10-20) 04/06/24 Glu 142 mg/dl (70-99(Fasting)) H 04/06/24 Ca 8.7 mg/dl (8.6-10.3) 04/06/24 Phosphorus Level 2.7 mg/dl (2.5-4.9) 04/06/24 Mg 1.8 mg/dl (1.7-2.4) 04/06/24 04:04 Calcium Level 8.7 mg/dl (8.6-10.3) 04/06/24 04:04 Prothromb Time International Ratio 2.1 (0.9-1.1) H 04/06/24 04 :04 I & O Totals 24 Hours 04/05/24 04/06/24 04/07/24 06:59 06:59 06:59 Intake Total 800 / 800 2065.397 / 2065.397 491.460 / 491.460 Output Total 300 / 675 3105 / 3105 Balance 500 / 125 -1039.603 / -1039.603 491.460 / 491.460 Cumulative 04/04/24 20:46 thru 04/06/24 08:31 Intake Total 3356.857 Output Total 3405 Balance -48.143 RT Ventilator Mngmt (Last Documented) Ventilator Ordered Settings Respiratory Rate 19 04/06/24 08:45 Fraction of Inspired Oxygen 21 04/05/24 20:23 Ventilator - PT Measurements Respiratory Rate 19 Coding Level of Care Code None Diagnoses Ventricular tachycardia I47.20 Diabetes mellitus, type 2 E11.9 Dyslipidemia E78.5 GERD (gastroesophageal reflux disease) K21.9 Hypertension I10 Atrial fibrillation I48.91 CAD (coronary artery disease) I25.10
[2024-04-06] MEDS: POTASSIUM CHLORIDE 10 MEQ TABCR PO STA (09:26)
[2024-04-06] MEDS: MAGNESIUM OXIDE 400 MG TAB PO SCH (09:26)
[2024-04-06] MEDS: VERAPAMIL HCL 180 MG TABCR PO SCH (09:56)
--- NOTE | 2024-04-06 15:22 | Hospitalist Progress Note ---
Date of Service April 06, 2024 Assessment & Plan (1) Ventricular tachycardia: Plan: 73-year-old male with PMH of chronic diastolic heart failure [EF 50%, 2020], nonobstructive CAD, A-fib s/p cardioversion on Coumadin, HTN, HLD, LUIS on CPAP, T2DM on oral meds, chronic anemia [baseline hemoglobin of 13], GERD, acne rosacea, past tobacco abuse presented to the ED 04/04 after not feeling well while having dinner with friends few hours ago [employer]. Reported chest discomfort going to his back, lightheadedness, feeling of passing out. Patient reports compliance with home medication and compliance with CPAP. In the ED patient noted to be in rapid A-fib followed by monomorphic PT. IV amiodarone was initiated at the ED. He is being managed for the following: Ventricular tachycardia Rapid A-fib Near syncope Palpitation History of cardioversion Patient noted to be in rapid A-fib and ventricular tachycardia at ED. Admitting INR therapeutic, patient on Coumadin at home. IV amiodarone started at the ED. Troponin x 2 negative, 04/04 EKG noted with wide-complex tachycardia. Echo with EF of 55 to 60%, moderate concentric LVH, no regional wall motion abnormalities noted. Diastolic dysfunction, grade 2. Continue telemetry monitoring, monitor replete electrolytes. Cardiology on board: s/p cath, dc amio infusion 04/06, [employer] diltiazem being replaced w/ verapamil, EP visit upon DC/possible ablation c/w metorpolol. coumadin resumed 04/06. Other chronic medical conditions: Continue with/resume home meds as and when able. chronic diastolic heart failure (EF 50%, 2020), patient euvolemic to dry hx nonobstructive CAD hypertension, stable hyperlipidemia, on statin Rx LUIS on CPAP, compliant with device. c/w cpap at hospital. DM2 on oral medications, reasonable control as of recent hemoglobin A1c of 7.2 last month chronic anemia, hemoglobin at baseline past tobacco abuse DVT prophylaxis. INR between 2 and 3, coumadin. Full code Patient Ms. Mallory Pinto, contact #[phone]. Text document was generated using [employer] voice recognition software. It may contain grammatical or spelling errors. Kindly contact undersigned for clarification of any documentation item in questi on. Admission and Anticipated Discharge Date Admission Date: April 05, 2024 Subjective Patient was seen and examined at bedside. Patient was sitting up in chair, on room air, NAD, reports no new acute event overnight. Patient denied chest pain/headache/dizziness, patient reports feeling better. Physical Exam Physical Exam: GENERAL: Comfortable, pleasant, obese, no respiratory distress SKIN: Normal color, warm HEENT: [place] palpebral conjunctivae, no ptosis, moist buccal mucosa NECK : Supple, no tenderness CHEST : CTA, no tenderness HEART : rrr, no obvious murmurs ABDOMEN: no distention, nontender EXTREMITIES : Minimal LE swelling with prominent varicosities, no LE tenderness, no other conspicuous deformities noted NEUROLOGIC : Coherent, no facial asymmetry, no other gross focality Results & Data Results & Data Vital Signs (Past 12 Hours) Vital Signs Temp Pulse Resp BP Pulse Ox O2 Del Method 04/06/24 09:00 36.8 C 04/06/24 08:45 60 19 96 04/06/24 08:00 63 04/06/24 06:00 137/82 04/06/24 05:48 51 L 16 97 04/06/24 05:00 57 L 16 140/79 96 CPAP 04/06/24 04:00 36.8 C 68 15 116/84 96 CPAP
[2024-04-06] MEDS: WARFARIN SOD 7.5 MG TAB PO SCH (16:50)
[2024-04-07 05:05] LABS: Basophils # (auto) 0.05 K/uL (0.00-0.20); Basophils % (auto) 0.5 %; Eosinophils # (auto) 0.27 K/uL (0.00-0.50); Eosinophils % (auto) 2.9 %; Hematocrit (blood only) 38.6 % (42.0-52.0); Hemoglobin 13.1 g/dl (14.0-18.0); Immature Granulocytes # (auto) 0.04 K/uL (0.01-0.20); Immature Granulocytes % (auto) 0.4 %; Lymphocytes # (auto) 2.04 K/uL (1.20-3.40); Lymphocytes % (auto) 21.8 %; Mean Corpuscular Hemoglobin 29.7 pg (25.0-34.0); Mean Corpuscular Hgb Conc 33.9 g/dL (32.0-36.0); Mean Corpuscular Volume 87.5 fL (80.0-100.0); Mean Platelet Volume 11.1 fL (9.4-12.4); Monocytes # (auto) 0.77 K/uL (0.11-0.59); Monocytes % (auto) 8.2 %; Neutrophils # (auto) 6.19 K/uL (1.40-6.50); Neutrophils % (auto) 66.2 %; Platelet Count 209 K/uL (130-400); RDW Coefficient of Variation 13.6 % (11.5-14.5); RDW Standard Deviation 43.6 fL (36.4-46.3); Red Blood Count 4.41 M/uL (4.70-6.10); White Blood Count 9.36 K/ul (4.8-10.8)
[2024-04-07 05:17] LABS: BUN Creatinine Ratio 17.1 (10-20); Calcium 9.1 mg/dl (8.6-10.3); Est GFR (African American) 104.2 ml/min; Est GFR (Non-African American) 89.9 ml/min; Magnesium 1.8 mg/dl (1.7-2.4); Phosphorus 2.8 mg/dl (2.5-4.9); Potassium 4.2 mmol/L (3.5-5.1)
--- NOTE | 2024-04-07 05:33 | Electrocardiogram Report ---
Test Reason : Blood Pressure : / mmHG Vent. Rate : 076 BPM Atrial Rate : 076 BPM P-R Int : 168 ms QRS Dur : 100 ms QT Int : 404 ms P-R-T Axes : 000 010 039 degrees QTc Int : 454 ms Sinus rhythm with Premature ventricular complexes Incomplete right bundle branch block Borderline ECG When compared with ECG of 18-MAR-2023 07:33, Premature ventricular complexes are now Present Confirmed by Shravan Florence ([id number]) on 04/07/2024 5:33:20 AM Referred By: REFERRED SELF Confirmed By:Shravan Florence
--- NOTE | 2024-04-07 05:36 | Electrocardiogram Report ---
Test Reason : Blood Pressure : / mmHG Vent. Rate : 081 BPM Atrial Rate : 081 BPM P-R Int : 162 ms QRS Dur : 098 ms QT Int : 354 ms P-R-T Axes : 045 029 067 degrees QTc Int : 411 ms Sinus rhythm with frequent Premature ventricular complexes Incomplete right bundle branch block Borderline ECG When compared with ECG of 04-APR-2024 20:54, No significant change Confirmed by Shravan Florence ([id number]) on 04/07/2024 5:36:21 AM Referred By: REFERRED SELF Confirmed By:Shravan Florence
[2024-04-07 05:38] LABS: Prothrombin Time 20.3 Seconds (9.0-12.0)
--- NOTE | 2024-04-07 05:39 | Electrocardiogram Report ---
Test Reason : Blood Pressure : / mmHG Vent. Rate : 199 BPM Atrial Rate : 000 BPM P-R Int : 000 ms QRS Dur : 202 ms QT Int : 316 ms P-R-T Axes : 000 076 101 degrees QTc Int : 575 ms Poor data quality, interpretation may be adversely affected Ventricular tachycardia Non-specific intra-ventricular conduction block Abnormal ECG When compared with ECG of 04-APR-2024 22:50, Wide QRS tachycardia has replaced Sinus rhythm Vent. rate has increased BY 118 BPM Confirmed by Shravan Florence ([id number]) on 04/07/2024 5:38:58 AM Referred By: REFERRED SELF Confirmed By:Shravan Florence
--- NOTE | 2024-04-07 05:47 | Electrocardiogram Report ---
Test Reason : Blood Pressure : / mmHG Vent. Rate : 058 BPM Atrial Rate : 058 BPM P-R Int : 184 ms QRS Dur : 106 ms QT Int : 460 ms P-R-T Axes : 034 036 044 degrees QTc Int : 451 ms Sinus bradycardia Incomplete right bundle branch block Borderline ECG When compared with ECG of 04-APR-2024 22:54, Sinus rhythm has replaced Wide QRS tachycardia Vent. rate has decreased BY 141 BPM Confirmed by Shravan Florence ([id number]) on 04/07/2024 5:46:56 AM Referred By: REFERRED SELF Confirmed By:Shravan Florence
[2024-04-07] MEDS: MAGNESIUM SULFATE / D5W 1 GM/100 ML BAG IV SCH (06:40)
[2024-04-07] MEDS: lisinopril 10 MG TAB PO ONE (08:39)
--- NOTE | 2024-04-07 08:53 | Cardiology Progress Note ---
Date of Service April 07, 2024 Assessment & Plan (1) Ventricular tachycardia: (2) CAD (coronary artery disease): (3) Atrial fibrillation: (4) Hypertension: (5) Dyslipidemia: Plan: (1) Ventricular tachycardia: -Twelve-lead EKG findings, clinical presentation suggestive of outflow tract ventricular tachycardia (either right ventricular outflow tract origin or left ventricular outflow tract origin). Cardiac catheterization revealing 60% proximal LAD, not felt to be hemodynamically significant or the cause of his resting VT. Echocardiogram reveals preserved left ventricular systolic function, no significant structural heart disease. As noted, felt to most likely [place] outflow tract ventricular tachycardia, rather than scar mediated or ischemia mediated VT. Typically, outflow tract ventricular tachycardia can occur with aerobic exertion, and does not carry with it the risk of sudden cardiac at other ventricular tachycardia still. It is noted however that the patient's ventricular rate was very rapid on presentat ion, but he had a stable blood pressure despite rate of 190 bpm. Reviewed case with electrophysiology at [facility] as patient has followed there in the past and had previous pulmonary vein isolation ablation there in 2019. -IV amiodarone started in the emergency room and is sending sustained episode of monomorphic ventricular tachycardia, evening of 04/04/2024. Discontinued a.m. of 04/06/2024 and patient received his first dose of extended release verapamil 180 mg (instead of prior to hospital treatment with diltiazem) on the a.m. of 04/06/2024. -Standing oral magnesium supplement ordered, magnesium oxide 400 mg twice daily -Increase activity 04/07/2024, okay to downgrade to telemetry status -Upcoming plans for outpatient colonoscopy to be delayed. -Already has follow-up with electrophysiology as scheduled as an outpatient on 05/06/2024 (2) CAD (coronary artery disease): -Repeat cardiac cath performed 04/05/24, 60% LAD stenosis, not hemodynamically significant by FFR. Not felt to be the culprit for his VT. -Pt had been walking 3 miles on a regular basis prior to hospital stay without any symptoms suggestive angina - Continue aspirin 81 mg daily, metoprolol, or atorvastatin. (3) Atrial fibrillation: -Remains in sinus rhythm. Continue metoprolol, verapamil as noted, Coumadin. INR 2 today, 04/07/2024.Coumadin had been held for cardiac catheterization, resumed on 04/06/2024, continue 7.5 mg dose today. (4) Hypertension: Continue metoprolol, lisinopril, verapamil Increase lisinopril to 20 mg daily. Titrate Verapamil as HR allows. (5) Dyslipidemia: Continue atorvastatin 80 mg daily --Ambulate in unit (ICU or PCU). NOT 4th floor. Admission and Anticipated Discharge Date Admission Date: April 05, 2024 Subjective Patient seen in cardiology follow-up. Remains in the intensive care unit. Sitting in bedside chair. Feels well. He has been off of the amiodarone infusion since the morning of 04/06/2024. Telemetry reveals stable findings, predominant rhythm sinus rhythm in the 60s to 70s this morning with occasional isolated PVCs. Earlier this morning at 2:44 AM he had a 5 beat run of nonsustained monomorphic ventricular tachycardia. On 04/06/2024 at 2335 he had a 3 beat run of nonsustained ventricular tachycardia. Overall improved. Physical Exam Physical Exam: General: no acute distress and stated age Eyes: conjunctiva are pink and non-injected, sclera clear Neck: normal jugular venous pulse, no hepatojugular reflux Chest: normal shape and normal respiratory effort Lungs: clear to auscultation and percussion Cardiac Exam: - regular heart sounds, no murmurs, rubs, or gallops, no jugular venous distention -Right radial procedure site clean dry a nd intact without hematoma Abdomen: abdomen soft, non-tender, no abnormal masses and no hepatosplenomegaly Musculoskeletal: no gait disturbance, no weakness Extremities: no edema and no cyanosis Neuro:awake, conversant, follows commands, no focal motor deficits Psych: appropriate affect and insight. Results & Data Vital Signs (Past 12 Hours) Vital Signs Temp Pulse Pulse Resp BP BP Pulse Ox 04/07/24 06:03 63 19 171/80 H 97 04/07/24 05:00 62 17 147/97 H 96 04/07/24 04:00 36.8 C 62 20 152/88 H 95 04/07/24 04:00 04/07/24 03:45 66 19 96 04/07/24 03:00 66 22 172/98 H 97 04/07/24 02:00 60 14 146/71 H 95 04/07/24 01:06 60 19 149/82 H 97 04/07/24 00:00 36.6 C 64 19 137/72 97 04/06/24 23:50 65 18 97 04/06/24 23:12 70 22 160/90 H 96 04/06/24 22:00 63 21 153/91 H 95 04/06/24 21:00 65 22 165/81 H 96 Pulse Ox O2 Del Method O2 Del Method 04/07/24 06:03 CPAP 04/07/24 05:00 CPAP 04/07/24 04:00 CPAP 04/07/24 04:00 95 CPAP 04/07/24 03:45 04/07/24 03:00 CPAP 04/07/24 02:00 CPAP 04/07/24 01:06 CPAP 04/07/24 00:00 CPAP 04/06/24 23:50 04/06/24 23:12 CPAP 04/06/24 22:00 Room Air 04/06/24 21:00 Room Air Laboratory Results Coagulation 04/07/24 Range/Units 04:09 PT 20.3 H (9.0-12.0) Seconds CBC 04/07/24 Range/Units 04:09 WBC 9.36 (4.8-10.8) K/ul RBC 4.41 L (4.70-6.10) M/uL Hgb 13.1 L (14.0-18.0) g/dl Hct 38.6 L (42.0-52.0) % Plt Count 209 (130-400) K/uL Neut # (Auto) 6.19 (1.40-6.50) K/uL Lymph # (Auto) 2.04 (1.20-3.40) K/uL Pepin # (Auto) 0.77 H (0.11-0.59) K/uL Eos # (Auto) 0.27 (0.00-0.50) K/uL Baso # (Auto) 0.05 (0.00-0.20) K/uL Comprehensive Metabolic Panel 04/07/24 Range/Units 04:09 Sodium 136 (136-145) mmol/L Potassium 4.2 (3.5-5.1) mmol/L Chloride 107 (98-107) mmol/L Carbon Dioxide 24 (21-32) mmol/L BUN 13 (6-23) mg/dl Creatinine 0.76 (0.6-1.4) mg/dl Glucose 130 H (70-99(Fasting)) mg/dl Calcium 9.1 (8.6-10.3) mg/dl Intake and Output 04/06/24 04/07/24 04/07/24 22:59 06:59 14:59 Intake Total 480 / 2181.540 120 / 2181.540 70.833 / 70.833 Output Total 1000 / 1450 450 / 1450 Balance -520 / 731.540 -330 / 731.540 70.833 / 70.833 Intake: IV 70.833 / 70.833 Magnesium Sulfate / D5w 1 gm In 70.833 / 70.833 100 ml @ 50 mls/hr IV Q2H [facility] Rx#:[id number] Oral 480 / 1910 120 / 1910 Output: Urine 1000 / 1450 450 / 1450 # Bowel Movements 0 / 0 Other: # Unmeasured Voids 1 1 Weight 104.9 kg Weight Measurement Method Built in [facility]
--- NOTE | 2024-04-07 13:21 | Discharge Summary ---
Date of Service April 07, 2024 Admission HPI Per Admitting Provider History obtained from patient, family, and records. Medical history significant for chronic diastolic heart failure (EF 50%, 2020), nonobstructive CAD, A-fib status post cardioversion on Coumadin, hypertension, hyperlipidemia, LUIS on CPAP, DM2 on oral medications, chronic anemia (baseline hemoglobin of 13), GERD, acne rosacea, past tobacco abuse. Patient started not feeling well while having dinner with some friends few hours ago. Chest discomfort going to his neck. No SOB. Lightheadedness, felt like he was going to pass out. No headache. Compliant with home medications. Compliant with CPAP. No unusual stress or exertion. Just did yard work yesterday. At home, heart monitor could not identify heartbeat. Patient brought to the ER by for evaluation. Rapid A-fib later followed by monomorphic VT on the monitor. IV amiodarone initiated at the ER. Patient currently comfortable. 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 Admission Exam Per Admitting Provider GENERAL: Comfortable, pleasant, obese, no respiratory distress SKIN: Normal color, warm HEENT: [place] palpebral conjunctivae, no ptosis, moist buccal mucosa NECK : Supple, no tenderness CHEST : CTA, no tenderness HEART : Tachycardic, partial alopecia, no obvious murmurs ABDOMEN: Some distention, nontender EXTREMITIES : Minimal LE swelling with prominent varicosities, no LE tenderness, no other conspicuous deformities noted NEUROLOGIC : Coherent, no facial asymmetry, no other gross focality Principal Diagnosis Ventricular tachycardia Hypertension Coronary Artery Disease Discharge Exam Constitutional + well hydrated and + obese; no acute distress Eyes PERRL, conjunctivae normal, anicteric sclerae ENMT external ear and nose normal, oropharynx normal Respiratory normal respiratory effort, lungs clear to auscultation Cardiovascular Rate/Rhythm: regular rate and regular rhythm S1 S2 Gastrointestinal (Abdomen) normal bowel sounds, soft, nontender, no hepatosplenomegaly Neurologic PERRL, EOMI, accommodation nl, no face palsy, no dysarthria Psychiatric A+Ox3, euthymic affect Discharge Data Allergies Allergy/AdvReac Type Severity Reaction Status Date / Time No Known Allergies Allergy Verified 06/02/24 23:50 Consultations 04/04/24 23:42 ED Decision to Admit Stat 04/04/24 23:43 Consult Cardiology Routine 04/05/24 04:19 Consult Vascular Surgery Physician Routine Procedures Performed Operation Date: 04/05/24 14:00 Actual Procedures s Cineradiography w/Routine Exam - Aniceto Aguilar MD p Cath, Left with Cors and Vent - Aniceto Aguilar MD s Ultrasound Vascular Access - MD cleve Cooper IVUS Coronary Single Vessel - Aniceto Aguilar MD Ordered Studies 04/05/24 14:00 CL Cath Imgs for PACS use only Routine 04/05/24 15:09 CL IVUS Coronary Single Vessel Routine Hospital Course (1) Ventricular tachycardia: 73-year-old male with PMH of chronic diastolic heart failure [EF 50%, 2020], nonobstructive CAD, A-fib s/p cardioversion on Coumadin, HTN, HLD, LUIS on CPAP, T2DM on oral meds, chronic anemia [baseline hemoglobin of 13], GERD, acne rosacea, past tobacco abuse presented to the ED 04/04 after not feeling well while having dinner with friends few hours ago [employer]. Reported chest discomfort going to his back, lightheadedness, feeling of passing out. Patient reports compliance with home medication and compliance with CPAP. In the ED patient noted to be in rapid A-fib followed by monomorphic PT. IV amiodarone was initiated at the ED. He is being managed for the following: Ventricular tachycardia Rapid A-fib Near syncope Palpitation History of cardioversion Coronary Artery Disease Hypertenstion Patient noted to be in rapid A-fib and ventricular tachycardia at ED. Admitting INR therapeutic, patient on Coumadin at home. IV amiodarone was started in the ED. Troponin x 2 negative, 04/04 EKG noted with wide-complex tachycardia. Echo with EF of 55 to 60%, moderate concentric LVH, no regional wall motion abnormalities noted. Diastolic dysfunction, grade 2. Patient was evaluated by Bread Supervisor Had a Cardiac catheterization on 04/05/24 which showed 60% LAD stenosis, not hemodynamically significant by FFR. Not felt to be culprit for his VT Off amiodarone drip Discussed with Bread Supervisor Dr Milton today Home diltiazem has been changed to verapamil Home metoprolol succinate increased to 50mg BID. Cards ok for patient to continue propranolol prn tremor Home lisinopril increased to 20mg daily Patient will follow up with Cardiology/EP outpatient Other chronic medical conditions: Continue with/resume home meds as and when able. chronic diastolic heart failure (EF 50%, 2020), patient euvolemic to dry hyperlipidemia, on statin Rx LUIS on CPAP, compliant with device. c/w cpap at hospital. DM2 on oral medications, reasonable control as of recent hemoglobin A1c of 7.2 last month chronic anemia, hemoglobin at baseline past tobacco abuse Total Time Total Time Spent Total Time Spent (In Minutes): 40 Total Time Includes: Examination of the Patient, Discharge Planning, Medication Reconciliation and Communication With Other Providers Discharge Plan Discharge Items Patient Disposition: Home - Self-Care Reason For Visit: Lightheadedness Discharge Diagnosis: Ventricular tachycardia Hypertension Coronary Artery Disease Activity: As commented below Non-emergency contact: Primary Care Provider and Bread Supervisor Call non-emergency contact if: you have any medication questions Follow-up/Referrals: Humphrey Milton DO [Bread Supervisor] - (The Cardiology office will contact you for a 1-2 week hospital discharge appointment.) Lawrence Rockwell MD [Primary Care Provider] - (Date & Time 04/15/2024 11:20 AM Provider Lawrence Rockwell MD Department [facility] ) Manisha Fernando MD [Outside Practitioners] - (Date & Time 05/05/2024 12:30 PM Provider Manisha Fernando IV, MD Department Cardiology, [facility] ) Diet: Heart Healthy and Low Sodium (2gm) Addtl Attending Provider Instructions: Mr Brewer You came to the hospital with lightheadedness You were evaluated and managed for the above listed diagnoses. You also had a cardiac catheterization. Adjustments were made to your home medications as follows: -STOP Diltiazem -Start taking verapamil -Your metoprolol succinate was increased to 50mg twice a day -Your Lisinopril was increase to 20mg daily Please ensure follow up with Bread Supervisor/Business Coordinator and your Primary Doctor. It was a pleasure taking care of you. Pending Studies at Discharge: No Stand-Alone Forms: My [facility], Smoking Cessation Medications and DC Order Prescriptions: New verapamil 180 mg Tablet Extended Release 180 mg PO QAM Qty: 30 0RF magnesium oxide 400 mg (241.3 mg magnesium) Tablet 400 mg PO BID Qty: 30 0RF Continued atorvastatin 80 mg Tablet 80 mg PO QAM pantoprazole 20 mg Tablet,Delayed Release (Dr/Ec) 20 mg PO QAM propranolol 10 mg Tablet 10 mg PO DAILY PRN (Reason: per cardiology) metformin 1,000 mg Tablet 1,000 mg PO BID warfarin 5 mg Tablet 5 mg PO [id number] Patient Comments: follows with coumadin clinic Rx Instructions: WED & SAT aspirin 81 mg Tablet,Chewable 81 mg PO QAM fluocinonide 0.05 % Solution 1 applic TOPICAL DAILY PRN (Reason: Itching) fluticasone propionate 50 mcg/actuation [place],Suspension 2 spray INTRANASAL DAILY PRN (Reason: Nasal Congestion) Rx Instructions: administer into each nostril coenzyme Q10 [CoQ-10] 100 mg Capsule 100 mg PO QAM vardenafil 20 mg Tablet 20 mg PO DAILY PRN (Reason: Sexual Activity) geriatric multivitamin-min Tablet 1 tab PO DAILY cinnamon bark [Cinnamon] 500 mg Capsule 500 mg PO QAM salmon oil-omega-3 fatty acids 1,000-200 mg Capsule 1 cap PO DAILY warfarin 5 mg tablet 7.5 mg PO [id number] Rx Instructions: SUN, MON,TUES, THUR, & FRI doxycycline hyclate 20 mg tablet 20 mg PO DAILY Changed metoprolol succinate 50 mg Tablet Extended Release 24 Hr 50 mg PO BID Qty: 60 0RF lisinopril 10 mg Tablet 20 mg PO QAM Qty: 60 0RF Discontinued diltiazem HCl 120 mg Capsule,Extended Release 24 Hr 120 mg PO QAM metoprolol succinate 25 mg Tablet Extended Release 24 Hr 25 mg PO HS Discharge Orders: Discharge Order (Routine); Ordered 04/07/24 Ordered By: Tari Zamarripa Admission Data Admit Date/Time: 04/05/24 01:13 Attending Provider: Tari Zamarripa I. Admit Provider: Caleb Ruby Primary Care Provider: Lawrence Rockwell Other Providers: Caleb Ruby; Laron Stewart; Abelardo Norris; Taylor,Rishikesh Other Interventions: Discharge Summary Assessment (RN) Last Done: 04/07/24 13:35
[2024-04-08] MEDS ORDERED: lisinopril 20 MG TAB PO SCH (09:00)
== END 2024-04-07 14:39 | disposition home or self-care (01) | DRG 287 ==
LOC: ED 20:46 → SUATTDRO 04-05 01:13 → EDINP 04-05 01:13 → 1E 04-05 03:50

== ENCOUNTER 2024-04-15 23:59 | Observation (INO) ==
--- NOTE | 2024-04-16 00:19 | Emergency Department Note ---
History of Present Illness General Chief Complaint: Tachycardia Stated Complaint: RAPID HEART Time Seen by Provider: 04/16/24 00:13 History of Present Illness Provider Complaint: + rapid heart beat and + palpitations Time: 21:30 Duration: + Intermittent Severity: similar to previous episodes ([place] like previous episodes of ventricular tachycardia) Current Pain Intensity: 0 Context: + occurred during rest and + other (Patient does state he was drinking alcohol tonight.) Arrhythmia history: + atrial fibrillation (As well as ventricular tachycardia.) and + on anti-coagulants (Coumadin) Associated symptoms: + chest pain; no shortness of breath, no syncope, no vomiting, no anxiety or no cough HPI narrative: Patient reports he has been compliant with all of his medications. Home Medications Medication Instructions Recorded Confirmed Type aspirin 81 mg chewable tablet 81 mg PO [facility] 03/13/23 04/04/24 History atorvastatin 80 mg tablet 80 mg PO [facility] 03/13/23 04/04/24 History cinnamon bark 500 mg capsule 500 mg PO [facility] 03/13/23 04/04/24 History (Cinnamon) coenzyme Q10 100 mg capsule 100 mg PO [facility] 03/13/23 04/04/24 History (CoQ-10) fluocinonide 0.05 % topical 1 applic topical DAILY PRN Itching 03/13/23 04/04/24 History solution fluticasone propionate 50 2 spray intranasal DAILY PRN Nasal 03/13/23 04/04/24 History mcg/actuation nasal Congestion spray,suspension geriatric multivitamin-min 1 tab PO DAILY 03/13/23 04/04/24 History metformin 1,000 mg tablet 1,000 mg PO BID 03/13/23 04/04/24 History pantoprazole 20 mg tablet,delayed 20 mg PO QAM 03/13/23 04/04/24 History release propranolol 10 mg tablet 10 mg PO DAILY PRN per cardiology 03/13/23 04/04/24 History salmon oil-omega-3 fatty acids 1 cap PO DAILY 03/13/23 04/04/24 History 1,000 mg-200 mg capsule vardenafil 20 mg tablet 20 mg PO DAILY PRN Sexual Activity 03/13/23 04/04/24 History warfarin 5 mg tablet 5 mg PO 2XWK 03/13/23 04/04/24 History doxycycline hyclate 20 mg tablet 20 mg PO DAILY 04/04/24 04/04/24 History warfarin 5 mg tablet 7.5 mg PO .5XSWEEK 04/04/24 04/04/24 History lisinopril 10 mg tablet 20 mg (2 x 10 mg) PO QAM #60 tabs 04/07/24 Rx magnesium oxide 400 mg (241.3 mg 400 mg PO BID #30 tabs 04/07/24 Rx magnesium) tablet metoprolol succinate 50 mg 50 mg PO BID #60 tabs 04/07/24 Rx tablet,extended release 24 hr verapamil 180 mg tablet,extended 180 mg PO QAM #30 tabs 04/07/24 Rx release Allergies Allergy/AdvReac Type Severity Reaction Status Date / Time No Known Allergies Allergy Verified 04/04/24 23:50 Past Med/Surg History Problem List (Updated 04/16/24 @ 01:21 by Aki Coker MD) Palpitations (Acute) CAD (coronary artery disease) Nonobstructive per cardio records Atrial fibrillation per pt cardioversion 10/2020 was successful until 02/2023 when he started reverting back into A-fib--on warfarin/metoprolol--follows with Dr. Milton Hypertension GERD (gastroesophageal reflux disease) Dyslipidemia Diabetes mellitus, type 2 Ventricular tachycardia (Acute) Encounter for pre-operative examination Medical History Barretts esophagus History of esophageal cancer had multiple EGDs procedures to remove--per pt caught early Sleep apnea cpap Surgical History History of colonoscopy History of cardiac cath 02/2021 @ [facility]--no stents History of hand surgery right History of esophagogastroduodenoscopy (EGD) History of wisdom tooth extraction History of tonsillectomy History of tooth extraction History of cardioversion x2--03/2020 and 05/2020 @ [facility] History of cardiac radiofrequency ablation 10/30/20 @ [facility] Family History Other No family history of adverse response to anesthesia Social History Smoking Status: Never smoker Second Hand Exposure: No; Do You Dip or Chew Tobacco: No; Hx Alcohol Use: Yes Alcohol type: beer Hx Substance Use: No Preferred Language: Vietnamese Communication Ability: Effective Domestic Travel Consultant Required: No Beliefs That Will Affect Care: None Current Living Situation: Spouse Current Living Situation Comment: Lives with and younger brother (is his caregiver) Feels Safe at Home: Yes Assistive Devices: CPAP Physical Exam 2 Vital Signs: Vital Signs - 24 hr 04/16/24 00:09 04/16/24 00:15 Temperature 36.8 C Temperature Source Temporal Artery Sc an Pulse Rate 74 77 Respiratory Rate 18 Respiratory Effort / Characteristics Non-Labored Sponta neous Respiratory Depth Normal Respiratory Patter n Regular Blood Pressure 145/77 H Blood Pressure Tsering n 99 Blood Pressure Pos ition Sitting Pulse Oximetry 96 Oxygen Delivery Me thod Room Air Sepsis Recent Feve r Within 48 Hours No Sepsis New/Unexpla ined Change in Men padmini Status N/A Sepsis Action Take n by Nursing No Action Required Physical Exam: Physical Exam GENERAL: oriented to person, place, and time. appears well-developed and well- nourished. HENT: Exam performed. - Head: Normocephalic and atraumatic. EYES: Conjunctivae and EOM are normal. Right eye exhibits no discharge. Left eye exhibits no discharge. No scleral icterus. NECK: Normal range of motion. Neck supple. No JVD present. CV: Normal rate, regular rhythm, normal heart sounds and intact distal pulses. There is no peripheral edema. Palpable radial pulses bue. PULM/CHEST: Effort normal and breath sounds normal. No respiratory distress. No stridor. no wheezes. no rales. ABD: The abdomen is soft. There is no tenderness. NEURO: Motor and sensation grossly intact. SKIN: Skin is warm and dry. He is not diaphoretic. PSYCH: normal mood and affect. Behavior is normal. Judgment and thought content normal. Course Course 0013: The patient was evaluated in room A2. A complete history and physical exam was performed Cardiac monitoring: An order was placed for continuous cardiac monitoring. The monitor shows a rate of 80 with sinus rhythm interpreted by me Given the patient's history pads were applied to the patient. Will check labs and imaging. 0120: Vital signs stable. Patient remains in a sinus arrhythmia. Labs within normal limits. X-ray shows cardiomegaly. [facility]. Administered Medications Discontinued Medications Aspirin (Aspirin 81 Mg Chew) 324 mg PO NOW STA Stop: 04/16/24 00:20 Last Admin: 04/16/24 00:26 Dose: 324 mg Documented By: ARI Medical Decision Making Medical Records Attestation: I reviewed the patient's medical records. External medical records reviewed. Patient was admitted from April 05 to April 07, 2024. He was admitted at that time for atrial fibrillation. Patient was initially in atrial fibrillation and then went intraventricular tachycardia. Patient was started on IV amiodarone. He had a catheterization on April 05, 2024 which showed 60% of the LAD stenosis and was not thought to be the culprit of his ventricular tachycardia. Patient had his home diltiazem changed to verapamil and his home metoprolol increased to 50 mg twice daily. Lisinopril increased to 20 mg daily. Laboratory Data Attestation: I reviewed the patient's lab results. 04/16/24 00:16 04/16/24 00:16 Lab Results 04/16/24 04/16/24 Range/Units 00:16 00:29 WBC 7.80 (4.8-10.8) K/ul RBC 4.49 L (4.70-6.10) M/uL Hgb 13.5 L (14.0-18.0) g/dl Hct 40.7 L (42.0-52.0) % MCV 90.6 (80.0-100.0) fL MCH 30.1 (25.0-34.0) pg MCHC 33.2 (32.0-36.0) g/dL RDW Std Deviation 43.9 (36.4-46.3) fL RDW Coeff of Jairo 13.4 (11.5-14.5) % Plt Count 245 (130-400) K/uL MPV 10.5 (9.4-12.4) fL Immature Gran % (Auto) 0.3 % Neut % (Auto) 53.3 % Lymph % (Auto) 34.4 % [place] % (Auto) 7.9 % Eos % (Auto) 3.3 % Baso % (Auto) 0.8 % Neut # (Auto) 4.16 (1.40-6.50) K/uL Lymph # (Auto) 2.68 (1.20-3.40) K/uL [place] # (Auto) 0.62 H (0.11-0.59) K/uL Eos # (Auto) 0.26 (0.00-0.50) K/uL Baso # (Auto) 0.06 (0.00-0.20) K/uL Immature Gran # (Auto) 0.02 (0.01-0.20) K/uL PT 18.1 H (9.0-12.0) Seconds INR 1.8 H (0.9-1.1) APTT 31 (21-31) Seconds PTT Ratio 1.2 Sodium 137 (136-145) mmol/L Potassium 4.2 (3.5-5.1) mmol/L Chloride 106 (98-107) mmol/L Carbon Dioxide 23 (21-32) mmol/L Anion Gap 8 (3-11) BUN 17 (6-23) mg/dl Creatinine 0.89 (0.6-1.4) mg/dl Est Cr Clr Drug Dosing 84.2 ml/min Est GFR ( Amer) 97.6 ml/min Est GFR (Non-Af Amer) 84.2 ml/min BUN/Creatinine Ratio 19.1 (10-20) Glucose 139 H (70-99(Fasting)) mg/dl Calcium 9.4 (8.6-10.3) mg/dl Magnesium 1.7 (1.7-2.4) mg/dl Troponin I High Sens 11.3 (0-20) pg/ml Lipase 48 (11-82) U/L SARS-CoV-2, RNA, NAAT NEGATIVE (NEGATIVE) Imaging Data Attestation: I personally reviewed and interpreted this imaging study as follows: My Impression: Airway clear. No pneumothorax. No consolidation. cardiomegaly No cephalization.. No free air under the diaphragm. No fractures of the skeletal structures. ECG Data Attestation: I personally reviewed and interpreted this ECG as follows: Additional Comments: EKG 1 at 0014: Sinus arrhythmia with a rate of 77. NH 154 QRS [address] elevation or ST depression. PVCs present. [facility] Narrative 0013: The patient was evaluated in room A2. A complete history and physical exam was performed Cardiac monitoring: An order was placed for continuous cardiac monitoring. The monitor shows a rate of 80 with sinus rhythm interpreted by me Given the patient's history pads were applied to the patient. Will check labs and imaging. 0120: Vital signs stable. Patient remains in a sinus arrhythmia. Labs within normal limits. X-ray shows cardiomegaly. Patient will be admitted to the [facility] hospitalist team. Dr. Mckeon notified. Impression & Plan Palpitations Discharge Plan Visit Data Chief Complaint: Tachycardia Stated Complaint: RAPID HEART ED Provider: Aki Coker Discharge Problem: Palpitations Patient Disposition: Being Evaluated by Hospitalist Forms Stand Alone Forms: My [facility] Prescriptions Prescriptions: No Action atorvastatin 80 mg Tablet 80 mg PO QAM pantoprazole 20 mg Tablet,Delayed Release (Dr/Ec) 20 mg PO QAM propranolol 10 mg Tablet 10 mg PO DAILY PRN (Reason: per cardiology) metformin 1,000 mg Tablet 1,000 mg PO BID warfarin 5 mg Tablet 5 mg PO 2XWK Patient Comments: follows with coumadin clinic Rx Instructions: WED & SAT aspirin 81 mg Tablet,Chewable 81 mg PO QAM fluocinonide 0.05 % Solution 1 applic TOPICAL DAILY PRN (Reason: Itching) fluticasone propionate 50 mcg/actuation [place],Suspension 2 spray INTRANASAL DAILY PRN (Reason: Nasal Congestion) Rx Instructions: administer into each nostril coenzyme Q10 [CoQ-10] 100 mg Capsule 100 mg PO QAM vardenafil 20 mg Tablet 20 mg PO DAILY PRN (Reason: Sexual Activity) geriatric multivitamin-min Tablet 1 tab PO DAILY cinnamon bark [Cinnamon] 500 mg Capsule 500 mg PO QAM salmon oil-omega-3 fatty acids 1,000-200 mg Capsule 1 cap PO DAILY warfarin 5 mg tablet 7.5 mg PO .5XSWEEK Rx Instructions: SUN, MON,TUES, THUR, & FRI doxycycline hyclate 20 mg tablet 20 mg PO DAILY verapamil 180 mg Tablet Extended Release 180 mg PO QAM Qty: 30 0RF magnesium oxide 400 mg (241.3 mg magnesium) Tablet 400 mg PO BID Qty: 30 0RF metoprolol succinate 50 mg Tablet Extended Release 24 Hr 50 mg PO BID Qty: 60 0RF lisinopril 10 mg Tablet 20 mg PO QAM Qty: 60 0RF Referrals Referrals: Lawrence Rockwell MD [Primary Care Provider] -
[2024-04-16] MEDS: ASPIRIN 81 MG CHEW PO STA (00:26)
[2024-04-16 00:50] LABS: Basophils # (auto) 0.06 K/uL (0.00-0.20); Basophils % (auto) 0.8 %; Eosinophils # (auto) 0.26 K/uL (0.00-0.50); Eosinophils % (auto) 3.3 %; Hematocrit (blood only) 40.7 % (42.0-52.0); Hemoglobin 13.5 g/dl (14.0-18.0); Immature Granulocytes # (auto) 0.02 K/uL (0.01-0.20); Immature Granulocytes % (auto) 0.3 %; Lymphocytes # (auto) 2.68 K/uL (1.20-3.40); Lymphocytes % (auto) 34.4 %; Mean Corpuscular Hemoglobin 30.1 pg (25.0-34.0); Mean Corpuscular Hgb Conc 33.2 g/dL (32.0-36.0); Mean Corpuscular Volume 90.6 fL (80.0-100.0); Mean Platelet Volume 10.5 fL (9.4-12.4); Monocytes # (auto) 0.62 K/uL (0.11-0.59); Monocytes % (auto) 7.9 %; Neutrophils # (auto) 4.16 K/uL (1.40-6.50); Neutrophils % (auto) 53.3 %; Platelet Count 245 K/uL (130-400); RDW Coefficient of Variation 13.4 % (11.5-14.5); RDW Standard Deviation 43.9 fL (36.4-46.3); Red Blood Count 4.49 M/uL (4.70-6.10)
[2024-04-16 00:57] LABS: BUN Creatinine Ratio 19.1 (10-20); Calcium 9.4 mg/dl (8.6-10.3); Creatinine Clr Calc Pharmacy 84.2 ml/min; Est GFR (African American) 97.6 ml/min; Est GFR (Non-African American) 84.2 ml/min; Magnesium 1.7 mg/dl (1.7-2.4); Potassium 4.2 mmol/L (3.5-5.1)
[2024-04-16 01:04] LABS: Troponin I High Sensitivity 11.3 pg/ml (0-20)
[2024-04-16 01:12] LABS: INR 1.8 (0.9-1.1); Partial Thromboplastin Ratio 1.2; Partial Thromboplastin Time 31 Seconds (21-31); Prothrombin Time 18.1 Seconds (9.0-12.0)
--- NOTE | 2024-04-16 02:06 | History & Physical Report ---
Date of Service April 16, 2024 Assessment & Plan (1) Palpitations: Plan: hx ventricular tachycardia PVCs noted at the ER. History PAF status post cardioversion Patient NSR, INR slightly subtherapeutic chronic diastolic heart failure (EF 55-60% %, 2023), patient euvolemic to dry hx nonobstructive CAD hypertension, slightly elevated hyperlipidemia, on statin Rx LUIS on CPAP DM2 on oral medications, reasonable control as of recent hemoglobin A1c of 7.2 l ast month chronic anemia, hemoglobin at baseline past tobacco abuse OBS PCU Continue home beta-tori and titrate as needed Supplement potassium and magnesium to maintain serum levels of at least 4 and 2 respectively Cardiology consult Re: Palpitations, history of VT Basal bolus insulin, ISS BG goal 1 40-1 80, carb count coverage DVT prophylaxis. Coumadin INR goal between 2 and 3 Full code Patient requesting updates providers. Ms. Mallory Pinto, contact #[phone]. Text document was generated using Sidewalk voice recognition software. It may contain grammatical or spelling errors. Kindly contact undersigned for clarification of any documentation item in question. History of Present Illness Chief Complaint: Fast heartbeat, palpitations Primary Care Provider: Lawrence Rockwell MD History obtained from patient, family, and records. Medical history significant for chronic diastolic heart failure (EF 55to 59%, TTE 2023), nonobstructive CAD, A-fib status post cardioversion on Coumadin, history of VT, hypertension, hyperlipidemia, LIUS on CPAP, DM2 on oral medications, chronic anemia (baseline hemoglobin of 13), GERD, acne rosacea, past tobacco abuse. Recent confinement April 05 to 2023 for ventricular tachycardia. Diagnostic cardiac catheterization done during confinement which showed 60% LAD stenosis, not hemodynamically significant by FFR. Not perceived to be culprit for VT. Patient initially started on amiodarone infusion. Patient diltiazem changed to verapamil. Toprol-XL and lisinopril home doses increase on discharge. Outpatient EPS follow-up scheduled for next month. Patient was getting ready to get to bed last night when he experienced palpitations, fast heartbeat similar to VT episode from last admission. Heart rate noted to be 150 at home. Patient compliant with home medications. Denies unusual stress. No actual chest pain or SOB. Patient brought to ER for evaluation. 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 Allergies Allergy/AdvReac Type Severity Reaction Status Date / Time No Known Allergies Allergy Verified 04/04/24 23:50 Home Medications Medication Instructions Recorded Confirmed Type aspirin 81 mg chewable tablet 81 mg PO QAM 03/13/23 04/16/24 History atorvastatin 80 mg tablet 80 mg PO QAM 03/13/23 04/16/24 History cinnamon bark 500 mg capsule 500 mg PO QAM 03/13/23 04/16/24 History (Cinnamon) coenzyme Q10 100 mg capsule 100 mg PO QAM 03/13/23 04/16/24 History (CoQ-10) fluocinonide 0.05 % topical 1 applic topical DAILY PRN Itching 03/13/23 04/16/24 History solution fluticasone propionate 50 2 spray intranasal DAILY PRN Nasal 03/13/23 04/16/24 History mcg/actuation nasal Congestion spray,suspension geriatric multivitamin-min 1 tab PO DAILY 03/13/23 04/16/24 History metformin 1,000 mg tablet 1,000 mg PO BID 03/13/23 04/16/24 History pantoprazole 20 mg tablet,delayed 20 mg PO QAM 03/13/23 04/16/24 History release propranolol 10 mg tablet 10 mg PO DAILY PRN per cardiology 03/13/23 04/16/24 History salmon oil-omega-3 fatty acids 1 cap PO DAILY 03/13/23 04/16/24 History 1,000 mg-200 mg capsule vardenafil 20 mg tablet 20 mg PO DAILY PRN Sexual Activity 03/13/23 04/16/24 History warfarin 5 mg tablet 5 mg PO 2XWK 03/13/23 04/16/24 History doxycycline hyclate 20 mg tablet 20 mg PO DAILY 04/04/24 04/16/24 History warfarin 5 mg tablet 7.5 mg PO .5XSWEEK 04/04/24 04/16/24 History lisinopril 10 mg tablet 20 mg (2 x 10 mg) PO QAM #60 tabs 04/07/24 04/16/24 Rx magnesium oxide 400 mg (241.3 mg 400 mg PO BID #30 tabs 04/07/24 04/16/24 Rx magnesium) tablet metoprolol succinate 50 mg 50 mg PO BID #60 tabs 04/07/24 04/16/24 Rx tablet,extended release 24 hr verapamil 180 mg tablet,extended 180 mg PO QAM #30 tabs 04/07/24 04/16/24 Rx release Past Med/Surg History Problem List (Updated 04/16/24 @ 01:21 by Aki Coker MD) Palpitations (Acute) CAD (coronary artery disease) Nonobstructive per cardio records Atrial fibrillation per pt cardioversion 10/2020 was successful until 02/2023 when he started reverting back into A-fib--on warfarin/metoprolol--follows with Dr. Milton Hypertension GERD (gastroesophageal reflux disease) Dyslipidemia Diabetes mellitus, type 2 Ventricular tachycardia (Acute) Encounter for pre-operative examination Medical History Barretts esophagus History of esophageal cancer had multiple EGDs procedures to remove--per pt caught early Sleep apnea cpap Surgical History History of colonoscopy History of cardiac cath 02/2021 @ [facility]--no stents History of hand surgery right History of esophagogastroduodenoscopy (EGD) History of wisdom tooth extraction History of tonsillectomy History of tooth extraction History of cardioversion x2--03/2020 and 05/2020 @ [facility] History of cardiac radiofrequency ablation 10/30/20 @ [facility] Family History Other No family history of adverse response to anesthesia Social History Smoking Status: Former smoker Tobacco Type: Cigarettes Smoking End Date: 2008; Second Hand Exposure: No; Do You Dip or Chew Tobacco: Yes; Hx Alcohol Use: Yes Alcohol type: beer Hx Substance Use: No Preferred Language: Nigerian Communication Ability: Effective 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 Beliefs That Will Affect Care: None Current Living Situation: Spouse Current Living Situation Comment: Lives with and younger brother (is his caregiver) Feels Safe at Home: Yes Assistive Devices: CPAP Review of Systems Review of Systems: As per HPI, all other systems reviewed and negative Physical Exam Physical Exam: GENERAL: Comfortable, pleasant, obese, no respiratory distress SKIN: Normal color, warm HEENT: Partial alopecia, pink palpebral conjunctivae, no ptosis, moist buccal mucosa NECK : Supple, no tenderness CHEST : CTA, no tenderness HEART : RRR, no obvious murmurs ABDOMEN: Some distention, nontender EXTREMITIES : Minimal LE swelling with prominent varicosities, no LE tenderness, no other conspicuous deformities noted NEUROLOGIC : Coherent, no facial asymmetry, no other gross focality Results & Data Results & Data Vital Signs (Past 12 Hours) Vital Signs Temp Pulse Resp BP Pulse Ox O2 Del Method 04/16/24 00:15 77 04/16/24 00:09 36.8 C 74 18 145/77 H 96 Room Air Laboratory Results Laboratory Results WBC 7.80 K/ul (4.8-10.8) 04/16/24 00:16 RBC 4.49 M/uL (4.70-6.10) L 04/16/24 00:16 Hgb 13.5 g/dl (14.0-18.0) L 04/16/24 00:16 Hct 40.7 % (42.0-52.0) L 04/16/24 00:16 MCV 90.6 fL (80.0-100.0) 04/16/24 00:16 MCH 30.1 pg (25.0-34.0) 04/16/24 00:16 MCHC 33.2 g/dL (32.0-36.0) 04/16/24 00:16 RDW Std Deviation 43.9 fL (36.4-46.3) 04/16/24 00:16 RDW Coeff of Jairo 13.4 % (11.5-14.5) 04/16/24 00:16 Plt Count 245 K/uL (130-400) 04/16/24 00:16 MPV 10.5 fL (9.4-12.4) 04/16/24 00:16 Immature Gran % (Auto) 0.3 % 04/16/24 00:16 Neut % (Auto) 53.3 % 04/16/24 00:16 Lymph % (Auto) 34.4 % 04/16/24 00:16 [place] % (Auto) 7.9 % 04/16/24 00:16 Eos % (Auto) 3.3 % 04/16/24 00:16 Baso % (Auto) 0.8 % 04/16/24 00:16 Neut # (Auto) 4.16 K/uL (1.40-6.50) 04/16/24 00:16 Lymph # (Auto) 2.68 K/uL (1.20-3.40) 04/16/24 00:16 [place] # (Auto) 0.62 K/uL (0.11-0.59) H 04/16/24 00:16 Eos # (Auto) 0.26 K/uL (0.00-0.50) 04/16/24 00:16 Baso # (Auto) 0.06 K/uL (0.00-0.20) 04/16/24 00:16 Immature Gran # (Auto) 0.02 K/uL (0.01-0.20) 04/16/24 00:16 PT 18.1 Seconds (9.0-12.0) H 04/16/24 00:16 INR 1.8 (0.9-1.1) H 04/16/24 00:16 APTT 31 Seconds (21-31) 04/16/24 00:16 PTT Ratio 1.2 04/16/24 00:16 Sodium 137 mmol/L (136-145) 04/16/24 00:16 Potassium 4.2 mmol/L (3.5-5.1) 04/16/24 00:16 Chloride 106 mmol/L (98-107) 04/16/24 00:16 Carbon Dioxide 23 mmol/L (21-32) 04/16/24 00:16 Anion Gap 8 (3-11) 04/16/24 00:16 BUN 17 mg/dl (6-23) 04/16/24 00:16 Creatinine 0.89 mg/dl (0.6-1.4) 04/16/24 00:16 Est Cr Clr Drug Dosing 84.2 ml/min 04/16/24 00:16 Est GFR ( Amer) 97.6 ml/min 04/16/24 00:16 Est GFR (Non-Af Amer) 84.2 ml/min 04/16/24 00:16 BUN/Creatinine Ratio 19.1 (10-20) 04/16/24 00:16 Glucose 139 mg/dl (70-99(Fasting)) H 04/16/24 00:16 Calcium 9.4 mg/dl (8.6-10.3) 04/16/24 00:16 Magnesium 1.7 mg/dl (1.7-2.4) 04/16/24 00:16 Troponin I High Sens 11.3 pg/ml (0-20) 04/16/24 00:16 Lipase 48 U/L (11-82) 04/16/24 00:16 SARS-CoV-2, RNA, NAAT NEGATIVE (NEGATIVE) 04/16/24 00:29 Diagnostic Findings Chest x-ray as per my interpretation cardiomegaly EKG as per my interpretation : Rate 75, NSR, normal axis, incomplete RBBB, nonspecific T wave abnormalities, PVCs,
[2024-04-16] MEDS ORDERED: PROMETHAZINE HCL 6.25 MG in SODIUM CHLORIDE 0.9% 50 ML IV PRN (02:13)
[2024-04-16] MEDS ORDERED: oxyCODONE HCL IR 5 MG TAB (IMMEDIATE RELEASE) PO PRN (02:13)
[2024-04-16] MEDS ORDERED: LORazepam 0.5 MG TAB PO PRN (02:13)
[2024-04-16] MEDS: MAGNESIUM SULFATE / D5W 1 GM/100 ML BAG IV SCH (02:32)
[2024-04-16] MEDS: METOPROLOL SUCC 25MG EXT REL TAB PO STA (02:32)
[2024-04-16] MEDS: SODIUM CHLORIDE 0.9% 1,000 ML IV ONE (02:33)
[2024-04-16] MEDS: WARFARIN SOD 7.5 MG TAB PO STA (04:11)
[2024-04-16] MEDS ORDERED: GLUCOSE 10 TAB/TUBE PO PRN (04:45)
[2024-04-16] MEDS ORDERED: NITROGLYCERIN SL 0.4 MG/TAB TAB SL PRN (04:45)
[2024-04-16] MEDS ORDERED: CARBOHYDRATES FOR HYPOGLYCEMIA PO PRN (04:45)
[2024-04-16] MEDS ORDERED: GLUCOSE 40% GEL 15 GM TUBE PO PRN (04:45)
[2024-04-16] MEDS ORDERED: ACETAMINOPHEN 325 MG TAB PO PRN (04:45)
[2024-04-16] MEDS ORDERED: DEXTROSE 50% 50 ML SYRINGE IV PRN (04:45)
[2024-04-16] MEDS ORDERED: GLUCAGON FOR INJ 1 MG VIAL SQ PRN (04:45)
[2024-04-16] MEDS ORDERED: FLUTICASONE PROPIONATE NA SPR 16 GM BTL PRN (04:45)
[2024-04-16] MEDS: INSULIN ASPART PER UNIT CHARGE SC SCH (05:00)
--- NOTE | 2024-04-16 07:25 | XRay Report ---
XR chest 1V portable HISTORY: 73 years-old Male Chest pain, nonspecific COMPARISON: 04/04/24 TECHNIQUE: AP view of the chest FINDINGS: Hiatal hernia. Cardiomegaly. Metallic density punctate foreign bodies are again noted projected over the chest and upper abdomen. No pneumothorax, pleural effusion, airspace consolidation or pulmonary e bassam. Electronic device projects over the left chest. Bones appear grossly intact. IMPRESSION: 1. No acute process. 2. Hiatal hernia. ACT 112: Negative or not required by law. The above report was generated using voice recognition software. It may contain grammatical, syntax o r spelling errors. Electronically signed by: Andrea Fink M.D. 04/16/2024 7:23 AM
[2024-04-16] MEDS: ASPIRIN 81 MG CHEW PO SCH (09:45)
[2024-04-16] MEDS: ATORVASTATIN 40 MG TAB PO SCH (09:46)
[2024-04-16] MEDS: MAGNESIUM OXIDE 400 MG TAB PO SCH (09:46)
[2024-04-16] MEDS: lisinopril 20 MG TAB PO SCH (09:47)
[2024-04-16] MEDS: METOPROLOL SUCC 50MG EXT REL TAB PO SCH (09:47)
[2024-04-16] MEDS: PANTOprazole 40 MG TAB PO SCH (09:48)
[2024-04-16] MEDS: VERAPAMIL HCL 180 MG TABCR PO SCH (09:49)
[2024-04-16] MEDS: CEROVITE ADV FORMULA TAB PO SCH (09:49)
--- NOTE | 2024-04-16 10:13 | Cardiology Consultation ---
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 Telemetry revealing moderate to frequent PVCs overnight. No recurrent ventricular tachycardia or sustained dysrhythmia. I suspect symptoms related to alcohol consumption and mild hypomagnesemia. Patient counseled on the negative cardiovascular effects of heavy alcohol consumption. Advised to avoid further alcohol intake. Continue oral magnesium supplementation, beta-tori, and verapamil as ordered. Continue ZIO monitor post discharge. Electrophysiology evaluation scheduled 05/05/2024. No further inpatient cardiac testing or intervention recommended at this time. History of Present Illness Reason for Consultation: Palpitations Requesting Physician: Dr. No Attending Physician: Cheikh No MD History of Present Illness 73-year-old male present to the emergency department with palpitations. Recently hospitalized 04/04 -04/07 due to ventricular tachycardia. Cardiac catheterization performed during hospitalization demonstrated nonobstructive, moderate LAD stenosis. History of paroxysmal atrial fibrillation status post PVI ablation 2019. Patient admits to consuming 6 beers last evening. After he went to sleep he felt his heart racing while lying in bed. Apple Watch reported heart rate up to 150 bpm lasting approximately 2-3 minutes. Experienced 1 recurrence approximately an hour later which prompted further concern. In the ER he was found to be in sinus rhythm with occasional PVCs. No sustained dysrhythmias or atrial fibrillation. Feeling well overnight. Telemetry feels sinus rhythm, sinus bradycardia, and frequent PVCs. No recurrent ventricular tachycardia. Mild hypomagnesemia noted on admission. Patient received 2 g of IV magnesium sulfate. Currently treated with oral magnesium supplementation twice daily. Denies chest pain, shortness of breath, lightheadedness, dizziness, syncope, or near syncope. Allergies Allergy/AdvReac Type Severity Reaction Status Date / Time No Known Allergies Allergy Verified 04/04/24 23:50 Home Medications Medication Instructions Recorded Confirmed Type aspirin 81 mg chewable tablet 81 mg PO QAM 03/13/23 04/16/24 History atorvastatin 80 mg tablet 80 mg PO QAM 03/13/23 04/16/24 History cinnamon bark 500 mg capsule 500 mg PO QAM 03/13/23 04/16/24 History (Cinnamon) coenzyme Q10 100 mg capsule 100 mg PO QAM 03/13/23 04/16/24 History (CoQ-10) fluocinonide 0.05 % topical 1 applic topical DAILY PRN Itching 03/13/23 04/16/24 History solution fluticasone propionate 50 2 spray intranasal DAILY PRN Nasal 03/13/23 04/16/24 History mcg/actuation nasal Congestion spray,suspension geriatric multivitamin-min 1 tab PO DAILY 03/13/23 04/16/24 History metformin 1,000 mg tablet 1,000 mg PO BID 03/13/23 04/16/24 History pantoprazole 20 mg tablet,delayed 20 mg PO QAM 03/13/23 04/16/24 History release propranolol 10 mg tablet 10 mg PO DAILY PRN per cardiology 03/13/23 04/16/24 [place] salmon oil-omega-3 fatty acids 1 cap PO DAILY 03/13/23 04/16/24 History 1,000 mg-200 mg capsule vardenafil 20 mg tablet 20 mg PO DAILY PRN Sexual Activity 03/13/23 04/16/24 History warfarin 5 mg tablet 5 mg PO 2XWK 03/13/23 04/16/24 History doxycycline hyclate 20 mg tablet 20 mg PO DAILY 04/04/24 04/16/24 History warfarin 5 mg tablet 7.5 mg PO .[id number] 04/04/24 04/16/24 History lisinopril 10 mg tablet 20 mg (2 x 10 mg) PO QAM #60 tabs 04/07/24 04/16/24 Rx magnesium oxide 400 mg (241.3 mg 400 mg PO BID #30 tabs 04/07/24 04/16/24 Rx magnesium) tablet metoprolol succinate 50 mg 50 mg PO BID #60 tabs 04/07/24 04/16/24 Rx tablet,extended release 24 hr verapamil 180 mg tablet,extended 180 mg PO QAM #30 tabs 04/07/24 04/16/24 Rx release Patient History Medical History Barretts esophagus History of esophageal cancer had multiple EGDs procedures to remove--per pt caught early Sleep apnea cpap Surgical History History of colonoscopy History of cardiac cath 02/2021 @ [facility]--no stents History of hand surgery right History of esophagogastroduodenoscopy (EGD) History of wisdom tooth extraction History of tonsillectomy History of tooth extraction History of cardioversion x2--03/2020 and 05/2020 @ [facility] History of cardiac radiofrequency ablation 10/30/20 @ [facility] Family History Other No family history of adverse response to anesthesia Social History Smoking Status: Former smoker Tobacco Type: Cigarettes Smoking End Date: 2008; Second Hand Exposure: No; Do You Dip or Chew Tobacco: Yes; Hx Alcohol Use: Yes Alcohol type: beer Hx Substance Use: No Preferred Language: Tajik Communication Ability: Effective Carpenter'S Helper Required: No Beliefs That Will Affect Care: None Current Living Situation: Spouse Current Living Situation Comment: Lives with and younger brother (is his caregiver) Feels Safe at Home: Yes Assistive Devices: CPAP Review of Systems Review of Systems: All systems reviewed & are unremarkable except as noted in Subjective Physical Exam Constitutional: well nourished; no acute distress Respiratory: no respiratory distress, no labored breathing and no retractions Auscultation: lungs clear to auscultation bilaterally; no crackles, no rales, no rhonchi and no wheezes Cardiovascular: Rate/Rhythm: regular rate and regular rhythm Heart Sounds: normal S1 and normal S2; no murmur Vessels: radial pulses present; no JVD and no carotid bruit Extremities: no edema Gastrointestinal (Abdomen): Inspection/Auscultation: normal bowel sounds; abdomen not distended Percussion/Palpation: abdomen soft; abdomen nontender, no guarding and abdomen not rigid Neurologic: CN's II-XI intact bilaterally and moves all extremities; no focal motor deficits Results & Data Vital Signs (Past 12 Hours) Vital Signs Temp Pulse Pulse Resp BP BP BP 04/16/24 08:00 36.6 C 60 18 150/85 H 04/16/24 07:18 58 L 04/16/24 04:45 36.6 C 62 16 159/88 H 04/16/24 04:40 63 04/16/24 00:15 77 04/16/24 00:09 36.8 C 74 18 145/77 H Pulse Ox O2 Del Method 04/16/24 08:00 95 Room Air 04/16/24 07:18 04/16/24 04:45 97 Room Air 04/16/24 04:40 04/16/24 00:15 04/16/24 00:09 96 Room Air Laboratory Results Cardiac Enzymes 04/16/24 Range/Units 00:16 Troponin I High Sens 11.3 (0-20) pg/ml Coagulation 04/16/24 Range/Units 00:16 PT 18.1 H (9.0-12.0) Seconds APTT 31 (21-31) Seconds CBC 04/16/24 Range/Units 00:16 WBC 7.80 (4.8-10.8) K/ul RBC 4.49 L (4.70-6.10) M/uL Hgb 13.5 L (14.0-18.0) g/dl Hct 40.7 L (42.0-52.0) % Plt Count 245 (130-400) K/uL Neut # (Auto) 4.16 (1.40-6.50) K/uL Lymph # (Auto) 2.68 (1.20-3.40) K/uL [place] # (Auto) 0.62 H (0.11-0.59) K/uL Eos # (Auto) 0.26 (0.00-0.50) K/uL Baso # (Auto) 0.06 (0.00-0.20) K/uL Comprehensive Metabolic Panel 04/16/24 Range/Units 00:16 Sodium 137 (136-145) mmol/L Potassium 4.2 (3.5-5.1) mmol/L Chloride 106 (98-107) mmol/L Carbon Dioxide 23 (21-32) mmol/L BUN 17 (6-23) mg/dl Creatinine 0.89 (0.6-1.4) mg/dl Glucose 139 H (70-99(Fasting)) mg/dl Calcium 9.4 (8.6-10.3) mg/dl Intake and Output 04/15/24 04/16/24 04/16/24 22:59 06:59 14:59 Intake Total 200 / 200 Balance 200 / 200 Intake: IV 200 / 200 Magnesium Sulfate / D5w 1 gm In 200 / 200 100 ml @ 50 mls/hr IV Q2H REPLACED BY [facility] Rx#:[id number] Other: Other Intake Source sips Weight 106.4 kg Weight Measurement Method Standing Scale Diagnostic Findings 2D echocardiogram report 04/05/2024: LVEF 55-60% Moderate concentric left ventricular hypertrophy Grade 2 diastolic dysfunction Normal right ventricular size and function Mild aortic regurgitation (3) CAD (coronary artery disease) Coronary Disease-Associated Artery/Lesion type: [place] artery [place] vs. transplanted heart: [place] heart Associated angina: without angina Qualified Code(s): I25.10 - Atherosclerotic heart disease of [place] coronary artery without angina pectoris
--- NOTE | 2024-04-16 15:03 | Hospitalist Progress Note ---
Date of Service April 16, 2024 Assessment & Plan (1) Palpitations: Plan: Palpitations Frequent PVCs H/O sustained ventricular tachycardia likely thought to be secondary to outflow tract tachycardia Palpitations likely precipitated by excessive alcohol use prior to admission Currently on ZIO monitor No recurrent VT's, dysrhythmias while hospitalized Monitor and replace electrolytes as needed Appreciate cardiology input Advised to avoid excessive alcohol use Patient is scheduled for EP study on 05/05/2024 H/O P.Afib S/P Cardioversion Subtherapeutic INR 1.8 today Continue metoprolol succinate 50 mg twice a day Continue verapamil 180 mg daily On Coumadin for anticoagulation Received Coumadin 7.5 mg today Chronic diastolic heart failure (EF 55-60% %, 2023) H/O Nonobstructive CAD Continue aspirin, Lipitor, lisinopril, metoprolol Monitor volume status Hypertension Hyperlipidemia Continue home medications LUIS on CPAP DM II Hold po meds Last HbA1c 7.2 Continue insulin while hospitalized Monitor BGs DVT Px: Coumadin Code Status Full code Disposition Home Admission and Anticipated Discharge Date Admission Date: April 16, 2024 Subjective Patient is seen and examined at bedside Palpitations resolved Offers no complaints today Denies any chest pain, dyspnea, dizziness, nausea, vomiting, abdominal pain Discussed with cardiology today Sinus bradycardia, PVCs on monitor Review of Systems Review of Systems: All systems reviewed & are unremarkable except as noted in Subjective Physical Exam Physical Exam: Physical Exam: Vitals signs as noted above General Appearance:Obese, no apparent distress Head: normocephalic, Atraumatic Eyes: normal inspection, EOMI Neck: supple, Trachea midline Respiratory/Chest: Normal breath sounds, CTA, No accessory muscle use Cardiovascular: S1, S2, No murmur Abdomen/GI:Soft, Non tender, Bowel sounds present Extremities/Musculoskeletal:normal inspection, 1+ edema Neurologic/Psych:AAOX3, grossly no focal neurological deficits Skin: normal color, warm Results & Data Results & Data Vital Signs (Past 12 Hours) Vital Signs Temp Pulse Pulse Resp BP BP Pulse Ox 04/16/24 12:01 36.7 C 52 L 20 130/77 95 04/16/24 08:00 36.6 C 60 18 150/85 H 95 04/16/24 07:18 58 L 04/16/24 04:45 36.6 C 62 16 159/88 H 97 04/16/24 04:40 63 O2 Del Method 04/16/24 12:01 Room Air 04/16/24 08:00 Room Air 04/16/24 07:18 04/16/24 04:45 Room Air 04/16/24 04:40 Laboratory Results Short CBC 04/16/24 Range/Units 00:16 WBC 7.80 (4.8-10.8) K/ul Hgb 13.5 L (14.0-18.0) g/dl Hct 40.7 L (42.0-52.0) % Plt Count 245 (130-400) K/uL BMP 04/16/24 00:16 Sodium 137 Potassium 4.2 Chloride 106 Carbon Dioxide 23 BUN 17 Creatinine 0.89 Glucose 139 H Calcium 9.4
--- NOTE | 2024-04-16 15:09 | Discharge Summary ---
Date of Service April 16, 2024 Admission HPI Per Admitting Provider History obtained from patient, family, and records. Medical history significant for chronic diastolic heart failure (EF 55to 59%, TTE 2023), nonobstructive CAD, A-fib status post cardioversion on Coumadin, history of VT, hypertension, hyperlipidemia, LUIS on CPAP, DM2 on oral medications, chronic anemia (baseline hemoglobin of 13), GERD, acne rosacea, past tobacco abuse. Recent confinement April 05 to 2023 for ventricular tachycardia. Diagnostic cardiac catheterization done during confinement which showed 60% LAD stenosis, not hemodynamically significant by FFR. Not perceived to be culprit for VT. Patient initially started on amiodarone infusion. Patient diltiazem changed to verapamil. Toprol-XL and lisinopril home doses increase on discharge. Outpatient EPS follow-up scheduled for next month. Patient was getting ready to get to bed last night when he experienced palpitations, fast heartbeat similar to VT episode from last admission. Heart rate noted to be 150 at home. Patient compliant with home medications. Denies unusual stress. No actual chest pain or SOB. Patient brought to ER for evaluation. 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 Admission Exam Per Admitting Provider GENERAL: Comfortable, pleasant, obese, no respiratory distress SKIN: Normal color, warm HEENT: Partial alopecia, pink palpebral conjunctivae, no ptosis, moist buccal mucosa NECK : Supple, no tenderness CHEST : CTA, no tenderness HEART : RRR, no obvious murmurs ABDOMEN: Some distention, nontender EXTREMITIES : Minimal LE swelling with prominent varicosities, no LE tenderness, no other conspicuous deformities noted NEUROLOGIC : Coherent, no facial asymmetry, no other gross focality Principal Diagnosis Symptomatic PVCs Subtherapeutic INR Discharge Data Allergies Allergy/AdvReac Type Severity Reaction Status Date / Time No Known Allergies Allergy Verified 04/04/24 23:50 Consultations 04/16/24 04:45 Consult Cardiology Routine Procedures Performed Laboratory Results WBC 7.80 K/ul (4.8-10.8) 04/16/24 00:16 RBC 4.49 M/uL (4.70-6.10) L 04/16/24 00:16 Hgb 13.5 g/dl (14.0-18.0) L 04/16/24 00:16 Hct 40.7 % (42.0-52.0) L 04/16/24 00:16 MCV 90.6 fL (80.0-100.0) 04/16/24 00:16 MCH 30.1 pg (25.0-34.0) 04/16/24 00:16 MCHC 33.2 g/dL (32.0-36.0) 04/16/24 00:16 RDW Std Deviation 43.9 fL (36.4-46.3) 04/16/24 00:16 RDW Coeff of [place] 13.4 % (11.5-14.5) 04/16/24 00:16 Plt Count 245 K/uL (130-400) 04/16/24 00:16 MPV 10.5 fL (9.4-12.4) 04/16/24 00:16 Immature Gran % (Auto) 0.3 % 04/16/24 00:16 Neut % (Auto) 53.3 % 04/16/24 00:16 Lymph % (Auto) 34.4 % 04/16/24 00:16 [place] % (Auto) 7.9 % 04/16/24 00:16 Eos % (Auto) 3.3 % 04/16/24 00:16 Baso % (Auto) 0.8 % 04/16/24 00:16 Neut # (Auto) 4.16 K/uL (1.40-6.50) 04/16/24 00:16 Lymph # (Auto) 2.68 K/uL (1.20-3.40) 04/16/24 00:16 [place] # (Auto) 0.62 K/uL (0.11-0.59) H 04/16/24 00:16 Eos # (Auto) 0.26 K/uL (0.00-0.50) 04/16/24 00:16 Baso # (Auto) 0.06 K/uL (0.00-0.20) 04/16/24 00:16 Immature Gran # (Auto) 0.02 K/uL (0.01-0.20) 04/16/24 00:16 PT 18.1 Seconds (9.0-12.0) H 04/16/24 00:16 INR 1.8 (0.9-1.1) H 04/16/24 00:16 APTT 31 Seconds (21-31) 04/16/24 00:16 PTT Ratio 1.2 04/16/24 00:16 Sodium 137 mmol/L (136-145) 04/16/24 00:16 Potassium 4.2 mmol/L (3.5-5.1) 04/16/24 00:16 Chloride 106 mmol/L (98-107) 04/16/24 00:16 Carbon Dioxide 23 mmol/L (21-32) 04/16/24 00:16 Anion Gap 8 (3-11) 04/16/24 00:16 BUN 17 mg/dl (6-23) 04/16/24 00:16 Creatinine 0.89 mg/dl (0.6-1.4) 04/16/24 00:16 Est Cr Clr Drug Dosing 84.2 ml/min 04/16/24 00:16 Est GFR ( Amer) 97.6 ml/min 04/16/24 00:16 Est GFR (Non-Af Amer) 84.2 ml/min 04/16/24 00:16 BUN/Creatinine Ratio 19.1 (10-20) 04/16/24 00:16 Glucose 139 mg/dl (70-99(Fasting)) H 04/16/24 00:16 POC Glucose 128 mg/dl (70-99) H 04/16/24 11:04 Calcium 9.4 mg/dl (8.6-10.3) 04/16/24 00:16 Magnesium 1.7 mg/dl (1.7-2.4) 04/16/24 00:16 Troponin I High Sens 11.3 pg/ml (0-20) 04/16/24 00:16 Lipase 48 U/L (11-82) 04/16/24 00:16 SARS-CoV-2, RNA, NAAT NEGATIVE (NEGATIVE) 04/16/24 00:29 Impressions Chest X-Ray 04/16/24 00:14 XR chest 1V portable HISTORY: 73 years-old Male Chest pain, nonspecific COMPARISON: 04/04/24 TECHNIQUE: AP view of the chest FINDINGS: Hiatal hernia. Cardiomegaly. Metallic density punctate foreign bodies are again noted projected over the chest and upper abdomen. No pneumothorax, pleural effusion, airspace consolidation or pulmonary edema. Electronic device projects over the left chest. Bones appear grossly intact. IMPRESSION: 1. No acute process. 2. Hiatal hernia. ACT 112: Negative or not required by law. The above report was generated using voice recognition software. It may contain grammatical, syntax or spelling errors. Electronically signed by: Andrea Fink M.D. 04/16/2024 7:23 AM Hospital Course (1) Palpitations: Palpitations Frequent PVCs H/O sustained ventricular tachycardia likely thought to be secondary to outflow tract tachycardia Palpitations likely precipitated by excessive alcohol use prior to admission Currently on ZIO monitor No recurrent VT's, dysrhythmias while hospitalized Monitor and replace electrolytes as needed Appreciate cardiology input Advised to avoid excessive alcohol use Patient is scheduled for EP study on 05/05/2024 H/O P.Afib S/P Cardioversion Subtherapeutic INR 1.8 today Continue metoprolol succinate 50 mg twice a day Continue verapamil 180 mg daily On Coumadin for anticoagulation Received Coumadin 7.5 mg today Chronic diastolic heart failure (EF 55-60% %, 2023) H/O Nonobstructive CAD Continue aspirin, Lipitor, lisinopril, metoprolol Monitor volume status Hypertension Hyperlipidemia Continue home medications LUIS on CPAP DM II Hold po meds Last HbA1c 7.2 Continue insulin while hospitalized Monitor BGs DVT Px: Coumadin Code Status Full code Disposition Home Total Time Total Time Spent Total Time Spent (In Minutes): 58 minutes Discharge Plan Discharge Items Patient Disposition: Home - Self-Care Reason For Visit: PALPITATIONS Discharge Diagnosis: Symptomatic PVCs Subtherapeutic INR Activity: Per Instructions section Exercise/Sports: Wait until after follow-up appointment Non-emergency contact: Primary Care Provider and [employer] Route [employer] Call non-emergency contact if: you have any medication questions, your symptoms worsen, your pain is concerning for you and you have a fever Follow-up/Referrals: Lawrence Rockwell MD [Primary Care Provider] - (Date & Time 04/21/2024 9:00 AM Provider Baldo Al MD [facility] ) Manisha Fernando MD [Outside Practitioners] - (Date & Time 05/05/2024 12:30 PM Provider Manisha Fernando IV, MD Department Cardiology, [facility] ) Diet: Carb Consistent or DM2 and Heart Healthy Addtl Attending Provider Instructions: Follow-up with your primary care physician on 04/21/2024 9:00 AM Follow-up with your ui engineer on 05/05/2024 12:30 PM Follow-up with Coumadin clinic for adjustment of your Coumadin dose and monitoring your INR --Avoid alcohol use as advised -- Increase oral fluid intake to keep hydrated. Seek immediate medical attention if your symptoms reoccur or worsen Please take all medications as instructed on discharge list below. Please call if you have any questions or problems. You can reach a [facility] hospitalist on duty at [facility] 24 hours a day by calling [phone] Pending Studies at Discharge: No Stand-Alone Forms: My [facility], Smoking Cessation Medications and DC Order Prescriptions: Continued atorvastatin 80 mg Tablet 80 mg PO QAM pantoprazole 20 mg Tablet,Delayed Release (Dr/Ec) 20 mg PO QAM propranolol 10 mg Tablet 10 mg PO DAILY PRN (Reason: per cardiology) metformin 1,000 mg Tablet 1,000 mg PO BID warfarin 5 mg Tablet 5 mg PO 2XWK Patient Comments: follows with coumadin clinic Rx Instructions: WED & SAT aspirin 81 mg Tablet,Chewable 81 mg PO QAM fluocinonide 0.05 % Solution 1 applic TOPICAL DAILY PRN (Reason: Itching) fluticasone propionate 50 mcg/actuation [place],Suspension 2 spray INTRANASAL DAILY PRN (Reason: Nasal Congestion) Rx Instructions: administer into each nostril coenzyme Q10 [CoQ-10] 100 mg Capsule 100 mg PO QAM vardenafil 20 mg Tablet 20 mg PO DAILY PRN (Reason: Sexual Activity) geriatric multivitamin-min Tablet 1 tab PO DAILY cinnamon bark [Cinnamon] 500 mg Capsule 500 mg PO QAM salmon oil-omega-3 fatty acids 1,000-200 mg Capsule 1 cap PO DAILY warfarin 5 mg tablet 7.5 mg PO .[id number] Rx Instructions: SUN, MON,TUES, THUR, & FRI doxycycline hyclate 20 mg tablet 20 mg PO DAILY verapamil 180 mg Tablet Extended Release 180 mg PO QAM Qty: 30 0RF magnesium oxide 400 mg (241.3 mg magnesium) Tablet 400 mg PO BID Qty: 30 0RF metoprolol succinate 50 mg Tablet Extended Release 24 Hr 50 mg PO BID Qty: 60 0RF lisinopril 10 mg Tablet 20 mg PO QAM Qty: 60 0RF Discharge Orders: Discharge Order (Routine); Ordered 04/16/24 Ordered By: Cheikh No Admission Data Admit Date/Time: 04/16/24 02:11 Attending Provider: Cheikh No Admit Provider: Caleb Ruby Primary Care Provider: Lawrence Rockwell Other Providers: Genie Nascimento; Humphrey Milton; Franck Baires; Laron Stewart; Edgar Del Rio; Damian Lee; Araceli Crowe; Janette Vazquez; Olena Tejeda; Genie Mckinney; Christopher Weston; José Antonio Valdes; Yue Paez; Ynes Jenkins; Margaret Loya; Bibi Mccarthy; Cb George; Julissa Diallo
--- NOTE | 2024-04-16 15:27 | Electrocardiogram Report ---
Test Reason : Blood Pressure : / mmHG Vent. Rate : 077 BPM Atrial Rate : 077 BPM P-R Int : 154 ms QRS Dur : 100 ms QT Int : 396 ms P-R-T Axes : 007 037 000 degrees QTc Int : 448 ms Poor data quality, interpretation may be adversely affected Sinus rhythm with frequent Premature ventricular complexes Incomplete right bundle branch block Nonspecific T wave abnormality Abnormal ECG When compared with ECG of 05-APR-2024 07:30, Premature ventricular complexes are now Present Nonspecific T wave abnormality, worse in Inferior leads Confirmed by Aniceto Amador ([id number]) on 04/16/2024 3:27:42 PM Referred By: Lawrence Rockwell Confirmed By:Pablo Amador
--- OUTSIDE RECORDS SUMMARY | 2024-04-17 00:34 | External Medical Summary | Summary of Care ---
Author Name Unknown Organization [facility] Address [address] [place] [address] Phone [phone] Care Team Providers Care Real Estate Development Manager Name Role Phone Lawrence Rockwell MD Primary Care Provider +1- [phone] Reason for Visit * Reason Onset Date Comments Hospital Follow-Up 04/06/2024 Encounter Details Date Type Department Care Team (Late st Contact Info) Description 04/06/2024 Telephone Cardiology, [facility] [address] [place] [address] Humphrey Milton, [address] [facility] [place] [address] Hospital Follow-Up Allergies No known active allergiesdocumented as of this encounter (statuses as of 04/08/2024) Medications Medication Sig Dispensed Refills Start Date End Date Status ONETOUCH ULTRA BLUE STRPIndications:DM type 2, goal A1c below 7 TEST TWICE A DAY 180 Strip 3 09/27/2013 Active Multiple Vitamins-Minerals (ONE-A-DAY MENS 50+ ADVANTAGE) TABS Take by mouth. Activ e [place]-3 Fatty Acids (SALMON OIL-1000) 200 MG CAPS [...] ns:HTN, goal below 140/90,Coronary artery disease involving venetie ira coronary artery of venetie ira heart without angina pectoris TAKE 1 TABLET [...] as of this encounter (statuses as of 04/08/2024) Active Problems Problem Noted Date Diagnosed Date Coronary artery disease invo lving venetie ira coronary artery of venetie ira heart without angina pectoris 10/16/2021 Atrial fibrillation 02/28/2020 Overview: Added automatically from request for surgery [id number] LUIS (obstructive sleep apnea) 05/19/2019 Hypersomnolence disorder [...] as of this encounter (statuses as of 04/08/2024) Resolved Problems Problem Noted Date Diagnosed Date Resolved Date Atrial fibrillation, persistent 09/08/2020 10/10/2021 Overview: Added automatically from request for surgery [id number] Nocturnal hypoxemia 05/19/2019 03/15/20 24 Paroxysmal atrial [...] as of this encounter (statuses as of 04/08/2024) Immunizations Name Administration Dates Next Due COVID-19 [...] Split, I IV3, With Preserve, Inj 08/03/2014,09/16/2013,08/07/2012,08/17,08/17/2010 TDAP, Age 7 and older, IM (Adacel) 12/18/2010 Varicella Zoster Vaccine (Adult) 04/27/2014 documented [...] encounter Miscellaneous Notes * Telephone Encounter - Kike Payne OSA - 04/08/2024 10:44 AM EDT Called patient, he is setup for the ZIO on: Friday Appt at 8:45 AM (15 min) And is also aware of his Hosp DC FU on 05/11/24 at 1030 am * Telephone Encounter - Kike Payne OSA - 04/08/2024 9:21 AM EDT Patient is scheduled for the Hosp DC with Araceli Crowe on: Friday Arrive by 10:15 AM Appt at 10:30 AM (30 min) * Telephone Encounter - Humphrey Milton DO - 04/07/2024 2:10 PM EDT Cardio scheduling: pt to be discharge from [facility] today. Please arrange for him to come to the office next week to have 7 day zio patch placed. Order entered.That way we will have the data back for the Dr Fernando visit. Humphrey Milton DO * Telephone Encounter - Humphrey Milton DO - 04/06/2024 5:31 PM EDT Pt currently hospitalized at [facility] for paroxysmal ventricular tachycardia, clinical presentation andfindings suggestive of an outflow tract VT. Case reviewed by phone with Dr Fernando and follow up visit with him already planned for 05/05/24. Please help arrange general cardio follow up as well perhaps in 1-2 weeks with other cardiology provider or AP as I am out office in that time frame. Keep general cardio follow up in September as scheduled for now. Humphrey Milton DO documented in this encounter Plan of Treatment Upcoming Encounters Date Type Department Care Team (Late st Contact Info) Description 04/14/2024 8:45 AM EDT Cardiac Studies Card[facility], [facility] [address] 04/15/2024 11:20 AM EDT Office Visit Family [facility], [place] [address] [place] [phone] Lawrence Rockwell MD [address] [place] [address] 05/04/2024 10:00 AM EDT Office Visit [facility] 132 [facility] [place] [phone] Cristel Canchola DO [facility] [address] 05/05/2024 12:30 PM EDT Office Visit Cardiology, [facility] [address] [place] [address] Manisha Fernando IV, MD [address] [place] [address] 05/10/2024 7:30 AM EDT Anticoagulation Pharmacy, [place] [address] [place] [address] [facility] [address] [place] [address] 05/10/2024 8:45 AM EDT Office Visit Dermatology [facility] [place] [address] [place] [address] Wilian Meneses MD [address] [place] [address] 05/11/2024 10:30 AM EDT Office Visit Cardiology, [facility] [address] Araceli Crowe PA-C [address] [facility] [address] 06/24/2024 8:45 AM EDT Office Visit Podiatry, [facility] [address] [place] [address] Hang Avalos, [facility] [address] [place] [address] 08/30/2024 11:30 AM EDT Office Visit Otolaryngology/Head & Neck/Facial Plastic Surgery [address] [place], [place] [phone] Veronica Clark PA-C [address] [place], [place] [phone] 09/16/2024 8:30 AM EST Office Visit Cardiology, [facility] [address] [place] [address] Margaret Loya CRNP 132 [place] [address] 10/12/2024 7:40 AM EST Office Visit Family Practice, [address] [phone] Lawrence Rockwell MD [address] [place] [address] 11/30/2024 9:45 AM EST Office Visit Dermatology [facility] [address] [place] [address] Wilian Meneses MD [address] [place] [address] 02/03/2025 9:00 AM EDT Nurse Only Ancillary Department, [address] [place] [address] [place], Nurse [facility] [address] [place] [facility] [place] [address] Scheduled Orders Name Type Priority Associated Diagnoses Orde r Schedule EXTERNAL EKG 2 TO 7 DAYS Holter Routine 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) Expected: 04/08/2024 (Approximate), Expires: 04/07/2025 Scheduled Procedures Name Priority Associated Diagnoses Date/Ti me ESOPHAGOGASTRODUODENOSCOPY ( EGD), FLEXIBLE, TRANSORAL, DIAGNOSTIC Recall Hong's esophagus COLONOSCOPY FLEXIBLE PROXIMAL DIAGNOSTIC Recall Hong's esophagus COLONOSCOPY FLEXIBLE PROXIMAL [...] as of this encounter Visit Diagnoses Diagnosis 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 Care Teams Real Estate Development Manager Relationship Specialty Start Date End Date Lawrence Rcokwell MD [address] [place] [address] PCP - General Family Medicine 12/11/10 documented as of this encounter
--- OUTSIDE RECORDS SUMMARY | 2024-04-17 00:34 | External Medical Summary | Summary of Care ---
Author Name Unknown Organization [facility] Address [address] [place] [address] Phone [phone] Care Team Providers Care Parts Puller Name Role Phone Lawrence Rockwell MD Primary Care Provider +1- [phone] Encounter Details Date Type Department Care Team (Late st Contact Info) Description 03/05/2024 Result Scan Unspecified Department <No scans attached> Allergies No known active allergiesdocumented as of this encounter (statuses as of 04/06/2024) Medications Medication Sig Dispensed Refills Start Date End Date Status ONETOUCH ULTRA BLUE STRPIndications:DM type 2, goal A1c below 7 TEST TWICE A DAY 180 Strip 3 09/27/2013 Active Multiple Vitamins-Minerals (ONE-A-DAY MENS 50+ ADVANTAGE) TABS Take by mouth. Activ e [place]-3 Fatty Acids (SALMON OIL-1000) 200 MG CAPS [...] ns:HTN, goal below 140/90,Coronary artery disease involving little traverse coronary artery of [place] heart without angina pectoris TAKE 1 TABLET [...] as of this encounter (statuses as of 04/06/2024) Active Problems Problem Noted Date Diagnosed Date Coronary artery disease invo lving little traverse coronary artery of [place] heart without angina pectoris 10/16/2021 Atrial fibrillation 02/28/2020 Overview: Added automatically from request for surgery [id number] LUIS (obstructive sleep apnea) 05/19/2019 Hypersomnolence disorder [...] as of this encounter (statuses as of 04/06/2024) Resolved Problems Problem Noted Date Diagnosed Date Resolved Date Atrial fibrillation, persistent 09/08/2020 10/10/2021 Overview: Added automatically from request for surgery [id number] Nocturnal hypoxemia 05/19/2019 03/15/20 24 Paroxysmal atrial [...] as of this encounter (statuses as of 04/06/2024) Immunizations Name Administration Dates Next Due COVID-19 [...] Description 4 7:30 AM EDT Anticoagulation Pharmacy, [place] [address] [place] [address] [facility] [address] [place] [address] 4 7:30 AM EDT Hospital Encounter ENDO [facility], Endoscopy Suite, [facility] [address], [address] [place] [address] Demarco Coleman MD [address] [place] [address] 4 7:30 AM EDT - 4 8:30 AM EDT Surgery ENDO [facility], Endoscopy Suite, [facility] [address], [address] [place] [address] Demarco Coleman MD [address] [place] [address] ESOPHAGOGASTRODUODENOSCOPY (EGD), FLEXIBLE, TRANSORAL, DIAGNOSTIC 4 10:00 AM EDT Office Visit Sleep Disorders Ctr [facility] [address] [place] [phone] Cristel Canchola DO [address] [place] [address] 4 12:30 PM EDT Office Visit Cardiology, [facility] [address] [place] [address] Manisha Fernando IV, MD [address] [place] [address] 4 8:45 AM EDT Office Visit Dermatology [facility] 200 [facility] [place] [address] Wilian Meneses MD 200 [place] [address] 4 8:45 AM EDT Office Visit Podiatry, [facility] [address] [place] [address] Hang Avalos, [place] [address] [place], [place] [phone] 4 11:30 AM EDT Office Visit Otolaryngology/ Head & Neck/Facial Plastic Surgery [address] [place] [address] Veronica Clark PA-C [address] [facility] [place] [address] 4 8:30 AM EST Office Visit Cardiology, [facility] [address] [place] [address] Margaret Loya CRNP [address] [place] [facility] [place] [address] 4 7:40 AM EST Office Visit Family [facility], [place] [address] [place] [phone] Lawrence Rockwell MD [address] [place] [address] 5 9:45 AM EST Office Visit Dermatology [facility] 200 [facility] [place] [address] Wilian Meneses MD 200 [facility] [place] [address] 5 9:00 AM EDT Nurse Only Ancillary Department, [address] [address] [place], Nurse [facility] [address] [place] [address] Scheduled Procedures Name Priority Associated Diagnoses Date/Ti me ESOPHAGOGASTRODUODENOSCOPY ( EGD), FLEXIBLE, TRANSORAL, DIAGNOSTIC Recall Hong's esophagus 04/26/2024 7:30 AM EDT COLONOSCOPY FLEXIBLE PROXIMA L DIAGNOSTIC Recall Hong's esophagus 04/26/2024 7:30 AM EDT COLONOSCOPY FLEXIBLE PROXIMA L [...] Procedure Name Priority Date/Time Associated Diagnosis Comments CARDIAC CATH SCANNED RESULT 03/05/2024 documented in this encounter Results * CARDIAC CATH SCANNED RESULT (03/05/2024) 03/05/2024 No Physician Data Unknown CARD CATH documented in this encounter Advance Directives * Full Code (Latest Code Status on File) Date Activated Date Inactivated Comments 10/30/2020 4:04 PM 10/31/2020 1:07 PM This order reflects the patients wishes and were consensually agreed upon. Care Teams Parts Puller Relationship Specialty Start Date End Date Lawrence Rockwell MD [address] [place] [address] PCP - General Family Medicine 12/11/10 documented as of this encounter
--- OUTSIDE RECORDS SUMMARY | 2024-04-17 00:34 | External Medical Summary ---
Author Name Unknown Address Unknown Organization : Laboratory Report Ordering Provider Test Date Status ROSEY SAUNDERS 04/08/2024 07:29:09 Final Therapeutic ranges for non-o perative patients:
Prophylaxsis/treatment of DVT: (Range:2.0-3.0)
Treatment of pulmonary embolism:(Range:2.0-3.0)
Prevention of systemic embolism from:
-tissue heart valves
-acute myocardial infarction
-valvular heart disease
-atrial fibrillation
(Range: 2.0-3.0)
Mechanical prosthetic valves: (Range: 2.5-3.5) Observation Date Value Abnormality Reference (Units ) Status INR in Capillary blood by Coagulation assay 04/08/2024 07:29:09 2.0 (INR) Final Performing Location
--- OUTSIDE RECORDS SUMMARY | 2024-04-17 00:34 | External Medical Summary | Summary of Care ---
Author Name Unknown Organization [facility] Address [address] [place] [address] Phone [phone] Care Team Providers Care Head Operator Sulfide Name Role Phone Lawrence Rockwell MD Primary Care Provider +1- [phone] Reason for Visit * Reason Comments Dosage Adjustment In Person (Anticoag Cl inic) Encounter Details Date Type Department Care Team (Latest Contact Info) Description 04/08/2024 7:30 AM EDT Anticoagulation Pharmacy, [address] [address] [facility] [address] [place] [address] Anticoagulation management encounter*; Atrial fibrillation, unspecified type (HCC) Allergies No known active allergiesdocumented as of this encounter (statuses as of 04/08/2024) Medications Medication Sig Dispensed Refills Start Date End Date Status ONETOUCH ULTRA BLUE STRPIndications:DM type 2, goal A1c below 7 TEST TWICE A DAY 180 Strip 3 09/27/2013 Active Multiple Vitamins-Minerals (ONE-A-DAY MENS 50+ ADVANTAGE) TABS Take by mouth. Activ e [place]-3 Fatty Acids (SALMON OIL-1000) 200 MG CAPS [...] goal of less than 7.0% ([facility]) Test twice daily as directed [...] Overview: Added automatically from request for surgery [id number] LUIS (obstructive sleep apnea) 05/19/2019 Hypersomnolence disorder [...] Overview: Added automatically from request for surgery [id number] Nocturnal hypoxemia 05/19/2019 03/15/20 24 Paroxysmal atrial [...] Progress Notes * Donna Graham RPh - 04/08/2024 7:23 AM EDT Medication Therapy Disease Management - Anticoagulation Patient: Mitch Pinto | : 1950 Subjective Patient-Reported Symptoms: Patient Findings Positives: Change in medications (started on verapamil and magnesium), Hospital admission (04/05-04/07 for paroxysmal ventricular tachycardia. Pending follow up with Dr. Fernando 05/05/24 with potential ablation per patient.) Negatives: Signs/symptoms of thrombosis, Signs/symptoms of bleeding, Change in health, Change in alcohol use, Change in activity, Upcoming invasive procedure, Missed doses, Extra doses, Change in diet/appetite, Bruising Objective Current Warfarin Dose As of 04/08/2024 Warfarin maintenance plan: 5 mg (5 mg x 1) every Wed, Sat; 7.5 mg (5 mg x 1.5) all other days INR Result As of 04/08/2024 INR goal: 2.0-3.0 INR used for dosin.0 (04/08/2024) Assessment & Plan Warfarin Plan As of 04/08/2024 Full warfarin instructions: 5 mg every Wed, Sat; 7.5 mg all other days No change documented: Donna Graham RPh Next INR check: 05/10/2024 Repeat PT/INR in 5 week(s) Weekly dose: not changed Additional Dosing Information: Donna Graham RPh Clinical Pharmacist 04/08/2024, 7:24 AM documented in this encounter Plan of Treatment Upcoming Encounters Date Type Department Care Team (Late st Contact Info) Description 04/15/2024 11:20 AM EDT Office Visit [facility] [address] [facility] [address] Lawrence Rockwell MD [address] [facility] [address] 05/04/2024 10:00 AM EDT Office Visit Sleep Disorders Ctr [facility] 132 [place] [phone] Cristel Canchola, 132 [place] [address] 05/05/2024 12:30 PM EDT [facility] 132 [facility] [place] [address] Manisha Fernando IV, MD [address] [place] [address] 05/10/2024 7:30 AM EDT Anticoagulation Pharmacy, [address] [address] 05/10/2024 8:45 AM EDT Office Visit Dermatology [facility] 200 [place] [address] Wilian Meneses MD [address] [place] [address] 06/24/2024 8:45 AM EDT Office Visit Podiatry, [place] [phone] [place] [address] Hang Avalos, [place] [address] [place] [address] 08/30/2024 11:30 AM EDT Office Visit Otolaryngology/Head & Neck/Facial Plastic Surgery [address], [place] [phone] Veronica Clark PA-C [address] [place], [place] [phone] 09/16/2024 8:30 AM EST Office Visit Cardiology, [facility] [address] [place] [address] Margaret Loya CRNP [address] [place] [address] 10/12/2024 7:40 AM EST Office Visit Family Practice, [place] [address] [place] [address] Lawrence Rockwell MD [address] [place] [address] 11/30/2024 9:45 AM EST Office Visit Dermatology [facility] 200 [place] [address] Wilian Meneses MD 200 [place] [address] 02/03/2025 9:00 AM EDT Nurse Only Ancillary Department, [place] [address] [place] [address] [place], Nurse [facility] [address] [place] [address] Scheduled Orders Name Type Priority Associated Diagnoses Orde r Schedule PT INR Lab Routine Atrial fibrillation, unspecified type (HCC) Anticoagulation management encounter 26 Occurrences starting 04/08/2024 until 04/08/2025 INR FINGERSTICK, POINT OF CARE Point of Care Testing - Unsolicited Results STAT Atrial fibrillation, unspecified type (HCC) Anticoagulation management encounter Every 2 Weeks for 26 Occurrences starting 04/08/2024 until 04/08/2025, 1 completed Scheduled Procedures Name Priority Associated Diagnoses Date/Ti [...] 03/27/2022, Additional history exists Colonoscopy 04/09/2024 04/09/2021, 0 05/2021, 05/12/2015, Additional history exists Colorectal Cancer [...] Comments INR FINGERSTICK, POINT OF CARE STAT 04/08/2024 7:29 AM EDT Atrial fibrillation, unspecified type (HCC) Anticoagulation management encounter documented in this encounter Results * INR FINGERSTICK, POINT OF CARE (04/08/2024 7:29 AM EDT) Fingerstick INR 2.0 INR 7:30 AM EDT [facility] Blood 04/08/2024 7:29 AM EDT 04/08/2024 7:30 AM EDT Narrative [facility] - 04/08/2024 7:30 AM EDT Therapeutic ranges for non-operative patients: Prophylaxsis/treatment of DVT: (Range:2.0-3.0) Treatment of pulmonary embolism:(Range:2.0-3.0) Prevention of systemic embolism from: -tissue heart valves -acute myocardial infarction -valvular heart disease -atrial fibrillation (Range: 2.0-3.0) Mechanical prosthetic valves: (Range: 2.5-3.5) Donna Graham [facility] POINT OF CARE TEST DOCKED DEVICE UNSOLICITED RESULTS [facility] [address] [place] [id number] documented in this encounter Visit Diagnoses Diagnosis Anticoagulation management encounter- Primary Encounter for therapeutic drug monitoring Atrial fibrillation, unspecified type (HCC) documented in this encounter Advance Directives * Full Code (Latest Code Status on File) Date Activated Date Inactivated Comments 10/30/2020 4:04 PM 10/31/2020 1:07 PM This order reflects the patients wishes and were consensually agreed upon. Care Teams Head Operator Sulfide Relationship Specialty Start Date End Date Lawrence Rockwell MD [address] [place] [address] PCP - General Family Medicine 12/11/10 documented as of this encounter"
== END 2024-04-16 16:56 | disposition home or self-care (01) ==
LOC: ED 23:59 → 2S 23:59 → SUATTDRO 04-16 02:11 → 2S 04-16 04:52